=== PATIENT | female | born 1950 | race African-American/Black ===

== ENCOUNTER 2018-04-07 20:13 | Inpatient (IN) | payer OTHER ==
--- NOTE | 2018-04-07 16:15 | R.PREADM ---
SCREENING DATE AND TIME 04/07/2018 13:04 (CDT) ANTICIPATED REHAB ADMISSION DATE 04/09/2018 REFERRING FACILITY [facility] REFERRAL DATE AND TIME 04/07/2018 13:04 (CDT) ACUTE ADMIT DATE 03/30/2018 Previous Rehabilitation(s): No. 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 BRIANNA CASAS REHAB FACILITY [facility] CLINICAL LIAISON Jaron Guy PHYSICIAN REVIEWER Dr. Davie Hernandez M.D. [facility]# [id number] [id number] NAME SHANNAN MCKEE [address] [address] [address] DATE OF 1950 AGE 68 SSN# [id number] GENDER female MARITAL STATUS RACE black ADMIT FROM 02 - [facility] PRE-HOSPITAL LIVING SETTING 01 - Home (private home/apt. board/care, assisted living, half-way, transitional living) HOME TYPE AND DETAILS Type of home: single family house # of levels in the residence: 1 # of steps within the residence: 0 # of steps to enter the residence: 0 PRE-HOSPITAL LIVING WITH Alone FAMILY SUPPORT Yes PHONE PRIMARY FAMILY CONTACT ON ADM.? no IS PRIMARY FAMILY CONTACT AUTH. REP.? no PHONE 1ST CONTACT ON ADM. no IS 1ST CONTACT AUTH. REP.? no PHONE 2ND CONTACT ON ADM.? no PATIENT EMPLOYMENT STATUS Retired (for age) PATIENT EMPLOYER No Employer PAYOR INFORMATION: 1ST PAYOR NAME MEDICARE 1ST PAYOR PHONE [phone] 1ST PAYOR INJURY/ILLNESS DUE TO ACCIDENT? No ANOTHER CONSTITUTION PARTY RESPONSIBLE? No PRIMARY REHAB/ACUTE DIAGNOSIS: ESRD ONSET DATE 03/30/2018 REHAB IMPAIRMENT CATEGORY (PADMA): 20 Miscellaneous (Misc) does NOT meet 60% rule PRIMARY DIAGNOSIS-RELATED SURGERIES: Perm catheter insertion COMORBID REHAB/ACUTE DIAGNOSES: - Tier 1 Dependence on renal dialysis (Z99.2) - Non-Tiered Type 2 diabetes mellitus with diabetic neuropathy, unspecified (E11.40) - N/A HTN ARTHRITIS END STAGE RENAL DISEASE SUMMARY OF ACUTE HOSPITALIZATION: Pt. is a 68 yo Right-handed black female. On 03/30/2018 she was admitted to [facility] with diagnosis ESRD. Her impairment category is Other Disabling Impairments 13 - Other Disabling Impairments (13). Pre-morbidly, Pt. was independent/mod-I in Sphincter Control, Transfers Control, Communication, Socia l Cognition, Self-Care, and Locomotion; and she had good Sphincter Control. Currently, she has deficits of Safety Awareness, Transfers Control, Balance, Self-Care, Locomotion, a nd Endurance. Pt. is now referred to [facility] for acute in-patient rehabilitation in order to maximize patient's functional independence in activities of daily living, strength, ROM, and mobi lity. Patient has realistic goal of being discharged at assistance level 6-Deyanira to reside at Home with Fam joelle/Relatives. PAST MEDICAL HISTORY ARTHRITIS Dependence on renal dialysis (Z99.2) END STAGE RENAL DISEASE HTN Type 2 diabetes mellitus with diabetic neuropathy, unspecified (E11.40) PAST SURGICAL HISTORY: CATARACT APPENDECTOMY CHOLECYSTECTOMY HYSTERECTOMY PHACOEMULSIFICATION OF CATARACT WITH INTRAOCULAR LENS IMPLANT, BILATERAL MEDICATION ALLERGIES: No Known Drug Allergies (NKDA) ENVIRONMENTAL ALLERGIES: None Known - Substance Allergies None Known - Other Allergies None Known CODE STATUS: Full code WEIGHT/HEIGHT/BMI: WEIGHT 235 lbs HEIGHT 5' 0" BMI 45.9 DIET: - Diet Type Regular - Diet - Solid Texture Regular - Diet - Liquid Texture Regular - Tube Feed N/A REVIEW OF SYSTEMS: - Gen Alert and awake Lying in bed No apparent distress Oriented to: person, time, and place - Vital Signs Temperature: 98.9 F SBP/DBP: 153/55 Pulse: 66 Resp: 18 Vital signs stable, afebrile - CVS RRR VITAL SIGNS Temperature: 98.9 F SBP/DBP: 153/55 Pulse: 66 Resp: 18 Vital signs stable, afebrile CURRENT SPHINCTER CONTROL: Pre-hospital bladder status: continent # of bladder accidents in the last 7 days prior to screenin Pre-hospital bowel status: continent # of bowel accidents in the last 7 days prior to screenin Last Bowel Movement Date: DETAILED CURRENT FUNCTIONAL STATUS: - Bladder accident frequency: Ind - No accidents in the past 7 days - Bowel accident frequency: Ind - No accidents in the past 7 days - Walking score based on distance walked: 1(<=50ft) - Wheelchair score based on distance traveled: 0(N/A) FUNCTIONAL STATUS: - Self-Care A. Eating Ind sup B. Grooming Ind sup C. Bathing Ind Ethel D. Dressing - Upper Ind Ethel E. Dressing - Lower Ind Ethel F. Toileting Ind Ethel - Sphincter Control G: Bladder control Ind Ind H: Bowel control Ind Ind - Transfers Control I. Bed/Chair/Wheelchair Ind Ethel J. Toilet Ind Ethel K. Tub/Shower Ind ADNO - Locomotion L. Walk/Wheelchair (C) Ind Ethel L. Walk/Wheelchair (W) Ind Ethel M. Stairs Ind ADNO - Communication N. Comprehension (B) Ind Deyanira O. Expression (B) Ind Deyanira - Social Cognition P. Social Interaction Ind Deyanira Q. Problem Solving Ind Deyanira R. Memory Ind Deyanira - Endurance Fair - Balance Fair - Safety Awareness Fair CURRENT FUNC. DEFICITS: Safety Awareness, Transfers Control, Balance, Self-Care, Locomotion, and Endurance THERAPY NOTES FROM ACUTE CARE: Attached. SPECIAL NEEDS: - Safety Concerns Skin breakdown precautions needed due to skin breakdown risk PRECAUTIONS: - Fall Precaution Bed and chair alarm PATIENT NEEDS ACTIVE AND ONGOING THERAPEUTIC INTERVENTION OF MULTIPLE THERAPY DISCIPLINES, INCLUDING: - Occupational Therapy Evaluate and Treat. - Physical Therapy Evaluate and Treat. PATIENT NEEDS CLOSE MEDICAL SUPERVISION BY A REHABILITATION PHYSICIAN FOR: Bowel and Bladder Management Coordination of Treatment Team Diabetes Management Medical and Co-Morbidity Management DVT Management Pain Management PATIENT REQUIRES 24X7 REHAB NURSING FOR MEDICAL AND FUNCTIONAL MGT. OF THE FOLLOWING DEFICITS: ADL's Ambulation Bowel and Bladder Management Cognition Communication Disease Management Medication Management Patient/Family Education Providing Safe Environment Transfers Pain Management PATIENT REQUIRES INTENSIVE, COORDINATED INTERDISCIPLINARY APPROACH TO REHAB: Arranging Home Equipment/Services Discharge Planning Family Intervention/Training Block Breaker/Case Management PATIENT REHAB POTENTIAL: Expected level of measurable improvement will be of a practical value to patient's functional capacit y or adaptations to impairments Has a viable Discharge Plan Medically appropriate; condition is sufficiently stable to participate in intensive rehab program Patient is able and expected to receive 3 hours of individualized therapy daily on at least 5 of ever y 7 days Patient's prognosis for significant practical improvement within a reasonable period of time appears Good DISCHARGE PLAN: - Estimated Length of Stay (days) 13. - Consensus on plan Discharge plan has been discussed with primary caregiver. Patient/Family is in agreement with the cale n. Primary caregiver is in agreement with the plan. - Patient/Family Goals Return home with assistance. - Planned Living Setting Upon Discharge Home, to live with Family/Relatives. RECOMMENDED CARE LEVEL: IRF RECOMMENDATION DETAILS: Recommended Admission to Comprehensive Rehabilitation Program to Increase Functional [place] SCREENER'S COMPLETENESS CONFIRMATION: - Screening Confirmation The patient data collection on this preadmission screening form is finished PHYSICIANS REVIEW AND ADMISSION DETERMINATION Admit - Based on my review of the Pre-Admission Screening results, in my medical judgment and experie nce, I concur with the findings and recommend admission to [facility], as this patient requires an IRF level of care. SIGNATURE PANEL: Clinical Liaison - [electronically] signed by Jaron Guy on 04/07/2018 at 13:55 (CDT) Physician Reviewer - [electronically] signed by Dr. Davie Hernandez M.D. on 04/07/2018 at 16:14 (CDT )
--- OUTSIDE RECORDS SUMMARY | 2018-04-07 20:15 | XMS REPORT | Clinical Summary ---
:1950 Author Organization [facility] Address [address] [place] [address] Care Team Providers Name Role Phone Walt Logan MD Primary Care Provider Allergies No Known Allergies Current Medications Prescription Sig. Disp. Refills Start Date End Date Status bimatoprost Administer 1 Active (LUMIGAN) 0.01 % drop to both ophthalmic drops eyes nightly. brimonidine-timolol Administer 1 Active (COMBIGAN) 0.2-0.5 % drop to both ophthalmic solution eyes 2 (two) times a day. gabapentin Take 200 mg by Active (NEURONTIN) 100 mg mouth 3 (three) capsule times a day. diphenhydrAMINE Take 25 mg by Active (BENADRYL) 25 mg mouth daily as tablet needed for allergies. hydrOXYzine (ATARAX) Take 25 mg by Active 25 MG tablet mouth every 8 (eight) hours as needed for itching. famotidine (PEPCID) Take 20 mg by Active 20 MG tablet mouth 2 (two) times a day. atorvastatin Take 10 mg by Active (LIPITOR) 10 MG mouth daily. tablet glipiZIDE Take 2.5 mg by Active (GLUCOTROL) 2.5 MG mouth every 24 hr tablet morning. furosemide (LASIX) Take 20 mg by 01/15/20 Discontinued 20 mg tablet mouth daily. 18 Note: Rx label state 1 tab QOD, but pt states MD changed to QD. carvedilol (COREG) Take 12.5 mg by 01/15/20 Discontinued 6.25 MG tablet mouth 2 (two) 18 times a day with meals. Note: Rx label state 1 tab BID, but pt states MD changed to 2 tab BID. enalapril (VASOTEC) Take 20 mg by 01/15/20 Discontinued 20 MG tablet mouth every 18 morning. clonIDINE HCl Take 0.2 mg by 01/15/20 Discontinued (CATAPRES) 0.2 MG mouth 2 (two) 18 tablet times a day. carvedilol (COREG) Take 1 tablet 60 tablet 0 01/14/2018 02/14/20 25 MG tablet (25 mg total) 18 by mouth 2 (two) times a day with meals for 30 days. nystatin Take 5 mL by 60 mL 0 01/14/2018 01/22/20 (MYCOSTATIN) 100,000 mouth 3 (three) 18 unit/mL suspension times a day for 7 days. Swish in mouth clonIDINE HCl Take 1 tablet 90 tablet 0 01/14/2018 02/14/20 (CATAPRES) 0.2 MG (0.2 mg total) 18 tablet by mouth 3 (three) times a day for 30 days. hydrALAZINE Take 1 tablet 90 tablet 0 01/14/2018 02/14/20 (APRESOLINE) 50 MG (50 mg total) 18 tablet by mouth every 8 (eight) hours for 30 days. furosemide (LASIX) Take 2 tablets 60 tablet 0 01/14/2018 02/14/20 20 mg tablet (40 mg total) 18 by mouth daily for 30 days. Note: Rx label state 1 tab QOD, but pt states MD changed to QD. doxycycline Take 1 capsule 10 capsule 0 01/14/2018 01/20/20 (VIBRAMYCIN) 100 MG (100 mg total) 18 capsule by mouth 2 (two) times a day with meals for 5 days. Active Problems Problem Noted Date Cellulitis of right lower extremity 01/07/2018 Encounters Date Type Specialty Care Team Description 01/23/2018 Documentation Nephrology Jeannie Jackson MD 01/07/2018 - Hospital Encounter General Internal Rivenes, Cellulitis of right lower extremity (Primary Dx); 01/14/2018 Medicine Jose Hernández MD Chronic kidney disease, unspecified CKD stage; Winnie, Congestive heart failure, unspecified congestive heart failure chronicity, unspecified congestive heart failure type; MD Sue Anemia, unspecified type; Zuhair Mcfarlane, Osteoarthritis of knee, unspecified laterality, unspecified osteoarthritis type MD after 04/06/2017 Social History Tobacco Use Types Packs/Day Years Used Date Never Smoker Smokeless Tobacco: Never Used Alcohol Use Drinks/Week oz/Week Comments No Sex Assigned at Date Recorded Not on file Last Filed Vital Signs Vital Sign Reading Time Taken Blood Pressure 155/69 01/14/2018 11:12 AM CDT Pulse 68 01/14/2018 1:29 PM CDT Temperature 36.3 C (97.4 F) 01/14/2018 11:12 AM CDT Respiratory Rate 18 01/14/2018 1:29 PM CDT Oxygen Saturation 97% 01/14/2018 11:12 AM CDT Inhaled Oxygen Concentration - - Weight 120 kg (265 lb) 01/14/2018 7:19 AM CDT Height 157.5 cm (5' 2") 01/07/2018 12:29 PM CDT Body Mass Index 48.47 01/14/2018 7:19 AM CDT Plan of Treatment Health Maintenance Due Date Last Done Comments DIABETIC FOOT EXAM 1958 DIABETIC RETINAL EYE EXAM 1958 URINE MICROALBUMIN 1958 BREAST CANCER SCREENING 1998 COLON CANCER SCREENING 1998 SHINGRIX VACCINE (#1) 1998 ZOSTER VACCINE 2008 PNEUMOCOCCAL POLYSACCHARIDE VACCINE AGE 65 AND OVER 2013 PNEUMOCOCCAL-13 2013 INFLUENZA VACCINE 04/13/2018 Procedures Procedure Name Priority Date/Time Associated Comments Diagnosis POC GLUCOSE Routine 01/14/2018 11:14 Results for this AM CDT procedure are in the results section. POC GLUCOSE Routine 01/14/2018 7:49 Results for this AM CDT procedure are in the results section. ESTIMATED GFR Routine 01/14/2018 4:15 Results for this AM CDT procedure are in the results section. BASIC METABOLIC PANEL Routine 01/14/2018 4:15 Results for this AM CDT procedure are in the results section. POC GLUCOSE Routine 01/13/2018 9:24 Results for this PM CDT procedure are in the results section. POC GLUCOSE Routine 01/13/2018 4:46 Results for this PM CDT procedure are in the results section. XR CHEST 1 VW PORTABLE Routine 01/13/2018 12:15 Results for this PM CDT procedure are in the results section. POC GLUCOSE Routine 01/13/2018 11:26 Results for this AM CDT procedure are in the results section. POC GLUCOSE Routine 01/13/2018 8:02 Results for this AM CDT procedure are in the results section. ESTIMATED GFR Routine 01/13/2018 12:45 Results for this AM CDT procedure are in the results section. BASIC METABOLIC PANEL Routine 01/13/2018 12:45 Results for this AM CDT procedure are in the results section. POC GLUCOSE Routine 01/12/2018 9:11 Results for this PM CDT procedure are in the results section. ECG 12-LEAD STAT 01/12/2018 7:45 Results for this PM CDT procedure are in the results section. POC GLUCOSE Routine 01/12/2018 4:41 Results for this PM CDT procedure are in the results section. POC GLUCOSE Routine 01/12/2018 12:31 Results for this PM CDT procedure are in the results section. POC GLUCOSE Routine 01/12/2018 7:50 Results for this AM CDT procedure are in the results section. POC GLUCOSE Routine 01/11/2018 9:24 Results for this PM CDT procedure are in the results section. POC GLUCOSE Routine 01/11/2018 4:29 Results for this PM CDT procedure are in the results section. POC GLUCOSE Routine 01/11/2018 12:12 Results for this PM CDT procedure are in the results section. HC COMPLETE BLD COUNT Routine 01/11/2018 10:05 Results for this W/AUTO DIFF AM CDT procedure are in the results section. ESTIMATED GFR Routine 01/11/2018 10:02 Results for this AM CDT procedure are in the results section. BASIC METABOLIC PANEL Routine 01/11/2018 10:02 Results for this AM CDT procedure are in the results section. POC GLUCOSE Routine 01/11/2018 8:12 Results for this AM CDT procedure are in the results section. ARTERIAL BLOOD GAS Routine 01/11/2018 7:40 Results for this AM CDT procedure are in the results section. POC GLUCOSE Routine 01/10/2018 9:36 Results for this PM CDT procedure are in the results section. XR ABDOMEN 1 VW Routine 01/10/2018 8:44 Results for this PM CDT procedure are in the results section. POC GLUCOSE Routine 01/10/2018 4:16 Results for this PM CDT procedure are in the results section. POC GLUCOSE Routine 01/10/2018 12:51 Results for this PM CDT procedure are in the results section. XR CHEST 1 VW PORTABLE Routine 01/10/2018 9:37 Results for this AM CDT procedure are in the results section. POC GLUCOSE Routine 01/10/2018 7:51 Results for this AM CDT procedure are in the results section. ESTIMATED GFR Routine 01/10/2018 4:15 Results for this AM CDT procedure are in the results section. HC COMPLETE BLD COUNT Routine 01/10/2018 4:15 Results for this W/AUTO DIFF AM CDT procedure are in the results section. COMPREHENSIVE METABOLIC Routine 01/10/2018 4:15 Results for this PANEL AM CDT procedure are in the results section. POC GLUCOSE Routine 01/09/2018 8:40 Results for this PM CDT procedure are in the results section. VANCOMYCIN LEVEL, TROUGH Timed 01/09/2018 5:30 Results for this PM CDT procedure are in the results section. POC GLUCOSE Routine 01/09/2018 4:18 Results for this PM CDT procedure are in the results section. POC GLUCOSE Routine 01/09/2018 11:57 Results for this AM CDT procedure are in the results section. POC GLUCOSE Routine 01/09/2018 7:31 Results for this AM CDT procedure are in the results section. CREATINE KINASE, TOTAL Routine 01/09/2018 2:10 Results for this (CPK) AM CDT procedure are in the results section. ESTIMATED GFR Routine 01/09/2018 2:10 Results for this AM CDT procedure are in the results section. LIPASE LEVEL Routine 01/09/2018 2:10 Results for this AM CDT procedure are in the results section. CBC WITH PLATELET AND Routine 01/09/2018 2:10 Results for this DIFFERENTIAL AM CDT procedure are in the results section. COMPREHENSIVE METABOLIC Routine 01/09/2018 2:10 Results for this PANEL AM CDT procedure are in the results section. SERUM ELECTROPHORESIS Routine 01/09/2018 2:10 Results for this AM CDT procedure are in the results section. HEPATITIS ACUTE PANEL Routine 01/09/2018 2:10 Results for this AM CDT procedure are in the results section. GLOMERULAR BASEMENT Routine 01/09/2018 2:10 Results for this MEMBRANE AB IGG (IFA) AM CDT procedure are in the results section. ANTI-NEUTROPHILIC Routine 01/09/2018 2:10 Results for this CYTOPLASMIC ABS PANEL AM CDT procedure are in the results section. TROPONIN Timed 01/09/2018 2:10 Results for this AM CDT procedure are in the results section. US RENAL Routine 01/09/2018 1:42 Results for this AM CDT procedure are in the results section. URINALYSIS SCREEN AND Routine 01/08/2018 11:30 Results for this MICROSCOPY, WITH REFLEX PM CDT procedure are in TO CULTURE the results section. URINE CULTURE Routine 01/08/2018 11:30 Results for this PM CDT procedure are in the results section. POC GLUCOSE Routine 01/08/2018 8:52 Results for this PM CDT procedure are in the results section. ESTIMATED GFR Routine 01/08/2018 5:30 Results for this PM CDT procedure are in the results section. COMPREHENSIVE METABOLIC Routine 01/08/2018 5:30 Results for this PANEL PM CDT procedure are in the results section. ARTERIAL BLOOD GAS Routine 01/08/2018 5:11 Results for this PM CDT procedure are in the results section. POC GLUCOSE Routine 01/08/2018 4:37 Results for this PM CDT procedure are in the results section. ECHOCARDIOGRAM 2D Routine 01/08/2018 4:25 Results for this COMPLETE W MMODE PM CDT procedure are in SPECTRAL COLOR DOPPLER the results (09660) section. ESTIMATED GFR Routine 01/08/2018 12:30 Results for this PM CDT procedure are in the results section. COMPREHENSIVE METABOLIC Routine 01/08/2018 12:30 Results for this PANEL PM CDT procedure are in the results section. POC GLUCOSE Routine 01/08/2018 12:16 Results for this PM CDT procedure are in the results section. CT CHEST WO CONTRAST Routine 01/08/2018 10:13 Results for this AM CDT procedure are in the results section. POC GLUCOSE Routine 01/08/2018 8:25 Results for this AM CDT procedure are in the results section. LACTIC ACID LEVEL, Timed 01/08/2018 4:10 Results for this SEPSIS - NOW AND REPEAT AM CDT procedure are in 2X EVERY 3 HOURS the results section. POC GLUCOSE Routine 01/07/2018 7:09 Results for this PM CDT procedure are in the results section. LACTIC ACID LEVEL, Timed 01/07/2018 4:30 Results for this SEPSIS - NOW AND REPEAT PM CDT procedure are in 2X EVERY 3 HOURS the results section. US DUPLEX VENOUS LOWER STAT 01/07/2018 3:10 Results for this EXTREMITY RIGHT PM CDT procedure are in the results section. BLOOD CULTURE, AEROBIC & Routine 01/07/2018 2:58 Results for this ANAEROBIC PM CDT procedure are in the results section. BLOOD CULTURE, AEROBIC & Routine 01/07/2018 2:40 Results for this ANAEROBIC PM CDT procedure are in the results section. ECG 12-LEAD STAT 01/07/2018 1:52 Results for this PM CDT procedure are in the results section. ESTIMATED GFR STAT 01/07/2018 1:45 Results for this PM CDT procedure are in the results section. B NATRIURETIC PEPTIDE STAT 01/07/2018 1:45 Results for this PM CDT procedure are in the results section. TROPONIN STAT 01/07/2018 1:45 Results for this PM CDT procedure are in the results section. LACTIC ACID LEVEL, STAT 01/07/2018 1:45 Results for this SEPSIS - NOW AND REPEAT PM CDT procedure are in 2X EVERY 3 HOURS the results section. COMPREHENSIVE METABOLIC STAT 01/07/2018 1:45 Results for this PANEL PM CDT procedure are in the results section. HC COMPLETE BLD COUNT STAT 01/07/2018 1:45 Results for this W/AUTO DIFF PM CDT procedure are in the results section. XR CHEST 1 VW PORTABLE STAT 01/07/2018 1:43 Results for this PM CDT procedure are in the results section. XR KNEE 4+ VW RIGHT STAT 01/07/2018 1:43 Results for this PM CDT procedure are in the results section. ECG ED PRELIMINARY Routine 01/07/2018 1:18 Results for this INTERPRETATION PM CDT procedure are in the results section. URINALYSIS SCREEN AND STAT 01/07/2018 1:18 Results for this MICROSCOPY, WITH REFLEX PM CDT procedure are in TO CULTURE the results section. URINE CULTURE STAT 01/07/2018 1:18 Results for this PM CDT procedure are in the results section. after 04/06/2017 Results POC glucose (01/14/2018 11:14 AM)Only the most recent of27 resultswithin the time period is included. POC glucose 260 (H) 65 - 99 mg/dL [facility] DEPARTMENT OF PATHOLOGY AND Comment: GENOMIC MEDICINE RN Notified Meter ID: [id number] [employer] Sales Representative: Wayne Almaraz Performing Organization Address City/State/Zipcode Phone Number [facility] DEPARTMENT OF PATHOLOGY [address] [facility] [place] [address] AND GENOMIC MEDICINE Estimated GFR (01/14/2018 4:15 AM)Only the most recent of8 resultswithin the time period is included. GFR Non Af Amer 21 (A) mL/min/1.73 m2 [facility] DEPARTMENT OF PATHOLOGY AND GENOMIC MEDICINE GFR Af Amer 25 (A) mL/min/1.73 m2 [facility] DEPARTMENT OF Comment: PATHOLOGY AND GENOMIC Chronic kidney disease: <60 mL/min/1.73m2 MEDICINE Kidney failure: <15 mL/min/1.73m2 The estimated GFR is calculated from the IDMS-traceable Modification of Diet in Renal Disease Equation. The accuracy of the calculation is poor when the creatinine is normal. Calculated values >90 mL/min/1.73m2 are not reported. This equation has not been validated in children (<18 years), women, the elderly (>70 years), or ethnic groups other than Caucasians and Americans. Specimen Plasma specimen Performing Organization Address City/[facility] Cent[facility]ode Phone Number [facility] DEPARTMENT OF PATHOLOGY [address] [place] [address]. [place] [address] AND [employer] Basic metabolic panel (01/14/2018 4:15 AM)Only the most recent of3 resultswithin the time period is included. Sodium 142 135 - 148 mEq/L [facility] DEPARTMENT OF PATHOLOGY AND GENOMIC MEDICINE Potassium 4.1 3.5 - 5.0 mEq/L [facility] DEPARTMENT OF PATHOLOGY AND GENOMIC MEDICINE Chloride 107 98 - 112 mEq/L [facility] DEPARTMENT OF PATHOLOGY AND GENOMIC MEDICINE CO2 23 (L) 24 - 31 mEq/L [facility] DEPARTMENT OF PATHOLOGY AND GENOMIC MEDICINE Anion gap 12 7 - 15 mEq/L [facility] DEPARTMENT OF Comment: PATHOLOGY AND GENOMIC Starting from December , anion gap calculation MEDICINE no longer incorporates potassium. Please note the change. BUN 32 (H) 8 - 23 mg/dL [facility] DEPARTMENT OF PATHOLOGY AND GENOMIC MEDICINE Creatinine 2.3 (H) 0.5 - 0.9 mg/dL [facility] DEPARTMENT OF PATHOLOGY AND GENOMIC MEDICINE Glucose 165 (H) 65 - 99 mg/dL [facility] DEPARTMENT OF PATHOLOGY AND GENOMIC MEDICINE Calcium 8.5 (L) 8.8 - 10.2 mg/dL [facility] DEPARTMENT OF PATHOLOGY AND GENOMIC MEDICINE Specimen Plasma specimen Performing Organization Address City/[facility] Centercode Phone Number [facility] DEPARTMENT OF PATHOLOGY [address] [place] [address]. [place] [address] AND [employer] XR Chest 1 Vw Portable (01/13/2018 12:15 PM)Only the most recent of3 resultswithin the time period is included. Narrative Performed At EXAMINATION:XR CHEST 1 VW PORTABLE [facility] CLINICAL HISTORY:Congestive Heart Failure COMPARISON:01/10/2018 IMPRESSION: No significant change. Moderate cardiomegaly and central pulmonary vascular congestion, accentuated by low lung volumes. No definite infiltrate, consolidation, pleural effusion or pneumothorax. Osseous degenerative changes. [id number] Procedure Note Hm Interface, Radiology Results Incoming - 01/13/2018 12:28 PM CDT EXAMINATION: XR CHEST 1 VW PORTABLE CLINICAL HISTORY: Congestive Heart Failure COMPARISON: 01/10/2018 IMPRESSION: No significant change. Moderate cardiomegaly and central pulmonary vascular congestion, accentuated by low lung volumes. No definite infiltrate, consolidation, pleural effusion or pneumothorax. Osseous degenerative changes. [id number] Performing Organization Address [facility] Phone Number [facility] [address] [place] [address] ECG 12 lead (01/12/2018 7:45 PM)Only the most recent of2 resultswithin the time period is included. Ventricular rate 77 [facility] MUSE Atrial rate 88 [facility] MUSE QRSD interval 78 [facility] QT interval 392 [facility] QTC interval 443 [facility]USE QRS axis 1 26 [facility] T wave axis 56 [facility] EKG impression Atrial fibrillation-Abnormal ECG-In automated [facility] MUSE comparison with ECG of 07-JAN-2018 13:52,-QT has lengthened- Performing Organization Address [facility] Phone Number [employer] [facility] [address] [place] [address] CBC with platelet and differential (01/11/2018 10:05 AM)Only the most recent of4 resultswithin the time period is included. WBC 3.8 (L) 4.5 - 11.0 k/uL [facility] DEPARTMENT OF PATHOLOGY AND GENOMIC MEDICINE RBC 3.13 (L) 4.20 - 5.50 m/uL [facility] DEPARTMENT OF PATHOLOGY AND GENOMIC MEDICINE HGB 9.2 (L) 12.0 - 16.0 g/dL [facility] DEPARTMENT OF PATHOLOGY AND GENOMIC MEDICINE HCT 28.6 (L) 37.0 - 47.0 % [facility] DEPARTMENT OF PATHOLOGY AND GENOMIC MEDICINE MCV 91.4 82.0 - 100.0 fL [facility] DEPARTMENT OF PATHOLOGY AND GENOMIC MEDICINE MCH 29.4 27.0 - 34.0 pg [facility] DEPARTMENT OF PATHOLOGY AND GENOMIC MEDICINE MCHC 32.2 31.0 - 37.0 g/dL [facility] DEPARTMENT OF PATHOLOGY AND GENOMIC MEDICINE RDW - SD 48.6 37.0 - 55.0 fL [facility] DEPARTMENT OF PATHOLOGY AND GENOMIC MEDICINE MPV 9.8 6.9 - 11.0 fL [facility] OF PATHOLOGY AND GENOMIC MEDICINE Platelet count 198 150 - 400 K/uL [facility] DEPARTMENT OF PATHOLOGY AND GENOMIC MEDICINE Nucleated RBC 0.00 /100 WBC [facility] DEPARTMENT OF PATHOLOGY AND GENOMIC MEDICINE Neutrophils 63.8 39.0 - 69.0 % [facility] DEPARTMENT OF PATHOLOGY AND GENOMIC MEDICINE Lymphocytes 18.6 (L) 25.0 - 45.0 % [facility] DEPARTMENT OF PATHOLOGY AND GENOMIC MEDICINE Monocytes 11.5 (H) 0.0 - 10.0 % [facility] DEPARTMENT OF PATHOLOGY AND GENOMIC MEDICINE Eosinophils 5.5 (H) 0.0 - 5.0 % [facility] DEPARTMENT OF PATHOLOGY AND GENOMIC MEDICINE Basophils 0.3 0.0 - 1.0 % [facility] OF PATHOLOGY AND GENOMIC MEDICINE Immature granulocytes 0.3 0.0 - 1.0 % [facility] DEPARTMENT OF PATHOLOGY AND GENOMIC MEDICINE Specimen Blood Performing Organization Address City/[facility] Centercode Phone Number [place] [phone] [place] [address] AND [facility] Arterial blood gas (01/11/2018 7:40 AM)Only the most recent of2 resultswithin the time period is included. pH, arterial 7.32 (L) 7.35 - 7.45 [facility] DEPARTMENT OF PATHOLOGY AND GENOMIC MEDICINE pCO2, arterial 40 35 - 45 mmHg [facility] DEPARTMENT OF PATHOLOGY AND GENOMIC MEDICINE pO2, arterial 125 (H) 80 - 90 mmHg [facility] DEPARTMENT OF PATHOLOGY AND GENOMIC MEDICINE Bicarbonate, arterial 19.7 (L) 21.0 - 28.0 mmol/L [facility] PATHOLOGY AND GENOMIC MEDICINE Base excess, arterial -6 (L) -2 - 2 mEq/L [facility] DEPARTMENT OF PATHOLOGY AND GENOMIC MEDICINE O2 saturation, arterial 99 95 - 100 % [facility] DEPARTMENT OF PATHOLOGY AND [email or web address] MEDICINE Specimen Blood Performing Organization Address City/[facility] Centercode Phone Number [facility] PATHOLOGY [address] [facility] [place] [address] AND GENOMIC MEDICINE XR Abdomen 1 Vw (01/10/2018 8:44 PM) Narrative Performed At EXAMINATION:XR ABDOMEN 1 VW [facility] CLINICAL HISTORY:Vomiting COMPARISON:None. Impression: The bowel gas pattern is nonspecific. No pathologic masses. A small calcific density in the right upper quadrant may represent small gallstones. There are no renal calculi on the recent kidney ultrasound. There are degenerative changes in the lumbar spine.. [id number] Procedure Note Interface, Radiology Results Incoming - 01/10/2018 9:32 PM CDT EXAMINATION: XR ABDOMEN 1 VW CLINICAL HISTORY: Vomiting COMPARISON: None. Impression: The bowel gas pattern is nonspecific. No pathologic masses. A small calcific density in the right upper quadrant may represent small gallstones. There are no renal calculi on the recent kidney ultrasound. There are degenerative changes in the lumbar spine.. [id number] Performing Organization Address City/State/Zipcode Phone Number [facility] [address] [place] [address] Comprehensive metabolic panel (01/10/2018 4:15 AM)Only the most recent of5 resultswithin the time period is included. Sodium 139 135 - 148 mEq/L [facility] DEPARTMENT OF PATHOLOGY AND GENOMIC MEDICINE Potassium 4.9 3.5 - 5.0 mEq/L [facility] DEPARTMENT OF PATHOLOGY AND GENOMIC MEDICINE Chloride 105 98 - 112 mEq/L [facility] DEPARTMENT OF PATHOLOGY AND GENOMIC MEDICINE CO2 20 (L) 24 - 31 mEq/L [facility] DEPARTMENT OF PATHOLOGY AND GENOMIC MEDICINE Anion gap 14 7 - 15 mEq/L [facility] DEPARTMENT OF Comment: PATHOLOGY AND GENOMIC Starting from December , anion gap calculation MEDICINE no longer incorporates potassium. Please note the change. BUN 62 (H) 8 - 23 mg/dL [facility] DEPARTMENT OF PATHOLOGY AND GENOMIC MEDICINE Creatinine 2.9 (H) 0.5 - 0.9 mg/dL [facility] DEPARTMENT OF PATHOLOGY AND GENOMIC MEDICINE Glucose 188 (H) 65 - 99 mg/dL [facility] DEPARTMENT OF PATHOLOGY AND GENOMIC MEDICINE Calcium 7.9 (L) 8.8 - 10.2 mg/dL [facility] DEPARTMENT OF PATHOLOGY AND GENOMIC MEDICINE Protein 6.1 (L) 6.3 - 8.3 g/dL [facility] DEPARTMENT OF PATHOLOGY AND GENOMIC MEDICINE Albumin 3.0 (L) 3.5 - 5.0 g/dL [facility] DEPARTMENT OF PATHOLOGY AND GENOMIC MEDICINE A/G ratio 1.0 0.7 - 3.8 [facility] DEPARTMENT OF PATHOLOGY AND GENOMIC MEDICINE Alkaline phosphatase 86 35 - 104 U/L [facility] DEPARTMENT OF PATHOLOGY AND GENOMIC MEDICINE AST 14 10 - 35 U/L [facility] DEPARTMENT OF PATHOLOGY AND GENOMIC MEDICINE ALT 26 5 - 50 U/L [facility] DEPARTMENT OF PATHOLOGY AND GENOMIC MEDICINE Total bilirubin <0.2 0.2 - 1.2 mg/dL [facility] DEPARTMENT OF PATHOLOGY AND GENOMIC MEDICINE Specimen Plasma specimen Performing Organization Address City/[facility] Centercomn Phone Number [facility] DEPARTMENT OF PATHOLOGY [address] [place] [address] AND [facility] Vancomycin level, trough (01/09/2018 5:30 PM) Vancomycin, trough 6.5 (L) 10.0 - 20.0 ug/mL [facility] DEPARTMENT OF Comment: PATHOLOGY AND GENOMIC Therapeutic Ranges: MEDICINE Peak30.0 - 40.0 ug/mL Rtpbod06.0 - 20.0 ug/mL Specimen Blood Performing Organization Address [facility] Phone Number [facility] DEPARTMENT OF PATHOLOGY [address] [place] [address] AND [facility] Glomerular basement membrane Ab IgG (IFA) (01/09/2018 2:10 AM) Glomerular basement Negative Negative [facility] membrane Ab Comment: INTERPRETIVE INFORMATION:GBM Ab, IgG (IFA) When present, IgG antibody to glomerular basement membrane (GBM) antigen detected by either indirect fluorescent antibody (IFA) or multiplex bead assay helps support a diagnosis of Goodpasture syndrome.However, the combined result of both assays performed during initial evaluation improves the diagnostic sensitivity for disease. A positive result in one or both assays should be confirmed by renal biopsy. Test developed and characteristics determined by [employer]. See Compliance Statement D: [employer]CS Performed by [employer], [address] [place] [address] [email or web address], Brad Menon MD - Lab. Director Specimen Serum Performing Organization Address [facility] Cent[facility] Phone Number [facility] [address] [place] [address] Troponin (01/09/2018 2:10 AM)Only the most recent of2 resultswithin the time period is included. Troponin <0.30 0.00 - 0.30 ng/mL [facility] DEPARTMENT OF PATHOLOGY Comment: AND [facility] MEDICINE 0.11 - 1.49 ng/mlMay indicate increased risk of acute coronary syndrome. >=1.5 ng/mlConsistent with acute myocardial infarction. The diagnostic value of a single normal or non-diagnostic result is questionable.Serial samples at 2-6 hour intervals are required to rule out acute myocardial injury. Specimen Plasma specimen Performing Organization Address City/[facility] Centercode Phone Number [facility] DEPARTMENT OF PATHOLOGY [address] [place] [address] AND [email or web address] [facility] Hepatitis acute panel (01/09/2018 2:10 AM) Hepatitis A IgM Non-reactive Non-reactive [facility] DEPARTMENT OF PATHOLOGY AND GENOMIC MEDICINE Hepatitis B core IgM Non-reactive Non-reactive [facility] DEPARTMENT OF PATHOLOGY AND GENOMIC MEDICINE Hepatitis B surface Ag Non-reactive Non-reactive [facility] DEPARTMENT OF PATHOLOGY AND GENOMIC MEDICINE Hepatitis C Ab Non-reactive Non-reactive [facility] DEPARTMENT OF PATHOLOGY AND [email or web address] MEDICINE Specimen Serum Performing Organization Address [facility] Phone Number [facility] DEPARTMENT OF PATHOLOGY AND [address] [place] [address] [facility] Anti-neutrophilic cytoplasmic Abs panel (01/09/2018 2:10 AM) ANCA screen Positive (A) Negative [facility] DEPARTMENT OF PATHOLOGY AND GENOMIC MEDICINE ANCA pattern Atyp-ANCA (A) Negative [facility] DEPARTMENT OF PATHOLOGY AND GENOMIC MEDICINE ANCA titer See Comment Negative [facility] DEPARTMENT OF Comment: PATHOLOGY AND [facility] Titer of Atypical-ANCAcannot be reliably determined due to interference MEDICINE from VIRGILIO staining on IFA slides. MPO (myeloperoxidase) <20 0 - 20 Units [facility] DEPARTMENT OF Comment: PATHOLOGY AND GENOMIC Negative: 0 - 20 units MEDICINE Weak Positive:21 - 30 units Moderate to Strong: > 30 units MPO (myeloperoxidase) Negative Negative [facility] DEPARTMENT OF [facility] PATHOLOGY AND [facility] MEDICINE MS-3 (protease) <20 0 - 20 Units [facility] DEPARTMENT OF Comment: PATHOLOGY AND GENOMIC Negative:0 - 20 UNITS MEDICINE Weak Positive: 21 - 30 UNITS Moderate to Strong Positive: > 30 UNITS MS-3 (protease) interp Negative Negative [facility] DEPARTMENT OF PATHOLOGY AND GENOMIC MEDICINE Specimen Blood Performing Organization Address City/[facility] Centercode Phone Number [facility] DEPARTMENT OF PATHOLOGY AND [address] [place] [address] GENOMIC MEDICINE Serum electrophoresis (01/09/2018 2:10 AM) Protein 5.5 (L) 6.3 - 8.3 g/dL [facility] DEPARTMENT OF Comment: PATHOLOGY AND [place] 4.6-7.0 g/dL GENOMIC MEDICINE 1 week 4.4-7.6 g/dL 7 months-1year5.1-7.3 g/dL 1-2 years5.6-7.5 g/dL >3 years6.0-8.0 g/dL 18-150 6.3-8.3 g/dL SPE albumin 2.85 (L) 4.00 - 5.30 [facility] DEPARTMENT OF g/dL PATHOLOGY AND GENOMIC MEDICINE SPE alpha 1 0.23 0.10 - 0.25 [facility] DEPARTMENT OF g/dL PATHOLOGY AND GENOMIC MEDICINE SPE alpha 2 1.02 (H) 0.58 - 0.84 [facility] DEPARTMENT OF g/dL PATHOLOGY AND GENOMIC MEDICINE SPE beta 0.85 0.50 - 1.10 [facility] DEPARTMENT OF g/dL PATHOLOGY AND GENOMIC MEDICINE SPE gamma 0.54 (L) 0.60 - 1.30 [facility] DEPARTMENT OF g/dL PATHOLOGY AND GENOMIC MEDICINE SPE extended See Comment [facility] DEPARTMENT OF interpretation Comment: PATHOLOGY AND Total protein and albumin are decreased while the relative concentrations GENOMIC MEDICINE of alpha-1 globulins and alpha-2 globulins are increased indicating an acute phase response to infection, inflammation or tissue injury. Gamma globulins are slightly decreased. SPE interpretation See CommentComment: [facility] DEPARTMENT OF Luis Jiménez PhD; Manjit BROCK AND Deshawn FLORES PhD GENOMIC MEDICINE Specimen Serum Performing Organization Address City/[facility]/Zipcode Phone Number [facility] DEPARTMENT OF PATHOLOGY AND [address] [place] [address] [facility] MEDICINE Lipase level (01/09/2018 2:10 AM) Lipase 15 13 - 60 U/L [facility] DEPARTMENT OF PATHOLOGY AND GENOMIC MEDICINE Specimen Plasma specimen Performing Organization Address City/State/Zipcode Phone Number [facility] DEPARTMENT OF PATHOLOGY [address] [place] [address] AND [facility] MEDICINE Creatine kinase, total (CPK) (01/09/2018 2:10 AM) Creatine kinase 81 26 - 192 U/L [facility] DEPARTMENT OF PATHOLOGY AND GENOMIC MEDICINE Specimen Plasma specimen Performing Organization Address City/State/Zipcode Phone Number [facility] DEPARTMENT OF PATHOLOGY [address] [facility] [place] [address] AND GENOMIC MEDICINE US Renal (01/09/2018 1:42 AM) Narrative Performed At EX[facility] CLINICAL HISTORY:RENAL FAILURECHRONIC COMPARISON:None. FINDINGS: The kidneys demonstrate mild increased cortical echogenicity, nonspecific but suggestive of chronic renal disease. There is no evidence of renal mass, calculi, or hydronephrosis. The right kidney measures 9.5 cm; cortex measures 1.4 cm. The left kidney measures 8.9 cm; cortex measures 1.2 cm. The urinary bladder is unremarkable. Bilateral ureteral jets were not visualized. IMPRESSION: 1.Kidneys demonstrate mild increased cortical echogenicity, nonspecific but suggestive of chronic renal disease Otherwise unremarkable sonographic evaluation of the kidneys. [facility]-[id number] Procedure Note Interface, Radiology Results Incoming - 01/09/2018 1:48 AM CDT EXAM: US RENAL CLINICAL HISTORY: RENAL FAILURE CHRONIC COMPARISON: None. FINDINGS: The kidneys demonstrate mild increased cortical echogenicity, nonspecific but suggestive of chronic renal disease. There is no evidence of renal mass, calculi , or hydronephrosis. The right kidney measures 9.5 cm; cortex measures 1.4 cm. The left kidney measures 8.9 cm; cortex measures 1.2 cm. The urinary bladder is unremarkable. Bilateral ureteral jets were not visualized. IMPRESSION: 1. Kidneys demonstrate mild increased cortical echogenicity, nonspecific but suggestive of chronic renal disease Otherwise unremarkable sonographic evaluation of the kidneys. [facility]-[id number] Performing Organization Address City/State/Zipcode Phone Number [facility] [address] [place] [address] Urinalysis screen and microscopy, with reflex to culture (01/08/2018 11:30 PM) Only the most recent of2 resultswithin the time period is included. Specimen site Clean catch [facility] DEPARTMENT OF PATHOLOGY AND GENOMIC MEDICINE Color, UA Yellow [facility] DEPARTMENT OF PATHOLOGY AND GENOMIC MEDICINE Appearance, UA Sl Cloudy [facility] DEPARTMENT OF PATHOLOGY AND GENOMIC MEDICINE Specific gravity, UA 1.015 1.001 - 1.030 [facility] DEPARTMENT OF PATHOLOGY AND GENOMIC MEDICINE pH, UA 5.0 5.0 - 9.0 [facility] DEPARTMENT OF PATHOLOGY AND GENOMIC MEDICINE Protein, UA 2+ (A) Negative [facility] DEPARTMENT OF PATHOLOGY AND GENOMIC MEDICINE Glucose, UA 1+ (A) Negative [facility] DEPARTMENT OF PATHOLOGY AND GENOMIC MEDICINE Ketones, UA Negative Negative [facility] DEPARTMENT OF PATHOLOGY AND GENOMIC MEDICINE Bilirubin, UA Negative Negative [facility] DEPARTMENT OF PATHOLOGY AND GENOMIC MEDICINE Blood, UA Negative Negative [facility] DEPARTMENT OF PATHOLOGY AND GENOMIC MEDICINE Nitrite, UA Negative Negative [facility] DEPARTMENT OF PATHOLOGY AND GENOMIC MEDICINE Urobilinogen, UA <2.0 <2.0 E.U./dL [facility] DEPARTMENT OF PATHOLOGY AND GENOMIC MEDICINE Leukocyte esterase, UA Negative Negative [facility] DEPARTMENT OF PATHOLOGY AND GENOMIC MEDICINE Epithelial cells, UA 4 /HPF [facility] DEPARTMENT OF PATHOLOGY AND GENOMIC MEDICINE WBC, UA 3 0 - 4 /HPF [facility] DEPARTMENT OF PATHOLOGY AND GENOMIC MEDICINE RBC, UA 1 0 - 5 /HPF [facility] DEPARTMENT OF PATHOLOGY AND GENOMIC MEDICINE Bacteria, UA Few None seen [facility] DEPARTMENT OF PATHOLOGY AND GENOMIC MEDICINE Yeast, UA None seen [facility] DEPARTMENT OF PATHOLOGY AND GENOMIC MEDICINE Yeast with pseudohyphae, UA None seen [facility] DEPARTMENT OF PATHOLOGY AND GENOMIC MEDICINE Amorphous crystals Few [facility] DEPARTMENT OF PATHOLOGY AND GENOMIC MEDICINE Specimen Urine Performing Organization Address City/[facility]ode Phone Number [facility] DEPARTMENT OF PATHOLOGY [address] [place] [address] AND [email or web address] [facility] Urine culture (01/08/2018 11:30 PM)Only the most recent of2 resultswithin the time period is included. Urine culture SEE COMMENTComment: Bacteriuria [facility] DEPARTMENT OF PATHOLOGY screen negative. AND GENOMIC MEDICINE Performing Organization Address [facility] Centercomn Phone Number [facility] DEPARTMENT OF PATHOLOGY [address] [place] [address] AND [facility] MEDICINE Echocardiogram complete w contrast and 3D if needed (01/08/2018 4:25 PM) Ao Root Diameter 2.85 cm [facility] AoV Area, Vmax 1.95 cm2 [facility] AoV Area, VTI 2.18 cm2 [facility] AoV Mean PG 7.45 mmHg [facility] AoV Peak PG 17.03 mmHg [facility] AoV Vmax 2.35 m/s [facility] AoV VTI 0.42 m [facility] IVS,d 1.48 (A) 0.6 - 1.2 cm [facility] IVS/LVPW,2D 1.16 [facility] Left Atrium Dimension Anterior 3.84 cm [facility] LA Area d A4C 18.84 cm2 [facility] LV,d 4.27 cm [facility] LV EF,2D 68.46 % [facility] LV,s 2.91 cm [facility] LVOT area 3.43 cm2 [facility] LVOT Diam,S 2.09 cm [facility] LVOT Vmax 1.18 m/s [facility] LVOT VTI 0.32 m [facility] LVPWD,d 1.30 cm [facility] PV Pk Grad 10.82 mmHg [facility] PV VMAX 1.65 m/s [facility] RVOT Vmax 1.04 m/s [facility] TR Vpeak 3.28 mm/s [facility] MV E A ratio 0.99 mmHg [facility] TR pk grad 42.98 mmHg [facility] E wave decelartion time 198.07 msec [facility] MV Peak A Kareem 0.89 m/s [facility] MV valve area p 1/2 method 3.83 cm2 [facility] MV Peak E Kareem 0.89 m/s [facility] MV stenosis pressure 1/2 time 57.44 ms [facility] AV LVOT peak gradient 5.53 mmHg [facility] Ao Root Diameter 2.85 cm [facility] MV mean gradient 0.99 mmHg [facility] LV SYS VOL 32.41 ml [facility] LV MANUEL VOL 81.74 ml [facility] LV SV Teich 2D 49.33 ml [facility] LV Vol s Teich PSAX 32.41 ml [facility] MR peak grad 4.09 mmHg [facility] MV Vmax 1.01 m [facility] MV VTI Tips 0.45 m [facility] RVOT pk grad 4.30 mmHg [facility] AoV Vmn 1.30 [facility] LV FS Teich 2D 31.93 [facility] MV AE ratio 1.01 [facility] LV FS Cube 2D 31.93 [facility] LVOT Vmn 0.84 [facility] Aov area Vmn 2.03 cm2 [facility] LA Vol d MOD A4C 52.99 ml [facility] LVOT mean grad 3.13 mmHg [facility] MAX Pred HR 150.18 [facility] 85 of MPHR 127.66 [facility] Calc MPHR 150.18 bpm [facility] LV SV Cube 2D 53.33 ml [facility] LV vol d cube 2D 77.90 ml [facility] LV vol s cube 2D 24.57 ml [facility] MV Decel slope 4.48 m/s2 [facility] Pred Exer Dur R1 6.84 [facility] Pred METS R1 5.62 [facility] Velocity Ratio (V1/V2) 0.50 m/s [facility] EF 60.35 % [facility] E/A ratio 1.00 [facility] Narrative Performed At Normal left ventricular wall thickness. The left ventricular chamber [facility] size is normal. Left ventricular systolic function is normal. Left Ventricular ejection fraction is 60 - 65%. There is moderate left ventricular concentric hypertrophy Normal right ventricular size, wall thickness and global function Left Atrium: LA size is normal. Right Atrium: The right atrium is normal Mitral Valve: The mitral valve appears normal. Mild mitral valve regurgitation. Tricuspid Valve: Mild tricuspid valve regurgitation. Aorta: Aortic root is normal. Pericardium: No pericardial effusion seen Performing Organization Address City/State/Zipcode Phone Number [facility] [address] [place] [address] CT Chest Wo Contrast (01/08/2018 10:13 AM) Narrative Performed At EXAMINATION:CT CHEST WO CONTRAST [facility] CLINICAL HISTORY:Shortness of breath TECHNIQUE: Noncontrast images of the chest were obtained. Sagittal and coronal computerized reformatted images were also obtained. CT imaging was performed with iterative reconstruction technique and/or automated exposure control to reduce radiation dose. COMPARISON:01/07/2018 radiograph IMPRESSION: 1.Bilateral perihilar groundglass opacities. Vascular congestion with engorgement of the pulmonary veins. No pleural effusion. 2.Mild cardiomegaly. No pericardial effusion. 3.No pathologically enlarged axillary, mediastinal, or hilar lymph nodes. 4.Cholecystectomy. 5.Small thoracic degenerative osteophytes. SUMMARY: Bilateral perihilar ground glass opacities on background of engorged vasculature, likely edema versus other possible etiologies such as atypical infection or hemorrhage [id number] Procedure Note Interface, Radiology Results Incoming - 01/08/2018 10:50 AM CDT EXAMINATION: CT CHEST WO CONTRAST CLINICAL HISTORY: Shortness of breath TECHNIQUE: Noncontrast images of the chest were obtained. Sagittal and coronal computerized reformatted images were also obtained. CT imaging was performed with iterative reconstruction technique and/or automated exposure control to reduce radiation dose. COMPARISON: 01/07/2018 radiograph IMPRESSION: 1. Bilateral perihilar groundglass opacities. Vascular congestion with engorgement of the pulmonary veins. No pleural effusion. 2. Mild cardiomegaly. No pericardial effusion. 3. No pathologically enlarged axillary, mediastinal, or hilar lymph nodes. 4. Cholecystectomy. 5. Small thoracic degenerative osteophytes. SUMMARY: Bilateral perihilar ground glass opacities on background of engorged vasculature, likely edema versus other possible etiologies such as atypical infection or hemorrhage [id number] Performing Organization Address City/[facility]/Zipcode Phone Number [facility] [address] [place] [address] Lactic acid level, SEPSIS - Now and repeat 2x every 3 hours (01/08/2018 4:10 AM )Only the most recent of3 resultswithin the time period is included. Lactic acid 0.6 0.5 - 2.2 mmol/L [facility] DEPARTMENT OF PATHOLOGY AND GENOMIC MEDICINE Specimen Plasma specimen Performing Organization Address City/[facility]/Zipcode Phone Number [facility] DEPARTMENT OF PATHOLOGY [address] [place] [address] AND GENOMIC MEDICINE PV Duplex Venous Lower Extremity (01/07/2018 3:10 PM) Narrative Performed At EXAMINATION:US DUPLEX VENOUS LOWER EXTREMITY RIGHT [facility] CLINICAL HISTORY:Leg pain swelling COMPARISON:None. TECHNIQUE:Grayscale, color Doppler, and spectral waveform analysis of the right lower extremity deep venous system was performed. The common femoral, superficial femoral, proximal deep femoral, greater saphenous, and popliteal veins were evaluated. The calf veins were also evaluated. Spectral Doppler evaluation of the left common femoral vein was also performed. FINDINGS: The right common femoral, superficial femoral, and popliteal veins are compressible. They demonstrate normal venous waveforms and response to augmentation. There is flow in the visualized calf veins. The left common femoral vein is patent. 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 IMPRESSION: There is no evidence of deep venous thrombosis. [facility]-[id number] Procedure Note Interface, Radiology Results Incoming - 01/07/2018 3:16 PM CDT EXAMINATION: US DUPLEX VENOUS LOWER EXTREMITY RIGHT CLINICAL HISTORY: Leg pain swelling COMPARISON: None. TECHNIQUE: Grayscale, color Doppler, and spectral waveform analysis of the right lower extremity deep venous system was performed. The common femoral, superficial femoral, proximal deep femoral, greater saphenous, and popliteal veins were evaluated. The calf veins were also evaluated. Spectral Doppler evaluation of the left common femoral vein was also performed. FINDINGS: The right common femoral, superficial femoral, and popliteal veins are compressible. They demonstrate normal venous waveforms and response to augmentation. There is flow in the visualized calf veins. The left common femoral vein is patent. 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 IMPRESSION: There is no evidence of deep venous thrombosis. [facility]-[id number] Performing Organization Address City/[facility]/Zipcode Phone Number [facility] [address] [place] [address] Blood culture, aerobic & anaerobic (01/07/2018 2:58 PM)Only the most recent of2 resultswithin the time period is included. Blood culture isolate No growth after 5 days of incubation. [facility] DEPARTMENT OF Comment: PATHOLOGY AND GENOMIC Specimen Information MEDICINE Specimen Source: Blood Specimen Site: Antecubital, right Specimen Blood - Antecubital, right Performing Organization Address City/[facility]/Zipcode Phone Number [facility] DEPARTMENT OF PATHOLOGY AND [address] [place] [address] [facility] B natriuretic peptide (01/07/2018 1:45 PM) BNP 632 (H) 0 - 100 pg/mL [facility] DEPARTMENT OF PATHOLOGY AND GENOMIC MEDICINE Specimen Blood Performing Organization Address City/[facility]/Zipcode Phone Number [facility] DEPARTMENT OF PATHOLOGY [address] [place] [address] AND GENOMIC MEDICINE XR Knee 4+ Vw Right (01/07/2018 1:43 PM) Narrative Performed At EXAMINATION:XR KNEE 4VW RIGHT [facility] CLINICAL HISTORY:JOINT PAINKNEE COMPARISON:None. IMPRESSION: There are advanced degenerative osteoarthritic changes of the knee joint. There is no fracture or dislocation. [facility]-[id number] Procedure Note Interface, Radiology Results Incoming - 01/07/2018 1:50 PM CDT EXAMINATION: XR KNEE 4 VW RIGHT CLINICAL HISTORY: JOINT PAIN KNEE COMPARISON: None. IMPRESSION: There are advanced degenerative osteoarthritic changes of the knee joint. There is no fracture or dislocation. [facility]-[id number] Performing Organization Address City/State/Zipcode Phone Number [facility] [address] [place] [address] ECG ED Preliminary Interpretation - NOT AN ORDER (01/07/2018 1:18 PM) Narrative Performed At Jose Miller MD 01/07/20186:03 PM ECG ED Preliminary Interpretation - Not an Order Performed by: JOSE MILLER Authorized by: JOSE MILLER ECG reviewed by ED Physician in the absence of a local company truck driver: yes Interpretation: Interpretation: abnormal Rate: ECG rate:59 Rhythm: Rhythm: other rhythm Rhythm comment:Irregularly irregular ST segments: ST segments:Non-specific T waves: T waves: flattening after 04/06/2017 Insurance Payer Benefit Plan / Group Subscriber ID Type Phone Address MEDICARE MEDICARE PART A AND B xxxxxxxxxx Medicare [place], [place] Home: [address] [place], [place] [phone] [address]
[2018-04-07] MEDS ORDERED: MAGNESIUM HYDROXIDE 8% 30 ML PO PRN (21:18)
[2018-04-07] MEDS ORDERED: MAGNES/ALUMIN/SIMET 30ML UCUP PO PRN (21:18)
[2018-04-07] MEDS ORDERED: D50W 25 GM/50 ML SYRINGE IV PRN (22:57)
[2018-04-07] MEDS ORDERED: GLUCAGON 1 MG/VIAL IM PRN (22:57)
[2018-04-07] MEDS ORDERED: DIPHENHYDRAMINE 25 MG TAB/CAP PO PRN (22:59)
[2018-04-07] MEDS ORDERED: ALBUTEROL INHALER 60 PUFF/8 GM IH PRN (22:59)
--- NOTE | 2018-04-08 02:26 | FAST ---
SHIFT START DATE/TIME: 04/07/2018 19:00 (CDT) SHIFT END DATE/TIME: 04/08/2018 07:00 (CDT) NAME SHANNAN MCKEE DATE OF : 1950 DATE OF ADMISSION: 04/07/2018 20:20 (CDT) PHONE: AGE: 68 N# [id number] GENDER: Female ENCOUNTER PHYSICIAN: Dr. Davie Hernandez M.D. ADMISSION DIAGNOSIS: - Other Disabling Impairments 13 - Other Disabling Impairments (13) ESRD. EATING: Activity did not occur on this shift EATING - SCORE: 0-UNK GROOMING: Activity did not occur on this shift GROOMING - SCORE: 0-UNK BATHING: Activity did not occur on this shift BATHING - SCORE: 0-UNK DRESSING - UPPER BODY: Patient is not dressing in public clothing ARTICLES SCORE Total number of steps: 0 DRESSING - UPPER BODY - SCORE: 0-UNK DRESSING - LOWER BODY: Patient is not dressing in public clothing ARTICLES SCORE Total number of steps: 0 DRESSING - LOWER BODY - SCORE: 0-UNK TOILETING: TOILETING - STEP 1: Does the patient require assistance with toileting? Yes. TOILETING - STEP 2: Does the patient require the assistance of a helper? Yes. TOILETING - STEP 3: How much assistance does the patient require from the helper? Hands-on assistance from the helper TOILETING - STEP 4: Of the 3 tasks: 1) Adjusting clothing prior to use, 2) Cleansing of perineal area, 3) Adjusting clot latia after use; How many tasks does the patient perform WITHOUT assistance of the helper? No tasks; h elper performs all three tasks TOILETING - SCORE: 1-DEP BLADDER MANAGEMENT: [place] removes incontinent device (Depends, pull ups, etc.); cleans the patient after accident / inco ntinent episode; and, applies new incontinent device. BLADDER MANAGEMENT - SCORE: 1-DEP BOWEL MANAGEMENT: Activity did not occur on this shift BOWEL MANAGEMENT - SCORE: 7-IND TRANSFERS: BED, CHAIR, WHEELCHAIR: Activity did not occur on this shift TRANSFERS: BED, CHAIR, WHEELCHAIR - SCORE: 0-UNK TRANSFERS: TOILET: Activity did not occur on this shift TRANSFERS: TOILET - SCORE: 0-UNK TRANSFERS: SHOWER: Activity did not occur on this shift TRANSFERS: SHOWER - SCORE: 0-UNK TRANSFERS: TUB: Activity did not occur on this shift TRANSFERS: TUB - SCORE: 0-UNK LOCOMOTION: WALK: Activity did not occur on this shift LOCOMOTION: WALK - SCORE: 0-UNK LOCOMOTION: WHEELCHAIR: Activity did not occur on this shift LOCOMOTION: WHEELCHAIR - SCORE: 0-UNK COMPREHENSION: COMPREHENSION - STEP 1: Does the patient require help to understand complex and abstract ideas (such as current events, finan radha, discharge planning, medical issues, relationships, etc)? No. COMPREHENSION - STEP 2: Does the patient need extra time, require an assistive device (such as glasses, hearing aids, or an a ugmentative communication system), OR does s/he have mild difficulty expressing complex and abstract ideas (including mild dysarthria or mild word-finding problems)? Yes. COMPREHENSION - SCORE: 6-SAIRA EXPRESSION EXPRESSION - STEP 1: Does the patient require help expressing complex and abstract ideas (such as current events, finances , discharge planning, medical issues, relationships, etc)? No. EXPRESSION - STEP 2: Does the patient need extra time, require an assistive device (such as augmentive communication syste m or a communication board), OR does s/he have mild difficulty expressing complex and abstract ideas (including mild dysarthria or mild word-find problems)? No. EXPRESSION - SCORE: 7-IND SOCIAL INTERACTION: SOCIAL INTERACTION - STEP 1: Does the patient require a helper to interact with others in social and therapeutic situations? No. SOCIAL INTERACTION - STEP 2: Does the patient need extra time in social situations, OR does s/he interact with staff, other patien ts, and family members ONLY in structured environments, OR does s/he require medication for social in teraction? No. SOCIAL INTERACTION - SCORE: 7-IND PROBLEM SOLVING: PROBLEM SOLVING - STEP 1: Does the patient need help to solve complex problems such as managing a checking account or confronti ng interpersonal problems? Yes. PROBLEM SOLVING - STEP 2: Does the patient solve basic routine problems half or more of the time? Yes. PROBLEM SOLVING - STEP 3: How often does the patient need help to solve basic routine problems? 10%-24% of the time PROBLEM SOLVING - SCORE: 4-MIN MEMORY: MEMORY - STEP 1: Does the patient need help to remember frequently encountered people, daily routines, and executing r equests? No. MEMORY - STEP 2: Does the patient have slight difficulty recognizing frequently encountered people, daily routines, or executing requests without the need for repetition or using self-initiated or environmental cues to remember? Yes. MEMORY - SCORE: 6-SAIRA SIGNATURE PANEL: The following modified sections: Eating - Score, Grooming - Score, Dressing - Upper Body - Score, Robson ssing - Lower Body - Score, Toileting - Score, Bladder Management - Score, Bowel Management - Score, Transfers: Bed, Chair, Wheelchair - Score, Transfers: Toilet - Score, Transfers: Shower - Score, Blackburn sfers: Tub - Score, Locomotion: Walk - Score, Locomotion: Wheelchair - Score, Comprehension - Score, Expression - Score, Social Interaction - Score, Problem Solving - Score, Memory - Score were [electro nically] signed by Elva Crawford CNA on WedApr 08 2018 02:26:25 GMT-0500 (Central Daylight Time)
[2018-04-08] MEDS: INSULIN -REGULAR HUMAN 50 UNIT/0.5 ML ML SQ SCH ×4 (07:30→20:52)
[2018-04-08] MEDS: FAMOTIDINE 20 MG TAB PO SCH ×2 (08:00→20:33)
[2018-04-08] MEDS: GLIPIZIDE S.A. 5 MG TAB PO SCH (08:00)
[2018-04-08] MEDS: HYDRALAZINE HCL 25 MG TABLET PO SCH ×3 (08:42→16:53)
[2018-04-08] MEDS: CARVEDILOL 12.5 MG TAB PO SCH ×2 (08:43→17:00)
[2018-04-08] MEDS: AMLODIPINE 10 MG TAB PO SCH (08:45)
[2018-04-08] MEDS ORDERED: GABAPENTIN 100 MG CAP PO SCH (09:00)
[2018-04-08] MEDS: CLONIDINE HCL 0.3 MG TAB PO SCH ×3 (09:00→20:35)
[2018-04-08 09:20] LABS: Albumin 1.8 g/dL (3.4-5.0); Magnesium 2.3 mg/dL (1.8-2.4); Potassium 3.7 mmol/L (3.5-5.1); Prealbumin 10.8 mg/dL (20-40)
[2018-04-08 09:36] LABS: Absolute Lymphocytes (CBC) 0.7 K/uL (0.7-4.9); Absolute Monocytes 1.1 K/uL (0.1-1.3); Absolute Neutrophil 4.1 K/uL (1.8-8.0); Basophils % 0.6 % (0-1.3); Eosinophils % 3.3 % (0-4.4); Hematocrit 29.9 % (36.0-45.0); Lymphocytes % 10.9 % (15.3-44.8); MCV 88.9 fL (80-100); MPV 8.7 fL (7.6-11.3); Monocytes % 17.9 % (3.3-12.3); RBC Red Blood Cell Count 3.36 M/uL (3.86-4.86)
--- NOTE | 2018-04-08 09:52 | P.RH.PN ---
Estimated Length of Stay: 14 Expected Discharge Date: 04/21/18 Discharge Disposition Plan: Home Family Support: Yes Word Processor Operator Goal: Mobility, Transfers, Self Care Vital Signs: Last Vital Signs Temp 97.9 F 04/08/18 06:59 Pulse 68 04/08/18 06:59 Resp 16 04/08/18 06:59 BP 173/54 H 04/08/18 06:59 Pulse Ox 93 04/08/18 06:59 Laboratory: Laboratory Last Values POC Glucose 95 mg/dl (65-120) 04/08/18 07:19 Weight: 232 lb 4 oz Wound Present: Yes Closed Surgical Incision Present: No Physician Update: She is anxious about her therapy. She lived independently with minimal help using a rollator and mobilized well up to two weeks ago. She has since only ambulated up to 2 feet in the last two weeks. Medical Issues: She has ESRD and is taking hemodialysis. She required hemodialysis three day in a row and has been come debilited. She is at moderate assistance overall. Transfers are at minimum assistance. She is being evaluated by physical therapy but used a rollator at home. 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 Please see the Rehabilitation Signature page for all necessary signatures.
[2018-04-08 10:00] LABS: Anisocytosis 1+; Blood Morphology Comment NOTED (NOT SEEN); Hypochromasia 1+; Macrocytosis 1+; Platelet Estimate ADEQ
[2018-04-08] MEDS ORDERED: ACETAMINOPHEN 325 MG TABLET PO PRN (12:13)
[2018-04-08] MEDS ORDERED: MELATONIN 3 MG TABLET PO PRN (12:15)
[2018-04-08] MEDS ORDERED: ONDANSETRON 4 MG (ODT) TAB PO PRN (12:15)
[2018-04-08] MEDS ORDERED: DIPHENHYDRAMINE 25 MG TAB/CAP PO PRN (12:15)
--- NOTE | 2018-04-08 12:49 | R.HP ---
FACILITY: [facility] ENCOUNTER DATE AND TIME: 04/08/2018 12:34 (CDT) MR#: [id number] NAME SHANNAN MCKEE AD[address]ESS: [address] [facility] CITY: [place] [address] [address] PHONE: DATE OF : 1950 AGE: 68 SSN# [id number] GENDER: Female DEXTERITY Right-handed MARITAL STATUS RACE Black PRE-HOSPITAL LIVING SETTING 01 - Home (private home/apt. board/care, assisted living, [facility], transitional living) PRE-HOSPITAL LIVING WITH Alone ENCOUNTER PHYSICIAN: Dr. Davie Hernandez M.D. REFERRING DOCTOR: Dr. BRIANNA CASAS DATE OF ADMISSION: 04/07/2018 20:20 (CDT) REFERRING FACILITY [facility] HOME TYPE AND DETAILS: Type of home: single family house # of levels in the residence: 1 # of steps within the residence: 0 # of steps to enter the residence: 0 ADMISSION DIAGNOSIS: Critical illness polyneuropathy, Debility, ESRD ONSET DATE: 03/30/2018 PRIMARY DIAGNOSIS-RELATED SURGERIES: Perm catheter insertion SECONDARY/COMORBID DIAGNOSES (TIERED): - Tier 1 Dependence on renal dialysis (Z99.2) - Non-Tiered Type 2 diabetes mellitus with diabetic neuropathy, unspecified (E11.40) - N/A HTN ARTHRITIS END STAGE RENAL DISEASE HISTORY OF PRESENT ILLNESS (HPI): Pt. is a 68 yo Right-handed black female. On 03/30/2018 she was admitted to [facility] with diagnosis Critical illness polyneuropathy, Debility, ESRD . Her impairment category is Other Disabling Impairments 13 - Other Disabling Impairments (13). Pre-morbidly, Pt. was independent/mod-I in Sphincter Control, Transfers Control, Communication, Socia l Cognition, Self-Care, and Locomotion; and she had good Sphincter Control. Currently, she has deficits of Safety Awareness, Transfers Control, Balance, Self-Care, Locomotion, a nd Endurance. Pt. is now referred to [facility] for acute in-patient rehabilitation in order to maximize patient's functional independence in activities of daily living, strength, ROM, and mobi lity. Patient has realistic goal of being discharged at assistance level 6-Deyanira to reside at Home with Fam joelle/Relatives. MEDICATION ALLERGIES: No Known Drug Allergies (NKDA) ENVIRONMENTAL ALLERGIES: None Known - Substance Allergies None Known - Other Allergies None Known PAST MEDICAL HISTORY: ARTHRITIS Dependence on renal dialysis (Z99.2) END STAGE RENAL DISEASE HTN Type 2 diabetes mellitus with diabetic neuropathy, unspecified (E11.40) PAST SURGICAL HISTORY: CATARACT APPENDECTOMY CHOLECYSTECTOMY HYSTERECTOMY PHACOEMULSIFICATION OF CATARACT WITH INTRAOCULAR LENS IMPLANT, BILATERAL FAMILY HISTORY: Family history is not contributory. SOCIAL HISTORY: - Home Living Alone REVIEW OF SYSTEMS: - Gen No Chills No Fatigue No Fever - Eyes No Double Vision No itchiness - ENMT No Difficulty Swallowing - CVS No Chest Discomfort No Chest Pain No Fatigue No Weight Gain - Resp No Cough No Shortness of Breath - GI Continent No Abdominal Pain No Constipation No Diarrhea - Continent No Kidney Pain No Painful Urination No Urinary Urgency - MSK Joint Pain Muscle Cramps Stiffness - Skin Itching Rash No Suspicious Lesions - Neuro Coordination Difficulty Difficulty with Concentration No Memory Loss No Seizures Weakness - Psych Anxiety No Depression No HIV Exposure No Persistent Infections No Seasonal Allergies - Endo No Cold/Heat Intolerance No Excessive Hunger No Excessive Thirst No Excessive Urination PHYSICAL EXAM - Gen Alert and awake Lying in bed No apparent distress Oriented to: person, time, and place - Skin Dark skin discoloration of right more than left leg consistent with stasis dermatitis Normacephalic - Eyes No abnormalities - ENMT No abnormalities - Neck No abnormalities - CVS RRR - Chest Clear - Abd Obese, soft, nontender - GI Non distended Deferred - Little urine production. On hemodialysis three times weekly. - Ext Dark skin discoloration of right more than left leg consistent with stasis dermatitis. Weak dorsalis pedis pulse. - MSK 3-4+/5 weakness in both lower extremities. - Neuro No focal deficits - Psych Mild anxiety. VITAL SIGNS Temperature: 98.9 F SBP/DBP: 153/55 Pulse: 66 Resp: 18 NURSING: - Shower allowing shower - Lab Results blood Sugar Check ACHS PRECAUTIONS: - Fall Precaution Bed and chair alarm ACTIVITIES OOB only with supervision FUNCTIONAL STATUS: - Self-Care A. Eating Ind sup B. Grooming Ind sup C. Bathing Ind Ethel D. Dressing - Upper Ind Ethel E. Dressing - Lower Ind Ethel F. Toileting Ind Ethel - Sphincter Control G: Bladder control Ind Ind H: Bowel control Ind Ind - Transfers Control I. Bed/Chair/Wheelchair Ind Ethel J. Toilet Ind Ethel K. Tub/Shower Ind ADNO - Locomotion L. Walk/Wheelchair (C) Ind Ethel L. Walk/Wheelchair (W) Ind Ethel M. Stairs Ind ADNO - Communication N. Comprehension (B) Ind Deyanira O. Expression (B) Ind Deyanira - Social Cognition P. Social Interaction Ind Deyanira Q. Problem Solving Ind Deyanira R. Memory Ind Deyanira - Endurance Fair - Balance Fair - Safety Awareness Fair CURRENT FUNC. DEFICITS: Safety Awareness, Transfers Control, Balance, Self-Care, Locomotion, and Endurance ASSESSMENT: Pt. is a 68 yo Right-handed black female.On 03/30/2018 she was admitted to [facility] with diagnosis Critic al illness polyneuropathy, Debility, ESRD.Her impairment category is Other Disabling Impairments 13 - Other Disabling Impairments (13).Pre-morbidly, Pt. was independent/mod-I in Sphincter Control, Blackburn sfers Control, Communication, Social Cognition, Self-Care, and Locomotion; and she had good Sphincter Control.Currently, she has deficits of Safety Awareness, Transfers Control, Balance, Self-Care, Franklin motion, and Endurance.Pt. is now referred to [facility] for acute in-patient r ehabilitation in order to maximize patient's functional independence in activities of daily living, s trength, ROM, and mobility.- Rehab Goal Patient has realistic goal of being discharged at assistance level 6-Deyanira to reside at Home with Fam joelle/Relatives. REHAB PLAN: - Physical Therapy Weakness - to improve, our physical therapists will perform initial evaluation of pt's status upon a dmission and devise an individualized program for Aquatic Therapy, Neuromuscular Reeducation, and Str engthening Poor balance - to improve, our physical therapists will perform initial evaluation of pt's status up on admission and devise an individualized program for Balance Training Inability to transfer - to improve, our physical therapists will perform initial evaluation of pt's status upon admission and devise an individualized program for Bed mobility Need in caregiver upon discharge - to improve, our physical therapists will perform initial evaluati on of pt's status upon admission and devise an individualized program for Caregiver Training Poor endurance - to improve, our physical therapists will perform initial evaluation of pt's status upon admission and devise an individualized program for Endurance Training Gait dysfunction - to improve, our physical therapists will perform initial evaluation of pt's statu s upon admission and devise an individualized program for Gait Training, and Wheel Chair mobility Need for home safety evaluation - to improve, our physical therapists will perform initial evaluatio n of pt's status upon admission and devise an individualized program for Home Evaluation New precaution - to improve, our physical therapists will perform initial evaluation of pt's status upon admission and devise an individualized program for Patient precaution education - Occupational Therapy Weakness - to improve, our occupation therapists will perform initial evaluation of pt's status upon admission and devise an individualized program for Aquatic Therapy, Balance, Endurance, UE ROM, and UE strengthening ADL deficits - to improve, our occupation therapists will perform initial evaluation of pt's status upon admission and devise an individualized program for Bathing, Bed mobility, Community Reintegratio n, Cooking, Dressing, Eating, Fine Motor Skills, Grooming, Homemaking, Kitchen Mobility, Laundry, Pat ient Education, Safety Awareness, Splinting - Positioning, Transfers(Toilet, Tub, Shower), and Wheel Chair Management Need for wound care rn - to improve, our occupation therapists will perform initial evaluation of pt's status upon admission and devise an individualized program for Caregiver Training - Balance for Weakness - Bed mobility for ADL deficits MEDICAL PLAN: - Diet Type Start Regular - Diet - Liquid Texture Start Regular - Tube Feed Start N/A - Lab Results blood Sugar Check ACHS - Fall Precaution Bed and chair alarm - Diet - Solid Texture Regular - Shower shower DISCHARGE PLAN: - Estimated Length of Stay (days) 13. - Consensus on plan Discharge plan has been discussed with primary caregiver. Patient/Family is in agreement with the cale n. Primary caregiver is in agreement with the plan. - Patient/Family Goals Return home with assistance. - Planned Living Setting Upon Discharge Home, to live with Family/Relatives. SIGNATURE PANEL: (CDT)
--- NOTE | 2018-04-08 12:51 | PAPE ---
PATIENT: [facility] MR# [id number] REFERRING DOCTOR Dr. BRIANNA CASAS EVALUATION DATE AND TIME 04/08/2018 12:50 (CDT) NAME SHANNAN MCKEE DATE OF 1950 AGE 68 PHONE N# [id number] GENDER female EVALUATING PHYSICIAN Dr. Davie Hernandez M.D. ADMISSION DIAGNOSIS: Critical illness polyneuropathy, Debility, ESRD ONSET DATE 03/30/2018 SECONDARY/COMORBID DIAGNOSES TIERED: - Tier 1 Dependence on renal dialysis (Z99.2) - Non-Tiered Type 2 diabetes mellitus with diabetic neuropathy, unspecified (E11.40) - N/A HTN ARTHRITIS END STAGE RENAL DISEASE POST-ADMISSION FUNCTIONAL/MEDICAL STATUS: - Bladder Same accident frequency: Ind - No accidents in the past 7 days - Bowel Same accident frequency: Ind - No accidents in the past 7 days - Walking Same score based on distance walked: 1(<=50ft) - Wheelchair Same score based on distance traveled: 0(N/A) STATUS CHANGE EVALUATION: No change in Functional or Medical Status is identified compared with Pre-Admission screening. PATIENT NEEDS CLOSE MEDICAL SUPERVISION BY A REHABILITATION PHYSICIAN FOR: Bowel and Bladder Management Coordination of Treatment Team Diabetes Management Medical and Co-Morbidity Management DVT Management Pain Management PATIENT REQUIRES 24X7 REHAB NURSING FOR MEDICAL AND FUNCTIONAL MGT. OF THE FOLLOWING DEFICITS: ADL's Ambulation Bowel and Bladder Management Cognition Communication Disease Management Medication Management Patient/Family Education Providing Safe Environment Transfers Pain Management PATIENT REQUIRES INTENSIVE, COORDINATED INTERDISCIPLINARY APPROACH TO REHAB: Arranging Home Equipment/Services Discharge Planning Family Intervention/Training Cigarette Book Maker/Case Management LIST OF IDENTIFIED AND POTENTIAL PROBLEMS: Alteration in leisure activities Bladder, Incontinence Bowel, Incontinence Diabetes, Hyperglycemia/hypoglycemia Issues Infection, Actual or Potential Mobility Impaired Pain, Alteration in Comfort Self Care Deficit Skin Integrity, Actual or Potential Urinary Tract Infection (UTI), Actual or Potential PATIENT COULD BE AT RISK FOR COMPLICATIONS FROM ADVERSE MEDICAL CONDITIONS DUE TO HIS/HER COMORBIDITI ES AND THE RIGORS OF THE INTENSIVE REHABILLITATION PROGRAM. METHODS OR INTERVENTIONS TO AVOID COMPLIC ATIONS INCLUDE: - Deep Vein Thrombosis (DVT) Prophylaxis therapy for prevention . Sequential Compression Device (SCD). CARLTON Miller. - Infection Clinical staff to assess and manage the signs and symptoms of infection including fever, redness, war mth, etc. - Urinary Tract Infection - Falls Patient will be evaluated for Fall Precautions and will be placed on Fall Precautions as indicated pe r protocol. - Skin Breakdown Nursing will assess skin daily using assessment tool and will place on Skin Breakdown Precautions as indicated per protocol. - Pain Clinical staff may employ non-medication methods such as massage, distraction, decrease stimulus, etc . as needed. Clinical staff will assess patient's pain level every shift per protocol to assess and e nsure pain management effectiveness. Medications will be given and the pain level re-assessed. PRELIMINARY PLAN OF CARE: - Physical Therapy Patient needs Physical Therapy for a daily minimum of 1.5 hours at least 5 out of 7 days, to improve: Mobility, Strengthening, Transfers, Stretching, ROM, Endurance, Ability to manage stairs, Gait, and Balance. - Speech Therapy Patient needs Speech Therapy for a daily minimum of 0.5 hours at least 5 out of 7 days, to improve: S wallowing, Cognition, Language Skills, and Compensatory Strategies. - Rehabilitation Nursing Patient requires 24x7 Rehabilitation Nursing for: Pain Issues, Identifying and preventing risk factor s, Monitoring and reporting current medical conditions, Assisting with ambulation and transfer, Elijah ting with all ADL-s, Teaching patients about disease process and medications, Family teaching, Provid ing safe environment, Bowel and Bladder Issues, Skin Integrity, and Medication Management. Patient needs Cigarette Book Maker and/or Case Management for: Discharge Planning, Arranging Home Equipmen t or Services, and Family Interventions. - Dietary and Nutrition Services Patient needs Dietary and Nutrition Services for: Adequate Nutrition, Nutritional Supplements, and Nu tritional Education. - Occupational Therapy Patient needs Occupational Therapy for a daily minimum of 1.5 hours at least 5 out of 7 days, to impr ove Activities of Daily Living, including: Eating, Grooming, Bathing, Dressing, Toileting, Toilet Tra nsfers, Community Reintegration, Higher functional activities, Adaptive Equipment, Splinting, Househo ld Tasks, and Other activities as determined. POTENTIAL FUNCTIONAL GOALS FOR PATIENT TO ACHIEVE BY DISCHARGE: - Safety Precaution Patient will remain free from falls or injury at time of discharge. - Bed Mobility Patient will perform bed mobility at 4-Ethel level of assistance. - Transfers Patient will complete transfers from bed to chair at 4-Ethel level of assistance. - Mobility Patient will ambulate 150 ft with 4-Ethel level of assistance with RW. PATIENT REHAB POTENTIAL Expected level of measurable improvement will be of a practical value to patient's functional capacit y or adaptations to impairments Has a viable Discharge Plan Medically appropriate; condition is sufficiently stable to participate in intensive rehab program Patient is able and expected to receive 3 hours of individualized therapy daily on at least 5 of ever y 7 days Patient's prognosis for significant practical improvement within a reasonable period of time appears Good DISCHARGE PLAN: - Estimated Length of Stay (days) 13. - Consensus on plan Discharge plan has been discussed with primary caregiver. Patient/Family is in agreement with the cale n. Primary caregiver is in agreement with the plan. - Patient/Family Goals Return home with assistance. - Planned Living Setting Upon Discharge Home, to live with Family/Relatives. CONCLUSION ON REHABILITATION NECESSITY: I have evaluated patient's pre-admission functional status and, comparing it to the patient's post-ad mission functional status now, I conclude that the pre-admission assessment was accurate. Patient's c ondition on admission supports the medical necessity of admission to [facility]. It is safe to proceed with patient's therapy program. SIGNATURE PANEL: (CDT)
--- NOTE | 2018-04-08 15:04 | RAD REPORT ---
EXAM DESCRIPTION: VAS - Extremity Venous Uni Ltd - 04/08/2018 2:42 pm CLINICAL HISTORY: R/O DVT Leg swelling and edema. COMPARISON: No comparisons FINDINGS: Right lower extremity venous system was interrogated with Doppler technique. Normal flow, compressibility and augmentation was noted. There is no DVT present.2.6 x 2.6 cm right popliteal mitali a cyst. IMPRESSION: No evidence of right lower extremity deep venous thrombosis.
--- NOTE | 2018-04-08 15:08 | RAD REPORT ---
EXAM DESCRIPTION: VAS - Lower Extremity Artery Uni Ltd - 04/08/2018 2:42 pm CLINICAL HISTORY: Leg pain Claudication COMPARISON: No comparisons TECHNIQUE: Right lower lower extremity arterial Doppler examination was performed with waveform trac ing. Bilateral ankle brachial pressure measurements were requested. FINDINGS: Symmetric brachial pressure measurements are noted. Right lower extremity arterial system demonstrates triphasic waveforms within the common femoral jeny ry and superficial femoral artery. The popliteal artery demonstrates biphasic waveform. Posterior tib ial and dorsalis pedis artery show largely biphasic waveforms. Right ankle brachial index measures 1.3, normal. Left ankle brachial index measures 0.5, abnormally low. IMPRESSION: No evidence of right lower extremity peripheral vascular disease. The left-sided ANAY is abnormally low measuring 0.5.
--- NOTE | 2018-04-08 15:42 | FAST ---
ENCOUNTER DATE AND TIME: 04/08/2018 08:00 (CDT) NAME SHANNAN MCKEE DATE OF : 1950 DATE OF ADMISSION: 04/07/2018 20:20 (CDT) PHONE: AGE: 68 N# [id number] GENDER: Female ENCOUNTER PHYSICIAN: Dr. Davie Hernandez M.D. ADMISSION DIAGNOSIS: - Other Disabling Impairments 13 - Other Disabling Impairments (13) Critical illness polyneuropathy, Debility, ESRD. EATING: Activity did not occur on this shift EATING - SCORE: 0-UNK GROOMING: Activity did not occur on this shift GROOMING - SCORE: 0-UNK BATHING: Activity did not occur on this shift BATHING - SCORE: 0-UNK DRESSING - UPPER BODY: Activity did not occur on this shift Patient is not dressing in public clothing ARTICLES SCORE Total number of steps: 0 DRESSING - UPPER BODY - SCORE: 0-UNK DRESSING - LOWER BODY: Activity did not occur on this shift Patient is not dressing in public clothing ARTICLES SCORE Total number of steps: 0 DRESSING - LOWER BODY - SCORE: 0-UNK TOILETING: Activity did not occur on this shift TOILETING - SCORE: 0-UNK BLADDER MANAGEMENT: Activity did not occur on this shift BLADDER MANAGEMENT - SCORE: 7-IND BOWEL MANAGEMENT: Activity did not occur on this shift BOWEL MANAGEMENT - SCORE: 7-IND TRANSFERS: BED, CHAIR, WHEELCHAIR: Activity did not occur on this shift TRANSFERS: BED, CHAIR, WHEELCHAIR - SCORE: 0-UNK TRANSFERS: TOILET: Activity did not occur on this shift TRANSFERS: TOILET - SCORE: 0-UNK TRANSFERS: SHOWER: Activity did not occur on this shift TRANSFERS: SHOWER - SCORE: 0-UNK TRANSFERS: TUB: Activity did not occur on this shift TRANSFERS: TUB - SCORE: 0-UNK LOCOMOTION: WALK: Activity did not occur on this shift LOCOMOTION: WALK - SCORE: 0-UNK LOCOMOTION: WHEELCHAIR: Activity did not occur on this shift LOCOMOTION: WHEELCHAIR - SCORE: 0-UNK LOCOMOTION: STAIRS: Activity did not occur on this shift LOCOMOTION: STAIRS - SCORE: 0-UNK COMPREHENSION: COMPREHENSION - STEP 1: Does the patient require help to understand complex and abstract ideas (such as current events, finan radha, discharge planning, medical issues, relationships, etc)? Yes. COMPREHENSION - STEP 2: Does the patient require help to understand questions or statements about basic needs or ideas (such as hunger, thirst, sleep, safety, daily schedule, room location, or discomfort) half or more of the t frances? No. COMPREHENSION - STEP 3: How often does the patient need help to understand directions and conversation about basic needs? 10% - 24% of the time COMPREHENSION - SCORE: 4-MIN EXPRESSION EXPRESSION - STEP 1: Does the patient require help expressing complex and abstract ideas (such as current events, finances , discharge planning, medical issues, relationships, etc)? Yes. EXPRESSION - STEP 2: Does the patient require help to express basic necessities or ideas (such as hunger, thirst, sleep, s afety, daily schedule, room location, or discomfort) half or more of the time? No. EXPRESSION - STEP 3: How often does the patient need help to express directions and conversation about basic needs? Less t beck 10% of the time EXPRESSION - SCORE: 5-SUP SOCIAL INTERACTION: SOCIAL INTERACTION - STEP 1: Does the patient require a helper to interact with others in social and therapeutic situations? Yes. SOCIAL INTERACTION - STEP 2: Does the patient interact appropriately half or more of the time? Yes. SOCIAL INTERACTION - STEP 3: How often does the patient need help to interact appropriately? 10-24% of the time SOCIAL INTERACTION - SCORE: 4-MIN PROBLEM SOLVING: PROBLEM SOLVING - STEP 1: Does the patient need help to solve complex problems such as managing a checking account or confronti ng interpersonal problems? Yes. PROBLEM SOLVING - STEP 2: Does the patient solve basic routine problems half or more of the time? No. PROBLEM SOLVING - STEP 3: Does the patient need help to solve problems all the time or is s/he unable to solve problems? No. Cyril medrano can sometimes solve problems PROBLEM SOLVING - SCORE: 2-MAX MEMORY: MEMORY - STEP 1: Does the patient need help to remember frequently encountered people, daily routines, and executing r equests? Yes. MEMORY - STEP 2: How often does the patient need help to remember frequently encountered people, daily routines, and e xecuting requests? More than 50% of the time MEMORY - STEP 3: Does the patient need help to remember all of the time OR does s/he not effectively recognize and rem ember? No. Patient does not need help all the time MEMORY - SCORE: 2-MAX SIGNATURE PANEL: The following modified sections: Comprehension - Score, Expression - Score, Social Interaction - Scor e, Problem Solving - Score, Memory - Score were [electronically] signed by ST Amina on Wed 15:42:13 GMT-0500 (Central Daylight Time)
[2018-04-08] MEDS: TRIAMCINOLONE ACET 0.1% CREAM 80 GM TOP SCH (20:00)
[2018-04-08] MEDS: HEPARIN 5000 UNIT/ML 1 ML VIAL SQ SCH (20:00)
[2018-04-08] MEDS: GABAPENTIN 300 MG CAP PO SCH (20:33)
[2018-04-08] MEDS: ATORVASTATIN 20 MG TAB PO SCH (20:34)
[2018-04-08] MEDS: BIMATOPROST OPTH SCH (20:34)
[2018-04-08] MEDS: PROMOD 30 ML DOSE PO SCH (20:35)
[2018-04-08] MEDS ORDERED: BIMATOPROST OPHTH DROPS/2.5 ML BTL OPTH SCH (21:00)
--- NOTE | 2018-04-09 03:22 | FAST ---
SHIFT START DATE/TIME: 04/08/2018 19:00 (CDT) SHIFT END DATE/TIME: 04/09/2018 07:00 (CDT) NAME SHANNAN MCKEE DATE OF : 1950 DATE OF ADMISSION: 04/07/2018 20:20 (CDT) PHONE: AGE: 68 N# [id number] GENDER: Female ENCOUNTER PHYSICIAN: Dr. Davie Hernandez M.D. ADMISSION DIAGNOSIS: - Other Disabling Impairments 13 - Other Disabling Impairments (13) Critical illness polyneuropathy, Debility, ESRD. EATING: Activity did not occur on this shift EATING - SCORE: 0-UNK GROOMING: Activity did not occur on this shift GROOMING - SCORE: 0-UNK BATHING: Activity did not occur on this shift BATHING - SCORE: 0-UNK DRESSING - UPPER BODY: Activity did not occur on this shift ARTICLES SCORE Total number of steps: 0 DRESSING - UPPER BODY - SCORE: 0-UNK DRESSING - LOWER BODY: Activity did not occur on this shift ARTICLES SCORE Total number of steps: 0 DRESSING - LOWER BODY - SCORE: 0-UNK TOILETING: Activity did not occur on this shift TOILETING - SCORE: 0-UNK BLADDER MANAGEMENT: Patient is on renal dialysis or peritoneal dialysis and no voiding activity BLADDER MANAGEMENT - SCORE: 7-IND BLADDER MANAGEMENT - FREQUENCY OF ACCIDENTS: BLADDER MANAGEMENT(FA) - STEP 1: How many accidents has the patient had during the current shift? 0 BOWEL MANAGEMENT: BOWEL MANAGEMENT - STEP 1: Does the patient control bowels completely and intentionally without equipment devices or medications AND is always continent? Yes. BOWEL MANAGEMENT - SCORE: 7-IND BOWEL MANAGEMENT - FREQUENCY OF ACCIDENTS: BOWEL MANAGEMENT(FA) - STEP 1: How many accidents has the patient had during the current shift? 0 TRANSFERS: BED, CHAIR, WHEELCHAIR: Activity did not occur on this shift TRANSFERS: BED, CHAIR, WHEELCHAIR - SCORE: 0-UNK TRANSFERS: TOILET: Activity did not occur on this shift TRANSFERS: TOILET - SCORE: 0-UNK TRANSFERS: SHOWER: Activity did not occur on this shift TRANSFERS: SHOWER - SCORE: 0-UNK TRANSFERS: TUB: Activity did not occur on this shift TRANSFERS: TUB - SCORE: 0-UNK LOCOMOTION: WALK: Activity did not occur on this shift LOCOMOTION: WALK - SCORE: 0-UNK LOCOMOTION: WHEELCHAIR: Activity did not occur on this shift LOCOMOTION: WHEELCHAIR - SCORE: 0-UNK COMPREHENSION: COMPREHENSION - STEP 1: Does the patient require help to understand complex and abstract ideas (such as current events, finan radha, discharge planning, medical issues, relationships, etc)? Yes. COMPREHENSION - STEP 2: Does the patient require help to understand questions or statements about basic needs or ideas (such as hunger, thirst, sleep, safety, daily schedule, room location, or discomfort) half or more of the t frances? No. COMPREHENSION - STEP 3: How often does the patient need help to understand directions and conversation about basic needs? Les s than 10% of the time COMPREHENSION - SCORE: 5-SUP EXPRESSION EXPRESSION - STEP 1: Does the patient require help expressing complex and abstract ideas (such as current events, finances , discharge planning, medical issues, relationships, etc)? No. EXPRESSION - STEP 2: Does the patient need extra time, require an assistive device (such as augmentive communication syste m or a communication board), OR does s/he have mild difficulty expressing complex and abstract ideas (including mild dysarthria or mild word-find problems)? Yes. EXPRESSION - SCORE: 6-SAIRA SOCIAL INTERACTION: SOCIAL INTERACTION - STEP 1: Does the patient require a helper to interact with others in social and therapeutic situations? No. SOCIAL INTERACTION - STEP 2: Does the patient need extra time in social situations, OR does s/he interact with staff, other patien ts, and family members ONLY in structured environments, OR does s/he require medication for social in teraction? No. SOCIAL INTERACTION - SCORE: 7-IND PROBLEM SOLVING: PROBLEM SOLVING - SCORE: 0-UNK MEMORY: MEMORY - STEP 1: Does the patient need help to remember frequently encountered people, daily routines, and executing r equests? No. MEMORY - STEP 2: Does the patient have slight difficulty recognizing frequently encountered people, daily routines, or executing requests without the need for repetition or using self-initiated or environmental cues to remember? No. MEMORY - SCORE: 7-IND SIGNATURE PANEL: The following modified sections: Eating - Score, Grooming - Score, Bathing - Score, Dressing - Upper Body - Score, Dressing - Lower Body - Score, Toileting - Score, Bladder Management - Score, Bowel Man agement - Score, Transfers: Bed, Chair, Wheelchair - Score, Transfers: Toilet - Score, Transfers: Katherine wer - Score, Transfers: Tub - Score, Locomotion: Walk - Score, Locomotion: Wheelchair - Score, Compre hension - Score, Expression - Score, Social Interaction - Score, Problem Solving - Score, Memory - Sc ore were [electronically] signed by Margaux Sorto on Sat Apr 09 2018 03:20:58 GMT-0500 (Central Day light Time)
[2018-04-09] MEDS: TRIAMCINOLONE ACET 0.1% CREAM 80 GM TOP SCH ×2 (07:10→20:00)
[2018-04-09] MEDS: FLUOCINONIDE 0.05% CREAM 30GM TOP PRN (07:11)
[2018-04-09] MEDS: INSULIN -REGULAR HUMAN 50 UNIT/0.5 ML ML SQ SCH ×4 (07:30→20:23)
[2018-04-09] MEDS: HEPARIN 5000 UNIT/ML 1 ML VIAL SQ SCH ×2 (07:50→20:23)
[2018-04-09] MEDS: FAMOTIDINE 20 MG TAB PO SCH ×2 (08:36→20:47)
[2018-04-09] MEDS: ACETAMINOPHEN 500 MG TAB PO PRN (08:37)
[2018-04-09] MEDS: CARVEDILOL 12.5 MG TAB PO SCH ×2 (08:37→16:31)
[2018-04-09] MEDS: CALCIUM CARBONATE 500 MG TAB PO SCH (08:37)
[2018-04-09] MEDS: GABAPENTIN 300 MG CAP PO SCH ×2 (08:37→20:47)
[2018-04-09] MEDS: AMLODIPINE 10 MG TAB PO SCH (08:37)
[2018-04-09] MEDS: HYDRALAZINE HCL 25 MG TABLET PO SCH ×4 (08:37→23:35)
[2018-04-09] MEDS: GLIPIZIDE S.A. 5 MG TAB PO SCH (08:38)
[2018-04-09] MEDS: CLONIDINE HCL 0.3 MG TAB PO SCH ×3 (08:38→20:47)
[2018-04-09] MEDS: PROMOD 30 ML DOSE PO SCH ×2 (08:39→20:48)
--- NOTE | 2018-04-09 10:46 | FAST ---
SHIFT START DATE/TIME: 04/09/2018 07:00 (CDT) SHIFT END DATE/TIME: 04/09/2018 19:00 (CDT) NAME SHANNAN MCKEE DATE OF : 1950 DATE OF ADMISSION: 04/07/2018 20:20 (CDT) PHONE: AGE: 68 N# [id number] GENDER: Female ENCOUNTER PHYSICIAN: Dr. Davie Hernandez M.D. ADMISSION DIAGNOSIS: - Other Disabling Impairments 13 - Other Disabling Impairments (13) Critical illness polyneuropathy, Debility, ESRD. EATING: EATING - STEP 1: Does the patient require assistance when eating? Yes. EATING - STEP 2: Does the patient require the assistance of a helper? No, patient only requires an assistive device, O R s/he takes more than reasonable time to eat, OR there is a safety concern, OR s/he requires modifie d food consistency EATING - SCORE: 6-SAIRA GROOMING: Activity did not occur on this shift GROOMING - SCORE: 0-UNK BATHING: Activity did not occur on this shift BATHING - SCORE: 0-UNK DRESSING - UPPER BODY: Patient is not dressing in public clothing ARTICLES SCORE Total number of steps: 0 DRESSING - UPPER BODY - SCORE: 0-UNK DRESSING - LOWER BODY: Patient is not dressing in public clothing ARTICLES SCORE Total number of steps: 0 DRESSING - LOWER BODY - SCORE: 0-UNK TOILETING: TOILETING - STEP 1: Does the patient require assistance with toileting? Yes. TOILETING - STEP 2: Does the patient require the assistance of a helper? Yes. TOILETING - STEP 3: How much assistance does the patient require from the helper? Hands-on assistance from the helper TOILETING - STEP 4: Of the 3 tasks: 1) Adjusting clothing prior to use, 2) Cleansing of perineal area, 3) Adjusting clot latia after use; How many tasks does the patient perform WITHOUT assistance of the helper? Two tasks TOILETING - SCORE: 3-MOD BLADDER MANAGEMENT: Patient is on renal dialysis or peritoneal dialysis and no voiding activity BLADDER MANAGEMENT - SCORE: 7-IND BOWEL MANAGEMENT: Activity did not occur on this shift BOWEL MANAGEMENT - SCORE: 7-IND TRANSFERS: BED, CHAIR, WHEELCHAIR: TRANSFERS: BED, CHAIR, WHEELCHAIR - STEP 1: Does the patient require assistance with bed, chair, or wheelchair transfers? Yes. TRANSFERS: BED, CHAIR, WHEELCHAIR - STEP 2: Does the patient require the assistance of a helper? Yes. TRANSFERS: BED, CHAIR, WHEELCHAIR - STEP 3: How much assistance does the patient require from the helper? Lifting of the patient TRANSFERS: BED, CHAIR, WHEELCHAIR - STEP 4: Does the helper lift the patient ONLY up? ONLY down? Up AND Down? ONLY up. TRANSFERS: BED, CHAIR, WHEELCHAIR - SCORE: 3-MOD TRANSFERS: TOILET: TRANSFERS: TOILET - STEP 1: Does the patient require assistance with toilet transfers? Yes. TRANSFERS: TOILET - STEP 2: Does the patient require the assistance of a helper? Yes. TRANSFERS: TOILET - STEP 3: How much assistance does the patient require from the helper? Patient performs half or more of the tr ansferring tasks TRANSFERS: TOILET - STEP 4: Does the patient need only incidental help such as contact guard or steadying during toilet transfer? No. Patient needs more than incidental help TRANSFERS: TOILET - SCORE: 3-MOD TRANSFERS: SHOWER: Activity did not occur on this shift TRANSFERS: SHOWER - SCORE: 0-UNK TRANSFERS: TUB: Activity did not occur on this shift TRANSFERS: TUB - SCORE: 0-UNK LOCOMOTION: WALK: Activity did not occur on this shift LOCOMOTION: WALK - SCORE: 0-UNK LOCOMOTION: WHEELCHAIR: Activity did not occur on this shift LOCOMOTION: WHEELCHAIR - SCORE: 0-UNK COMPREHENSION: COMPREHENSION - SCORE: 0-UNK EXPRESSION EXPRESSION - SCORE: 0-UNK SOCIAL INTERACTION: SOCIAL INTERACTION - SCORE: 0-UNK PROBLEM SOLVING: PROBLEM SOLVING - SCORE: 0-UNK MEMORY: MEMORY - SCORE: 0-UNK SIGNATURE PANEL: The following modified sections: Eating - Score, Grooming - Score, Bathing - Score, Dressing - Upper Body - Score, Dressing - Lower Body - Score, Toileting - Score, Bladder Management - Score, Bowel Man agement - Score, Transfers: Bed, Chair, Wheelchair - Score, Transfers: Toilet - Score, Transfers: Katherine wer - Score, Transfers: Tub - Score, Locomotion: Walk - Score, Locomotion: Wheelchair - Score, Compre hension - Score, Expression - Score, Social Interaction - Score, Problem Solving - Score, Memory - Sc ore were [electronically] signed by Ortiz Chahal on Sat Apr 09 2018 10:45:33 T-0500 (Central Daylight Time)
[2018-04-09 10:47] LABS: Urine Appearance TURBID; Urine Blood TRACE (NEG); Urine Color RED; Urine Glucose TRACE (NEG); Urine Protein 3+ (NEG); Urine Specific Gravity >=1.030 (1.005-1.030); Urine Urobilinogen 0.2 mg/dL (0.2-1.0)
[2018-04-09 11:38] LABS: Urine Bilirubin NEGATIVE (NEG)
[2018-04-09 11:43] LABS: Urine Amorphous Sediment 2+ /HPF (NONE SEEN); Urine Bacteria <20 /HPF (<20); Urine Culture Reflex Order NOT NEEDED
[2018-04-09 11:44] LABS: Urine Coarse Granular Casts 0-5 /LPF (NONE SEEN)
[2018-04-09 11:47] LABS: Urine Waxy Casts >10 /LPF (NONE SEEN); Urine Yeast FEW (NONE SEEN)
--- NOTE | 2018-04-09 12:48 | FAST ---
ENCOUNTER DATE AND TIME: 04/09/2018 08:00 (CDT) NAME SHANNAN MCKEE DATE OF : 1950 DATE OF ADMISSION: 04/07/2018 20:20 (CDT) PHONE: AGE: 68 N# [id number] GENDER: Female ENCOUNTER PHYSICIAN: Dr. Davie Hernandez M.D. ADMISSION DIAGNOSIS: - Other Disabling Impairments 13 - Other Disabling Impairments (13) Critical illness polyneuropathy, Debility, ESRD. EATING: Activity did not occur on this shift EATING - SCORE: 0-UNK GROOMING: Activity did not occur on this shift GROOMING - SCORE: 0-UNK BATHING: Activity did not occur on this shift BATHING - SCORE: 0-UNK DRESSING - UPPER BODY: Activity did not occur on this shift Patient is not dressing in public clothing ARTICLES SCORE Total number of steps: 0 DRESSING - UPPER BODY - SCORE: 0-UNK DRESSING - LOWER BODY: Activity did not occur on this shift Patient is not dressing in public clothing ARTICLES SCORE Total number of steps: 0 DRESSING - LOWER BODY - SCORE: 0-UNK TOILETING: Activity did not occur on this shift TOILETING - SCORE: 0-UNK BLADDER MANAGEMENT: Activity did not occur on this shift BLADDER MANAGEMENT - SCORE: 7-IND BOWEL MANAGEMENT: Activity did not occur on this shift BOWEL MANAGEMENT - SCORE: 7-IND TRANSFERS: BED, CHAIR, WHEELCHAIR: TRANSFERS: BED, CHAIR, WHEELCHAIR - STEP 1: Does the patient require assistance with bed, chair, or wheelchair transfers? Yes. TRANSFERS: BED, CHAIR, WHEELCHAIR - STEP 2: Does the patient require the assistance of a helper? Yes. TRANSFERS: BED, CHAIR, WHEELCHAIR - STEP 3: How much assistance does the patient require from the helper? Only supervision TRANSFERS: BED, CHAIR, WHEELCHAIR - SCORE: 5-SUP TRANSFERS: TOILET: Activity did not occur on this shift TRANSFERS: TOILET - SCORE: 0-UNK TRANSFERS: SHOWER: Activity did not occur on this shift TRANSFERS: SHOWER - SCORE: 0-UNK TRANSFERS: TUB: Activity did not occur on this shift TRANSFERS: TUB - SCORE: 0-UNK LOCOMOTION: WALK: Patient walks less than 50 feet LOCOMOTION: WALK - SCORE: 1-DEP LOCOMOTION: WHEELCHAIR: LOCOMOTION: WHEELCHAIR - STEP 1: Does the patient need help to go 150 feet in a wheelchair? Yes. LOCOMOTION: WHEELCHAIR - STEP 2: How much assistance does the patient need from the helper? Only supervision, cuing, or coaxing LOCOMOTION: WHEELCHAIR - SCORE: 5-SUP LOCOMOTION: STAIRS: Activity did not occur on this shift LOCOMOTION: STAIRS - SCORE: 0-UNK COMPREHENSION: COMPREHENSION - SCORE: 0-UNK EXPRESSION EXPRESSION - SCORE: 0-UNK SOCIAL INTERACTION: SOCIAL INTERACTION - SCORE: 0-UNK PROBLEM SOLVING: PROBLEM SOLVING - SCORE: 0-UNK MEMORY: MEMORY - SCORE: 0-UNK SIGNATURE PANEL: The following modified sections: Transfers: Bed, Chair, Wheelchair - Score, Transfers: Toilet - Score , Locomotion: Walk - Score, Locomotion: Wheelchair - Score, Locomotion: Stairs - Score were [electron cameron] signed by Haile Abebe PTA on Sat Apr 09 2018 12:46:56 GMT-0500 (Central Daylight Time)
[2018-04-09] MEDS: BIMATOPROST OPTH SCH (20:45)
[2018-04-09] MEDS: ATORVASTATIN 20 MG TAB PO SCH (20:47)
--- NOTE | 2018-04-10 02:10 | CON ---
Date of Consultation: 04/09/2018 Chief Complaint: Expnm-al-lxaseac kidney injury. The patient has history of chronic kidney disease, stage 4. She was recently hospitalized at [facility] for congestive heart failure, severe deconditioning, and she developed severe legs edema and required diuretic therapy for severe fluid overload , anasarca , subsequently hemodialysis was started for severe kidney failure. The patient has history of congestive heart failure with diastolic dysfunction. Review of Systems: Constitutional: Denies fever, chills. Eyes: Denies vision changes. Ears, Nose, Mouth, and Throat: Denies sore throat, earache. Respiratory: Denies PND, orthopnea, dyspnea on exertion. GI: Has some nausea, vomiting. Denies melena, hematemesis. : Denies dysuria, hematuria. Musculoskeletal: Denies muscle aches or joint swelling. Has legs edema. Neurologic: Denies speech problems. All other systems reviewed and all are negative. Past Medical History: Diabetes mellitus with renal manifestation, proteinuria, hypertension, hyperlipidemia, congestive heart failure with diastolic dysfunction, history of acute kidney injury on chronic kidney disease, CKD 4. Social History: Denies tobacco, alcohol, or illicit drugs. Family History: No kidney disease in the family. Physical Examination: General: Not in acute distress. Conversant Eyes: Anicteric sclerae. EOMI. Ears, Nose, Mouth, and Throat: Oral mucosa moist. No pallor. Neck: Supple. No JVD. No bruits. Lungs: Clear to auscultation bilaterally. No wheezing. No rhonchi. Heart: S1, S2. No pericardial friction rub. Abdomen: Obese, soft, nontender. No rebound. No guarding. Extremities: Edema in both ankles. no cellulitis Vital Signs: Blood pressure 125/54, heart rate 73, temperature 97.1. Neurological: Moving extremities. Cranial nerves intact. No tremor. Psychiatric: Alert, oriented x3. Normal affect. Laboratory Data: Hemoglobin 9.8, WBC 6.1, platelet count is 287,000. Sodium 140, potassium 3.7, chloride 103, CO2 26, BUN 26, creatinine 4.1, glucose 131, calcium 7.9, albumin 1.8. Impression And Plan: 1. Pbkcu-jz-xwilwte kidney injury, severe proteinuria. The patient may need a kidney biopsy when she is ruled out for urinary tract infection. 2. Hypoalbuminemia. Increase p.o. protein intake. 3. Congestive heart failure with diastolic dysfunction. Continue low-sodium diet. The patient may be a candidate for diuretic if legs edema does not improve. 4. Hypertension. The patient is on carvedilol. Continue current treatment. 5. Proteinuria. The patient has diabetic kidney disease. Kidney function has declined because of cardiorenal syndrome and worsening of diabetic kidney disease. The patient was treated for severe fluid overload with anasarca, continue hemodialysis Continue low-sodium diet. Reassess renal function. YECENIA/LATOYA Voice ID: [id number] Report ID: [id number] SILVANA
--- NOTE | 2018-04-10 03:03 | FAST ---
SHIFT START DATE/TIME: 04/09/2018 19:00 (CDT) SHIFT END DATE/TIME: 04/10/2018 07:00 (CDT) NAME SHANNAN MCKEE DATE OF : 1950 DATE OF ADMISSION: 04/07/2018 20:20 (CDT) PHONE: AGE: 68 N# [id number] GENDER: Female ENCOUNTER PHYSICIAN: Dr. Davie Hernandez M.D. ADMISSION DIAGNOSIS: - Other Disabling Impairments 13 - Other Disabling Impairments (13) Critical illness polyneuropathy, Debility, ESRD. EATING: Activity did not occur on this shift EATING - SCORE: 0-UNK GROOMING: Activity did not occur on this shift GROOMING - SCORE: 0-UNK BATHING: Activity did not occur on this shift BATHING - SCORE: 0-UNK DRESSING - UPPER BODY: Activity did not occur on this shift ARTICLES SCORE Total number of steps: 0 DRESSING - UPPER BODY - SCORE: 0-UNK DRESSING - LOWER BODY: Activity did not occur on this shift ARTICLES SCORE Total number of steps: 0 DRESSING - LOWER BODY - SCORE: 0-UNK TOILETING: TOILETING - STEP 1: Does the patient require assistance with toileting? Yes. TOILETING - STEP 2: Does the patient require the assistance of a helper? Yes. TOILETING - STEP 3: How much assistance does the patient require from the helper? Only supervision TOILETING - SCORE: 5-SUP BLADDER MANAGEMENT: BLADDER MANAGEMENT - STEP 1: Does the patient control the bladder completely and intentionally without equipment or devices or med ications, and is always continent? Yes. BLADDER MANAGEMENT - SCORE: 7-IND BLADDER MANAGEMENT - FREQUENCY OF ACCIDENTS: BLADDER MANAGEMENT(FA) - STEP 1: How many accidents has the patient had during the current shift? 0 BOWEL MANAGEMENT: BOWEL MANAGEMENT - STEP 1: Does the patient control bowels completely and intentionally without equipment devices or medications AND is always continent? Yes. BOWEL MANAGEMENT - SCORE: 7-IND BOWEL MANAGEMENT - FREQUENCY OF ACCIDENTS: BOWEL MANAGEMENT(FA) - STEP 1: How many accidents has the patient had during the current shift? 0 TRANSFERS: BED, CHAIR, WHEELCHAIR: TRANSFERS: BED, CHAIR, WHEELCHAIR - STEP 1: Does the patient require assistance with bed, chair, or wheelchair transfers? Yes. TRANSFERS: BED, CHAIR, WHEELCHAIR - STEP 2: Does the patient require the assistance of a helper? Yes. TRANSFERS: BED, CHAIR, WHEELCHAIR - STEP 3: How much assistance does the patient require from the helper? Lifting of the legs TRANSFERS: BED, CHAIR, WHEELCHAIR - STEP 4: How many legs does the patient require the helper to lift? both legs TRANSFERS: BED, CHAIR, WHEELCHAIR - SCORE: 3-MOD TRANSFERS: TOILET: TRANSFERS: TOILET - STEP 1: Does the patient require assistance with toilet transfers? Yes. TRANSFERS: TOILET - STEP 2: Does the patient require the assistance of a helper? Yes. TRANSFERS: TOILET - STEP 3: How much assistance does the patient require from the helper? Only supervision, cuing, coaxing, OR he lp to set out transfer equipment or to lock brakes and/or lift foot rests TRANSFERS: TOILET - SCORE: 5-SUP TRANSFERS: SHOWER: Activity did not occur on this shift TRANSFERS: SHOWER - SCORE: 0-UNK TRANSFERS: TUB: Activity did not occur on this shift TRANSFERS: TUB - SCORE: 0-UNK LOCOMOTION: WALK: Activity did not occur on this shift LOCOMOTION: WALK - SCORE: 0-UNK LOCOMOTION: WHEELCHAIR: Activity did not occur on this shift LOCOMOTION: WHEELCHAIR - SCORE: 0-UNK COMPREHENSION: COMPREHENSION: TYPE: Both COMPREHENSION - STEP 1: Does the patient require help to understand complex and abstract ideas (such as current events, finan radha, discharge planning, medical issues, relationships, etc)? No. COMPREHENSION - STEP 2: Does the patient need extra time, require an assistive device (such as glasses, hearing aids, or an a ugmentative communication system), OR does s/he have mild difficulty expressing complex and abstract ideas (including mild dysarthria or mild word-finding problems)? Yes. COMPREHENSION - SCORE: 6-SAIRA EXPRESSION EXPRESSION: TYPE: Both EXPRESSION - STEP 1: Does the patient require help expressing complex and abstract ideas (such as current events, finances , discharge planning, medical issues, relationships, etc)? No. EXPRESSION - STEP 2: Does the patient need extra time, require an assistive device (such as augmentive communication syste m or a communication board), OR does s/he have mild difficulty expressing complex and abstract ideas (including mild dysarthria or mild word-find problems)? No. EXPRESSION - SCORE: 7-IND SOCIAL INTERACTION: SOCIAL INTERACTION - STEP 1: Does the patient require a helper to interact with others in social and therapeutic situations? No. SOCIAL INTERACTION - STEP 2: Does the patient need extra time in social situations, OR does s/he interact with staff, other patien ts, and family members ONLY in structured environments, OR does s/he require medication for social in teraction? No. SOCIAL INTERACTION - SCORE: 7-IND PROBLEM SOLVING: PROBLEM SOLVING - STEP 1: Does the patient need help to solve complex problems such as managing a checking account or confronti ng interpersonal problems? No. PROBLEM SOLVING - STEP 2: Does the patient require extra time to make decisions or solve problems, OR does s/he have slight dif ficulty reading, initiating, or self-correcting in unfamiliar situations? No. PROBLEM SOLVING - SCORE: 7-IND MEMORY: MEMORY - STEP 1: Does the patient need help to remember frequently encountered people, daily routines, and executing r equests? No. MEMORY - STEP 2: Does the patient have slight difficulty recognizing frequently encountered people, daily routines, or executing requests without the need for repetition or using self-initiated or environmental cues to remember? No. MEMORY - SCORE: 7-IND SIGNATURE PANEL: The following modified sections: Eating - Score, Grooming - Score, Bathing - Score, Dressing - Upper Body - Score, Dressing - Lower Body - Score, Toileting - Score, Bladder Management - Score, Bowel Man agement - Score, Transfers: Bed, Chair, Wheelchair - Score, Transfers: Toilet - Score, Transfers: Katherine wer - Score, Transfers: Tub - Score, Locomotion: Walk - Score, Locomotion: Wheelchair - Score, Compre hension - Score, Expression - Score, Social Interaction - Score, Problem Solving - Score, Memory - Sc ore were [electronically] signed by Margaux Sorto on WedApr 10 2018 03:01:59 GMT-0500 (Central Day light Time)
[2018-04-10 06:53] LABS: Potassium 3.9 mmol/L (3.5-5.1)
[2018-04-10] MEDS: INSULIN -REGULAR HUMAN 50 UNIT/0.5 ML ML SQ SCH ×4 (07:09→20:26)
[2018-04-10] MEDS: GLIPIZIDE S.A. 5 MG TAB PO SCH (07:22)
[2018-04-10] MEDS: ACETAMINOPHEN 500 MG TAB PO PRN (07:22)
[2018-04-10] MEDS: GABAPENTIN 300 MG CAP PO SCH ×2 (07:22→20:37)
[2018-04-10] MEDS: FAMOTIDINE 20 MG TAB PO SCH ×2 (07:22→20:36)
[2018-04-10] MEDS: CALCIUM CARBONATE 500 MG TAB PO SCH (07:22)
[2018-04-10] MEDS: CARVEDILOL 12.5 MG TAB PO SCH ×2 (07:23→16:53)
[2018-04-10] MEDS: PROMOD 30 ML DOSE PO SCH ×2 (07:23→20:35)
[2018-04-10] MEDS: HYDRALAZINE HCL 25 MG TABLET PO SCH ×3 (07:23→23:54)
[2018-04-10] MEDS: TRIAMCINOLONE ACET 0.1% CREAM 80 GM TOP SCH ×2 (07:23→20:38)
[2018-04-10] MEDS: AMLODIPINE 10 MG TAB PO SCH (07:24)
[2018-04-10] MEDS: FLUOCINONIDE 0.05% CREAM 30GM TOP PRN (07:24)
[2018-04-10] MEDS: HEPARIN 5000 UNIT/ML 1 ML VIAL SQ SCH ×2 (07:55→20:26)
[2018-04-10] MEDS: CLONIDINE HCL 0.3 MG TAB PO SCH ×3 (09:57→20:35)
--- NOTE | 2018-04-10 10:42 | RAD REPORT ---
EXAM DESCRIPTION: RAD - Chest Single View - 04/10/2018 9:58 am CLINICAL HISTORY: Dyspnea COMPARISON: None. TECHNIQUE: AP portable chest image was obtained 0946 hour . FINDINGS: Lung volumes are very low accentuating heart, vasculature and lung markings. No peripheral mass or consolidation. Significant failure or volume overload are doubtful. Heart and vasculature ar e normal. No measurable pleural effusion and no pneumothorax. No gross bony abnormality seen. No acut e aortic findings suspected. IMPRESSION: Limited shallow inspiration portable exam felt to be without acute cardiopulmonary findi ng.
--- NOTE | 2018-04-10 14:17 | FAST ---
SHIFT START DATE/TIME: 04/10/2018 07:00 (CDT) SHIFT END DATE/TIME: 04/10/2018 19:00 (CDT) NAME SHANNAN MCKEE DATE OF : 1950 DATE OF ADMISSION: 04/07/2018 20:20 (CDT) PHONE: AGE: 68 N# [id number] GENDER: Female ENCOUNTER PHYSICIAN: Dr. Davie Hernandez M.D. ADMISSION DIAGNOSIS: - Other Disabling Impairments 13 - Other Disabling Impairments (13) Critical illness polyneuropathy, Debility, ESRD. EATING: EATING - STEP 1: Does the patient require assistance when eating? Yes. EATING - STEP 2: Does the patient require the assistance of a helper? No, patient only requires an assistive device, O R s/he takes more than reasonable time to eat, OR there is a safety concern, OR s/he requires modifie d food consistency EATING - SCORE: 6-SAIRA GROOMING: Comb/brush hair Oral care Wash, rinse, and dry face Wash, rinse, and dry hands GROOMING - STEP 1: Does the patient require assistance when grooming? Yes. GROOMING - STEP 2: Does the patient require the assistance of a helper? Yes. GROOMING - STEP 3: How much assistance does the patient require from the helper? Only prior equipment preparation/set up from the helper GROOMING - SCORE: 5-SUP BATHING: Activity did not occur on this shift BATHING - SCORE: 0-UNK DRESSING - UPPER BODY: Activity did not occur on this shift ARTICLES SCORE Total number of steps: 0 DRESSING - UPPER BODY - SCORE: 0-UNK DRESSING - LOWER BODY: Activity did not occur on this shift ARTICLES SCORE Total number of steps: 0 DRESSING - LOWER BODY - SCORE: 0-UNK TOILETING: TOILETING - STEP 1: Does the patient require assistance with toileting? Yes. TOILETING - STEP 2: Does the patient require the assistance of a helper? Yes. TOILETING - STEP 3: How much assistance does the patient require from the helper? Hands-on assistance from the helper TOILETING - STEP 4: Of the 3 tasks: 1) Adjusting clothing prior to use, 2) Cleansing of perineal area, 3) Adjusting clot latia after use; How many tasks does the patient perform WITHOUT assistance of the helper? Three tasks with steadying assistance from the helper TOILETING - SCORE: 4-MIN BLADDER MANAGEMENT: BLADDER MANAGEMENT - STEP 1: Does the patient control the bladder completely and intentionally without equipment or devices or med ications, and is always continent? No. BLADDER MANAGEMENT - STEP 2: Does the patient require the assistance of a helper? No, patient requires and independently uses an a ssistive device, such as a urinal, bedpan, bedside commode, catheter, absorbent pad, or collecting de vice BLADDER MANAGEMENT - SCORE: 6-SAIRA BOWEL MANAGEMENT: Activity did not occur on this shift BOWEL MANAGEMENT - SCORE: 7-IND TRANSFERS: BED, CHAIR, WHEELCHAIR: TRANSFERS: BED, CHAIR, WHEELCHAIR - STEP 1: Does the patient require assistance with bed, chair, or wheelchair transfers? Yes. TRANSFERS: BED, CHAIR, WHEELCHAIR - STEP 2: Does the patient require the assistance of a helper? Yes. TRANSFERS: BED, CHAIR, WHEELCHAIR - STEP 3: How much assistance does the patient require from the helper? Steadying/guiding assistance TRANSFERS: BED, CHAIR, WHEELCHAIR - SCORE: 4-MIN TRANSFERS: TOILET: TRANSFERS: TOILET - STEP 1: Does the patient require assistance with toilet transfers? Yes. TRANSFERS: TOILET - STEP 2: Does the patient require the assistance of a helper? Yes. TRANSFERS: TOILET - STEP 3: How much assistance does the patient require from the helper? Patient performs half or more of the tr ansferring tasks TRANSFERS: TOILET - STEP 4: Does the patient need only incidental help such as contact guard or steadying during toilet transfer? Yes. TRANSFERS: TOILET - SCORE: 4-MIN TRANSFERS: SHOWER: Activity did not occur on this shift TRANSFERS: SHOWER - SCORE: 0-UNK TRANSFERS: TUB: Activity did not occur on this shift TRANSFERS: TUB - SCORE: 0-UNK LOCOMOTION: WALK: Activity did not occur on this shift LOCOMOTION: WALK - SCORE: 0-UNK LOCOMOTION: WHEELCHAIR: Activity did not occur on this shift LOCOMOTION: WHEELCHAIR - SCORE: 0-UNK COMPREHENSION: COMPREHENSION - SCORE: 0-UNK EXPRESSION EXPRESSION - SCORE: 0-UNK SOCIAL INTERACTION: SOCIAL INTERACTION - SCORE: 0-UNK PROBLEM SOLVING: PROBLEM SOLVING - SCORE: 0-UNK MEMORY: MEMORY - SCORE: 0-UNK SIGNATURE PANEL: The following modified sections: Eating - Score, Grooming - Score, Bathing - Score, Dressing - Upper Body - Score, Dressing - Lower Body - Score, Toileting - Score, Bladder Management - Score, Bowel Man agement - Score, Transfers: Bed, Chair, Wheelchair - Score, Transfers: Toilet - Score, Transfers: Katherine wer - Score, Transfers: Tub - Score, Locomotion: Walk - Score, Locomotion: Wheelchair - Score, Compre hension - Score, Expression - Score, Social Interaction - Score, Problem Solving - Score, Memory - Sc ore were [electronically] signed by Ortiz Chahal on WedApr 10 2018 14:16:38 GMT-0500 (Central Daylight Time)
--- NOTE | 2018-04-10 14:48 | P.CNS ---
Date of Consult: 04/10/18 Reason for Consult: Medical management Requesting Physician: Jeannie Dumas Primary Care Provider: Package Pick Up-Dr. Hernandez/PCP-Dr. Logan Chief Complaint: Patient currently in rehab post CHF exacerbation History of Present Illness: 68-year-old female currently in a rehab status post CHF exacerbation. I was asked to evaluate patient for possible transfer to the floor. Patient requires dialysis. Patient has end-stage renal disease on dialysis, diabetes, hypertension, congestive heart failure. Patient was recently hospitalized at [facility]. She was transferred to rehab for care. Apparently patient had Doug catheter placed for dialysis. Her last dialysis was on when she was discharged to the rehab facility. Patient currently stable this time. Some swelling to the lower extremities noted. She is without any significant chest pain, shortness of breath, headaches , dizziness. Medications reviewed. Patient currently on Norvasc, Lipitor, clonidine, hydralazine, gabapentin, Pepcid and glipizide. Allergies aspirin Allergy (Verified 04/07/18 21:08) Rash Home medications list reviewed: Yes Home Medications: Acetaminophen [Tylenol*] 650 mg PO Q6H PRN tab 04/10/18 Albuterol Inhaler [Ventolin Inhaler*] 2 puff IH Q6H PRN hfa.aer.ad 04/10/18 Amlodipine [Norvasc*] 10 mg PO DAILY tab 04/10/18 Atorvastatin Calcium [Lipitor*] 20 mg PO BEDTIME tab 04/10/18 Calcium Carbonate [Oscal*] 500 mg PO DAILY tab 04/10/18 Carvedilol [Coreg*] 12.5 mg PO BIDWM tab 04/10/18 Codeine/APAP [Tylenol #3*] 1 tab PO Q6H PRN tab 04/10/18 Diphenhydramine [Benadryl*] 12.5 mg PO BID PRN tab 04/10/18 Famotidine [Pepcid*] 20 mg PO BID tab 04/10/18 Glipizide S.a. [Glucotrol Xl*] 2.5 mg PO DAILY WITH BREAKFAST tab 04/10/18 Heparin [Heparin Sodium*] 5,000 unit SQ Q12HR vial 04/10/18 Hydralazine [Apresoline*] 100 mg PO Q8H tab 04/10/18 Insulin -Regular Human [Novolin -R*] See Protocol SQ ACHS ml 04/10/18 Melatonin [Melatonin*] 3 mg PO BEDTIME PRN PRN tablet 04/10/18 Ondansetron [Zofran (Odt)*] 4 mg PO Q4H PRN tab 04/10/18 cloNIDine HCl [Catapres*] 0.3 mg PO TID tablet 04/10/18 - Past Medical/Surgical History Diabetic: Yes -: DM -: End-stage renal disease on dialysis -: HTN -: Arthritis -: Hyperlipidemia -: CHF -: Obesity -: GERD -: Diabetic neuropathy -: cataract sx w/ lens implants -: appendectomy -: cholecystectomy -: hysterectomy -: arthrocentesis lateral outer right knee 04/06/18 -: perma cath placement 04/06/18 Psychosocial/ Personal History: The patient is a . She has 1 child. She lives by herself. - Family History Mother Medical History: Blood disorders Notes: - Social History Smoking Status: Never smoker Alcohol use: Yes CD- Drugs: No Caffeine use: Yes Place of Residence: Home Review of Systems General: As per HPI Eyes: Unremarkable ENT: Unremarkable Respiratory: Unremarkable Cardiovascular: Edema, As per HPI Gastrointestinal: Unremarkable Genitourinary: Unremarkable Musculoskeletal: Pedal edema, As per HPI Integumentary: Unremarkable Neurological: Unremarkable Lymphatics: Unremarkable Physical Examination Temp Pulse Resp BP Pulse Ox 97.2 F 55 18 100/53 L 97 04/10/18 08:00 04/10/18 13:03 04/10/18 08:00 04/10/18 13:03 04/10/18 08:00 General: Alert, In no apparent distress, Oriented x3, Cooperative HEENT: Atraumatic, Mucous membr. moist/pink Neck: Supple, No Thyromegaly Respiratory: Clear to auscultation bilaterally, Normal air movement Cardiovascular: Normal pulses, Regular rate/rhythm Gastrointestinal: Normal bowel sounds, Soft and benign, Non-distended, No tenderness, No masses, No rebound, No guarding Musculoskeletal: No erythema, No tenderness, No warmth Integumentary: Tenderness/swelling (Edema to the lower extremities bilateral more so on the right than left) Neurological: Normal speech, Normal strength at 5/5 x4 extr, Normal tone, Normal affect Lymphatics: No axilla or inguinal lymphadenopathy Laboratory Data (last 24 hrs) 04/10/18 05:54: Sodium 140, Potassium 3.9, BUN 41 H, Creatinine 5.90 H* D, Glucose 124 H - Problems (1) End stage renal disease Current Visit: Yes Status: Chronic Plan: Patient now has dialysis catheter. Last dialysis on . Patient requires dialysis. Will discuss with nephrology. Will hold discharge to the floor as dialysis can be done in arranged on the 5th floor. Patient was transferred to inpatient rehab after acute on chronic renal injury leading to end-stage renal disease and CHF. (2) CHF (congestive heart failure) Current Visit: Yes Status: Chronic Plan: Patient with chronic diastolic dysfunction. Patient will receive dialysis. Will need to consider adding Lasix. Will discuss with nephrology. Qualifiers: Heart failure type: diastolic (3) Diabetes mellitus Current Visit: Yes Status: Chronic Plan: Continue with medication. Overall stable. Qualifiers: Diabetes mellitus type: type 2 Diabetes mellitus alf insulin use: without alf use Diabetes mellitus complication status: with kidney complications Diabetes mellitus complication detail: with chronic kidney disease Chronic kidney disease stage: on chronic dialysis Qualified Code(s) : E11.22 - Type 2 diabetes mellitus with diabetic chronic kidney disease; N18.6 - End stage renal disease; Z99.2 - Dependence on renal dialysis (4) Hypertension Current Visit: Yes Status: Chronic Plan: Continue with medication Qualifiers: Hypertension type: essential hypertension Qualified Code(s): I10 - Essential (primary) hypertension (5) GERD (gastroesophageal reflux disease) Current Visit: Yes Status: Chronic Plan: Continue with medication Qualifiers: Esophagitis presence: esophagitis presence not specified Qualified Code(s) : K21.9 - Gastro-esophageal reflux disease without esophagitis (6) Diabetic neuropathy Current Visit: Yes Status: Chronic Plan: Continue with her medication. Qualifiers: Diabetes mellitus type: type 2 Diabetes mellitus complication detail: diabetic polyneuropathy Qualified Code(s): E11.42 - Type 2 diabetes mellitus with diabetic polyneuropathy (7) Obesity Current Visit: Yes Status: Chronic Plan: Will address lifestyle modification education Qualifiers: Obesity type: due to excess calories Obesity classification: adult class 3 (BMI >= 40) Serious obesity comorbidity presence: with serious comorbidity Body mass index: BMI 45.0-49.9 Qualified Code(s): E66.01 - Morbid (severe) obesity due to excess calories; Z68.42 - Body mass index (BMI) 45.0-49.9, adult (8) Hyperlipidemia Current Visit: Yes Status: Chronic Plan: Continue with her medication Qualifiers: Hyperlipidemia type: unspecified Qualified Code(s): E78.5 - Hyperlipidemia , unspecified Conclusions/Impression: We will hold discharge to the floor as dialysis can be arranged on the 5th floor. Will discuss with nephrology. Nephrology plans for dialysis tomorrow. Patient may require diuresis. Time Spent Managing Pts care (In Minutes): 55
--- NOTE | 2018-04-10 15:21 | RAD REPORT ---
EXAM DESCRIPTION: US - Renal Ultrasound-Complete - 04/10/2018 1:43 pm CLINICAL HISTORY: Acute kidney injury COMPARISON: None. FINDINGS: The right kidney measures 8.7 x 5.1 x 5.0 cm. The left kidney measures 9.0 x 4.8 x 4.4 cm . Cortical thickness is normal. No hydronephrosis or suspicious renal mass. Increased cortical echoge nicity present from medical renal disease, body habitus artifact or a combination. No bladder wall thickening or mass. No intraluminal stone or mass. IMPRESSION: No hydronephrosis or suspicious renal mass. Medical renal disease is evident. Exam is limited by body habitus.
[2018-04-10] MEDS ORDERED: FUROSEMIDE 20 MG TABLET PO SCH (20:00)
[2018-04-10] MEDS ORDERED: TIMOLOL MALEATE 0.5% OPTH 5 ML BTL OPTH SCH (20:00)
[2018-04-10] MEDS: DOCUSATE NA/SENNA CONC 1 TAB PO SCH (20:36)
[2018-04-10] MEDS: BIMATOPROST OPTH SCH (20:37)
[2018-04-10] MEDS: ATORVASTATIN 20 MG TAB PO SCH (20:37)
[2018-04-11] MEDS: HEPARIN 5000 UNIT/ML 1 ML VIAL SQ SCH ×2 (00:20→08:00)
--- NOTE | 2018-04-11 02:20 | FAST ---
SHIFT START DATE/TIME: 04/10/2018 19:00 (CDT) SHIFT END DATE/TIME: 04/11/2018 07:00 (CDT) NAME SHANNAN MCKEE DATE OF : 1950 DATE OF ADMISSION: 04/07/2018 20:20 (CDT) PHONE: AGE: 68 N# [id number] GENDER: Female ENCOUNTER PHYSICIAN: Dr. Davie Hernandez M.D. ADMISSION DIAGNOSIS: - Other Disabling Impairments 13 - Other Disabling Impairments (13) Critical illness polyneuropathy, Debility, ESRD. EATING: Activity did not occur on this shift EATING - SCORE: 0-UNK GROOMING: Activity did not occur on this shift GROOMING - SCORE: 0-UNK BATHING: Activity did not occur on this shift BATHING - SCORE: 0-UNK DRESSING - UPPER BODY: Activity did not occur on this shift ARTICLES SCORE Total number of steps: 0 DRESSING - UPPER BODY - SCORE: 0-UNK DRESSING - LOWER BODY: Activity did not occur on this shift ARTICLES SCORE Total number of steps: 0 DRESSING - LOWER BODY - SCORE: 0-UNK TOILETING: TOILETING - STEP 1: Does the patient require assistance with toileting? Yes. TOILETING - STEP 2: Does the patient require the assistance of a helper? No. TOILETING - SCORE: 6-SAIRA BLADDER MANAGEMENT: BLADDER MANAGEMENT - STEP 1: Does the patient control the bladder completely and intentionally without equipment or devices or med ications, and is always continent? Yes. BLADDER MANAGEMENT - SCORE: 7-IND BLADDER MANAGEMENT - FREQUENCY OF ACCIDENTS: BLADDER MANAGEMENT(FA) - STEP 1: How many accidents has the patient had during the current shift? 0 BOWEL MANAGEMENT: BOWEL MANAGEMENT - STEP 1: Does the patient control bowels completely and intentionally without equipment devices or medications AND is always continent? Yes. BOWEL MANAGEMENT - SCORE: 7-IND BOWEL MANAGEMENT - FREQUENCY OF ACCIDENTS: BOWEL MANAGEMENT(FA) - STEP 1: How many accidents has the patient had during the current shift? 0 TRANSFERS: BED, CHAIR, WHEELCHAIR: TRANSFERS: BED, CHAIR, WHEELCHAIR - STEP 1: Does the patient require assistance with bed, chair, or wheelchair transfers? Yes. TRANSFERS: BED, CHAIR, WHEELCHAIR - STEP 2: Does the patient require the assistance of a helper? Yes. TRANSFERS: BED, CHAIR, WHEELCHAIR - STEP 3: How much assistance does the patient require from the helper? Lifting of the legs TRANSFERS: BED, CHAIR, WHEELCHAIR - STEP 4: How many legs does the patient require the helper to lift? both legs TRANSFERS: BED, CHAIR, WHEELCHAIR - SCORE: 3-MOD TRANSFERS: TOILET: TRANSFERS: TOILET - STEP 1: Does the patient require assistance with toilet transfers? Yes. TRANSFERS: TOILET - STEP 2: Does the patient require the assistance of a helper? Yes. TRANSFERS: TOILET - STEP 3: How much assistance does the patient require from the helper? Patient performs half or more of the tr ansferring tasks TRANSFERS: TOILET - STEP 4: Does the patient need only incidental help such as contact guard or steadying during toilet transfer? Yes. TRANSFERS: TOILET - SCORE: 4-MIN TRANSFERS: SHOWER: TRANSFERS: SHOWER - STEP 1: Does the patient require assistance with shower transfers? Yes. TRANSFERS: SHOWER - STEP 2: Does the patient require the assistance of a helper? Yes. TRANSFERS: SHOWER - STEP 3: How much assistance does the patient require from the helper? Only supervision, cuing, coaxing, or he lp to set out transfer equipment or to lock brakes and/or lift foot rests TRANSFERS: SHOWER - SCORE: 5-SUP TRANSFERS: TUB: Activity did not occur on this shift TRANSFERS: TUB - SCORE: 0-UNK LOCOMOTION: WALK: Activity did not occur on this shift LOCOMOTION: WALK - SCORE: 0-UNK LOCOMOTION: WHEELCHAIR: Activity did not occur on this shift LOCOMOTION: WHEELCHAIR - SCORE: 0-UNK COMPREHENSION: COMPREHENSION: TYPE: Both COMPREHENSION - STEP 1: Does the patient require help to understand complex and abstract ideas (such as current events, finan radha, discharge planning, medical issues, relationships, etc)? Yes. COMPREHENSION - STEP 2: Does the patient require help to understand questions or statements about basic needs or ideas (such as hunger, thirst, sleep, safety, daily schedule, room location, or discomfort) half or more of the t frances? No. COMPREHENSION - STEP 3: How often does the patient need help to understand directions and conversation about basic needs? Les s than 10% of the time COMPREHENSION - SCORE: 5-SUP EXPRESSION EXPRESSION: TYPE: Both EXPRESSION - STEP 1: Does the patient require help expressing complex and abstract ideas (such as current events, finances , discharge planning, medical issues, relationships, etc)? No. EXPRESSION - STEP 2: Does the patient need extra time, require an assistive device (such as augmentive communication syste m or a communication board), OR does s/he have mild difficulty expressing complex and abstract ideas (including mild dysarthria or mild word-find problems)? No. EXPRESSION - SCORE: 7-IND SOCIAL INTERACTION: SOCIAL INTERACTION - STEP 1: Does the patient require a helper to interact with others in social and therapeutic situations? No. SOCIAL INTERACTION - STEP 2: Does the patient need extra time in social situations, OR does s/he interact with staff, other patien ts, and family members ONLY in structured environments, OR does s/he require medication for social in teraction? No. SOCIAL INTERACTION - SCORE: 7-IND PROBLEM SOLVING: PROBLEM SOLVING - STEP 1: Does the patient need help to solve complex problems such as managing a checking account or confronti ng interpersonal problems? No. PROBLEM SOLVING - STEP 2: Does the patient require extra time to make decisions or solve problems, OR does s/he have slight dif ficulty reading, initiating, or self-correcting in unfamiliar situations? No. PROBLEM SOLVING - SCORE: 7-IND MEMORY: MEMORY - STEP 1: Does the patient need help to remember frequently encountered people, daily routines, and executing r equests? No. MEMORY - STEP 2: Does the patient have slight difficulty recognizing frequently encountered people, daily routines, or executing requests without the need for repetition or using self-initiated or environmental cues to remember? No. MEMORY - SCORE: 7-IND SIGNATURE PANEL: The following modified sections: Eating - Score, Grooming - Score, Bathing - Score, Dressing - Upper Body - Score, Dressing - Lower Body - Score, Toileting - Score, Bladder Management - Score, Bowel Man agement - Score, Transfers: Bed, Chair, Wheelchair - Score, Transfers: Toilet - Score, Transfers: Tub - Score, Locomotion: Walk - Score, Locomotion: Wheelchair - Score, Comprehension - Score, Expression - Score, Social Interaction - Score, Problem Solving - Score, Memory - Score, Transfers: Shower - Sc ore were [electronically] signed by Margaux Sorto on WedApr 11 2018 02:19:56 [id number] (Central Day light Time)
--- NOTE | 2018-04-11 02:35 | PN ---
Date of Progress Note: 04/10/2018 Chief Complaint: Severe acute kidney injury on chronic kidney disease. History Of Present Illness: The patient is admitted to rehab floor. The patient recently was hospitalized at [facility] and received IV diuretics for fluid overload, congestive heart failure, and anasarca. Subsequently due to worsening of kidney function, [id number] kidney injury, the patient was started on dialysis. Last dialysis was done on Wednesday. Renal function has not improved. Urine output is declining. The patient was resumed on diuretics today due to systolic blood pressure below 120. The patient did not receive diuretics. Overall, the patient is hemodynamically stable and blood pressure is fluctuating, systolic blood pressure from 100-115. Currently, diuretic is on hold. Hypertension. Blood pressure is in acceptable control. Amlodipine is reduced to 5 mg from 10 mg to prevent hypertensive episodes. Review of Systems: Constitutional: The patient denies PND, orthopnea. Cardiovascular: Denies chest pain, palpitation. GI: Denies nausea, vomiting. Physical Examination: Lungs: Few crackles at bases. Heart: S1-S2. Abdomen: Soft, benign. Extremities: Edema present in both legs. Laboratory Data: Hemoglobin 9.8, WBC 6.1, platelet count is 287,000. Sodium 140, potassium 3.9, chloride 103, CO2 27, BUN 41, creatinine 5.9, calcium 7.9. Impression And Plan: 1. Diabetic kidney disease with proteinuria. The patient was started on dialysis to control anasarca, congestive heart failure. The patient will have dialysis scheduled for tomorrow. 2. Renal osteodystrophy. Continue renal diet and binders. 3. Diabetes mellitus. Monitor blood glucose. 4. Congestive heart failure. Continue hydralazine for blood pressure control and congestive heart failure management. 5. Proteinuria. The patient cannot tolerate ALONDRA inhibitor at this point. The patient is advancing to end-stage renal disease and the patient will have dialysis 3 times per week. The above plan was discussed with the patient. YECENIA/LATOYA Voice ID: [id number] Report ID: [id number] SILVANA
[2018-04-11 06:30] LABS: Absolute Lymphocytes (CBC) 0.9 K/uL (0.7-4.9); Absolute Monocytes 0.8 K/uL (0.1-1.3); Absolute Neutrophil 1.4 K/uL (1.8-8.0); Basophils % 1.4 % (0-1.3); Eosinophils % 9.8 % (0-4.4); Hematocrit 23.2 % (36.0-45.0); MCH 29.7 pg (27.0-35.0); RBC Red Blood Cell Count 2.61 M/uL (3.86-4.86)
[2018-04-11 07:03] LABS: Magnesium 2.7 mg/dL (1.8-2.4); Potassium 3.8 mmol/L (3.5-5.1)
[2018-04-11 07:25] LABS: Blood Morphology Comment NOT SEEN (NOT SEEN); Platelet Estimate ADEQ
[2018-04-11] MEDS: INSULIN -REGULAR HUMAN 50 UNIT/0.5 ML ML SQ SCH ×4 (07:30→20:28)
[2018-04-11] MEDS: TRIAMCINOLONE ACET 0.1% CREAM 80 GM TOP SCH (08:00)
[2018-04-11] MEDS: CARVEDILOL 12.5 MG TAB PO SCH (08:00)
[2018-04-11] MEDS: FE SULF/FA/VIT B COMP & C TAB PO SCH (08:36)
[2018-04-11] MEDS: AMLODIPINE 5 MG TAB PO SCH (08:36)
[2018-04-11] MEDS: FERROUS SULFATE 325 MG TAB PO SCH (08:36)
[2018-04-11] MEDS: CALCIUM CARBONATE 500 MG TAB PO SCH (08:36)
[2018-04-11] MEDS: GABAPENTIN 300 MG CAP PO SCH ×2 (08:36→20:23)
[2018-04-11] MEDS: FAMOTIDINE 20 MG TAB PO SCH ×2 (08:43→20:23)
[2018-04-11] MEDS: FUROSEMIDE 40 MG TABLET PO SCH ×2 (08:46→16:41)
[2018-04-11] MEDS: GLIPIZIDE S.A. 5 MG TAB PO SCH (08:49)
[2018-04-11] MEDS: CLONIDINE HCL 0.3 MG TAB PO SCH (09:00)
[2018-04-11] MEDS: PROMOD 30 ML DOSE PO SCH ×2 (09:17→20:28)
[2018-04-11] MEDS: CODEINE 30MG/APAP 300MG TAB PO PRN (10:20)
[2018-04-11] MEDS: HYDRALAZINE HCL 25 MG TABLET PO SCH ×2 (10:40→16:00)
--- NOTE | 2018-04-11 11:40 | FAST ---
ENCOUNTER DATE AND TIME: 04/11/2018 08:00 (CDT) NAME SHANNAN MCKEE DATE OF : 1950 DATE OF ADMISSION: 04/07/2018 20:20 (CDT) PHONE: AGE: 68 N# [id number] GENDER: Female ENCOUNTER PHYSICIAN: Dr. Davie Hernandez M.D. ADMISSION DIAGNOSIS: - Other Disabling Impairments 13 - Other Disabling Impairments (13) Critical illness polyneuropathy, Debility, ESRD. EATING: Activity did not occur on this shift EATING - SCORE: 0-UNK GROOMING: Activity did not occur on this shift GROOMING - SCORE: 0-UNK BATHING: Activity did not occur on this shift BATHING - SCORE: 0-UNK DRESSING - UPPER BODY: Activity did not occur on this shift Patient is not dressing in public clothing ARTICLES SCORE Total number of steps: 0 DRESSING - UPPER BODY - SCORE: 0-UNK DRESSING - LOWER BODY: Activity did not occur on this shift Patient is not dressing in public clothing ARTICLES SCORE Total number of steps: 0 DRESSING - LOWER BODY - SCORE: 0-UNK TOILETING: Activity did not occur on this shift TOILETING - SCORE: 0-UNK BLADDER MANAGEMENT: Activity did not occur on this shift BLADDER MANAGEMENT - SCORE: 7-IND BOWEL MANAGEMENT: Activity did not occur on this shift BOWEL MANAGEMENT - SCORE: 7-IND TRANSFERS: BED, CHAIR, WHEELCHAIR: Activity did not occur on this shift TRANSFERS: BED, CHAIR, WHEELCHAIR - SCORE: 0-UNK TRANSFERS: TOILET: Activity did not occur on this shift TRANSFERS: TOILET - SCORE: 0-UNK TRANSFERS: SHOWER: Activity did not occur on this shift TRANSFERS: SHOWER - SCORE: 0-UNK TRANSFERS: TUB: Activity did not occur on this shift TRANSFERS: TUB - SCORE: 0-UNK LOCOMOTION: WALK: Activity did not occur on this shift LOCOMOTION: WALK - SCORE: 0-UNK LOCOMOTION: WHEELCHAIR: Activity did not occur on this shift LOCOMOTION: WHEELCHAIR - SCORE: 0-UNK LOCOMOTION: STAIRS: Activity did not occur on this shift LOCOMOTION: STAIRS - SCORE: 0-UNK COMPREHENSION: COMPREHENSION - STEP 1: Does the patient require help to understand complex and abstract ideas (such as current events, finan radha, discharge planning, medical issues, relationships, etc)? Yes. COMPREHENSION - STEP 2: Does the patient require help to understand questions or statements about basic needs or ideas (such as hunger, thirst, sleep, safety, daily schedule, room location, or discomfort) half or more of the t frances? No. COMPREHENSION - STEP 3: How often does the patient need help to understand directions and conversation about basic needs? Les s than 10% of the time COMPREHENSION - SCORE: 5-SUP EXPRESSION EXPRESSION - STEP 1: Does the patient require help expressing complex and abstract ideas (such as current events, finances , discharge planning, medical issues, relationships, etc)? No. EXPRESSION - STEP 2: Does the patient need extra time, require an assistive device (such as augmentive communication syste m or a communication board), OR does s/he have mild difficulty expressing complex and abstract ideas (including mild dysarthria or mild word-find problems)? Yes. EXPRESSION - SCORE: 6-SAIRA SOCIAL INTERACTION: SOCIAL INTERACTION - STEP 1: Does the patient require a helper to interact with others in social and therapeutic situations? No. SOCIAL INTERACTION - STEP 2: Does the patient need extra time in social situations, OR does s/he interact with staff, other patien ts, and family members ONLY in structured environments, OR does s/he require medication for social in teraction? Yes, patient needs extra time SOCIAL INTERACTION - SCORE: 6-SAIRA PROBLEM SOLVING: PROBLEM SOLVING - STEP 1: Does the patient need help to solve complex problems such as managing a checking account or confronti ng interpersonal problems? Yes. PROBLEM SOLVING - STEP 2: Does the patient solve basic routine problems half or more of the time? Yes. PROBLEM SOLVING - STEP 3: How often does the patient need help to solve basic routine problems? 25%-49% of the time PROBLEM SOLVING - SCORE: 3-MOD MEMORY: MEMORY - STEP 1: Does the patient need help to remember frequently encountered people, daily routines, and executing r equests? Yes. MEMORY - STEP 2: How often does the patient need help to remember frequently encountered people, daily routines, and e xecuting requests? 10% - 24% of the time MEMORY - SCORE: 4-MIN SIGNATURE PANEL: The following modified sections: Comprehension - Score, Expression - Score, Social Interaction - Scor e, Problem Solving - Score, Memory - Score were [electronically] signed by ST Amina wed:39:20 [id number] (Central Daylight Time)
--- NOTE | 2018-04-11 11:54 | P.PN ---
Subjective Date of Service: 04/11/18 Primary Care Provider: Central Office Mechanic-Dr. Hernandez/PCP-Dr. Logan Chief Complaint: Patient currently in rehab post CHF exacerbation Subjective: Doing well Physical Examination - Vital Signs Temperature: 97.9 F Blood Pressure: 141/54 Pulse: 57 Respirations: 20 Pulse Ox (%): 98 - Physical Exam General: Alert, In no apparent distress, Oriented x3, Cooperative HEENT: Atraumatic Neck: Supple Respiratory: Clear to auscultation bilaterally, Normal air movement Cardiovascular: Normal pulses, Regular rate/rhythm Gastrointestinal: Normal bowel sounds, Soft and benign, Non-distended, No masses , No rebound, No guarding Musculoskeletal: No erythema, No tenderness, No warmth Integumentary: No erythema, No warmth, No cyanosis, Tenderness/swelling (Edema to the lower extremities unchanged) Neurological: Normal speech, Normal strength at 5/5 x4 extr, Normal tone, Normal affect - Studies Laboratory Data (last 24 hrs) 04/11/18 06:10: Sodium 139, Potassium 3.8, BUN 45 H, Creatinine 6.60 H*, Glucose 100, Magnesium 2.7 H 04/11/18 06:10: WBC 3.6 L D, Hgb 7.7 L*, Hct 23.2 L D, Plt Count 243 Microbiology Data (last 24 hrs): 04/09/18 09:50 Clean Catch Urine Isaban Count - Final BETWEEN 10,000 & 100,000 CFU/ML 04/09/18 09:50 Clean Catch Urine - Final Medications List Reviewed: Yes Assessment & Plan - Problems (Diagnosis) (1) End stage renal disease Onset Date: 04/11/18 Current Visit: Yes Status: Chronic Plan: Patient now has dialysis catheter. Last dialysis was on . Patient requires dialysis. Will discuss with nephrology. Patient will remain on the 5th floor. Patient will get dialysis today. Will need to discuss with social insurance adviser about the plan of care at discharge as dialysis will need to be arranged. (2) CHF (congestive heart failure) Onset Date: 04/11/18 Current Visit: Yes Status: Chronic Plan: Patient with chronic diastolic dysfunction. Patient will receive dialysis. Will need to consider adding Lasix. Will discuss with nephrology. Qualifiers: Heart failure type: diastolic (3) Diabetes mellitus Onset Date: 04/11/18 Current Visit: Yes Status: Chronic Plan: Continue with medication. Overall stable. Qualifiers: Diabetes mellitus type: type 2 Diabetes mellitus terminal operations manager insulin use: without terminal operations manager use Diabetes mellitus complication status: with kidney complications Diabetes mellitus complication detail: with chronic kidney disease Chronic kidney disease stage: on chronic dialysis Qualified Code(s) : E11.22 - Type 2 diabetes mellitus with diabetic chronic kidney disease; N18.6 - End stage renal disease; Z99.2 - Dependence on renal dialysis (4) Hypertension Onset Date: 04/11/18 Current Visit: Yes Status: Chronic Plan: Continue with medication Qualifiers: Hypertension type: essential hypertension Qualified Code(s): I10 - Essential (primary) hypertension (5) GERD (gastroesophageal reflux disease) Onset Date: 04/11/18 Current Visit: Yes Status: Chronic Plan: Continue with medication Qualifiers: Esophagitis presence: esophagitis presence not specified Qualified Code(s) : K21.9 - Gastro-esophageal reflux disease without esophagitis (6) Diabetic neuropathy Onset Date: 04/11/18 Current Visit: Yes Status: Chronic Plan: Continue with her medication. Qualifiers: Diabetes mellitus type: type 2 Diabetes mellitus complication detail: diabetic polyneuropathy Qualified Code(s): E11.42 - Type 2 diabetes mellitus with diabetic polyneuropathy (7) Obesity Onset Date: 04/11/18 Current Visit: Yes Status: Chronic Plan: Will address lifestyle modification education Qualifiers: Obesity type: due to excess calories Obesity classification: adult class 3 (BMI >= 40) Serious obesity comorbidity presence: with serious comorbidity Body mass index: BMI 45.0-49.9 Qualified Code(s): E66.01 - Morbid (severe) obesity due to excess calories; Z68.42 - Body mass index (BMI) 45.0-49.9, adult (8) Hyperlipidemia Onset Date: 04/11/18 Current Visit: Yes Status: Chronic Plan: Continue with her medication Qualifiers: Hyperlipidemia type: unspecified Qualified Code(s): E78.5 - Hyperlipidemia , unspecified (9) Anemia Current Visit: Yes Status: Chronic Plan: Likely of chronic disease. Will monitor closely. Qualifiers: Anemia type: due to chronic kidney disease Chronic kidney disease stage: on chronic dialysis Qualified Code(s): N18.6 - End stage renal disease; D63.1 - Anemia in chronic kidney disease; Z99.2 - Dependence on renal dialysis Discharge Plan: Home Plan to discharge in: Greater than 2 days Time Spent Managing Pts Care (In Minutes): 55
[2018-04-11] MEDS: TRAMADOL HCL 50 MG TAB PO PRN (13:00)
--- NOTE | 2018-04-11 14:21 | FAST ---
SHIFT START DATE/TIME: 04/11/2018 07:00 (CDT) SHIFT END DATE/TIME: 04/11/2018 19:00 (CDT) NAME SHANNAN MCKEE DATE OF : 1950 DATE OF ADMISSION: 04/07/2018 20:20 (CDT) PHONE: AGE: 68 N# [id number] GENDER: Female ENCOUNTER PHYSICIAN: Dr. Davie Hernandez M.D. ADMISSION DIAGNOSIS: - Other Disabling Impairments 13 - Other Disabling Impairments (13) Critical illness polyneuropathy, Debility, ESRD. EATING: EATING - STEP 1: Does the patient require assistance when eating? Yes. EATING - STEP 2: Does the patient require the assistance of a helper? No, patient only requires an assistive device, O R s/he takes more than reasonable time to eat, OR there is a safety concern, OR s/he requires modifie d food consistency EATING - SCORE: 6-SAIRA GROOMING: Comb/brush hair Oral care Wash, rinse, and dry face Wash, rinse, and dry hands GROOMING - STEP 1: Does the patient require assistance when grooming? Yes. GROOMING - STEP 2: Does the patient require the assistance of a helper? Yes. GROOMING - STEP 3: How much assistance does the patient require from the helper? Only prior equipment preparation/set up from the helper GROOMING - SCORE: 5-SUP BATHING: Activity did not occur on this shift BATHING - SCORE: 0-UNK DRESSING - UPPER BODY: Activity did not occur on this shift ARTICLES SCORE Total number of steps: 0 DRESSING - UPPER BODY - SCORE: 0-UNK DRESSING - LOWER BODY: Activity did not occur on this shift ARTICLES SCORE Total number of steps: 0 DRESSING - LOWER BODY - SCORE: 0-UNK TOILETING: TOILETING - STEP 1: Does the patient require assistance with toileting? Yes. TOILETING - STEP 2: Does the patient require the assistance of a helper? Yes. TOILETING - STEP 3: How much assistance does the patient require from the helper? Only supervision TOILETING - SCORE: 5-SUP BLADDER MANAGEMENT: BLADDER MANAGEMENT - STEP 1: Does the patient control the bladder completely and intentionally without equipment or devices or med ications, and is always continent? No. BLADDER MANAGEMENT - STEP 2: Does the patient require the assistance of a helper? Yes. BLADDER MANAGEMENT - STEP 3: How much assistance does the patient require from the helper? Only supervision, stand-by, cuing, or c oaxing BLADDER MANAGEMENT - SCORE: 5-SUP BLADDER MANAGEMENT - FREQUENCY OF ACCIDENTS: BLADDER MANAGEMENT(FA) - STEP 1: How many accidents has the patient had during the current shift? 0 BOWEL MANAGEMENT: Activity did not occur on this shift BOWEL MANAGEMENT - SCORE: 7-IND BOWEL MANAGEMENT - FREQUENCY OF ACCIDENTS: BOWEL MANAGEMENT(FA) - STEP 1: How many accidents has the patient had during the current shift? 0 TRANSFERS: BED, CHAIR, WHEELCHAIR: TRANSFERS: BED, CHAIR, WHEELCHAIR - STEP 1: Does the patient require assistance with bed, chair, or wheelchair transfers? Yes. TRANSFERS: BED, CHAIR, WHEELCHAIR - STEP 2: Does the patient require the assistance of a helper? Yes. TRANSFERS: BED, CHAIR, WHEELCHAIR - STEP 3: How much assistance does the patient require from the helper? Only supervision TRANSFERS: BED, CHAIR, WHEELCHAIR - SCORE: 5-SUP TRANSFERS: TOILET: TRANSFERS: TOILET - STEP 1: Does the patient require assistance with toilet transfers? Yes. TRANSFERS: TOILET - STEP 2: Does the patient require the assistance of a helper? Yes. TRANSFERS: TOILET - STEP 3: How much assistance does the patient require from the helper? Only supervision, cuing, coaxing, OR he lp to set out transfer equipment or to lock brakes and/or lift foot rests TRANSFERS: TOILET - SCORE: 5-SUP TRANSFERS: SHOWER: Activity did not occur on this shift TRANSFERS: SHOWER - SCORE: 0-UNK TRANSFERS: TUB: Activity did not occur on this shift TRANSFERS: TUB - SCORE: 0-UNK LOCOMOTION: WALK: Activity did not occur on this shift LOCOMOTION: WALK - SCORE: 0-UNK LOCOMOTION: WHEELCHAIR: LOCOMOTION: WHEELCHAIR - STEP 1: Does the patient need help to go 150 feet in a wheelchair? Yes. LOCOMOTION: WHEELCHAIR - STEP 2: How much assistance does the patient need from the helper? Only supervision, cuing, or coaxing LOCOMOTION: WHEELCHAIR - SCORE: 5-SUP COMPREHENSION: COMPREHENSION - STEP 1: Does the patient require help to understand complex and abstract ideas (such as current events, finan radha, discharge planning, medical issues, relationships, etc)? No. COMPREHENSION - STEP 2: Does the patient need extra time, require an assistive device (such as glasses, hearing aids, or an a ugmentative communication system), OR does s/he have mild difficulty expressing complex and abstract ideas (including mild dysarthria or mild word-finding problems)? Yes. COMPREHENSION - SCORE: 6-SAIRA EXPRESSION EXPRESSION: TYPE: Both EXPRESSION - STEP 1: Does the patient require help expressing complex and abstract ideas (such as current events, finances , discharge planning, medical issues, relationships, etc)? No. EXPRESSION - STEP 2: Does the patient need extra time, require an assistive device (such as augmentive communication syste m or a communication board), OR does s/he have mild difficulty expressing complex and abstract ideas (including mild dysarthria or mild word-find problems)? No. EXPRESSION - SCORE: 7-IND SOCIAL INTERACTION: SOCIAL INTERACTION - STEP 1: Does the patient require a helper to interact with others in social and therapeutic situations? No. SOCIAL INTERACTION - STEP 2: Does the patient need extra time in social situations, OR does s/he interact with staff, other patien ts, and family members ONLY in structured environments, OR does s/he require medication for social in teraction? No. SOCIAL INTERACTION - SCORE: 7-IND PROBLEM SOLVING: PROBLEM SOLVING - STEP 1: Does the patient need help to solve complex problems such as managing a checking account or confronti ng interpersonal problems? Yes. PROBLEM SOLVING - STEP 2: Does the patient solve basic routine problems half or more of the time? Yes. PROBLEM SOLVING - STEP 3: How often does the patient need help to solve basic routine problems? 10%-24% of the time PROBLEM SOLVING - SCORE: 4-MIN MEMORY: MEMORY - STEP 1: Does the patient need help to remember frequently encountered people, daily routines, and executing r equests? No. MEMORY - STEP 2: Does the patient have slight difficulty recognizing frequently encountered people, daily routines, or executing requests without the need for repetition or using self-initiated or environmental cues to remember? Yes. MEMORY - SCORE: 6-SAIRA SIGNATURE PANEL: The following modified sections: Eating - Score, Grooming - Score, Bathing - Score, Dressing - Upper Body - Score, Dressing - Lower Body - Score, Toileting - Score, Bladder Management - Score, Bowel Man agement - Score, Transfers: Bed, Chair, Wheelchair - Score, Transfers: Toilet - Score, Transfers: Katherine wer - Score, Transfers: Tub - Score, Locomotion: Walk - Score, Locomotion: Wheelchair - Score, Compre hension - Score, Expression - Score, Social Interaction - Score, Problem Solving - Score, Memory - Sc ore were [electronically] signed by Hoda Munson C.N.A. on WedApr 11 2018 14:20:20 T-0500 (Centra l Daylight Time)
[2018-04-11 14:48] LABS: Ferritin 141.9 ng/mL (8-388)
--- NOTE | 2018-04-11 16:02 | FAST ---
ENCOUNTER DATE AND TIME: 04/11/2018 08:00 (CDT) NAME SHANNAN MCKEE DATE OF : 1950 DATE OF ADMISSION: 04/07/2018 20:20 (CDT) PHONE: AGE: 68 N# [id number] GENDER: Female ENCOUNTER PHYSICIAN: Dr. Davie Hernandez M.D. ADMISSION DIAGNOSIS: - Other Disabling Impairments 13 - Other Disabling Impairments (13) Critical illness polyneuropathy, Debility, ESRD. EATING: Activity did not occur on this shift EATING - SCORE: 0-UNK GROOMING: Activity did not occur on this shift GROOMING - SCORE: 0-UNK BATHING: Activity did not occur on this shift BATHING - SCORE: 0-UNK DRESSING - UPPER BODY: Activity did not occur on this shift Patient is not dressing in public clothing ARTICLES SCORE Total number of steps: 0 DRESSING - UPPER BODY - SCORE: 0-UNK DRESSING - LOWER BODY: Activity did not occur on this shift Patient is not dressing in public clothing ARTICLES SCORE Total number of steps: 0 DRESSING - LOWER BODY - SCORE: 0-UNK TOILETING: Activity did not occur on this shift TOILETING - SCORE: 0-UNK BLADDER MANAGEMENT: Activity did not occur on this shift BLADDER MANAGEMENT - SCORE: 7-IND BOWEL MANAGEMENT: Activity did not occur on this shift BOWEL MANAGEMENT - SCORE: 7-IND TRANSFERS: BED, CHAIR, WHEELCHAIR: TRANSFERS: BED, CHAIR, WHEELCHAIR - STEP 1: Does the patient require assistance with bed, chair, or wheelchair transfers? Yes. TRANSFERS: BED, CHAIR, WHEELCHAIR - STEP 2: Does the patient require the assistance of a helper? Yes. TRANSFERS: BED, CHAIR, WHEELCHAIR - STEP 3: How much assistance does the patient require from the helper? Only supervision TRANSFERS: BED, CHAIR, WHEELCHAIR - SCORE: 5-SUP TRANSFERS: TOILET: Activity did not occur on this shift TRANSFERS: TOILET - SCORE: 0-UNK TRANSFERS: SHOWER: Activity did not occur on this shift TRANSFERS: SHOWER - SCORE: 0-UNK TRANSFERS: TUB: Activity did not occur on this shift TRANSFERS: TUB - SCORE: 0-UNK LOCOMOTION: WALK: LOCOMOTION: WALK - STEP 1: Does the patient need help to walk 150 feet? Yes. LOCOMOTION: WALK - STEP 2: How much assistance does the patient require to walk a minimum of 150 feet? Patient walks less than 1 50 feet - but more than 50 feet - with the assistance of only one helper LOCOMOTION: WALK - SCORE: 2-MAX LOCOMOTION: WHEELCHAIR: LOCOMOTION: WHEELCHAIR - STEP 1: Does the patient need help to go 150 feet in a wheelchair? Yes. LOCOMOTION: WHEELCHAIR - STEP 2: How much assistance does the patient need from the helper? Only supervision, cuing, or coaxing LOCOMOTION: WHEELCHAIR - SCORE: 5-SUP LOCOMOTION: STAIRS: Activity did not occur on this shift LOCOMOTION: STAIRS - SCORE: 0-UNK COMPREHENSION: COMPREHENSION - SCORE: 0-UNK EXPRESSION EXPRESSION - SCORE: 0-UNK SOCIAL INTERACTION: SOCIAL INTERACTION - SCORE: 0-UNK PROBLEM SOLVING: PROBLEM SOLVING - SCORE: 0-UNK MEMORY: MEMORY - SCORE: 0-UNK SIGNATURE PANEL: The following modified sections: Transfers: Bed, Chair, Wheelchair - Score, Transfers: Toilet - Score , Locomotion: Walk - Score, Locomotion: Wheelchair - Score, Locomotion: Stairs - Score were [electron ically] signed by Stewart Tristan PT on WedApr 11 2018 16:01:57 T-0500 (Central Daylight Time)
[2018-04-11] MEDS: LIDOCAINE 5% PATCH TOP SCH (17:32)
--- NOTE | 2018-04-11 17:32 | R.PN ---
ENCOUNTER DATE AND TIME: 04/11/2018 17:23 (CDT) NAME SHANNAN MCKEE DATE OF : 1950 DATE OF ADMISSION: 04/07/2018 20:20 (CDT) Critical illness polyneuropathy, Debility, ESRDCHIEF COMPLAINT: Debility SUBJECTIVE: Pt denied any Shortness of Breath. Pt denied any depression. Ambulated 132' with contact guard assistance using a rolling walker. Self-propelled wheelchair 250' w ith modified independence. VITAL SIGNS Temperature: 98.9 F SBP/DBP: 153/55 Pulse: 66 Resp: 18 MEDICATION ALLERGIES: No Known Drug Allergies (NKDA) ENVIRONMENTAL ALLERGIES: None Known - Substance Allergies None Known - Other Allergies None Known NURSING: - Shower allowing shower - Lab Results blood Sugar Check ACHS PRECAUTIONS: - Fall Precaution Bed and chair alarm ACTIVITIES OOB only with supervision THERAPIES: - Occupational Therapy Evaluate and Treat. - Physical Therapy Evaluate and Treat. PHYSICAL EXAM - Gen Alert and awake Lying in bed No apparent distress Oriented to: person, time, and place - Skin Dark skin discoloration of right more than left leg consistent with stasis dermatitis Normacephalic - Eyes No abnormalities - ENMT No abnormalities - Neck No abnormalities - CVS RRR - Chest Clear - Abd Obese, soft, nontender - GI Non distended Deferred - Little urine production. On hemodialysis three times weekly. - Ext Dark skin discoloration of right more than left leg consistent with stasis dermatitis. Weak dorsalis pedis pulse. - MSK 3-4+/5 weakness in both lower extremities. - Neuro No focal deficits - Psych Mild anxiety. ASSESSMENT: Pt. is a 68 yo Right-handed black female.On 03/30/2018 she was admitted to [facility] with diagnosis Critic al illness polyneuropathy, Debility, ESRD.Her impairment category is Other Disabling Impairments 13 - Other Disabling Impairments (13).Pre-morbidly, Pt. was independent/mod-I in Sphincter Control, Blackburn sfers Control, Communication, Social Cognition, Self-Care, and Locomotion; and she had good Sphincter Control.Currently, she has deficits of Safety Awareness, Transfers Control, Balance, Self-Care, [place] motion, and Endurance.Pt. is now referred to [facility] for acute in-patient r ehabilitation in order to maximize patient's functional independence in activities of daily living, s trength, ROM, and mobility.- Rehab Goal Patient has realistic goal of being discharged at assistance level 6-Deyanira to reside at Home with Fam joelle/Relatives. MDM/PLAN: - Physical Therapy Weakness - to improve, our physical therapists will perform initial evaluation of pt's status upon ad mission and devise an individualized program for Aquatic Therapy, Neuromuscular Reeducation, and Stre ngthening Poor balance - to improve, our physical therapists will perform initial evaluation of pt's status upo n admission and devise an individualized program for Balance Training Inability to transfer - to improve, our physical therapists will perform initial evaluation of pt's s tatus upon admission and devise an individualized program for Bed mobility Need in caregiver upon discharge - to improve, our physical therapists will perform initial evaluatio n of pt's status upon admission and devise an individualized program for Caregiver Training Poor endurance - to improve, our physical therapists will perform initial evaluation of pt's status u [place] admission and devise an individualized program for Endurance Training Gait dysfunction - to improve, our physical therapists will perform initial evaluation of pt's status upon admission and devise an individualized program for Gait Training, and Wheel Chair mobility Need for home safety evaluation - to improve, our physical therapists will perform initial evaluation of pt's status upon admission and devise an individualized program for Home Evaluation New precaution - to improve, our physical therapists will perform initial evaluation of pt's status u ja[place] admission and devise an individualized program for Patient precaution education - Occupational Therapy Weakness - to improve, our occupation therapists will perform initial evaluation of pt's status upon admission and devise an individualized program for Aquatic Therapy, Balance, Endurance, UE ROM, and U E strengthening ADL deficits - to improve, our occupation therapists will perform initial evaluation of pt's status u ja[place] admission and devise an individualized program for Bathing, Bed mobility, Community Reintegration , Cooking, Dressing, Eating, Fine Motor Skills, Grooming, Homemaking, Kitchen Mobility, Laundry, Sylvia ent Education, Safety Awareness, Splinting - Positioning, Transfers(Toilet, Tub, Shower), and Wheel C hair Management Need for critical care nurse - to improve, our occupation therapists will perform initial evaluation of pt's s tatus upon admission and devise an individualized program for Caregiver Training - Diet Type Continue Regular - Diet - Liquid Texture Continue Regular - Tube Feed Continue N/A - Lab Results blood Sugar Check ACHS - Fall Precaution Bed and chair alarm - Diet - Solid Texture Continue Regular - Shower allowing shower - Balance for Weakness - Bed mobility for ADL deficits FUNCTIONAL STATUS: UPDATED AT WEEKLY TEAM CONFERENCE - Bladder Same accident frequency: 7-Ind - No accidents in the past 7 days - Bowel Same accident frequency: 7-Ind - No accidents in the past 7 days - Walking Same score based on distance walked: 1(<=50ft) - Wheelchair Same score based on distance traveled: 0(N/A) FUNCTIONAL STATUS: - Self-Care A. Eating sup B. Grooming sup C. Bathing Ethel D. Dressing - Upper Ethel E. Dressing - Lower Ethel F. Toileting Ethel - Sphincter Control G: Bladder control Ind H: Bowel control Ind - Transfers Control I. Bed/Chair/Wheelchair Ethel J. Toilet Ethel K. Tub/Shower ADNO - Locomotion L. Walk/Wheelchair (C) Ethel L. Walk/Wheelchair (W) Ethel M. Stairs ADNO - Communication N. Comprehension (B) Deyanira O. Expression (B) Deyanira - Social Cognition P. Social Interaction Deyanira Q. Problem Solving Deyanira R. Memory Deyanira - Endurance Fair - Balance Fair - Safety Awareness Fair CURRENT FUNC. DEFICITS: Safety Awareness, Transfers Control, Balance, Self-Care, Locomotion, and Endurance SIGNATURE PANEL: (CDT)
[2018-04-11] MEDS: ATORVASTATIN 20 MG TAB PO SCH (20:23)
[2018-04-11] MEDS: DOCUSATE NA/SENNA CONC 1 TAB PO SCH (20:23)
[2018-04-11] MEDS ORDERED: EPOETIN ALFA 10,000 UNIT/ML VIAL SQ SCH (22:15)
[2018-04-12] MEDS: HYDRALAZINE HCL 25 MG TABLET PO SCH ×3 (00:39→16:24)
[2018-04-12] MEDS: CLONIDINE HCL 0.3 MG TAB PO SCH ×3 (00:42→20:46)
[2018-04-12] MEDS: COMBIGAN OPTHALMIC EACH EYE SCH ×3 (00:43→20:48)
[2018-04-12] MEDS: TRIAMCINOLONE ACET 0.1% CREAM 80 GM TOP SCH ×3 (00:52→20:00)
[2018-04-12] MEDS: BIMATOPROST OPTH SCH ×2 (00:52→20:47)
--- NOTE | 2018-04-12 01:42 | FAST ---
SHIFT START DATE/TIME: 04/11/2018 19:00 (CDT) SHIFT END DATE/TIME: 04/12/2018 07:00 (CDT) NAME SHANNAN MCKEE DATE OF : 1950 DATE OF ADMISSION: 04/07/2018 20:20 (CDT) PHONE: AGE: 68 N# [id number] GENDER: Female ENCOUNTER PHYSICIAN: Dr. Davie Hernandez M.D. ADMISSION DIAGNOSIS: - Other Disabling Impairments 13 - Other Disabling Impairments (13) Critical illness polyneuropathy, Debility, ESRD. EATING: Activity did not occur on this shift EATING - SCORE: 0-UNK GROOMING: Wash, rinse, and dry face Wash, rinse, and dry hands GROOMING - STEP 1: Does the patient require assistance when grooming? Yes. GROOMING - STEP 2: Does the patient require the assistance of a helper? Yes. GROOMING - STEP 3: How much assistance does the patient require from the helper? Only prior equipment preparation/set up from the helper GROOMING - SCORE: 5-SUP BATHING: Activity did not occur on this shift BATHING - SCORE: 0-UNK DRESSING - UPPER BODY: Patient is not dressing in public clothing ARTICLES SCORE Total number of steps: 0 DRESSING - UPPER BODY - SCORE: 0-UNK DRESSING - LOWER BODY: Patient is not dressing in public clothing ARTICLES SCORE Total number of steps: 0 DRESSING - LOWER BODY - SCORE: 0-UNK TOILETING: TOILETING - STEP 1: Does the patient require assistance with toileting? Yes. TOILETING - STEP 2: Does the patient require the assistance of a helper? Yes. TOILETING - STEP 3: How much assistance does the patient require from the helper? Only supervision TOILETING - SCORE: 5-SUP BLADDER MANAGEMENT: BLADDER MANAGEMENT - STEP 1: Does the patient control the bladder completely and intentionally without equipment or devices or med ications, and is always continent? No. BLADDER MANAGEMENT - STEP 2: Does the patient require the assistance of a helper? No, patient requires and independently uses an a ssistive device, such as a urinal, bedpan, bedside commode, catheter, absorbent pad, or collecting de vice BLADDER MANAGEMENT - SCORE: 6-SAIRA BOWEL MANAGEMENT: Activity did not occur on this shift BOWEL MANAGEMENT - SCORE: 7-IND TRANSFERS: BED, CHAIR, WHEELCHAIR: TRANSFERS: BED, CHAIR, WHEELCHAIR - STEP 1: Does the patient require assistance with bed, chair, or wheelchair transfers? Yes. TRANSFERS: BED, CHAIR, WHEELCHAIR - STEP 2: Does the patient require the assistance of a helper? Yes. TRANSFERS: BED, CHAIR, WHEELCHAIR - STEP 3: How much assistance does the patient require from the helper? Lifting of the legs TRANSFERS: BED, CHAIR, WHEELCHAIR - STEP 4: How many legs does the patient require the helper to lift? both legs TRANSFERS: BED, CHAIR, WHEELCHAIR - SCORE: 3-MOD TRANSFERS: TOILET: TRANSFERS: TOILET - STEP 1: Does the patient require assistance with toilet transfers? Yes. TRANSFERS: TOILET - STEP 2: Does the patient require the assistance of a helper? No. Patient only requires an assistive device noyola ch as a grab bar or special seat, OR s/he takes more than reasonable time to perform toilet transfers , OR there is a safety concern when s/he performs toilet transfers. TRANSFERS: TOILET - SCORE: 6-SAIAR TRANSFERS: SHOWER: Activity did not occur on this shift TRANSFERS: SHOWER - SCORE: 0-UNK TRANSFERS: TUB: Activity did not occur on this shift TRANSFERS: TUB - SCORE: 0-UNK LOCOMOTION: WALK: Activity did not occur on this shift LOCOMOTION: WALK - SCORE: 0-UNK LOCOMOTION: WHEELCHAIR: Activity did not occur on this shift LOCOMOTION: WHEELCHAIR - SCORE: 0-UNK COMPREHENSION: COMPREHENSION - STEP 1: Does the patient require help to understand complex and abstract ideas (such as current events, finan radha, discharge planning, medical issues, relationships, etc)? No. COMPREHENSION - STEP 2: Does the patient need extra time, require an assistive device (such as glasses, hearing aids, or an a ugmentative communication system), OR does s/he have mild difficulty expressing complex and abstract ideas (including mild dysarthria or mild word-finding problems)? Yes. COMPREHENSION - SCORE: 6-SAIRA EXPRESSION EXPRESSION - STEP 1: Does the patient require help expressing complex and abstract ideas (such as current events, finances , discharge planning, medical issues, relationships, etc)? No. EXPRESSION - STEP 2: Does the patient need extra time, require an assistive device (such as augmentive communication syste m or a communication board), OR does s/he have mild difficulty expressing complex and abstract ideas (including mild dysarthria or mild word-find problems)? No. EXPRESSION - SCORE: 7-IND SOCIAL INTERACTION: SOCIAL INTERACTION - STEP 1: Does the patient require a helper to interact with others in social and therapeutic situations? No. SOCIAL INTERACTION - STEP 2: Does the patient need extra time in social situations, OR does s/he interact with staff, other patien ts, and family members ONLY in structured environments, OR does s/he require medication for social in teraction? Yes, patient needs extra time SOCIAL INTERACTION - SCORE: 6-SAIRA PROBLEM SOLVING: PROBLEM SOLVING - STEP 1: Does the patient need help to solve complex problems such as managing a checking account or confronti ng interpersonal problems? No. PROBLEM SOLVING - STEP 2: Does the patient require extra time to make decisions or solve problems, OR does s/he have slight dif ficulty reading, initiating, or self-correcting in unfamiliar situations? Yes, patient needs extra ti me. PROBLEM SOLVING - SCORE: 6-SAIRA MEMORY: MEMORY - STEP 1: Does the patient need help to remember frequently encountered people, daily routines, and executing r equests? No. MEMORY - STEP 2: Does the patient have slight difficulty recognizing frequently encountered people, daily routines, or executing requests without the need for repetition or using self-initiated or environmental cues to remember? Yes. MEMORY - SCORE: 6-SAIRA SIGNATURE PANEL: The following modified sections: Eating - Score, Grooming - Score, Dressing - Upper Body - Score, Robson ssing - Lower Body - Score, Toileting - Score, Bladder Management - Score, Bowel Management - Score, Transfers: Bed, Chair, Wheelchair - Score, Transfers: Toilet - Score, Transfers: Shower - Score, [place] sfers: Tub - Score, Locomotion: Walk - Score, Locomotion: Wheelchair - Score, Comprehension - Score, Expression - Score, Social Interaction - Score, Problem Solving - Score, Memory - Score were [electro nically] signed by Elva Crawford CNA on WedApr 12 2018 01:40:59 GMT-0500 (Central Daylight Time)
--- NOTE | 2018-04-12 04:12 | PN ---
Date of Progress Note: 04/11/2018 Chief Complaint: Severe acute kidney injury on chronic kidney disease stage 4 in setting of diabetic kidney disease with severe proteinuria. The patient primarily was treated with IV diuretics for anasarca, and due to worsening of the renal f unction, acute on chronic kidney injury, she was started on dialysis. She has a right IJ tunneled di alysis catheter. Dialysis is scheduled for today. Review of Systems: Denies PND or orthopnea. Leg edema has not improved significantly. Physical Examination: Lungs: Clear to auscultation bilaterally. Heart: S1, S2. Abdomen: Soft, benign, obese. Laboratory Data: Hemoglobin 9.5, WBC 3.6, platelet count is 243,000. Chemistries show sodium 139, potassium 3.8, chloride 104, CO2 29, BUN 45, creatinine 6.6, glucose is 104. Impression And Plan: 1.Advanced chronic kidney disease, acute kidney injury. Continue dialysis 3 times per week. 2.Continue low-sodium diet. 3.Hypertension, congestive heart failure with diastolic dysfunction. Continue p.o. fluid restrictio n, low-sodium diet. Check daily weight and continue dialysis with ultrafiltration to treat hypervole jazmine. 4.Anemia in chronic kidney disease. MITZY was started. Monitor iron level. Adjust replacement as ne eded. 5.Renal osteodystrophy. Continue renal diet. Monitor phosphorus level. EB/MODL Voice ID: [id number] Report ID: [id number]
[2018-04-12] MEDS: FUROSEMIDE 40 MG TABLET PO SCH ×2 (07:25→16:25)
[2018-04-12] MEDS: INSULIN -REGULAR HUMAN 50 UNIT/0.5 ML ML SQ SCH ×4 (07:30→20:50)
[2018-04-12] MEDS: RESTASIS 0.05% EACH EYE SCH ×2 (08:00→20:56)
[2018-04-12] MEDS: FERROUS SULFATE 325 MG TAB PO SCH (08:29)
[2018-04-12] MEDS: GABAPENTIN 300 MG CAP PO SCH ×2 (08:29→20:45)
[2018-04-12] MEDS: FE SULF/FA/VIT B COMP & C TAB PO SCH (08:29)
[2018-04-12] MEDS: AMLODIPINE 5 MG TAB PO SCH (08:29)
[2018-04-12] MEDS: FAMOTIDINE 20 MG TAB PO SCH ×2 (08:29→20:45)
[2018-04-12] MEDS: FOLIC ACID 1 MG TABLET PO SCH (08:29)
[2018-04-12] MEDS: TRAMADOL HCL 50 MG TAB PO PRN (08:29)
[2018-04-12] MEDS: CALCIUM CARBONATE 500 MG TAB PO SCH (08:29)
[2018-04-12] MEDS: GLIPIZIDE S.A. 5 MG TAB PO SCH (08:30)
[2018-04-12] MEDS: PROMOD 30 ML DOSE PO SCH ×2 (08:30→20:48)
[2018-04-12] MEDS: HEPARIN 5000 UNIT/ML 1 ML VIAL SQ SCH ×2 (08:30→18:04)
[2018-04-12] MEDS: LIDOCAINE 5% PATCH TOP SCH (08:30)
--- NOTE | 2018-04-12 11:19 | FAST ---
SHIFT START DATE/TIME: 04/12/2018 07:00 (CDT) SHIFT END DATE/TIME: 04/12/2018 19:00 (CDT) NAME SHANNAN MCKEE DATE OF : 1950 DATE OF ADMISSION: 04/07/2018 20:20 (CDT) PHONE: AGE: 68 N# [id number] GENDER: Female ENCOUNTER PHYSICIAN: Dr. Davie Hernandez M.D. ADMISSION DIAGNOSIS: - Other Disabling Impairments 13 - Other Disabling Impairments (13) Critical illness polyneuropathy, Debility, ESRD. EATING: EATING - STEP 1: Does the patient require assistance when eating? Yes. EATING - STEP 2: Does the patient require the assistance of a helper? No, patient only requires an assistive device, O R s/he takes more than reasonable time to eat, OR there is a safety concern, OR s/he requires modifie d food consistency EATING - SCORE: 6-SAIRA GROOMING: Activity did not occur on this shift GROOMING - SCORE: 0-UNK BATHING: Activity did not occur on this shift BATHING - SCORE: 0-UNK DRESSING - UPPER BODY: ARTICLES SCORE Total number of steps: 0 DRESSING - UPPER BODY - STEP 1: Does the patient require help when dressing above the waist? Yes. DRESSING - UPPER BODY - STEP 2: Does the patient require the assistance of a helper? No. Patient only requires an assistive device, s uch as a button hook, velcro, or inspector returned materials. OR s/he takes more than reasonable time as s/he dresses the upper body. OR there is a concern for safety when s/he dresses the upper body DRESSING - UPPER BODY - SCORE: 6-SAIRA DRESSING - LOWER BODY: Activity did not occur on this shift ARTICLES SCORE Total number of steps: 0 DRESSING - LOWER BODY - SCORE: 0-UNK TOILETING: TOILETING - STEP 1: Does the patient require assistance with toileting? Yes. TOILETING - STEP 2: Does the patient require the assistance of a helper? Yes. TOILETING - STEP 3: How much assistance does the patient require from the helper? Only supervision TOILETING - SCORE: 5-SUP BLADDER MANAGEMENT: Patient is on renal dialysis or peritoneal dialysis and no voiding activity BLADDER MANAGEMENT - SCORE: 7-IND BLADDER MANAGEMENT - FREQUENCY OF ACCIDENTS: BLADDER MANAGEMENT(FA) - STEP 1: How many accidents has the patient had during the current shift? 0 BOWEL MANAGEMENT: Activity did not occur on this shift BOWEL MANAGEMENT - SCORE: 7-IND BOWEL MANAGEMENT - FREQUENCY OF ACCIDENTS: BOWEL MANAGEMENT(FA) - STEP 1: How many accidents has the patient had during the current shift? 0 TRANSFERS: BED, CHAIR, WHEELCHAIR: TRANSFERS: BED, CHAIR, WHEELCHAIR - STEP 1: Does the patient require assistance with bed, chair, or wheelchair transfers? Yes. TRANSFERS: BED, CHAIR, WHEELCHAIR - STEP 2: Does the patient require the assistance of a helper? Yes. TRANSFERS: BED, CHAIR, WHEELCHAIR - STEP 3: How much assistance does the patient require from the helper? Only supervision TRANSFERS: BED, CHAIR, WHEELCHAIR - SCORE: 5-SUP TRANSFERS: TOILET: TRANSFERS: TOILET - STEP 1: Does the patient require assistance with toilet transfers? Yes. TRANSFERS: TOILET - STEP 2: Does the patient require the assistance of a helper? Yes. TRANSFERS: TOILET - STEP 3: How much assistance does the patient require from the helper? Only supervision, cuing, coaxing, OR he lp to set out transfer equipment or to lock brakes and/or lift foot rests TRANSFERS: TOILET - SCORE: 5-SUP TRANSFERS: SHOWER: Activity did not occur on this shift TRANSFERS: SHOWER - SCORE: 0-UNK TRANSFERS: TUB: Activity did not occur on this shift TRANSFERS: TUB - SCORE: 0-UNK LOCOMOTION: WALK: Activity did not occur on this shift LOCOMOTION: WALK - SCORE: 0-UNK LOCOMOTION: WHEELCHAIR: LOCOMOTION: WHEELCHAIR - STEP 1: Does the patient need help to go 150 feet in a wheelchair? Yes. LOCOMOTION: WHEELCHAIR - STEP 2: How much assistance does the patient need from the helper? Only supervision, cuing, or coaxing LOCOMOTION: WHEELCHAIR - SCORE: 5-SUP COMPREHENSION: COMPREHENSION: TYPE: Both COMPREHENSION - STEP 1: Does the patient require help to understand complex and abstract ideas (such as current events, finan radha, discharge planning, medical issues, relationships, etc)? No. COMPREHENSION - STEP 2: Does the patient need extra time, require an assistive device (such as glasses, hearing aids, or an a ugmentative communication system), OR does s/he have mild difficulty expressing complex and abstract ideas (including mild dysarthria or mild word-finding problems)? Yes. COMPREHENSION - SCORE: 6-SAIRA EXPRESSION EXPRESSION: TYPE: Both EXPRESSION - STEP 1: Does the patient require help expressing complex and abstract ideas (such as current events, finances , discharge planning, medical issues, relationships, etc)? No. EXPRESSION - STEP 2: Does the patient need extra time, require an assistive device (such as augmentive communication syste m or a communication board), OR does s/he have mild difficulty expressing complex and abstract ideas (including mild dysarthria or mild word-find problems)? No. EXPRESSION - SCORE: 7-IND SOCIAL INTERACTION: SOCIAL INTERACTION - STEP 1: Does the patient require a helper to interact with others in social and therapeutic situations? No. SOCIAL INTERACTION - STEP 2: Does the patient need extra time in social situations, OR does s/he interact with staff, other patien ts, and family members ONLY in structured environments, OR does s/he require medication for social in teraction? No. SOCIAL INTERACTION - SCORE: 7-IND PROBLEM SOLVING: PROBLEM SOLVING - STEP 1: Does the patient need help to solve complex problems such as managing a checking account or confronti ng interpersonal problems? Yes. PROBLEM SOLVING - STEP 2: Does the patient solve basic routine problems half or more of the time? Yes. PROBLEM SOLVING - STEP 3: How often does the patient need help to solve basic routine problems? 10%-24% of the time PROBLEM SOLVING - SCORE: 4-MIN MEMORY: MEMORY - STEP 1: Does the patient need help to remember frequently encountered people, daily routines, and executing r equests? No. MEMORY - STEP 2: Does the patient have slight difficulty recognizing frequently encountered people, daily routines, or executing requests without the need for repetition or using self-initiated or environmental cues to remember? Yes. MEMORY - SCORE: 6-SAIRA SIGNATURE PANEL: The following modified sections: Eating - Score, Grooming - Score, Bathing - Score, Dressing - Upper Body - Score, Dressing - Lower Body - Score, Toileting - Score, Bladder Management - Score, Bowel Man agement - Score, Transfers: Bed, Chair, Wheelchair - Score, Transfers: Toilet - Score, Transfers: Katherine wer - Score, Transfers: Tub - Score, Locomotion: Walk - Score, Locomotion: Wheelchair - Score, Compre hension - Score, Expression - Score, Social Interaction - Score, Problem Solving - Score, Memory - Sc ore were [electronically] signed by Hoda Munson C.N.A. on WedApr 12 2018 11:19:21 T-0500 (Centra l Daylight Time)
--- NOTE | 2018-04-12 14:14 | FAST ---
ENCOUNTER DATE AND TIME: 04/12/2018 08:00 (CDT) NAME SHANNAN MCKEE DATE OF : 1950 DATE OF ADMISSION: 04/07/2018 20:20 (CDT) PHONE: AGE: 68 N# [id number] GENDER: Female ENCOUNTER PHYSICIAN: Dr. Davie Hernandez M.D. ADMISSION DIAGNOSIS: - Other Disabling Impairments 13 - Other Disabling Impairments (13) Critical illness polyneuropathy, Debility, ESRD. EATING: Activity did not occur on this shift EATING - SCORE: 0-UNK GROOMING: Activity did not occur on this shift GROOMING - SCORE: 0-UNK BATHING: Activity did not occur on this shift BATHING - SCORE: 0-UNK DRESSING - UPPER BODY: Activity did not occur on this shift Patient is not dressing in public clothing ARTICLES SCORE Total number of steps: 0 DRESSING - UPPER BODY - SCORE: 0-UNK DRESSING - LOWER BODY: Activity did not occur on this shift Patient is not dressing in public clothing ARTICLES SCORE Total number of steps: 0 DRESSING - LOWER BODY - SCORE: 0-UNK TOILETING: Activity did not occur on this shift TOILETING - SCORE: 0-UNK BLADDER MANAGEMENT: Activity did not occur on this shift BLADDER MANAGEMENT - SCORE: 7-IND BOWEL MANAGEMENT: Activity did not occur on this shift BOWEL MANAGEMENT - SCORE: 7-IND TRANSFERS: BED, CHAIR, WHEELCHAIR: TRANSFERS: BED, CHAIR, WHEELCHAIR - STEP 1: Does the patient require assistance with bed, chair, or wheelchair transfers? Yes. TRANSFERS: BED, CHAIR, WHEELCHAIR - STEP 2: Does the patient require the assistance of a helper? Yes. TRANSFERS: BED, CHAIR, WHEELCHAIR - STEP 3: How much assistance does the patient require from the helper? Only supervision TRANSFERS: BED, CHAIR, WHEELCHAIR - SCORE: 5-SUP TRANSFERS: TOILET: Activity did not occur on this shift TRANSFERS: TOILET - SCORE: 0-UNK TRANSFERS: SHOWER: Activity did not occur on this shift TRANSFERS: SHOWER - SCORE: 0-UNK TRANSFERS: TUB: Activity did not occur on this shift TRANSFERS: TUB - SCORE: 0-UNK LOCOMOTION: WALK: Patient walks less than 50 feet LOCOMOTION: WALK - SCORE: 1-DEP LOCOMOTION: WHEELCHAIR: LOCOMOTION: WHEELCHAIR - STEP 1: Does the patient need help to go 150 feet in a wheelchair? No. LOCOMOTION: WHEELCHAIR - SCORE: 6-SAIRA LOCOMOTION: STAIRS: Activity did not occur on this shift LOCOMOTION: STAIRS - SCORE: 0-UNK COMPREHENSION: COMPREHENSION - SCORE: 0-UNK EXPRESSION EXPRESSION - SCORE: 0-UNK SOCIAL INTERACTION: SOCIAL INTERACTION - SCORE: 0-UNK PROBLEM SOLVING: PROBLEM SOLVING - SCORE: 0-UNK MEMORY: MEMORY - SCORE: 0-UNK SIGNATURE PANEL: The following modified sections: Transfers: Bed, Chair, Wheelchair - Score, Transfers: Toilet - Score , Locomotion: Walk - Score, Locomotion: Wheelchair - Score, Locomotion: Stairs - Score were [electron ically] signed by Stewart Tristan PT on WedApr 12 2018 14:13:14 T-0500 (Central Daylight Time)
--- NOTE | 2018-04-12 17:44 | FAST ---
ENCOUNTER DATE AND TIME: 04/12/2018 08:00 (CDT) NAME SHANNAN MCEKE DATE OF : 1950 DATE OF ADMISSION: 04/07/2018 20:20 (CDT) PHONE: AGE: 68 N# [id number] GENDER: Female ENCOUNTER PHYSICIAN: Dr. Davie Hernandez M.D. ADMISSION DIAGNOSIS: - Other Disabling Impairments 13 - Other Disabling Impairments (13) Critical illness polyneuropathy, Debility, ESRD. EATING: Activity did not occur on this shift EATING - SCORE: 0-UNK GROOMING: Activity did not occur on this shift GROOMING - SCORE: 0-UNK BATHING: Activity did not occur on this shift BATHING - SCORE: 0-UNK DRESSING - UPPER BODY: Activity did not occur on this shift Patient is not dressing in public clothing ARTICLES SCORE Total number of steps: 0 DRESSING - UPPER BODY - SCORE: 0-UNK DRESSING - LOWER BODY: Activity did not occur on this shift Patient is not dressing in public clothing ARTICLES SCORE Total number of steps: 0 DRESSING - LOWER BODY - SCORE: 0-UNK TOILETING: Activity did not occur on this shift TOILETING - SCORE: 0-UNK BLADDER MANAGEMENT: Activity did not occur on this shift BLADDER MANAGEMENT - SCORE: 7-IND BOWEL MANAGEMENT: Activity did not occur on this shift BOWEL MANAGEMENT - SCORE: 7-IND TRANSFERS: BED, CHAIR, WHEELCHAIR: Activity did not occur on this shift TRANSFERS: BED, CHAIR, WHEELCHAIR - SCORE: 0-UNK TRANSFERS: TOILET: Activity did not occur on this shift TRANSFERS: TOILET - SCORE: 0-UNK TRANSFERS: SHOWER: Activity did not occur on this shift TRANSFERS: SHOWER - SCORE: 0-UNK TRANSFERS: TUB: Activity did not occur on this shift TRANSFERS: TUB - SCORE: 0-UNK LOCOMOTION: WALK: Activity did not occur on this shift LOCOMOTION: WALK - SCORE: 0-UNK LOCOMOTION: WHEELCHAIR: Activity did not occur on this shift LOCOMOTION: WHEELCHAIR - SCORE: 0-UNK LOCOMOTION: STAIRS: Activity did not occur on this shift LOCOMOTION: STAIRS - SCORE: 0-UNK COMPREHENSION: COMPREHENSION - STEP 1: Does the patient require help to understand complex and abstract ideas (such as current events, finan radha, discharge planning, medical issues, relationships, etc)? Yes. COMPREHENSION - STEP 2: Does the patient require help to understand questions or statements about basic needs or ideas (such as hunger, thirst, sleep, safety, daily schedule, room location, or discomfort) half or more of the t frances? No. COMPREHENSION - STEP 3: How often does the patient need help to understand directions and conversation about basic needs? Les s than 10% of the time COMPREHENSION - SCORE: 5-SUP EXPRESSION EXPRESSION - STEP 1: Does the patient require help expressing complex and abstract ideas (such as current events, finances , discharge planning, medical issues, relationships, etc)? No. EXPRESSION - STEP 2: Does the patient need extra time, require an assistive device (such as augmentive communication syste m or a communication board), OR does s/he have mild difficulty expressing complex and abstract ideas (including mild dysarthria or mild word-find problems)? Yes. EXPRESSION - SCORE: 6-SAIRA SOCIAL INTERACTION: SOCIAL INTERACTION - STEP 1: Does the patient require a helper to interact with others in social and therapeutic situations? No. SOCIAL INTERACTION - STEP 2: Does the patient need extra time in social situations, OR does s/he interact with staff, other patien ts, and family members ONLY in structured environments, OR does s/he require medication for social in teraction? Yes, patient needs extra time SOCIAL INTERACTION - SCORE: 6-SAIRA PROBLEM SOLVING: PROBLEM SOLVING - STEP 1: Does the patient need help to solve complex problems such as managing a checking account or confronti ng interpersonal problems? Yes. PROBLEM SOLVING - STEP 2: Does the patient solve basic routine problems half or more of the time? Yes. PROBLEM SOLVING - STEP 3: How often does the patient need help to solve basic routine problems? 10%-24% of the time PROBLEM SOLVING - SCORE: 4-MIN MEMORY: MEMORY - STEP 1: Does the patient need help to remember frequently encountered people, daily routines, and executing r equests? Yes. MEMORY - STEP 2: How often does the patient need help to remember frequently encountered people, daily routines, and e xecuting requests? 10% - 24% of the time MEMORY - SCORE: 4-MIN SIGNATURE PANEL: The following modified sections: Comprehension - Score, Expression - Score, Social Interaction - Scor e, Problem Solving - Score, Memory - Score were [electronically] signed by ST remi Huynh 2017 17:43:39 [facility]-0500 (Central Daylight Time)
--- NOTE | 2018-04-12 18:20 | R.PN ---
ENCOUNTER DATE AND TIME: 04/12/2018 18:17 (CDT) NAME SHANNAN MCKEE DATE OF : 1950 DATE OF ADMISSION: 04/07/2018 20:20 (CDT) Critical illness polyneuropathy, Debility, ESRDCHIEF COMPLAINT: Debility SUBJECTIVE: Pt denied any Shortness of Breath. Pt denied any depression. Ambulated 80' with contact guard assistance using a rolling walker. Self-propelled wheelchair 250' wi th modified independence. VITAL SIGNS Temperature: 98.3 F SBP/DBP: 142/65 Pulse: 70 Resp: 16 MEDICATION ALLERGIES: No Known Drug Allergies (NKDA) ENVIRONMENTAL ALLERGIES: None Known - Substance Allergies None Known - Other Allergies None Known NURSING: - Shower allowing shower - Lab Results blood Sugar Check ACHS PRECAUTIONS: - Fall Precaution Bed and chair alarm ACTIVITIES OOB only with supervision THERAPIES: - Occupational Therapy Evaluate and Treat. - Physical Therapy Evaluate and Treat. PHYSICAL EXAM - Gen Alert and awake Lying in bed No apparent distress Oriented to: person, time, and place - Skin Dark skin discoloration of right more than left leg consistent with stasis dermatitis Normacephalic - Eyes No abnormalities - ENMT No abnormalities - Neck No abnormalities - CVS RRR - Chest Clear - Abd Obese, soft, nontender - GI Non distended Deferred - Little urine production. On hemodialysis three times weekly. - Ext Dark skin discoloration of right more than left leg consistent with stasis dermatitis. Weak dorsalis pedis pulse. - MSK 3-4+/5 weakness in both lower extremities. - Neuro No focal deficits - Psych Mild anxiety. ASSESSMENT: Pt. is a 68 yo Right-handed black female.On 03/30/2018 she was admitted to [facility] with diagnosis Critic al illness polyneuropathy, Debility, ESRD.Her impairment category is Other Disabling Impairments 13 - Other Disabling Impairments (13).Pre-morbidly, Pt. was independent/mod-I in Sphincter Control, [place] sfers Control, Communication, Social Cognition, Self-Care, and Locomotion; and she had good Sphincter Control.Currently, she has deficits of Safety Awareness, Transfers Control, Balance, Self-Care, [place] motion, and Endurance.Pt. is now referred to [facility] for acute in-patient r ehabilitation in order to maximize patient's functional independence in activities of daily living, s trength, ROM, and mobility.- Rehab Goal Patient has realistic goal of being discharged at assistance level 6-Deyanira to reside at Home with Fam joelle/Relatives. MDM/PLAN: - Physical Therapy Weakness - to improve, our physical therapists will perform initial evaluation of pt's status upon a dmission and devise an individualized program for Aquatic Therapy, Neuromuscular Reeducation, and Str engthening Poor balance - to improve, our physical therapists will perform initial evaluation of pt's status up on admission and devise an individualized program for Balance Training Inability to transfer - to improve, our physical therapists will perform initial evaluation of pt's status upon admission and devise an individualized program for Bed mobility Need in caregiver upon discharge - to improve, our physical therapists will perform initial evaluati on of pt's status upon admission and devise an individualized program for Caregiver Training Poor endurance - to improve, our physical therapists will perform initial evaluation of pt's status upon admission and devise an individualized program for Endurance Training Gait dysfunction - to improve, our physical therapists will perform initial evaluation of pt's statu s upon admission and devise an individualized program for Gait Training, and Wheel Chair mobility Need for home safety evaluation - to improve, our physical therapists will perform initial evaluatio n of pt's status upon admission and devise an individualized program for Home Evaluation New precaution - to improve, our physical therapists will perform initial evaluation of pt's status upon admission and devise an individualized program for Patient precaution education - Occupational Therapy Weakness - to improve, our occupation therapists will perform initial evaluation of pt's status upon admission and devise an individualized program for Aquatic Therapy, Balance, Endurance, UE ROM, and UE strengthening ADL deficits - to improve, our occupation therapists will perform initial evaluation of pt's status upon admission and devise an individualized program for Bathing, Bed mobility, Community Reintegratio n, Cooking, Dressing, Eating, Fine Motor Skills, Grooming, Homemaking, Kitchen Mobility, Laundry, Pat ient Education, Safety Awareness, Splinting - Positioning, Transfers(Toilet, Tub, Shower), and Wheel Chair Management Need for healthcare network pricing consultant - to improve, our occupation therapists will perform initial evaluation of pt's status upon admission and devise an individualized program for Caregiver Training - Diet Type Continue Regular - Diet - Liquid Texture Continue Regular - Tube Feed Continue N/A - Lab Results blood Sugar Check ACHS - Fall Precaution Bed and chair alarm - Diet - Solid Texture Continue Regular - Shower allowing shower - Balance for Weakness - Bed mobility for ADL deficits FUNCTIONAL STATUS: UPDATED AT WEEKLY TEAM CONFERENCE - Bladder Same accident frequency: 7-Ind - No accidents in the past 7 days - Bowel Same accident frequency: 7-Ind - No accidents in the past 7 days - Walking Same score based on distance walked: 1(<=50ft) - Wheelchair Same score based on distance traveled: 0(N/A) FUNCTIONAL STATUS: - Self-Care A. Eating sup B. Grooming sup C. Bathing Ethel D. Dressing - Upper Ethel E. Dressing - Lower Ethel F. Toileting Ethel - Sphincter Control G: Bladder control Ind H: Bowel control Ind - Transfers Control I. Bed/Chair/Wheelchair Ethel J. Toilet Ethel K. Tub/Shower ADNO - Locomotion L. Walk/Wheelchair (C) Ethel L. Walk/Wheelchair (W) Ethel M. Stairs ADNO - Communication N. Comprehension (B) Deyanira O. Expression (B) Deyanira - Social Cognition P. Social Interaction Deyanira Q. Problem Solving Deyanira R. Memory Deyanira - Endurance Fair - Balance Fair - Safety Awareness Fair CURRENT FUNC. DEFICITS: Safety Awareness, Transfers Control, Balance, Self-Care, Locomotion, and Endurance SIGNATURE PANEL: (CDT)
--- NOTE | 2018-04-12 18:34 | P.PN ---
Subjective Date of Service: 04/12/18 Primary Care Provider: Metal Finish Inspector-Dr. Hernandez/PCP-Dr. Logan Chief Complaint: Patient currently in rehab post CHF exacerbation Subjective: No new changes, Tolerating diet, Ambulating, Working w/ PT, Doing well Review of Systems General: As per HPI Physical Examination - Vital Signs Temperature: 98.3 F Blood Pressure: 142/65 Pulse: 70 Respirations: 16 Pulse Ox (%): 94 - Physical Exam General: Alert, In no apparent distress HEENT: Atraumatic, PERRLA, EOMI Neck: Supple, JVD not distended Respiratory: Clear to auscultation bilaterally, Normal air movement Cardiovascular: Regular rate/rhythm, Normal S1 S2 Gastrointestinal: Normal bowel sounds, No tenderness Musculoskeletal: No tenderness Integumentary: No rashes Neurological: Normal speech, Normal tone, Normal affect Lymphatics: No axilla or inguinal lymphadenopathy - Studies Medications List Reviewed: Yes Assessment & Plan - Problems (Diagnosis) (1) Encounter for rehabilitation Onset Date: 04/08/18 Current Visit: Yes Status: Acute Plan: Patient currently in inpatient rehab working with physical therapy occupational therapy and speech therapy. Doing well overall. Has been getting stronger daily. Medicine has been consulted on the case due to chronic conditions of the patient. No complication noted at this time. Patient continues on all the medication while here in the inpatient rehab. Patient will need to be set up with dialysis once ready to be discharged home. No further workup needed at this time patient stable and participating in therapy daily. (2) End stage renal disease Onset Date: 04/11/18 Current Visit: Yes Status: Chronic (3) CHF (congestive heart failure) Onset Date: 04/11/18 Current Visit: Yes Status: Chronic Qualifiers: Heart failure type: diastolic Heart failure chronicity: chronic Qualified Code(s): I50.32 - Chronic diastolic (congestive) heart failure (4) Diabetes mellitus Onset Date: 04/11/18 Current Visit: Yes Status: Chronic Qualifiers: Diabetes mellitus type: type 2 Diabetes mellitus custodial insulin use: without custodial use Diabetes mellitus complication status: with kidney complications Diabetes mellitus complication detail: with chronic kidney disease Chronic kidney disease stage: on chronic dialysis Qualified Code(s) : E11.22 - Type 2 diabetes mellitus with diabetic chronic kidney disease; N18.6 - End stage renal disease; Z99.2 - Dependence on renal dialysis (5) GERD (gastroesophageal reflux disease) Onset Date: 04/11/18 Current Visit: Yes Status: Chronic Qualifiers: Esophagitis presence: esophagitis presence not specified Qualified Code(s) : K21.9 - Gastro-esophageal reflux disease without esophagitis (6) Hyperlipidemia Onset Date: 04/11/18 Current Visit: Yes Status: Chronic Qualifiers: Hyperlipidemia type: unspecified Qualified Code(s): E78.5 - Hyperlipidemia , unspecified (7) Hypertension Onset Date: 04/11/18 Current Visit: Yes Status: Chronic Qualifiers: Hypertension type: essential hypertension Qualified Code(s): I10 - Essential (primary) hypertension (8) Obesity Onset Date: 04/11/18 Current Visit: Yes Status: Chronic Qualifiers: Obesity type: due to excess calories Obesity classification: adult class 3 (BMI >= 40) Serious obesity comorbidity presence: with serious comorbidity Body mass index: BMI 45.0-49.9 Qualified Code(s): E66.01 - Morbid (severe) obesity due to excess calories; Z68.42 - Body mass index (BMI) 45.0-49.9, adult Discharge Plan: Home Plan to discharge in: 24 Hours - Code Status/Comfort Care Code Status Assessed: Yes Critical Care: No
[2018-04-12] MEDS: DOCUSATE NA/SENNA CONC 1 TAB PO SCH (20:45)
[2018-04-12] MEDS: ATORVASTATIN 20 MG TAB PO SCH (20:49)
--- NOTE | 2018-04-13 01:51 | FAST ---
SHIFT START DATE/TIME: 04/12/2018 19:00 (CDT) SHIFT END DATE/TIME: 04/13/2018 07:00 (CDT) NAME SHANNAN MCKEE DATE OF : 1950 DATE OF ADMISSION: 04/07/2018 20:20 (CDT) PHONE: AGE: 68 N# [id number] GENDER: Female ENCOUNTER PHYSICIAN: Dr. Davie Hernandez M.D. ADMISSION DIAGNOSIS: - Other Disabling Impairments 13 - Other Disabling Impairments (13) Critical illness polyneuropathy, Debility, ESRD. EATING: Activity did not occur on this shift EATING - SCORE: 0-UNK GROOMING: Oral care Wash, rinse, and dry face Wash, rinse, and dry hands GROOMING - STEP 1: Does the patient require assistance when grooming? Yes. GROOMING - STEP 2: Does the patient require the assistance of a helper? No. The patient only requires an assistive devic e, OR takes more than reasonable time to groom, OR there is a concern for safety as the patient groom s GROOMING - SCORE: 6-SAIRA BATHING: Activity did not occur on this shift BATHING - SCORE: 0-UNK DRESSING - UPPER BODY: Patient is not dressing in public clothing ARTICLES SCORE Total number of steps: 0 DRESSING - UPPER BODY - SCORE: 0-UNK DRESSING - LOWER BODY: Patient is not dressing in public clothing ARTICLES SCORE Total number of steps: 0 DRESSING - LOWER BODY - SCORE: 0-UNK TOILETING: TOILETING - STEP 1: Does the patient require assistance with toileting? Yes. TOILETING - STEP 2: Does the patient require the assistance of a helper? Yes. TOILETING - STEP 3: How much assistance does the patient require from the helper? Only supervision TOILETING - SCORE: 5-SUP BLADDER MANAGEMENT: BLADDER MANAGEMENT - STEP 1: Does the patient control the bladder completely and intentionally without equipment or devices or med ications, and is always continent? Yes. BLADDER MANAGEMENT - SCORE: 7-IND BOWEL MANAGEMENT: Activity did not occur on this shift BOWEL MANAGEMENT - SCORE: 7-IND TRANSFERS: BED, CHAIR, WHEELCHAIR: TRANSFERS: BED, CHAIR, WHEELCHAIR - STEP 1: Does the patient require assistance with bed, chair, or wheelchair transfers? Yes. TRANSFERS: BED, CHAIR, WHEELCHAIR - STEP 2: Does the patient require the assistance of a helper? Yes. TRANSFERS: BED, CHAIR, WHEELCHAIR - STEP 3: How much assistance does the patient require from the helper? Lifting of the legs TRANSFERS: BED, CHAIR, WHEELCHAIR - STEP 4: How many legs does the patient require the helper to lift? both legs TRANSFERS: BED, CHAIR, WHEELCHAIR - SCORE: 3-MOD TRANSFERS: TOILET: TRANSFERS: TOILET - STEP 1: Does the patient require assistance with toilet transfers? Yes. TRANSFERS: TOILET - STEP 2: Does the patient require the assistance of a helper? Yes. TRANSFERS: TOILET - STEP 3: How much assistance does the patient require from the helper? Only supervision, cuing, coaxing, OR he lp to set out transfer equipment or to lock brakes and/or lift foot rests TRANSFERS: TOILET - SCORE: 5-SUP TRANSFERS: SHOWER: Activity did not occur on this shift TRANSFERS: SHOWER - SCORE: 0-UNK TRANSFERS: TUB: Activity did not occur on this shift TRANSFERS: TUB - SCORE: 0-UNK LOCOMOTION: WALK: Activity did not occur on this shift LOCOMOTION: WALK - SCORE: 0-UNK LOCOMOTION: WHEELCHAIR: Activity did not occur on this shift LOCOMOTION: WHEELCHAIR - SCORE: 0-UNK COMPREHENSION: COMPREHENSION - STEP 1: Does the patient require help to understand complex and abstract ideas (such as current events, finan radha, discharge planning, medical issues, relationships, etc)? No. COMPREHENSION - STEP 2: Does the patient need extra time, require an assistive device (such as glasses, hearing aids, or an a ugmentative communication system), OR does s/he have mild difficulty expressing complex and abstract ideas (including mild dysarthria or mild word-finding problems)? Yes. COMPREHENSION - SCORE: 6-SAIRA EXPRESSION EXPRESSION - STEP 1: Does the patient require help expressing complex and abstract ideas (such as current events, finances , discharge planning, medical issues, relationships, etc)? No. EXPRESSION - STEP 2: Does the patient need extra time, require an assistive device (such as augmentive communication syste m or a communication board), OR does s/he have mild difficulty expressing complex and abstract ideas (including mild dysarthria or mild word-find problems)? No. EXPRESSION - SCORE: 7-IND SOCIAL INTERACTION: SOCIAL INTERACTION - STEP 1: Does the patient require a helper to interact with others in social and therapeutic situations? No. SOCIAL INTERACTION - STEP 2: Does the patient need extra time in social situations, OR does s/he interact with staff, other patien ts, and family members ONLY in structured environments, OR does s/he require medication for social in teraction? Yes, patient needs extra time SOCIAL INTERACTION - SCORE: 6-SAIRA PROBLEM SOLVING: PROBLEM SOLVING - STEP 1: Does the patient need help to solve complex problems such as managing a checking account or confronti ng interpersonal problems? No. PROBLEM SOLVING - STEP 2: Does the patient require extra time to make decisions or solve problems, OR does s/he have slight dif ficulty reading, initiating, or self-correcting in unfamiliar situations? Yes, patient needs extra ti me. PROBLEM SOLVING - SCORE: 6-SAIRA MEMORY: MEMORY - STEP 1: Does the patient need help to remember frequently encountered people, daily routines, and executing r equests? No. MEMORY - STEP 2: Does the patient have slight difficulty recognizing frequently encountered people, daily routines, or executing requests without the need for repetition or using self-initiated or environmental cues to remember? Yes. MEMORY - SCORE: 6-SAIRA SIGNATURE PANEL: The following modified sections: Eating - Score, Grooming - Score, Dressing - Upper Body - Score, Robson ssing - Lower Body - Score, Toileting - Score, Bladder Management - Score, Bowel Management - Score, Transfers: Bed, Chair, Wheelchair - Score, Transfers: Toilet - Score, Transfers: Shower - Score, [place] sfers: Tub - Score, Locomotion: Walk - Score, Locomotion: Wheelchair - Score, Comprehension - Score, Expression - Score, Social Interaction - Score, Problem Solving - Score, Memory - Score were [electro nically] signed by Elva Crawford CNA on WedApr 13 2018 01:50:47 GMT-0500 (Central Daylight Time)
--- NOTE | 2018-04-13 03:03 | PN ---
Date of Progress Note: 04/12/2018 Subjective: The patient was started on dialysis. The patient still has hypertension. Physical Examination: Vital Signs: Blood pressure 142/70, pulse of 98. Chest: Clear to auscultation. Heart: S1, S2. Regular. Abdomen: Soft, nontender. Extremities: +2 edema. Laboratory Data: H and H 9.5. T-sat of 42. Sodium 139, potassium of 3.8, bicarb 29, BUN 45, cre atinine 6.6, calcium 7.3. Medications: Current medications the patient is on include, 1.Phenergan. 2.Epogen. 3.Ferrous sulfate. 4.Norvasc 5 mg daily. 5.Clonidine 0.3 b.i.d. 6.Hydralazine 100 t.i.d. 7.Gabapentin 600 b.i.d. 8.Lasix 60 b.i.d. Assessment And Plan: 1.Chronic kidney disease, progressed to end stage. We will continue dialysis. 2.Secondary hyperparathyroidism, stable. 3.Hypertension, uncontrolled. We will increase her Norvasc to 10 mg. 4.Anemia of chronic kidney disease. Continue Epogen. 5.Nephrotic-range proteinuria with worsening kidney function. We will send for serology. The patie nt may need kidney biopsy. We will follow up. 6.Deconditioning. Continue PT, OT. TANI/LATOYA Voice ID: [id number] Report ID: [id number]
[2018-04-13 06:34] LABS: Folic Acid, (Folate) 10.1 ng/mL (3.1-17.5)
[2018-04-13] MEDS: INSULIN -REGULAR HUMAN 50 UNIT/0.5 ML ML SQ SCH ×4 (07:13→21:00)
[2018-04-13] MEDS: HEPARIN 5000 UNIT/ML 1 ML VIAL SQ SCH ×2 (07:50→22:35)
[2018-04-13] MEDS: LIDOCAINE 5% PATCH TOP SCH (08:08)
[2018-04-13] MEDS: FE SULF/FA/VIT B COMP & C TAB PO SCH (08:09)
[2018-04-13] MEDS: CALCIUM CARBONATE 500 MG TAB PO SCH (08:09)
[2018-04-13] MEDS: FAMOTIDINE 20 MG TAB PO SCH ×2 (08:09→22:17)
[2018-04-13] MEDS: FERROUS SULFATE 325 MG TAB PO SCH (08:10)
[2018-04-13] MEDS: GABAPENTIN 300 MG CAP PO SCH ×2 (08:10→22:20)
[2018-04-13] MEDS: FUROSEMIDE 40 MG TABLET PO SCH ×2 (08:10→16:38)
[2018-04-13] MEDS: PROMOD 30 ML DOSE PO SCH ×2 (08:10→20:00)
[2018-04-13] MEDS: GLIPIZIDE S.A. 5 MG TAB PO SCH (08:11)
[2018-04-13] MEDS: AMLODIPINE 5 MG TAB PO SCH (08:11)
[2018-04-13] MEDS: FOLIC ACID 1 MG TABLET PO SCH (08:11)
[2018-04-13] MEDS: CLONIDINE HCL 0.3 MG TAB PO SCH ×2 (08:12→22:29)
[2018-04-13] MEDS: HYDRALAZINE HCL 25 MG TABLET PO SCH ×3 (08:12→16:00)
[2018-04-13] MEDS: COMBIGAN OPTHALMIC EACH EYE SCH ×2 (08:14→22:15)
[2018-04-13] MEDS: RESTASIS 0.05% EACH EYE SCH ×2 (08:14→22:19)
[2018-04-13] MEDS: TRIAMCINOLONE ACET 0.1% CREAM 80 GM TOP SCH ×2 (08:15→22:13)
[2018-04-13] MEDS: ACETAMINOPHEN 500 MG TAB PO PRN (09:11)
[2018-04-13] MEDS: CALCITROL 0.25 MCG CAP PO SCH (11:10)
[2018-04-13] MEDS: TRAMADOL HCL 50 MG TAB PO PRN (11:32)
--- NOTE | 2018-04-13 14:10 | FAST ---
SHIFT START DATE/TIME: 04/13/2018 07:00 (CDT) SHIFT END DATE/TIME: 04/13/2018 19:00 (CDT) NAME SHANNAN MCKEE DATE OF : 1950 DATE OF ADMISSION: 04/07/2018 20:20 (CDT) PHONE: AGE: 68 N# [id number] GENDER: Female ENCOUNTER PHYSICIAN: Dr. Davie Hernandez M.D. ADMISSION DIAGNOSIS: - Other Disabling Impairments 13 - Other Disabling Impairments (13) Critical illness polyneuropathy, Debility, ESRD. EATING: EATING - STEP 1: Does the patient require assistance when eating? Yes. EATING - STEP 2: Does the patient require the assistance of a helper? No, patient only requires an assistive device, O R s/he takes more than reasonable time to eat, OR there is a safety concern, OR s/he requires modifie d food consistency EATING - SCORE: 6-SAIRA GROOMING: Comb/brush hair Oral care Wash, rinse, and dry face Wash, rinse, and dry hands GROOMING - STEP 1: Does the patient require assistance when grooming? Yes. GROOMING - STEP 2: Does the patient require the assistance of a helper? Yes. GROOMING - STEP 3: How much assistance does the patient require from the helper? Only prior equipment preparation/set up from the helper GROOMING - SCORE: 5-SUP BATHING: Activity did not occur on this shift BATHING - SCORE: 0-UNK DRESSING - UPPER BODY: Activity did not occur on this shift ARTICLES SCORE Total number of steps: 0 DRESSING - UPPER BODY - SCORE: 0-UNK DRESSING - LOWER BODY: Activity did not occur on this shift ARTICLES SCORE Total number of steps: 0 DRESSING - LOWER BODY - SCORE: 0-UNK TOILETING: TOILETING - STEP 1: Does the patient require assistance with toileting? Yes. TOILETING - STEP 2: Does the patient require the assistance of a helper? Yes. TOILETING - STEP 3: How much assistance does the patient require from the helper? Hands-on assistance from the helper TOILETING - STEP 4: Of the 3 tasks: 1) Adjusting clothing prior to use, 2) Cleansing of perineal area, 3) Adjusting clot latia after use; How many tasks does the patient perform WITHOUT assistance of the helper? Three tasks with steadying assistance from the helper TOILETING - SCORE: 4-MIN BLADDER MANAGEMENT: Patient is on renal dialysis or peritoneal dialysis and no voiding activity BLADDER MANAGEMENT - SCORE: 7-IND BOWEL MANAGEMENT: Activity did not occur on this shift BOWEL MANAGEMENT - SCORE: 7-IND TRANSFERS: BED, CHAIR, WHEELCHAIR: TRANSFERS: BED, CHAIR, WHEELCHAIR - STEP 1: Does the patient require assistance with bed, chair, or wheelchair transfers? Yes. TRANSFERS: BED, CHAIR, WHEELCHAIR - STEP 2: Does the patient require the assistance of a helper? Yes. TRANSFERS: BED, CHAIR, WHEELCHAIR - STEP 3: How much assistance does the patient require from the helper? Steadying/guiding assistance TRANSFERS: BED, CHAIR, WHEELCHAIR - SCORE: 4-MIN TRANSFERS: TOILET: TRANSFERS: TOILET - STEP 1: Does the patient require assistance with toilet transfers? Yes. TRANSFERS: TOILET - STEP 2: Does the patient require the assistance of a helper? Yes. TRANSFERS: TOILET - STEP 3: How much assistance does the patient require from the helper? Patient performs half or more of the tr ansferring tasks TRANSFERS: TOILET - STEP 4: Does the patient need only incidental help such as contact guard or steadying during toilet transfer? Yes. TRANSFERS: TOILET - SCORE: 4-MIN TRANSFERS: SHOWER: Activity did not occur on this shift TRANSFERS: SHOWER - SCORE: 0-UNK TRANSFERS: TUB: Activity did not occur on this shift TRANSFERS: TUB - SCORE: 0-UNK LOCOMOTION: WALK: Activity did not occur on this shift LOCOMOTION: WALK - SCORE: 0-UNK LOCOMOTION: WHEELCHAIR: Activity did not occur on this shift LOCOMOTION: WHEELCHAIR - SCORE: 0-UNK COMPREHENSION: COMPREHENSION - STEP 1: Does the patient require help to understand complex and abstract ideas (such as current events, finan radha, discharge planning, medical issues, relationships, etc)? No. COMPREHENSION - STEP 2: Does the patient need extra time, require an assistive device (such as glasses, hearing aids, or an a ugmentative communication system), OR does s/he have mild difficulty expressing complex and abstract ideas (including mild dysarthria or mild word-finding problems)? Yes. COMPREHENSION - SCORE: 6-SAIRA EXPRESSION EXPRESSION - STEP 1: Does the patient require help expressing complex and abstract ideas (such as current events, finances , discharge planning, medical issues, relationships, etc)? No. EXPRESSION - STEP 2: Does the patient need extra time, require an assistive device (such as augmentive communication syste m or a communication board), OR does s/he have mild difficulty expressing complex and abstract ideas (including mild dysarthria or mild word-find problems)? Yes. EXPRESSION - SCORE: 6-SAIRA SOCIAL INTERACTION: SOCIAL INTERACTION - STEP 1: Does the patient require a helper to interact with others in social and therapeutic situations? No. SOCIAL INTERACTION - STEP 2: Does the patient need extra time in social situations, OR does s/he interact with staff, other patien ts, and family members ONLY in structured environments, OR does s/he require medication for social in teraction? Yes, patient needs extra time SOCIAL INTERACTION - SCORE: 6-SAIRA PROBLEM SOLVING: PROBLEM SOLVING - STEP 1: Does the patient need help to solve complex problems such as managing a checking account or confronti ng interpersonal problems? No. PROBLEM SOLVING - STEP 2: Does the patient require extra time to make decisions or solve problems, OR does s/he have slight dif ficulty reading, initiating, or self-correcting in unfamiliar situations? Yes, patient needs extra ti me. PROBLEM SOLVING - SCORE: 6-SAIRA MEMORY: MEMORY - STEP 1: Does the patient need help to remember frequently encountered people, daily routines, and executing r equests? No. MEMORY - STEP 2: Does the patient have slight difficulty recognizing frequently encountered people, daily routines, or executing requests without the need for repetition or using self-initiated or environmental cues to remember? No. MEMORY - SCORE: 7-IND SIGNATURE PANEL: The following modified sections: Eating - Score, Grooming - Score, Bathing - Score, Dressing - Upper Body - Score, Dressing - Lower Body - Score, Toileting - Score, Bladder Management - Score, Bowel Man agement - Score, Transfers: Bed, Chair, Wheelchair - Score, Transfers: Toilet - Score, Transfers: Katherine wer - Score, Transfers: Tub - Score, Locomotion: Walk - Score, Locomotion: Wheelchair - Score, Compre hension - Score, Social Interaction - Score, Expression - Score, Problem Solving - Score, Memory - Sc ore were [electronically] signed by Ortiz Chahal on WedApr 13 2018 14:09:29 GMT-0500 (Central Daylight Time)
--- NOTE | 2018-04-13 14:20 | FAST ---
ENCOUNTER DATE AND TIME: 04/13/2018 08:00 (CDT) NAME SHANNAN MCKEE DATE OF : 1950 DATE OF ADMISSION: 04/07/2018 20:20 (CDT) PHONE: AGE: 68 N# [id number] GENDER: Female ENCOUNTER PHYSICIAN: Dr. Davie Hernandez M.D. ADMISSION DIAGNOSIS: - Other Disabling Impairments 13 - Other Disabling Impairments (13) Critical illness polyneuropathy, Debility, ESRD. EATING: Activity did not occur on this shift EATING - SCORE: 0-UNK GROOMING: Wash, rinse, and dry face Wash, rinse, and dry hands GROOMING - STEP 1: Does the patient require assistance when grooming? No. GROOMING - SCORE: 7-IND BATHING: Abdomen Buttocks Chest Left arm Left lower leg and foot Left upper leg Perineal area Right arm Right lower leg and foot Right upper leg BATHING - STEP 1: Does the patient require assistance when bathing? Yes. BATHING - STEP 2: Does the patient require the assistance of a helper? Yes. BATHING - STEP 3: How much assistance does the patient require from the helper? Only supervision, cuing, coaxing, instr uctions, encouragement BATHING - SCORE: 5-SUP DRESSING - UPPER BODY: T-shirt/pullover shirt (four steps) ARTICLES SCORE Total number of steps: 4 DRESSING - UPPER BODY - STEP 1: Does the patient require help when dressing above the waist? No. DRESSING - UPPER BODY - SCORE: 7-IND DRESSING - LOWER BODY: Sock - Left foot (one step) Sock - Right foot (one step) Underwear (three steps) ARTICLES SCORE Total number of steps: 5 DRESSING - LOWER BODY - STEP 1: Does the patient require help when dressing below the waist? Yes. DRESSING - LOWER BODY - STEP 2: Does the patient require the assistance of a helper? Yes. DRESSING - LOWER BODY - STEP 3: Does the helper touch the patient while dressing? No. DRESSING - LOWER BODY - SCORE: 5-SUP TOILETING: Activity did not occur on this shift TOILETING - SCORE: 0-UNK BLADDER MANAGEMENT: Activity did not occur on this shift BLADDER MANAGEMENT - SCORE: 7-IND BOWEL MANAGEMENT: Activity did not occur on this shift BOWEL MANAGEMENT - SCORE: 7-IND TRANSFERS: BED, CHAIR, WHEELCHAIR: Activity did not occur on this shift TRANSFERS: BED, CHAIR, WHEELCHAIR - SCORE: 0-UNK TRANSFERS: TOILET: Activity did not occur on this shift TRANSFERS: TOILET - SCORE: 0-UNK TRANSFERS: SHOWER: Activity did not occur on this shift TRANSFERS: SHOWER - SCORE: 0-UNK TRANSFERS: TUB: TRANSFERS: TUB - STEP 1: Does the patient require assistance with tub transfers? Yes. TRANSFERS: TUB - STEP 2: Does the patient require the assistance of a helper? Yes. TRANSFERS: TUB - STEP 3: How much assistance does the patient require from the helper? Only supervision, cuing, coaxing, or he lp to set out transfer equipment or to lock brakes and/or lift foot rests TRANSFERS: TUB - SCORE: 5-SUP LOCOMOTION: WALK: Activity did not occur on this shift LOCOMOTION: WALK - SCORE: 0-UNK LOCOMOTION: WHEELCHAIR: Activity did not occur on this shift LOCOMOTION: WHEELCHAIR - SCORE: 0-UNK LOCOMOTION: STAIRS: Activity did not occur on this shift LOCOMOTION: STAIRS - SCORE: 0-UNK COMPREHENSION: COMPREHENSION - SCORE: 0-UNK EXPRESSION EXPRESSION - SCORE: 0-UNK SOCIAL INTERACTION: SOCIAL INTERACTION - SCORE: 0-UNK PROBLEM SOLVING: PROBLEM SOLVING - SCORE: 0-UNK MEMORY: MEMORY - SCORE: 0-UNK SIGNATURE PANEL: The following modified sections: Eating - Score, Grooming - Score, Bathing - Score, Dressing - Upper Body - Score, Dressing - Lower Body - Score, Toileting - Score, Transfers: Bed, Chair, Wheelchair - S core, Transfers: Toilet - Score, Transfers: Shower - Score, Transfers: Tub - Score, Comprehension - S core, Expression - Score, Social Interaction - Score, Problem Solving - Score, Memory - Score were [e lectronically] signed by ELSI Ceballos on WedApr 13 2018 14:19:51 T-0500 ([facility] Time)
--- NOTE | 2018-04-13 14:31 | P.PN ---
Subjective Date of Service: 04/13/18 Primary Care Provider: Power Distributor-Dr. Hernandez/PCP-Dr. Logan Chief Complaint: Patient currently in rehab post CHF exacerbation Subjective: No new changes, Tolerating diet, Ambulating, Improving, Working w/ PT Review of Systems General: As per HPI Physical Examination - Vital Signs Temperature: 97.9 F Blood Pressure: 149/78 Pulse: 56 Respirations: 18 Pulse Ox (%): 97 - Physical Exam General: Alert, In no apparent distress HEENT: Atraumatic, PERRLA, EOMI Neck: Supple, JVD not distended Respiratory: Clear to auscultation bilaterally, Normal air movement Cardiovascular: Regular rate/rhythm, Normal S1 S2 Gastrointestinal: Normal bowel sounds, No tenderness Musculoskeletal: No tenderness Integumentary: No rashes Neurological: Normal speech, Normal tone, Normal affect Lymphatics: No axilla or inguinal lymphadenopathy - Studies Medications List Reviewed: Yes Assessment & Plan - Problems (Diagnosis) (1) Encounter for rehabilitation Onset Date: 04/08/18 Current Visit: Yes Status: Acute Plan: Patient currently in inpatient rehab working with physical therapy occupational therapy and speech therapy. Doing well overall. Has been getting stronger daily. Medicine has been consulted on the case due to chronic conditions of the patient. No complication noted at this time. Patient continues on all the medication while here in the inpatient rehab. Patient will need to be set up with dialysis once ready to be discharged home. No further workup needed at this time patient stable and participating in therapy daily. (2) End stage renal disease Onset Date: 04/11/18 Current Visit: Yes Status: Chronic (3) CHF (congestive heart failure) Onset Date: 04/11/18 Current Visit: Yes Status: Chronic Qualifiers: Heart failure type: diastolic Heart failure chronicity: chronic Qualified Code(s): I50.32 - Chronic diastolic (congestive) heart failure (4) Diabetes mellitus Onset Date: 04/11/18 Current Visit: Yes Status: Chronic Qualifiers: Diabetes mellitus type: type 2 Diabetes mellitus usp insulin use: without intermodal dispatcher use Diabetes mellitus complication status: with kidney complications Diabetes mellitus complication detail: with chronic kidney disease Chronic kidney disease stage: on chronic dialysis Qualified Code(s) : E11.22 - Type 2 diabetes mellitus with diabetic chronic kidney disease; N18.6 - End stage renal disease; Z99.2 - Dependence on renal dialysis (5) GERD (gastroesophageal reflux disease) Onset Date: 04/11/18 Current Visit: Yes Status: Chronic Qualifiers: Esophagitis presence: esophagitis presence not specified Qualified Code(s) : K21.9 - Gastro-esophageal reflux disease without esophagitis (6) Hyperlipidemia Onset Date: 04/11/18 Current Visit: Yes Status: Chronic Qualifiers: Hyperlipidemia type: unspecified Qualified Code(s): E78.5 - Hyperlipidemia , unspecified (7) Hypertension Onset Date: 04/11/18 Current Visit: Yes Status: Chronic Qualifiers: Hypertension type: essential hypertension Qualified Code(s): I10 - Essential (primary) hypertension (8) Obesity Onset Date: 04/11/18 Current Visit: Yes Status: Chronic Qualifiers: Obesity type: due to excess calories Obesity classification: adult class 3 (BMI >= 40) Serious obesity comorbidity presence: with serious comorbidity Body mass index: BMI 45.0-49.9 Qualified Code(s): E66.01 - Morbid (severe) obesity due to excess calories; Z68.42 - Body mass index (BMI) 45.0-49.9, adult
[2018-04-13 15:18] LABS: Rheumatoid Factor NEG (NEG)
--- NOTE | 2018-04-13 16:35 | FAST ---
ENCOUNTER DATE AND TIME: 04/13/2018 08:00 (CDT) NAME SHANNAN MCKEE DATE OF : 1950 DATE OF ADMISSION: 04/07/2018 20:20 (CDT) PHONE: AGE: 68 N# [id number] GENDER: Female ENCOUNTER PHYSICIAN: Dr. Davie Hernandez M.D. ADMISSION DIAGNOSIS: - Other Disabling Impairments 13 - Other Disabling Impairments (13) Critical illness polyneuropathy, Debility, ESRD. EATING: Activity did not occur on this shift EATING - SCORE: 0-UNK GROOMING: Activity did not occur on this shift GROOMING - SCORE: 0-UNK BATHING: Activity did not occur on this shift BATHING - SCORE: 0-UNK DRESSING - UPPER BODY: Activity did not occur on this shift Patient is not dressing in public clothing ARTICLES SCORE Total number of steps: 0 DRESSING - UPPER BODY - SCORE: 0-UNK DRESSING - LOWER BODY: Activity did not occur on this shift Patient is not dressing in public clothing ARTICLES SCORE Total number of steps: 0 DRESSING - LOWER BODY - SCORE: 0-UNK TOILETING: Activity did not occur on this shift TOILETING - SCORE: 0-UNK BLADDER MANAGEMENT: Activity did not occur on this shift BLADDER MANAGEMENT - SCORE: 7-IND BOWEL MANAGEMENT: Activity did not occur on this shift BOWEL MANAGEMENT - SCORE: 7-IND TRANSFERS: BED, CHAIR, WHEELCHAIR: TRANSFERS: BED, CHAIR, WHEELCHAIR - STEP 1: Does the patient require assistance with bed, chair, or wheelchair transfers? Yes. TRANSFERS: BED, CHAIR, WHEELCHAIR - STEP 2: Does the patient require the assistance of a helper? Yes. TRANSFERS: BED, CHAIR, WHEELCHAIR - STEP 3: How much assistance does the patient require from the helper? Only supervision TRANSFERS: BED, CHAIR, WHEELCHAIR - SCORE: 5-SUP TRANSFERS: TOILET: Activity did not occur on this shift TRANSFERS: TOILET - SCORE: 0-UNK TRANSFERS: SHOWER: Activity did not occur on this shift TRANSFERS: SHOWER - SCORE: 0-UNK TRANSFERS: TUB: Activity did not occur on this shift TRANSFERS: TUB - SCORE: 0-UNK LOCOMOTION: WALK: LOCOMOTION: WALK - STEP 1: Does the patient need help to walk 150 feet? Yes. LOCOMOTION: WALK - STEP 2: How much assistance does the patient require to walk a minimum of 150 feet? Only incidental help such as contact guarding or steadying LOCOMOTION: WALK - SCORE: 4-MIN LOCOMOTION: WHEELCHAIR: LOCOMOTION: WHEELCHAIR - STEP 1: Does the patient need help to go 150 feet in a wheelchair? No. LOCOMOTION: WHEELCHAIR - SCORE: 6-SAIRA LOCOMOTION: STAIRS: Activity did not occur on this shift LOCOMOTION: STAIRS - SCORE: 0-UNK COMPREHENSION: COMPREHENSION - SCORE: 0-UNK EXPRESSION EXPRESSION - SCORE: 0-UNK SOCIAL INTERACTION: SOCIAL INTERACTION - SCORE: 0-UNK PROBLEM SOLVING: PROBLEM SOLVING - SCORE: 0-UNK MEMORY: MEMORY - SCORE: 0-UNK SIGNATURE PANEL: The following modified sections: Transfers: Bed, Chair, Wheelchair - Score, Transfers: Toilet - Score , Locomotion: Walk - Score, Locomotion: Wheelchair - Score, Locomotion: Stairs - Score were [electron ically] signed by Stewart Tristan PT on WedApr 13 2018 16:34:09 T-0500 (Central Daylight Time)
--- NOTE | 2018-04-13 16:35 | FAST ---
ENCOUNTER DATE AND TIME: 04/13/2018 08:00 (CDT) NAME SHANNAN MCKEE DATE OF : 1950 DATE OF ADMISSION: 04/07/2018 20:20 (CDT) PHONE: AGE: 68 N# [id number] GENDER: Female ENCOUNTER PHYSICIAN: Dr. Davie Hernandez M.D. ADMISSION DIAGNOSIS: - Other Disabling Impairments 13 - Other Disabling Impairments (13) Critical illness polyneuropathy, Debility, ESRD. EATING: Activity did not occur on this shift EATING - SCORE: 0-UNK GROOMING: Activity did not occur on this shift GROOMING - SCORE: 0-UNK BATHING: Activity did not occur on this shift BATHING - SCORE: 0-UNK DRESSING - UPPER BODY: Activity did not occur on this shift Patient is not dressing in public clothing ARTICLES SCORE Total number of steps: 0 DRESSING - UPPER BODY - SCORE: 0-UNK DRESSING - LOWER BODY: Activity did not occur on this shift Patient is not dressing in public clothing ARTICLES SCORE Total number of steps: 0 DRESSING - LOWER BODY - SCORE: 0-UNK TOILETING: Activity did not occur on this shift TOILETING - SCORE: 0-UNK BLADDER MANAGEMENT: Activity did not occur on this shift BLADDER MANAGEMENT - SCORE: 7-IND BOWEL MANAGEMENT: Activity did not occur on this shift BOWEL MANAGEMENT - SCORE: 7-IND TRANSFERS: BED, CHAIR, WHEELCHAIR: Activity did not occur on this shift TRANSFERS: BED, CHAIR, WHEELCHAIR - SCORE: 0-UNK TRANSFERS: TOILET: Activity did not occur on this shift TRANSFERS: TOILET - SCORE: 0-UNK TRANSFERS: SHOWER: Activity did not occur on this shift TRANSFERS: SHOWER - SCORE: 0-UNK TRANSFERS: TUB: Activity did not occur on this shift TRANSFERS: TUB - SCORE: 0-UNK LOCOMOTION: WALK: Activity did not occur on this shift LOCOMOTION: WALK - SCORE: 0-UNK LOCOMOTION: WHEELCHAIR: Activity did not occur on this shift LOCOMOTION: WHEELCHAIR - SCORE: 0-UNK LOCOMOTION: STAIRS: Activity did not occur on this shift LOCOMOTION: STAIRS - SCORE: 0-UNK COMPREHENSION: COMPREHENSION - STEP 1: Does the patient require help to understand complex and abstract ideas (such as current events, finan radha, discharge planning, medical issues, relationships, etc)? Yes. COMPREHENSION - STEP 2: Does the patient require help to understand questions or statements about basic needs or ideas (such as hunger, thirst, sleep, safety, daily schedule, room location, or discomfort) half or more of the t frances? No. COMPREHENSION - STEP 3: How often does the patient need help to understand directions and conversation about basic needs? Les s than 10% of the time COMPREHENSION - SCORE: 5-SUP EXPRESSION EXPRESSION - STEP 1: Does the patient require help expressing complex and abstract ideas (such as current events, finances , discharge planning, medical issues, relationships, etc)? No. EXPRESSION - STEP 2: Does the patient need extra time, require an assistive device (such as augmentive communication syste m or a communication board), OR does s/he have mild difficulty expressing complex and abstract ideas (including mild dysarthria or mild word-find problems)? Yes. EXPRESSION - SCORE: 6-SAIRA SOCIAL INTERACTION: SOCIAL INTERACTION - STEP 1: Does the patient require a helper to interact with others in social and therapeutic situations? No. SOCIAL INTERACTION - STEP 2: Does the patient need extra time in social situations, OR does s/he interact with staff, other patien ts, and family members ONLY in structured environments, OR does s/he require medication for social in teraction? Yes, patient needs extra time SOCIAL INTERACTION - SCORE: 6-SAIRA PROBLEM SOLVING: PROBLEM SOLVING - STEP 1: Does the patient need help to solve complex problems such as managing a checking account or confronti ng interpersonal problems? Yes. PROBLEM SOLVING - STEP 2: Does the patient solve basic routine problems half or more of the time? Yes. PROBLEM SOLVING - STEP 3: How often does the patient need help to solve basic routine problems? 10%-24% of the time PROBLEM SOLVING - SCORE: 4-MIN MEMORY: MEMORY - STEP 1: Does the patient need help to remember frequently encountered people, daily routines, and executing r equests? Yes. MEMORY - STEP 2: How often does the patient need help to remember frequently encountered people, daily routines, and e xecuting requests? Less than 10% of the time MEMORY - SCORE: 5-SUP SIGNATURE PANEL: The following modified sections: Comprehension - Score, Expression - Score, Social Interaction - Scor e, Problem Solving - Score, Memory - Score were [electronically] signed by ST Amina wed 16:34:20 [facility]-0500 (Central Daylight Time)
--- NOTE | 2018-04-13 18:05 | R.PN ---
ENCOUNTER DATE AND TIME: 04/13/2018 18:02 (CDT) NAME SHANNAN MCKEE DATE OF : 1950 DATE OF ADMISSION: 04/07/2018 20:20 (CDT) Critical illness polyneuropathy, Debility, ESRDCHIEF COMPLAINT: Debility SUBJECTIVE: Pt denied any Shortness of Breath. Pt denied any depression. Ambulated 380' with contact guard assistance using a rolling walker. Self-propelled wheelchair 250' w ith modified independence. VITAL SIGNS Temperature: 98.3 F SBP/DBP: 143/62 Pulse: 61 Resp: 16 MEDICATION ALLERGIES: No Known Drug Allergies (NKDA) ENVIRONMENTAL ALLERGIES: None Known - Substance Allergies None Known - Other Allergies None Known NURSING: - Shower allowing shower - Lab Results blood Sugar Check ACHS PRECAUTIONS: - Fall Precaution Bed and chair alarm ACTIVITIES OOB only with supervision THERAPIES: - Occupational Therapy Evaluate and Treat. - Physical Therapy Evaluate and Treat. PHYSICAL EXAM - Gen Alert and awake Lying in bed No apparent distress Oriented to: person, time, and place - Skin Dark skin discoloration of right more than left leg consistent with stasis dermatitis Normacephalic - Eyes No abnormalities - ENMT No abnormalities - Neck No abnormalities - CVS RRR - Chest Clear - Abd Obese, soft, nontender - GI Non distended Deferred - Little urine production. On hemodialysis three times weekly. - Ext Dark skin discoloration of right more than left leg consistent with stasis dermatitis. Weak dorsalis pedis pulse. - MSK 3-4+/5 weakness in both lower extremities. - Neuro No focal deficits - Psych Mild anxiety. ASSESSMENT: Pt. is a 68 yo Right-handed black female.On 03/30/2018 she was admitted to [facility] with diagnosis Critic al illness polyneuropathy, Debility, ESRD.Her impairment category is Other Disabling Impairments 13 - Other Disabling Impairments (13).Pre-morbidly, Pt. was independent/mod-I in Sphincter Control, [place] sfers Control, Communication, Social Cognition, Self-Care, and Locomotion; and she had good Sphincter Control.Currently, she has deficits of Safety Awareness, Transfers Control, Balance, Self-Care, Nelson motion, and Endurance.Pt. is now [facility] to [facility] for acute in-patient r ehabilitation in order to maximize patient's functional independence in activities of daily living, s trength, ROM, and mobility.- Rehab Goal Patient has realistic goal of being discharged at assistance level 6-Deyanira to reside at Home with Fam joelle/Relatives. MDM/PLAN: - Physical Therapy Weakness - to improve, our physical therapists will perform initial evaluation of pt's status upon a dmission and devise an individualized program for Aquatic Therapy, Neuromuscular Reeducation, and Str engthening Poor balance - to improve, our physical therapists will perform initial evaluation of pt's status up on admission and devise an individualized program for Balance Training Inability to transfer - to improve, our physical therapists will perform initial evaluation of pt's status upon admission and devise an individualized program for Bed mobility Need in caregiver upon discharge - to improve, our physical therapists will perform initial evaluati on of pt's status upon admission and devise an individualized program for Caregiver Training Poor endurance - to improve, our physical therapists will perform initial evaluation of pt's status upon admission and devise an individualized program for Endurance Training Gait dysfunction - to improve, our physical therapists will perform initial evaluation of pt's statu s upon admission and devise an individualized program for Gait Training, and Wheel Chair mobility Need for home safety evaluation - to improve, our physical therapists will perform initial evaluatio n of pt's status upon admission and devise an individualized program for Home Evaluation New precaution - to improve, our physical therapists will perform initial evaluation of pt's status upon admission and devise an individualized program for Patient precaution education - Occupational Therapy Weakness - to improve, our occupation therapists will perform initial evaluation of pt's status upon admission and devise an individualized program for Aquatic Therapy, Balance, Endurance, UE ROM, and UE strengthening ADL deficits - to improve, our occupation therapists will perform initial evaluation of pt's status upon admission and devise an individualized program for Bathing, Bed mobility, Community Reintegratio n, Cooking, Dressing, Eating, Fine Motor Skills, Grooming, Homemaking, Kitchen Mobility, Laundry, Pat ient Education, Safety Awareness, Splinting - Positioning, Transfers(Toilet, Tub, Shower), and Wheel Chair Management Need for long term care administrator - to improve, our occupation therapists will perform initial evaluation of pt's status upon admission and devise an individualized program for Caregiver Training - Diet Type Continue Regular - Diet - Liquid Texture Continue Regular - Tube Feed Continue N/A - Lab Results blood Sugar Check ACHS - Fall Precaution Bed and chair alarm - Diet - Solid Texture Continue Regular - Shower allowing shower - Balance for Weakness - Bed mobility for ADL deficits FUNCTIONAL STATUS: UPDATED AT WEEKLY TEAM CONFERENCE - Bladder Same accident frequency: 7-Ind - No accidents in the past 7 days - Bowel Same accident frequency: 7-Ind - No accidents in the past 7 days - Walking Same score based on distance walked: 1(<=50ft) - Wheelchair Same score based on distance traveled: 0(N/A) FUNCTIONAL STATUS: - Self-Care A. Eating sup B. Grooming sup C. Bathing Ethel D. Dressing - Upper Ethel E. Dressing - Lower Ethel F. Toileting Ethel - Sphincter Control G: Bladder control Ind H: Bowel control Ind - Transfers Control I. Bed/Chair/Wheelchair Ethel J. Toilet Ethel K. Tub/Shower ADNO - Locomotion L. Walk/Wheelchair (C) Ethel L. Walk/Wheelchair (W) Ethel M. Stairs ADNO - Communication N. Comprehension (B) Deyanira O. Expression (B) Deyainra - Social Cognition P. Social Interaction Deyanira Q. Problem Solving Deyanira R. Memory Deyanira - Endurance Fair - Balance Fair - Safety Awareness Fair CURRENT FUNC. DEFICITS: Safety Awareness, Transfers Control, Balance, Self-Care, Locomotion, and Endurance SIGNATURE PANEL: (CDT)
[2018-04-13 19:13] LABS: HBsAG Nonreactive (Nonreactive)
[2018-04-13] MEDS: BIMATOPROST OPTH SCH (22:15)
[2018-04-13] MEDS: DOCUSATE NA/SENNA CONC 1 TAB PO SCH (22:16)
[2018-04-13] MEDS: ATORVASTATIN 20 MG TAB PO SCH (22:17)
[2018-04-13] MEDS: EPOETIN ALFA 10,000 UNIT/ML VIAL SQ SCH (22:30)
[2018-04-14] MEDS: HYDRALAZINE HCL 25 MG TABLET PO SCH ×4 (00:08→23:40)
--- NOTE | 2018-04-14 02:43 | FAST ---
SHIFT START DATE/TIME: 04/13/2018 19:00 (CDT) SHIFT END DATE/TIME: 04/14/2018 07:00 (CDT) NAME SHANNAN MCKEE DATE OF : 1950 DATE OF ADMISSION: 04/07/2018 20:20 (CDT) PHONE: AGE: 68 N# [id number] GENDER: Female ENCOUNTER PHYSICIAN: Dr. Davie Hernandez M.D. ADMISSION DIAGNOSIS: - Other Disabling Impairments 13 - Other Disabling Impairments (13) Critical illness polyneuropathy, Debility, ESRD. EATING: EATING - STEP 1: Does the patient require assistance when eating? Yes. EATING - STEP 2: Does the patient require the assistance of a helper? No, patient only requires an assistive device, O R s/he takes more than reasonable time to eat, OR there is a safety concern, OR s/he requires modifie d food consistency EATING - SCORE: 6-SAIRA GROOMING: Comb/brush hair Oral care Wash, rinse, and dry face Wash, rinse, and dry hands GROOMING - STEP 1: Does the patient require assistance when grooming? Yes. GROOMING - STEP 2: Does the patient require the assistance of a helper? No. The patient only requires an assistive devic e, OR takes more than reasonable time to groom, OR there is a concern for safety as the patient groom s GROOMING - SCORE: 6-SAIRA BATHING: Activity did not occur on this shift BATHING - SCORE: 0-UNK DRESSING - UPPER BODY: Patient is not dressing in public clothing ARTICLES SCORE Total number of steps: 0 DRESSING - UPPER BODY - SCORE: 0-UNK DRESSING - LOWER BODY: Patient is not dressing in public clothing ARTICLES SCORE Total number of steps: 0 DRESSING - LOWER BODY - SCORE: 0-UNK TOILETING: TOILETING - STEP 1: Does the patient require assistance with toileting? Yes. TOILETING - STEP 2: Does the patient require the assistance of a helper? Yes. TOILETING - STEP 3: How much assistance does the patient require from the helper? Only supervision TOILETING - SCORE: 5-SUP BLADDER MANAGEMENT: BLADDER MANAGEMENT - STEP 1: Does the patient control the bladder completely and intentionally without equipment or devices or med ications, and is always continent? No. BLADDER MANAGEMENT - STEP 2: Does the patient require the assistance of a helper? Yes. BLADDER MANAGEMENT - STEP 3: How much assistance does the patient require from the helper? Only supervision, stand-by, cuing, or c oaxing BLADDER MANAGEMENT - SCORE: 5-SUP BLADDER MANAGEMENT - FREQUENCY OF ACCIDENTS: BLADDER MANAGEMENT(FA) - STEP 1: How many accidents has the patient had during the current shift? 0 BOWEL MANAGEMENT: Activity did not occur on this shift BOWEL MANAGEMENT - SCORE: 7-IND TRANSFERS: BED, CHAIR, WHEELCHAIR: TRANSFERS: BED, CHAIR, WHEELCHAIR - STEP 1: Does the patient require assistance with bed, chair, or wheelchair transfers? Yes. TRANSFERS: BED, CHAIR, WHEELCHAIR - STEP 2: Does the patient require the assistance of a helper? Yes. TRANSFERS: BED, CHAIR, WHEELCHAIR - STEP 3: How much assistance does the patient require from the helper? Lifting of the legs TRANSFERS: BED, CHAIR, WHEELCHAIR - STEP 4: How many legs does the patient require the helper to lift? both legs TRANSFERS: BED, CHAIR, WHEELCHAIR - SCORE: 3-MOD TRANSFERS: TOILET: TRANSFERS: TOILET - STEP 1: Does the patient require assistance with toilet transfers? Yes. TRANSFERS: TOILET - STEP 2: Does the patient require the assistance of a helper? Yes. TRANSFERS: TOILET - STEP 3: How much assistance does the patient require from the helper? Only supervision, cuing, coaxing, OR he lp to set out transfer equipment or to lock brakes and/or lift foot rests TRANSFERS: TOILET - SCORE: 5-SUP TRANSFERS: SHOWER: Activity did not occur on this shift TRANSFERS: SHOWER - SCORE: 0-UNK TRANSFERS: TUB: Activity did not occur on this shift TRANSFERS: TUB - SCORE: 0-UNK LOCOMOTION: WALK: Activity did not occur on this shift LOCOMOTION: WALK - SCORE: 0-UNK LOCOMOTION: WHEELCHAIR: Activity did not occur on this shift LOCOMOTION: WHEELCHAIR - SCORE: 0-UNK COMPREHENSION: COMPREHENSION: TYPE: Both COMPREHENSION - STEP 1: Does the patient require help to understand complex and abstract ideas (such as current events, finan radha, discharge planning, medical issues, relationships, etc)? No. COMPREHENSION - STEP 2: Does the patient need extra time, require an assistive device (such as glasses, hearing aids, or an a ugmentative communication system), OR does s/he have mild difficulty expressing complex and abstract ideas (including mild dysarthria or mild word-finding problems)? Yes. COMPREHENSION - SCORE: 6-SAIRA EXPRESSION EXPRESSION: TYPE: Both EXPRESSION - STEP 1: Does the patient require help expressing complex and abstract ideas (such as current events, finances , discharge planning, medical issues, relationships, etc)? No. EXPRESSION - STEP 2: Does the patient need extra time, require an assistive device (such as augmentive communication syste m or a communication board), OR does s/he have mild difficulty expressing complex and abstract ideas (including mild dysarthria or mild word-find problems)? Yes. EXPRESSION - SCORE: 6-SAIRA SOCIAL INTERACTION: SOCIAL INTERACTION - STEP 1: Does the patient require a helper to interact with others in social and therapeutic situations? No. SOCIAL INTERACTION - STEP 2: Does the patient need extra time in social situations, OR does s/he interact with staff, other patien ts, and family members ONLY in structured environments, OR does s/he require medication for social in teraction? Yes, patient needs extra time SOCIAL INTERACTION - SCORE: 6-SAIRA PROBLEM SOLVING: PROBLEM SOLVING - STEP 1: Does the patient need help to solve complex problems such as managing a checking account or confronti ng interpersonal problems? No. PROBLEM SOLVING - STEP 2: Does the patient require extra time to make decisions or solve problems, OR does s/he have slight dif ficulty reading, initiating, or self-correcting in unfamiliar situations? Yes, patient needs extra ti me. PROBLEM SOLVING - SCORE: 6-SAIRA MEMORY: MEMORY - STEP 1: Does the patient need help to remember frequently encountered people, daily routines, and executing r equests? No. MEMORY - STEP 2: Does the patient have slight difficulty recognizing frequently encountered people, daily routines, or executing requests without the need for repetition or using self-initiated or environmental cues to remember? Yes. MEMORY - SCORE: 6-SAIRA SIGNATURE PANEL: The following modified sections: Eating - Score, Grooming - Score, Bathing - Score, Dressing - Upper Body - Score, Dressing - Lower Body - Score, Toileting - Score, Bladder Management - Score, Bowel Man agement - Score, Transfers: Bed, Chair, Wheelchair - Score, Transfers: Toilet - Score, Transfers: Katherine wer - Score, Transfers: Tub - Score, Locomotion: Walk - Score, Locomotion: Wheelchair - Score, Compre hension - Score, Expression - Score, Social Interaction - Score, Problem Solving - Score, Memory - Sc ore were [electronically] signed by Theresa MeloNRenetta on WedApr 14 2018 02:43:15 GMT-0500 ( Central Daylight Time)
[2018-04-14 06:41] LABS: Absolute Monocytes 1.1 K/uL (0.1-1.3); Basophils % 1.3 % (0-1.3); Hematocrit 24.9 % (36.0-45.0); Lymphocytes % 18.8 % (15.3-44.8); MCH 29.6 pg (27.0-35.0); MCV 90.6 fL (80-100); MPV 7.9 fL (7.6-11.3); Monocytes % 19.6 % (3.3-12.3); RBC Red Blood Cell Count 2.75 M/uL (3.86-4.86)
[2018-04-14 06:45] LABS: Potassium 4.3 mmol/L (3.5-5.1); Prealbumin 14.6 mg/dL (20-40)
[2018-04-14] MEDS: INSULIN -REGULAR HUMAN 50 UNIT/0.5 ML ML SQ SCH ×4 (07:07→20:35)
[2018-04-14] MEDS: HEPARIN 5000 UNIT/ML 1 ML VIAL SQ SCH ×2 (07:50→19:00)
[2018-04-14] MEDS: RESTASIS 0.05% EACH EYE SCH ×2 (07:53→19:53)
[2018-04-14] MEDS: COMBIGAN OPTHALMIC EACH EYE SCH ×2 (07:54→19:52)
[2018-04-14] MEDS: LIDOCAINE 5% PATCH TOP SCH (07:54)
[2018-04-14] MEDS: TRIAMCINOLONE ACET 0.1% CREAM 80 GM TOP SCH ×2 (07:54→19:52)
[2018-04-14] MEDS: AMLODIPINE 5 MG TAB PO SCH (08:00)
[2018-04-14] MEDS: CLONIDINE HCL 0.3 MG TAB PO SCH ×2 (08:00→19:52)
[2018-04-14 08:20] LABS: Platelet Estimate ADEQ
[2018-04-14 08:21] LABS: Blood Morphology Comment NOT SEEN (NOT SEEN)
[2018-04-14] MEDS: CALCIUM CARBONATE 500 MG TAB PO SCH (08:28)
[2018-04-14] MEDS: FOLIC ACID 1 MG TABLET PO SCH (08:28)
[2018-04-14] MEDS: FUROSEMIDE 40 MG TABLET PO SCH ×2 (08:29→16:03)
[2018-04-14] MEDS: GLIPIZIDE S.A. 5 MG TAB PO SCH (08:29)
[2018-04-14] MEDS: GABAPENTIN 300 MG CAP PO SCH ×2 (08:29→19:51)
[2018-04-14] MEDS: FE SULF/FA/VIT B COMP & C TAB PO SCH (08:29)
[2018-04-14] MEDS: FERROUS SULFATE 325 MG TAB PO SCH (08:29)
[2018-04-14] MEDS: FAMOTIDINE 20 MG TAB PO SCH ×2 (08:29→19:52)
[2018-04-14] MEDS: PROMOD 30 ML DOSE PO SCH ×2 (08:31→19:51)
[2018-04-14] MEDS: TRAMADOL HCL 50 MG TAB PO PRN (09:01)
--- NOTE | 2018-04-14 14:48 | FAST ---
SHIFT START DATE/TIME: 04/14/2018 07:00 (CDT) SHIFT END DATE/TIME: 04/14/2018 19:00 (CDT) NAME SHANNAN MCKEE DATE OF : 1950 DATE OF ADMISSION: 04/07/2018 20:20 (CDT) PHONE: AGE: 68 N# [id number] GENDER: Female ENCOUNTER PHYSICIAN: Dr. Davie Hernandez M.D. ADMISSION DIAGNOSIS: - Other Disabling Impairments 13 - Other Disabling Impairments (13) Critical illness polyneuropathy, Debility, ESRD. EATING: EATING - STEP 1: Does the patient require assistance when eating? Yes. EATING - STEP 2: Does the patient require the assistance of a helper? No, patient only requires an assistive device, O R s/he takes more than reasonable time to eat, OR there is a safety concern, OR s/he requires modifie d food consistency EATING - SCORE: 6-SAIRA GROOMING: Comb/brush hair Oral care Wash, rinse, and dry face Wash, rinse, and dry hands GROOMING - STEP 1: Does the patient require assistance when grooming? Yes. GROOMING - STEP 2: Does the patient require the assistance of a helper? No. The patient only requires an assistive devic e, OR takes more than reasonable time to groom, OR there is a concern for safety as the patient groom s GROOMING - SCORE: 6-SAIRA BATHING: Activity did not occur on this shift BATHING - SCORE: 0-UNK DRESSING - UPPER BODY: Patient is not dressing in public clothing ARTICLES SCORE Total number of steps: 0 DRESSING - UPPER BODY - SCORE: 0-UNK DRESSING - LOWER BODY: Patient is not dressing in public clothing ARTICLES SCORE Total number of steps: 0 DRESSING - LOWER BODY - SCORE: 0-UNK TOILETING: TOILETING - STEP 1: Does the patient require assistance with toileting? Yes. TOILETING - STEP 2: Does the patient require the assistance of a helper? Yes. TOILETING - STEP 3: How much assistance does the patient require from the helper? Hands-on assistance from the helper TOILETING - STEP 4: Of the 3 tasks: 1) Adjusting clothing prior to use, 2) Cleansing of perineal area, 3) Adjusting clot latia after use; How many tasks does the patient perform WITHOUT assistance of the helper? Three tasks with steadying assistance from the helper TOILETING - SCORE: 4-MIN BLADDER MANAGEMENT: Patient is on renal dialysis or peritoneal dialysis and no voiding activity BLADDER MANAGEMENT - SCORE: 7-IND BOWEL MANAGEMENT: BOWEL MANAGEMENT - STEP 1: Does the patient control bowels completely and intentionally without equipment devices or medications AND is always continent? No. BOWEL MANAGEMENT - STEP 2: Does the patient require the assistance of a helper? No, patient requires and manages independently a n assistive device such as a bedpan, bedside commode, absorbent pad, incontinent device, or collectin g device BOWEL MANAGEMENT - SCORE: 6-SAIRA TRANSFERS: BED, CHAIR, WHEELCHAIR: TRANSFERS: BED, CHAIR, WHEELCHAIR - STEP 1: Does the patient require assistance with bed, chair, or wheelchair transfers? Yes. TRANSFERS: BED, CHAIR, WHEELCHAIR - STEP 2: Does the patient require the assistance of a helper? Yes. TRANSFERS: BED, CHAIR, WHEELCHAIR - STEP 3: How much assistance does the patient require from the helper? Steadying/guiding assistance TRANSFERS: BED, CHAIR, WHEELCHAIR - SCORE: 4-MIN TRANSFERS: TOILET: TRANSFERS: TOILET - STEP 1: Does the patient require assistance with toilet transfers? Yes. TRANSFERS: TOILET - STEP 2: Does the patient require the assistance of a helper? Yes. TRANSFERS: TOILET - STEP 3: How much assistance does the patient require from the helper? Patient performs half or more of the tr ansferring tasks TRANSFERS: TOILET - STEP 4: Does the patient need only incidental help such as contact guard or steadying during toilet transfer? Yes. TRANSFERS: TOILET - SCORE: 4-MIN TRANSFERS: SHOWER: Activity did not occur on this shift TRANSFERS: SHOWER - SCORE: 0-UNK TRANSFERS: TUB: Activity did not occur on this shift TRANSFERS: TUB - SCORE: 0-UNK LOCOMOTION: WALK: Activity did not occur on this shift LOCOMOTION: WALK - SCORE: 0-UNK LOCOMOTION: WHEELCHAIR: Activity did not occur on this shift LOCOMOTION: WHEELCHAIR - SCORE: 0-UNK COMPREHENSION: COMPREHENSION - SCORE: 0-UNK EXPRESSION EXPRESSION - SCORE: 0-UNK SOCIAL INTERACTION: SOCIAL INTERACTION - SCORE: 0-UNK PROBLEM SOLVING: PROBLEM SOLVING - SCORE: 0-UNK MEMORY: MEMORY - SCORE: 0-UNK SIGNATURE PANEL: The following modified sections: Eating - Score, Grooming - Score, Bathing - Score, Dressing - Upper Body - Score, Dressing - Lower Body - Score, Toileting - Score, Bladder Management - Score, Bowel Man agement - Score, Transfers: Bed, Chair, Wheelchair - Score, Transfers: Toilet - Score, Transfers: Katherine wer - Score, Transfers: Tub - Score, Locomotion: Walk - Score, Locomotion: Wheelchair - Score, Compre hension - Score, Expression - Score, Social Interaction - Score, Problem Solving - Score, Memory - Sc ore were [electronically] signed by Ortiz Chahal on WedApr 14 2018 14:46:35 GMT-0500 (Central Daylight Time)
--- NOTE | 2018-04-14 15:02 | P.PN ---
Subjective Date of Service: 04/14/18 Primary Care Provider: Clerk Of Works-Dr. Hernandez/PCP-Dr. Logan Chief Complaint: Patient currently in rehab post CHF exacerbation Subjective: No new changes, Tolerating diet, Ambulating, Working w/ PT, Doing well Review of Systems General: As per HPI Physical Examination - Vital Signs Temperature: 98.4 F Blood Pressure: 124/60 Pulse: 54 Respirations: 14 Pulse Ox (%): 94 - Physical Exam General: Alert, In no apparent distress HEENT: Atraumatic, PERRLA, EOMI Neck: Supple, JVD not distended Respiratory: Clear to auscultation bilaterally, Normal air movement Cardiovascular: Regular rate/rhythm, Normal S1 S2 Gastrointestinal: Normal bowel sounds, No tenderness Musculoskeletal: No tenderness Integumentary: No rashes Neurological: Normal speech, Normal tone, Normal affect Lymphatics: No axilla or inguinal lymphadenopathy - Studies Laboratory Data (last 24 hrs) 04/14/18 06:02: Sodium 144, Potassium 4.3, BUN 18 D, Creatinine 3.30 H D, Glucose 122 H 04/14/18 06:02: WBC 5.5 D, Hgb 8.1 L, Hct 24.9 L, Plt Count 305 D Medications List Reviewed: Yes Assessment & Plan - Problems (Diagnosis) (1) Encounter for rehabilitation Onset Date: 04/08/18 Current Visit: Yes Status: Acute Plan: Patient currently in inpatient rehab working with physical therapy occupational therapy and speech therapy. Doing well overall. Has been getting stronger daily. Medicine has been consulted on the case due to chronic conditions of the patient. No complication noted at this time. Patient continues on all the medication while here in the inpatient rehab. Patient will need to be set up with dialysis once ready to be discharged home. No further workup needed at this time patient stable and participating in therapy daily. (2) End stage renal disease Onset Date: 04/11/18 Current Visit: Yes Status: Chronic (3) CHF (congestive heart failure) Onset Date: 04/11/18 Current Visit: Yes Status: Chronic Qualifiers: Heart failure type: diastolic Heart failure chronicity: chronic Qualified Code(s): I50.32 - Chronic diastolic (congestive) heart failure (4) Diabetes mellitus Onset Date: 04/11/18 Current Visit: Yes Status: Chronic Qualifiers: Diabetes mellitus type: type 2 Diabetes mellitus technician terminal and repeater insulin use: without penitentiary use Diabetes mellitus complication status: with kidney complications Diabetes mellitus complication detail: with chronic kidney disease Chronic kidney disease stage: on chronic dialysis Qualified Code(s) : E11.22 - Type 2 diabetes mellitus with diabetic chronic kidney disease; N18.6 - End stage renal disease; Z99.2 - Dependence on renal dialysis (5) GERD (gastroesophageal reflux disease) Onset Date: 04/11/18 Current Visit: Yes Status: Chronic Qualifiers: Esophagitis presence: esophagitis presence not specified Qualified Code(s) : K21.9 - Gastro-esophageal reflux disease without esophagitis (6) Hyperlipidemia Onset Date: 04/11/18 Current Visit: Yes Status: Chronic Qualifiers: Hyperlipidemia type: unspecified Qualified Code(s): E78.5 - Hyperlipidemia , unspecified (7) Hypertension Onset Date: 04/11/18 Current Visit: Yes Status: Chronic Qualifiers: Hypertension type: essential hypertension Qualified Code(s): I10 - Essential (primary) hypertension (8) Obesity Onset Date: 04/11/18 Current Visit: Yes Status: Chronic Qualifiers: Obesity type: due to excess calories Obesity classification: adult class 3 (BMI >= 40) Serious obesity comorbidity presence: with serious comorbidity Body mass index: BMI 45.0-49.9 Qualified Code(s): E66.01 - Morbid (severe) obesity due to excess calories; Z68.42 - Body mass index (BMI) 45.0-49.9, adult
--- NOTE | 2018-04-14 15:05 | FAST ---
ENCOUNTER DATE AND TIME: 04/14/2018 08:00 (CDT) NAME SHANNAN MCKEE DATE OF : 1950 DATE OF ADMISSION: 04/07/2018 20:20 (CDT) PHONE: AGE: 68 N# [id number] GENDER: Female ENCOUNTER PHYSICIAN: Dr. Davie Hernandez M.D. ADMISSION DIAGNOSIS: - Other Disabling Impairments 13 - Other Disabling Impairments (13) Critical illness polyneuropathy, Debility, ESRD. EATING: Activity did not occur on this shift EATING - SCORE: 0-UNK GROOMING: Activity did not occur on this shift GROOMING - SCORE: 0-UNK BATHING: Activity did not occur on this shift BATHING - SCORE: 0-UNK DRESSING - UPPER BODY: Activity did not occur on this shift Patient is not dressing in public clothing ARTICLES SCORE Total number of steps: 0 DRESSING - UPPER BODY - SCORE: 0-UNK DRESSING - LOWER BODY: Activity did not occur on this shift Patient is not dressing in public clothing ARTICLES SCORE Total number of steps: 0 DRESSING - LOWER BODY - SCORE: 0-UNK TOILETING: Activity did not occur on this shift TOILETING - SCORE: 0-UNK BLADDER MANAGEMENT: Activity did not occur on this shift BLADDER MANAGEMENT - SCORE: 7-IND BOWEL MANAGEMENT: Activity did not occur on this shift BOWEL MANAGEMENT - SCORE: 7-IND TRANSFERS: BED, CHAIR, WHEELCHAIR: TRANSFERS: BED, CHAIR, WHEELCHAIR - STEP 1: Does the patient require assistance with bed, chair, or wheelchair transfers? Yes. TRANSFERS: BED, CHAIR, WHEELCHAIR - STEP 2: Does the patient require the assistance of a helper? Yes. TRANSFERS: BED, CHAIR, WHEELCHAIR - STEP 3: How much assistance does the patient require from the helper? Only supervision TRANSFERS: BED, CHAIR, WHEELCHAIR - SCORE: 5-SUP TRANSFERS: TOILET: Activity did not occur on this shift TRANSFERS: TOILET - SCORE: 0-UNK TRANSFERS: SHOWER: Activity did not occur on this shift TRANSFERS: SHOWER - SCORE: 0-UNK TRANSFERS: TUB: Activity did not occur on this shift TRANSFERS: TUB - SCORE: 0-UNK LOCOMOTION: WALK: Patient walks less than 50 feet LOCOMOTION: WALK - SCORE: 1-DEP LOCOMOTION: WHEELCHAIR: LOCOMOTION: WHEELCHAIR - STEP 1: Does the patient need help to go 150 feet in a wheelchair? Yes. LOCOMOTION: WHEELCHAIR - STEP 2: How much assistance does the patient need from the helper? Only supervision, cuing, or coaxing LOCOMOTION: WHEELCHAIR - SCORE: 5-SUP LOCOMOTION: STAIRS: Activity did not occur on this shift LOCOMOTION: STAIRS - SCORE: 0-UNK COMPREHENSION: COMPREHENSION - SCORE: 0-UNK EXPRESSION EXPRESSION - SCORE: 0-UNK SOCIAL INTERACTION: SOCIAL INTERACTION - SCORE: 0-UNK PROBLEM SOLVING: PROBLEM SOLVING - SCORE: 0-UNK MEMORY: MEMORY - SCORE: 0-UNK SIGNATURE PANEL: The following modified sections: Transfers: Bed, Chair, Wheelchair - Score, Transfers: Toilet - Score , Locomotion: Walk - Score, Locomotion: Wheelchair - Score, Locomotion: Stairs - Score were [electron cameron] signed by Haile Abebe PTA on WedApr 14 2018 15:04:43 GMT-0500 (Central Daylight Time)
--- NOTE | 2018-04-14 15:39 | RAD REPORT ---
EXAM DESCRIPTION: RAD - Shoulder Right 2 View - 04/14/2018 3:33 pm CLINICAL HISTORY: pain COMPARISON: No comparisons FINDINGS: [id number] AC joint and glenohumeral joint arthritic changes are present. No fractur e or dislocation seen. Right-sided venous catheter is in place. IMPRESSION: Moderate degenerative changes right shoulder.
--- NOTE | 2018-04-14 15:39 | RAD REPORT ---
EXAM DESCRIPTION: RAD - C Spine Ap/Lat - 04/14/2018 3:33 pm CLINICAL HISTORY: pain Radiculopathy COMPARISON: No comparisons FINDINGS: Prominent upper cervical degenerative changes noted with disc thinning and posterior osteo phyte formation. 2 mm retrolisthesis of C3 on 4 noted. 3 mm retrolisthesis of C4 on 5 is seen. The lo wer cervical levels are largely obscured by the patient's shoulders. The odontoid is normal and the l ateral masses are symmetric. Prevertebral soft tissues are not pathologically thickened. IMPRESSION: Moderate upper cervical spondylosis noted.
--- NOTE | 2018-04-14 15:40 | RAD REPORT ---
EXAM DESCRIPTION: RAD - Thoracic Spine Ap/Lat - 04/14/2018 3:33 pm CLINICAL HISTORY: pain Radiculopathy COMPARISON: No comparisons FINDINGS: Anterior osteophytosis is present in the upper thoracic levels. Thoracic disc spaces are m ildly narrowed in the upper thoracic spine. No acute compression fracture. No significant malalignmen t. Cholecystectomy clips seen. IMPRESSION: [id number] upper thoracic spondylosis.
--- NOTE | 2018-04-14 18:54 | PN ---
Date of Progress Note: 04/14/2018 Chief Complaint: Acute kidney injury, severe. History Of Present Illness: The patient remains dialysis dependent. 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 Serology tests were obtained to rule o ut an evidence of secondary glomerulonephritis. The patient may need kidney biopsy to rule out rapid ly progressive glomerulonephritis. Review of Systems: The patient denies fever, chills. Physical Examination: Lungs: Clear to auscultation bilaterally. Heart: S1, S2. Abdomen: Soft, benign. Extremities: Edema present in both legs. Laboratory Data: Sodium 144, potassium 4.3, chloride 106, CO2 35, BUN 18, creatinine 3.30, albumin 2 .0. Urinalysis showed rbc and wbc 10-20, blood trace, yeast present, total protein 3+. Impression And Plan: 1.Acute kidney injury, severe. The patient is oliguric. The patient remains dialysis dependent. S he has multiple comorbidities including congestive heart failure with diastolic dysfunction, morbid o besity, diabetes mellitus, hypertension, hyperlipidemia, peripheral vascular disease. The patient wa s found to have progressively worse renal function in setting of congestive heart failure with anasar ca. She was initiated on dialysis at [facility]. She is on rehab. She will continue dialysis. This may actually be end-stage renal disease for this particular patient. Workup is pending to rule out any evidence of nephritis. 2.Hypertension. Continue blood pressure medication. 3.Anemia. Hemoglobin stabilized. Continue to re-evaluate. Continue MITZY. 4.The patient has peripheral neuropathy. She is complaining of numbness and tingling. The patient will have x-ray of the cervical and thoracic spine to rule out osteoarthritis and degenerative disk disease. EB/MODL Voice ID: [id number] Report ID: [id number]
--- NOTE | 2018-04-14 19:11 | R.PN ---
ENCOUNTER DATE AND TIME: 04/14/2018 19:07 (CDT) NAME SHANNAN MCKEE DATE OF : 1950 DATE OF ADMISSION: 04/07/2018 20:20 (CDT) Critical illness polyneuropathy, Debility, ESRDCHIEF COMPLAINT: Debility SUBJECTIVE: Pt denied any Shortness of Breath. Pt denied any depression. Ambulated 75' with contact guard assistance using a rolling walker, limited by right lower extremity pain. Self-propelled wheelchair 150' with standby assistance. VITAL SIGNS Temperature: 97.8 F SBP/DBP: 124/60 Pulse: 84 Resp: 16 MEDICATION ALLERGIES: No Known Drug Allergies (NKDA) ENVIRONMENTAL ALLERGIES: None Known - Substance Allergies None Known - Other Allergies None Known NURSING: - Shower allowing shower - Lab Results blood Sugar Check ACHS PRECAUTIONS: - Fall Precaution Bed and chair alarm ACTIVITIES OOB only with supervision THERAPIES: - Occupational Therapy Evaluate and Treat. - Physical Therapy Evaluate and Treat. PHYSICAL EXAM - Gen Alert and awake Lying in bed No apparent distress Oriented to: person, time, and place - Skin Dark skin discoloration of right more than left leg consistent with stasis dermatitis Normacephalic - Eyes No abnormalities - ENMT No abnormalities - Neck No abnormalities - CVS RRR - Chest Clear - Abd Obese, soft, nontender - GI Non distended Deferred - Little urine production. On hemodialysis three times weekly. - Ext Dark skin discoloration of right more than left leg consistent with stasis dermatitis. Weak dorsalis pedis pulse. - MSK 3-4+/5 weakness in both lower extremities. - Neuro No focal deficits - Psych Mild anxiety. ASSESSMENT: Pt. is a 68 yo Right-handed black female.On 03/30/2018 she was admitted to [facility] with diagnosis Critic al illness polyneuropathy, Debility, ESRD.Her impairment category is Other Disabling Impairments 13 - Other Disabling Impairments (13).Pre-morbidly, Pt. was independent/mod-I in Sphincter Control, [place] sfers Control, Communication, Social Cognition, Self-Care, and Locomotion; and she had good Sphincter Control.Currently, she has deficits of Safety Awareness, Transfers Control, Balance, Self-Care, [place] motion, and Endurance.Pt. is now referred to [facility] for acute in-patient r ehabilitation in order to maximize patient's functional independence in activities of daily living, s trength, ROM, and mobility.- Rehab Goal Patient has realistic goal of being discharged at assistance level 6-Deyanira to reside at Home with Fam joelle/Relatives. MDM/PLAN: - Physical Therapy Weakness - to improve, our physical therapists will perform initial evaluation of pt's status upon a dmission and devise an individualized program for Aquatic Therapy, Neuromuscular Reeducation, and Str engthening Poor balance - to improve, our physical therapists will perform initial evaluation of pt's status up on admission and devise an individualized program for Balance Training Inability to transfer - to improve, our physical therapists will perform initial evaluation of pt's status upon admission and devise an individualized program for Bed mobility Need in caregiver upon discharge - to improve, our physical therapists will perform initial evaluati on of pt's status upon admission and devise an individualized program for Caregiver Training Poor endurance - to improve, our physical therapists will perform initial evaluation of pt's status upon admission and devise an individualized program for Endurance Training Gait dysfunction - to improve, our physical therapists will perform initial evaluation of pt's statu s upon admission and devise an individualized program for Gait Training, and Wheel Chair mobility Need for home safety evaluation - to improve, our physical therapists will perform initial evaluatio n of pt's status upon admission and devise an individualized program for Home Evaluation New precaution - to improve, our physical therapists will perform initial evaluation of pt's status upon admission and devise an individualized program for Patient precaution education - Occupational Therapy Weakness - to improve, our occupation therapists will perform initial evaluation of pt's status upon admission and devise an individualized program for Aquatic Therapy, Balance, Endurance, UE ROM, and UE strengthening ADL deficits - to improve, our occupation therapists will perform initial evaluation of pt's status upon admission and devise an individualized program for Bathing, Bed mobility, Community Reintegratio n, Cooking, Dressing, Eating, Fine Motor Skills, Grooming, Homemaking, Kitchen Mobility, Laundry, Pat ient Education, Safety Awareness, Splinting - Positioning, Transfers(Toilet, Tub, Shower), and Wheel Chair Management Need for critical care technician - to improve, our occupation therapists will perform initial evaluation of pt's status upon admission and devise an individualized program for Caregiver Training - Diet Type Continue Regular - Diet - Liquid Texture Continue Regular - Tube Feed Continue N/A - Lab Results blood Sugar Check ACHS - Fall Precaution Bed and chair alarm - Diet - Solid Texture Continue Regular - Shower allowing shower - Balance for Weakness - Bed mobility for ADL deficits FUNCTIONAL STATUS: UPDATED AT WEEKLY TEAM CONFERENCE - Bladder Same accident frequency: 7-Ind - No accidents in the past 7 days - Bowel Same accident frequency: 7-Ind - No accidents in the past 7 days - Walking Same score based on distance walked: 1(<=50ft) - Wheelchair Same score based on distance traveled: 0(N/A) FUNCTIONAL STATUS: - Self-Care A. Eating sup B. Grooming sup C. Bathing Ethel D. Dressing - Upper Ethel E. Dressing - Lower Ethel F. Toileting Ethel - Sphincter Control G: Bladder control Ind H: Bowel control Ind - Transfers Control I. Bed/Chair/Wheelchair Ethel J. Toilet Ethel K. Tub/Shower ADNO - Locomotion L. Walk/Wheelchair (C) Ethel L. Walk/Wheelchair (W) Ethel M. Stairs ADNO - Communication N. Comprehension (B) Deyanira O. Expression (B) Deyanira - Social Cognition P. Social Interaction Deyanira Q. Problem Solving Deyanira R. Memory Deyanira - Endurance Fair - Balance Fair - Safety Awareness Fair CURRENT FUNC. DEFICITS: Safety Awareness, Transfers Control, Balance, Self-Care, Locomotion, and Endurance SIGNATURE PANEL: (CDT)
[2018-04-14] MEDS: BIMATOPROST OPTH SCH (20:00)
[2018-04-14] MEDS: ATORVASTATIN 20 MG TAB PO SCH (20:01)
[2018-04-14] MEDS: DOCUSATE NA/SENNA CONC 1 TAB PO SCH (20:01)
--- NOTE | 2018-04-15 02:45 | FAST ---
SHIFT START DATE/TIME: 04/14/2018 19:00 (CDT) SHIFT END DATE/TIME: 04/15/2018 07:00 (CDT) NAME SHANNAN MCKEE DATE OF : 1950 DATE OF ADMISSION: 04/07/2018 20:20 (CDT) PHONE: AGE: 68 N# [id number] GENDER: Female ENCOUNTER PHYSICIAN: Dr. Davie Hernandez M.D. ADMISSION DIAGNOSIS: - Other Disabling Impairments 13 - Other Disabling Impairments (13) Critical illness polyneuropathy, Debility, ESRD. EATING: EATING - STEP 1: Does the patient require assistance when eating? Yes. EATING - STEP 2: Does the patient require the assistance of a helper? Yes. EATING - STEP 3: Does the patient perform half or more of the eating tasks? Yes. EATING - STEP 4: Does the patient need only supervision, cuing, coaxing OR help to apply an orthosis OR help to cut fo od, open containers, pour liquids, or butter bread? Yes. EATING - SCORE: 5-SUP GROOMING: Oral care Wash, rinse, and dry face Wash, rinse, and dry hands GROOMING - STEP 1: Does the patient require assistance when grooming? Yes. GROOMING - STEP 2: Does the patient require the assistance of a helper? Yes. GROOMING - STEP 3: How much assistance does the patient require from the helper? Only prior equipment preparation/set up from the helper GROOMING - SCORE: 5-SUP BATHING: Activity did not occur on this shift BATHING - SCORE: 0-UNK DRESSING - UPPER BODY: Patient is not dressing in public clothing ARTICLES SCORE Total number of steps: 0 DRESSING - UPPER BODY - SCORE: 0-UNK DRESSING - LOWER BODY: Patient is not dressing in public clothing ARTICLES SCORE Total number of steps: 0 DRESSING - LOWER BODY - SCORE: 0-UNK TOILETING: TOILETING - STEP 1: Does the patient require assistance with toileting? Yes. TOILETING - STEP 2: Does the patient require the assistance of a helper? Yes. TOILETING - STEP 3: How much assistance does the patient require from the helper? Only supervision TOILETING - SCORE: 5-SUP BLADDER MANAGEMENT: BLADDER MANAGEMENT - STEP 1: Does the patient control the bladder completely and intentionally without equipment or devices or med ications, and is always continent? No. BLADDER MANAGEMENT - STEP 2: Does the patient require the assistance of a helper? Yes. BLADDER MANAGEMENT - STEP 3: How much assistance does the patient require from the helper? Only supervision, stand-by, cuing, or c oaxing BLADDER MANAGEMENT - SCORE: 5-SUP BLADDER MANAGEMENT - FREQUENCY OF ACCIDENTS: BLADDER MANAGEMENT(FA) - STEP 1: How many accidents has the patient had during the current shift? 0 BOWEL MANAGEMENT: BOWEL MANAGEMENT - STEP 1: Does the patient control bowels completely and intentionally without equipment devices or medications AND is always continent? No. BOWEL MANAGEMENT - STEP 2: Does the patient require the assistance of a helper? Yes. BOWEL MANAGEMENT - STEP 3: How much assistance does the patient require from the helper? Patient requires supervision, stand by, cueing, coaxing, or setup of equipment - placing within reach of patient and emptying device / bedpa nd or BSC bucket - to maintain either satisfactory bowel pattern or managing an external device such as an absorbent pad, colostomy bag / ileostomy bag BOWEL MANAGEMENT - SCORE: 5-SUP BOWEL MANAGEMENT - FREQUENCY OF ACCIDENTS: BOWEL MANAGEMENT(FA) - STEP 1: How many accidents has the patient had during the current shift? 0 TRANSFERS: BED, CHAIR, WHEELCHAIR: TRANSFERS: BED, CHAIR, WHEELCHAIR - STEP 1: Does the patient require assistance with bed, chair, or wheelchair transfers? Yes. TRANSFERS: BED, CHAIR, WHEELCHAIR - STEP 2: Does the patient require the assistance of a helper? Yes. TRANSFERS: BED, CHAIR, WHEELCHAIR - STEP 3: How much assistance does the patient require from the helper? Lifting of the legs TRANSFERS: BED, CHAIR, WHEELCHAIR - STEP 4: How many legs does the patient require the helper to lift? both legs TRANSFERS: BED, CHAIR, WHEELCHAIR - SCORE: 3-MOD TRANSFERS: TOILET: TRANSFERS: TOILET - STEP 1: Does the patient require assistance with toilet transfers? Yes. TRANSFERS: TOILET - STEP 2: Does the patient require the assistance of a helper? Yes. TRANSFERS: TOILET - STEP 3: How much assistance does the patient require from the helper? Patient performs half or more of the tr ansferring tasks TRANSFERS: TOILET - STEP 4: Does the patient need only incidental help such as contact guard or steadying during toilet transfer? Yes. TRANSFERS: TOILET - SCORE: 4-MIN TRANSFERS: SHOWER: Activity did not occur on this shift TRANSFERS: SHOWER - SCORE: 0-UNK TRANSFERS: TUB: Activity did not occur on this shift TRANSFERS: TUB - SCORE: 0-UNK LOCOMOTION: WALK: Activity did not occur on this shift LOCOMOTION: WALK - SCORE: 0-UNK LOCOMOTION: WHEELCHAIR: Activity did not occur on this shift LOCOMOTION: WHEELCHAIR - SCORE: 0-UNK COMPREHENSION: COMPREHENSION: TYPE: Both COMPREHENSION - STEP 1: Does the patient require help to understand complex and abstract ideas (such as current events, finan radha, discharge planning, medical issues, relationships, etc)? No. COMPREHENSION - STEP 2: Does the patient need extra time, require an assistive device (such as glasses, hearing aids, or an a ugmentative communication system), OR does s/he have mild difficulty expressing complex and abstract ideas (including mild dysarthria or mild word-finding problems)? Yes. COMPREHENSION - SCORE: 6-SAIRA EXPRESSION EXPRESSION: TYPE: Both EXPRESSION - STEP 1: Does the patient require help expressing complex and abstract ideas (such as current events, finances , discharge planning, medical issues, relationships, etc)? No. EXPRESSION - STEP 2: Does the patient need extra time, require an assistive device (such as augmentive communication syste m or a communication board), OR does s/he have mild difficulty expressing complex and abstract ideas (including mild dysarthria or mild word-find problems)? Yes. EXPRESSION - SCORE: 6-SAIRA SOCIAL INTERACTION: SOCIAL INTERACTION - STEP 1: Does the patient require a helper to interact with others in social and therapeutic situations? No. SOCIAL INTERACTION - STEP 2: Does the patient need extra time in social situations, OR does s/he interact with staff, other patien ts, and family members ONLY in structured environments, OR does s/he require medication for social in teraction? Yes, patient needs extra time SOCIAL INTERACTION - SCORE: 6-SAIRA PROBLEM SOLVING: PROBLEM SOLVING - STEP 1: Does the patient need help to solve complex problems such as managing a checking account or confronti ng interpersonal problems? No. PROBLEM SOLVING - STEP 2: Does the patient require extra time to make decisions or solve problems, OR does s/he have slight dif ficulty reading, initiating, or self-correcting in unfamiliar situations? Yes, patient needs extra ti me. PROBLEM SOLVING - SCORE: 6-SAIRA MEMORY: MEMORY - STEP 1: Does the patient need help to remember frequently encountered people, daily routines, and executing r equests? No. MEMORY - STEP 2: Does the patient have slight difficulty recognizing frequently encountered people, daily routines, or executing requests without the need for repetition or using self-initiated or environmental cues to remember? Yes. MEMORY - SCORE: 6-SAIRA SIGNATURE PANEL: The following modified sections: Eating - Score, Grooming - Score, Bathing - Score, Dressing - Upper Body - Score, Dressing - Lower Body - Score, Toileting - Score, Bladder Management - Score, Bowel Man agement - Score, Transfers: Bed, Chair, Wheelchair - Score, Transfers: Toilet - Score, Transfers: Katherine wer - Score, Transfers: Tub - Score, Locomotion: Walk - Score, Locomotion: Wheelchair - Score, Compre hension - Score, Expression - Score, Social Interaction - Score, Problem Solving - Score, Memory - Sc ore were [electronically] signed by Nicole Maldonado C.N.AMychal on WedApr 15 2018 02:44:37 T-0500 ( Central Daylight Time)
[2018-04-15] MEDS: FUROSEMIDE 40 MG TABLET PO SCH ×2 (06:59→16:05)
[2018-04-15] MEDS: AMLODIPINE 5 MG TAB PO SCH (06:59)
[2018-04-15] MEDS: HEPARIN 5000 UNIT/ML 1 ML VIAL SQ SCH ×2 (07:30→20:40)
[2018-04-15] MEDS: INSULIN -REGULAR HUMAN 50 UNIT/0.5 ML ML SQ SCH ×4 (07:30→20:36)
[2018-04-15] MEDS: CLONIDINE HCL 0.3 MG TAB PO SCH ×2 (08:00→20:35)
[2018-04-15] MEDS: RESTASIS 0.05% EACH EYE SCH ×2 (08:00→20:36)
[2018-04-15] MEDS: TRIAMCINOLONE ACET 0.1% CREAM 80 GM TOP SCH ×3 (08:00→20:35)
[2018-04-15] MEDS: PROMOD 30 ML DOSE PO SCH ×2 (08:00→20:36)
[2018-04-15] MEDS: FOLIC ACID 1 MG TABLET PO SCH (08:18)
[2018-04-15] MEDS: FERROUS SULFATE 325 MG TAB PO SCH (08:18)
[2018-04-15] MEDS: CALCIUM CARBONATE 500 MG TAB PO SCH (08:18)
[2018-04-15] MEDS: FE SULF/FA/VIT B COMP & C TAB PO SCH (08:18)
[2018-04-15] MEDS: HYDRALAZINE HCL 25 MG TABLET PO SCH ×3 (08:18→23:47)
[2018-04-15] MEDS: FAMOTIDINE 20 MG TAB PO SCH ×2 (08:18→20:34)
[2018-04-15] MEDS: GABAPENTIN 300 MG CAP PO SCH ×2 (08:18→20:34)
[2018-04-15] MEDS: TRAMADOL HCL 50 MG TAB PO PRN (08:19)
[2018-04-15] MEDS: LIDOCAINE 5% PATCH TOP SCH (08:19)
[2018-04-15] MEDS: COMBIGAN OPTHALMIC EACH EYE SCH ×2 (08:20→20:38)
[2018-04-15] MEDS: GLIPIZIDE S.A. 5 MG TAB PO SCH (08:20)
--- NOTE | 2018-04-15 09:58 | P.RH.PN ---
Estimated Length of Stay: 12 Expected Discharge Date: 04/19/18 Discharge Disposition Plan: Home Family Support: Yes Halfway Goal: Mobility, Transfers, Self Care Vital Signs: Last Vital Signs Temp 98.0 F 04/15/18 06:20 Pulse 60 04/15/18 06:59 Resp 18 04/15/18 06:20 BP 157/69 H 04/15/18 06:59 Pulse Ox 95 04/15/18 06:20 Laboratory: Laboratory Last Values WBC 5.5 K/uL (4.3-10.9) D 04/14/18 06:02 RBC 2.75 M/uL (3.86-4.86) L 04/14/18 06:02 Hgb 8.1 g/dL (12.0-15.0) L 04/14/18 06:02 Hct 24.9 % (36.0-45.0) L 04/14/18 06:02 MCV 90.6 fL (80-100) 04/14/18 06:02 MCH 29.6 pg (27.0-35.0) 04/14/18 06:02 MCHC 32.7 g/dL (32.0-36.0) 04/14/18 06:02 RDW 15.6 % (12.1-15.2) H 04/14/18 06:02 Plt Count 305 K/uL (152-406) D 04/14/18 06:02 MPV 7.9 fL (7.6-11.3) 04/14/18 06:02 Neutrophils % 54.3 % (41.7-73.7) 04/14/18 06:02 Lymphocytes % 18.8 % (15.3-44.8) 04/14/18 06:02 Monocytes % 19.6 % (3.3-12.3) H 04/14/18 06:02 Eosinophils % 6.0 % (0-4.4) H 04/14/18 06:02 Basophils % 1.3 % (0-1.3) 04/14/18 06:02 Absolute Neutrophils 3.0 K/uL (1.8-8.0) 04/14/18 06:02 Segmented Neutrophils 53 % (40-80) 04/14/18 06:02 Absolute Lymphocytes 1.0 K/uL (0.7-4.9) 04/14/18 06:02 Lymphocytes 25 % (15-42) 04/14/18 06:02 Monocytes 18 % (0-10) H 04/14/18 06:02 Absolute Monocytes 1.1 K/uL (0.1-1.3) 04/14/18 06:02 Eosinophils 4 % (0-3) H 04/14/18 06:02 Absolute Eosinophils 0.3 K/uL (0-0.5) 04/14/18 06:02 Absolute Basophils 0.1 K/uL (0-0.5) 04/14/18 06:02 Nucleated RBCs 5 /100WBC 04/14/18 06:02 Hypochromasia 1+ 04/08/18 06:14 Anisocytosis 1+ 04/08/18 06:14 Microcytosis 1+ 04/08/18 06:14 Macrocytosis 1+ 04/08/18 06:14 Morphology Comment Not seen (NOT SEEN) 04/14/18 06:02 Sodium 144 mmol/L (136-145) 04/14/18 06:02 Potassium 4.3 mmol/L (3.5-5.1) 04/14/18 06:02 Chloride 106 mmol/L (98-107) 04/14/18 06:02 Carbon Dioxide 35 mmol/L (21-32) H 04/14/18 06:02 BUN 18 mg/dL (7-18) D 04/14/18 06:02 Creatinine 3.30 mg/dL (0.55-1.3) H D 04/14/18 06:02 Estimated GFR 17 mL/min (=/>90) L 04/14/18 06:02 Glucose 122 mg/dL (74-106) H 04/14/18 06:02 POC Glucose 109 mg/dl (65-120) 04/15/18 06:56 Calcium 7.8 mg/dL (8.5-10.1) L 04/14/18 06:02 Phosphorus 4.9 mg/dL (2.5-4.9) 04/11/18 14:17 Magnesium 2.7 mg/dL (1.8-2.4) H 04/11/18 06:10 Iron 31.0 ug/dL (50-170) L 04/13/18 05:36 TIBC 202 ug/dL (250-460) L 04/13/18 05:36 Transferrin 144 mg/dL (200-360) L 04/13/18 05:36 Transferrin % Sat 15.3 % (20.0-50.0) L 04/13/18 05:36 Ferritin 141.9 ng/mL (8-388) 04/11/18 14:17 Albumin 2.0 g/dL (3.4-5.0) L 04/14/18 06:02 Prealbumin 14.6 mg/dL (20-40) L 04/14/18 06:02 Vitamin B12 517 pg/mL (193-986) 04/13/18 05:36 Serum Folate 10.1 ng/mL (3.1-17.5) 04/13/18 05:36 PTH Intact 564 pg/mL (12-88) H 04/13/18 05:36 Urine Color Red 04/09/18 09:50 Urine Appearance Turbid 04/09/18 09:50 Urine pH 5.0 (5.0-7.0) 04/09/18 09:50 Ur Specific [place] >=1.030 (1.005-1.030) 04/09/18 09:50 Urine Ketones Trace (NEG) 04/09/18 09:50 Urine Blood Trace (NEG) H 04/09/18 09:50 Urine Nitrite Negative (NEG) 04/09/18 09:50 Urine Bilirubin Negative (NEG) 04/09/18 09:50 Urine Urobilinogen 0.2 mg/dL (0.2-1.0) 04/09/18 09:50 Ur Leukocyte Esterase 1+ (NEG) H 04/09/18 09:50 Urine RBC 10-20 /HPF (NONE SEEN) H 04/09/18 09:50 Urine WBC 10-20 /HPF (<5) H 04/09/18 09:50 Ur Squamous Epith Cells 10-20 /HPF (NONE SEEN) H 04/09/18 09:50 Amorphous Sediment 2+ /HPF (NONE SEEN) H 04/09/18 09:50 Urine Bacteria <20 /HPF (<20) 04/09/18 09:50 Hyaline Casts >20 /LPF (NONE SEEN) 04/09/18 09:50 Fine Granular Casts >10 /LPF (NONE SEEN) 04/09/18 09:50 Coarse Granular Casts 0-5 /LPF (NONE SEEN) 04/09/18 09:50 Waxy Casts >10 /LPF (NONE SEEN) H 04/09/18 09:50 Urine Yeast Few (NONE SEEN) 04/09/18 09:50 Urine Yeast (Budding) Present (NONE SEEN) H 04/09/18 09:50 Urine Culture Reflexed Not needed 04/09/18 09:50 Urine Glucose Trace (NEG) 04/09/18 09:50 Urine Total Protein 3+ (NEG) H 04/09/18 09:50 Rheumatoid Factor Neg (NEG) 04/13/18 05:36 VIRGILIO Screen Negative (Negative) 04/12/18 14:55 VIRGILIO Pattern 2 Not indicated 04/12/18 14:55 Hep Bs Antigen Nonreactive (Nonreactive) 04/10/18 23:01 Hep Bs Ag Confirmation Report 04/10/18 23:01 Hep Bs Antibody Nonreactive (Nonreactive) 04/10/18 23:01 Hep B Core Total Ab Nonreactive (Nonreactive) 04/10/18 23:01 Hep B Core IgM Ab Not indicated 04/10/18 23:01 Hepatitis C Antibody Nonreactive (Nonreactive) 04/10/18 23:01 Hep C Ab Signal/Cutoff 0.01 ratio (<1.00) 04/10/18 23:01 HIV 1&2 Antibody Rapid Cancelled 04/13/18 05:36 Weight: 240 lb 3.2 oz Wound Present: Yes Closed Surgical Incision Present: No Negative Pressure Wound Therapy Present: No Physician Update: Her Hgb is better at 8.1 from 7.7. She is followed by renal service on dialysis. Her PO intake is better. She is minimum assistance form memory. She is at supervision. Medical Issues: Back pain- for cervical, lumbar & right shoulder xray Pain Issues: Tylenol 500mg Q4H. Tylenol #3 Q6H PRN. Tramadol 50mg Q4H PRN Functional Improvement: Patient has met all short-term goals at this time and is progressing toward long-term goals. Patient shows good overall safety awareness. Functional Improvement Occupational Therapy: pt can benifit with further therapy to address pt's UB strength and ROM for adl tasks cont to educate pt on using energy conservation techniques for adl tasks and for fuctional tasks. cont to increase pt's static standing balance for adl tasks. Speech Therapy Update: Patient with significant improvement from initial assessment. She is able to recall of infomration with Matt Livingston to Supervision. She has completed problem solving with ANA LAURA; needs assistance in generating multiple solutions to problems. Patient exhibits self-limiting behavior. Summary: Patient's care plan and [facility] goals have been reviewed and revised as necessary. Please see the Rehabilitation Signature page for all necessary signatures.
[2018-04-15] MEDS: CALCITROL 0.25 MCG CAP PO SCH (12:26)
--- NOTE | 2018-04-15 13:17 | P.PN ---
Subjective Date of Service: 04/15/18 Primary Care Provider: Chief Chemist-Dr. Hernandez/PCP-Dr. Logan Chief Complaint: Patient currently in rehab post CHF exacerbation Subjective: Tolerating diet, Ambulating, Improving, Working w/ PT, Doing well Review of Systems General: As per HPI Physical Examination - Vital Signs Temperature: 98.0 F Blood Pressure: 157/69 Pulse: 60 Respirations: 18 Pulse Ox (%): 95 - Physical Exam General: Alert, In no apparent distress HEENT: Atraumatic, PERRLA, EOMI Neck: Supple, JVD not distended Respiratory: Clear to auscultation bilaterally, Normal air movement Cardiovascular: Regular rate/rhythm, Normal S1 S2 Gastrointestinal: Normal bowel sounds, No tenderness Musculoskeletal: No tenderness Integumentary: No rashes Neurological: Normal speech, Normal tone, Normal affect Lymphatics: No axilla or inguinal lymphadenopathy - Studies Medications List Reviewed: Yes Assessment & Plan - Problems (Diagnosis) (1) Encounter for rehabilitation Onset Date: 04/08/18 Current Visit: Yes Status: Acute Plan: Patient currently in inpatient rehab working with physical therapy occupational therapy and speech therapy. Doing well overall. Has been getting stronger daily. Medicine has been consulted on the case due to chronic conditions of the patient. No complication noted at this time. Patient continues on all the medication while here in the inpatient rehab. Patient will need to be set up with dialysis once ready to be discharged home. No further workup needed at this time patient stable and participating in therapy daily. (2) End stage renal disease Onset Date: 04/11/18 Current Visit: Yes Status: Chronic (3) CHF (congestive heart failure) Onset Date: 04/11/18 Current Visit: Yes Status: Chronic Qualifiers: Heart failure type: diastolic Heart failure chronicity: chronic Qualified Code(s): I50.32 - Chronic diastolic (congestive) heart failure (4) Diabetes mellitus Onset Date: 04/11/18 Current Visit: Yes Status: Chronic Qualifiers: Diabetes mellitus type: type 2 Diabetes mellitus detention insulin use: without detention use Diabetes mellitus complication status: with kidney complications Diabetes mellitus complication detail: with chronic kidney disease Chronic kidney disease stage: on chronic dialysis Qualified Code(s) : E11.22 - Type 2 diabetes mellitus with diabetic chronic kidney disease; N18.6 - End stage renal disease; Z99.2 - Dependence on renal dialysis (5) GERD (gastroesophageal reflux disease) Onset Date: 04/11/18 Current Visit: Yes Status: Chronic Qualifiers: Esophagitis presence: esophagitis presence not specified Qualified Code(s) : K21.9 - Gastro-esophageal reflux disease without esophagitis (6) Hyperlipidemia Onset Date: 04/11/18 Current Visit: Yes Status: Chronic Qualifiers: Hyperlipidemia type: unspecified Qualified Code(s): E78.5 - Hyperlipidemia , unspecified (7) Hypertension Onset Date: 04/11/18 Current Visit: Yes Status: Chronic Qualifiers: Hypertension type: essential hypertension Qualified Code(s): I10 - Essential (primary) hypertension (8) Obesity Onset Date: 04/11/18 Current Visit: Yes Status: Chronic Qualifiers: Obesity type: due to excess calories Obesity classification: adult class 3 (BMI >= 40) Serious obesity comorbidity presence: with serious comorbidity Body mass index: BMI 45.0-49.9 Qualified Code(s): E66.01 - Morbid (severe) obesity due to excess calories; Z68.42 - Body mass index (BMI) 45.0-49.9, adult
--- NOTE | 2018-04-15 14:26 | FAST ---
ENCOUNTER DATE AND TIME: 04/15/2018 08:00 (CDT) NAME SHANNAN MCKEE DATE OF : 1950 DATE OF ADMISSION: 04/07/2018 20:20 (CDT) PHONE: AGE: 68 N# [id number] GENDER: Female ENCOUNTER PHYSICIAN: Dr. Davie Hernandez M.D. ADMISSION DIAGNOSIS: - Other Disabling Impairments 13 - Other Disabling Impairments (13) Critical illness polyneuropathy, Debility, ESRD. EATING: Activity did not occur on this shift EATING - SCORE: 0-UNK GROOMING: Wash, rinse, and dry face Wash, rinse, and dry hands GROOMING - STEP 1: Does the patient require assistance when grooming? No. GROOMING - SCORE: 7-IND BATHING: Abdomen Buttocks Chest Left arm Left lower leg and foot Left upper leg Perineal area Right arm Right lower leg and foot Right upper leg BATHING - STEP 1: Does the patient require assistance when bathing? Yes. BATHING - STEP 2: Does the patient require the assistance of a helper? No. The patient only requires an assistive devic e such as a bath pradeep, OR the patient takes more than reasonable time to bathe, OR there is a concern for safety such as regulating water temperature as the patient bathes. BATHING - SCORE: 6-SAIRA DRESSING - UPPER BODY: T-shirt/pullover shirt (four steps) ARTICLES SCORE Total number of steps: 4 DRESSING - UPPER BODY - STEP 1: Does the patient require help when dressing above the waist? No. DRESSING - UPPER BODY - SCORE: 7-IND DRESSING - LOWER BODY: Sock - Left foot (one step) Sock - Right foot (one step) Underwear (three steps) ARTICLES SCORE Total number of steps: 5 DRESSING - LOWER BODY - STEP 1: Does the patient require help when dressing below the waist? Yes. DRESSING - LOWER BODY - STEP 2: Does the patient require the assistance of a helper? No. Patient requires an assistive device such as a tow operator. OR s/he takes more than reasonable time as s/he dresses the lower body, OR there is a con cern for safety when s/he dresses the lower body DRESSING - LOWER BODY - SCORE: 6-SAIRA TOILETING: Activity did not occur on this shift TOILETING - SCORE: 0-UNK BLADDER MANAGEMENT: Activity did not occur on this shift BLADDER MANAGEMENT - SCORE: 7-IND BOWEL MANAGEMENT: Activity did not occur on this shift BOWEL MANAGEMENT - SCORE: 7-IND TRANSFERS: BED, CHAIR, WHEELCHAIR: Activity did not occur on this shift TRANSFERS: BED, CHAIR, WHEELCHAIR - SCORE: 0-UNK TRANSFERS: TOILET: Activity did not occur on this shift TRANSFERS: TOILET - SCORE: 0-UNK TRANSFERS: SHOWER: Activity did not occur on this shift TRANSFERS: SHOWER - SCORE: 0-UNK TRANSFERS: TUB: TRANSFERS: TUB - STEP 1: Does the patient require assistance with tub transfers? Yes. TRANSFERS: TUB - STEP 2: Does the patient require the assistance of a helper? Yes. TRANSFERS: TUB - STEP 3: How much assistance does the patient require from the helper? Only supervision, cuing, coaxing, or he lp to set out transfer equipment or to lock brakes and/or lift foot rests TRANSFERS: TUB - SCORE: 5-SUP LOCOMOTION: WALK: Activity did not occur on this shift LOCOMOTION: WALK - SCORE: 0-UNK LOCOMOTION: WHEELCHAIR: Activity did not occur on this shift LOCOMOTION: WHEELCHAIR - SCORE: 0-UNK LOCOMOTION: STAIRS: Activity did not occur on this shift LOCOMOTION: STAIRS - SCORE: 0-UNK COMPREHENSION: COMPREHENSION - SCORE: 0-UNK EXPRESSION EXPRESSION - SCORE: 0-UNK SOCIAL INTERACTION: SOCIAL INTERACTION - SCORE: 0-UNK PROBLEM SOLVING: PROBLEM SOLVING - SCORE: 0-UNK MEMORY: MEMORY - SCORE: 0-UNK SIGNATURE PANEL: The following modified sections: Eating - Score, Grooming - Score, Bathing - Score, Dressing - Upper Body - Score, Dressing - Lower Body - Score, Toileting - Score, Transfers: Bed, Chair, Wheelchair - S core, Transfers: Toilet - Score, Transfers: Shower - Score, Transfers: Tub - Score, Comprehension - S core, Expression - Score, Social Interaction - Score, Problem Solving - Score, Memory - Score were [e lectronically] signed by ELSI Ceballos on WedApr 15 2018 14:24:53 GMT-0500 ([facility] ht Time)
[2018-04-15] MEDS: EPOETIN ALFA 10,000 UNIT/ML VIAL SQ SCH (15:01)
[2018-04-15] MEDS: SOD FERRIC GLUC COMPLX/SUCROSE 125 MG in NA CHLORIDE 0.9% 100 ML IV SCH (15:01)
[2018-04-15 15:17] LABS: HIV 1/2 Antibody Diff Not indicated.; HIV AG/AB 4TH GEN Non-reactive (Non-reactive)
--- NOTE | 2018-04-15 16:46 | FAST ---
SHIFT START DATE/TIME: 04/15/2018 07:00 (CDT) SHIFT END DATE/TIME: 04/15/2018 19:00 (CDT) NAME SHANNAN MCKEE DATE OF : 1950 DATE OF ADMISSION: 04/07/2018 20:20 (CDT) PHONE: AGE: 68 N# [id number] GENDER: Female ENCOUNTER PHYSICIAN: Dr. Davie Hernandez M.D. ADMISSION DIAGNOSIS: - Other Disabling Impairments 13 - Other Disabling Impairments (13) Critical illness polyneuropathy, Debility, ESRD. EATING: EATING - STEP 1: Does the patient require assistance when eating? No. EATING - SCORE: 7-IND GROOMING: Wash, rinse, and dry face Wash, rinse, and dry hands GROOMING - STEP 1: Does the patient require assistance when grooming? Yes. GROOMING - STEP 2: Does the patient require the assistance of a helper? No. The patient only requires an assistive devic e, OR takes more than reasonable time to groom, OR there is a concern for safety as the patient groom s GROOMING - SCORE: 6-SAIRA BATHING: Activity did not occur on this shift BATHING - SCORE: 0-UNK DRESSING - UPPER BODY: Activity did not occur on this shift ARTICLES SCORE Total number of steps: 0 DRESSING - UPPER BODY - SCORE: 0-UNK DRESSING - LOWER BODY: Activity did not occur on this shift ARTICLES SCORE Total number of steps: 0 DRESSING - LOWER BODY - SCORE: 0-UNK TOILETING: Activity did not occur on this shift TOILETING - SCORE: 0-UNK BLADDER MANAGEMENT: BLADDER MANAGEMENT - STEP 1: Does the patient control the bladder completely and intentionally without equipment or devices or med ications, and is always continent? Yes. BLADDER MANAGEMENT - SCORE: 7-IND BLADDER MANAGEMENT - FREQUENCY OF ACCIDENTS: BLADDER MANAGEMENT(FA) - STEP 1: How many accidents has the patient had during the current shift? 0 BOWEL MANAGEMENT: BOWEL MANAGEMENT - STEP 1: Does the patient control bowels completely and intentionally without equipment devices or medications AND is always continent? Yes. BOWEL MANAGEMENT - SCORE: 7-IND BOWEL MANAGEMENT - FREQUENCY OF ACCIDENTS: BOWEL MANAGEMENT(FA) - STEP 1: How many accidents has the patient had during the current shift? 0 TRANSFERS: BED, CHAIR, WHEELCHAIR: TRANSFERS: BED, CHAIR, WHEELCHAIR - STEP 1: Does the patient require assistance with bed, chair, or wheelchair transfers? Yes. TRANSFERS: BED, CHAIR, WHEELCHAIR - STEP 2: Does the patient require the assistance of a helper? No. Patient only requires an assistive device fo r bed, chair, wheelchair transfers such as a sliding board, grab bar, or brace, OR s/he takes more th an reasonable time, OR there is a safety concern when s/he performs the transfers TRANSFERS: BED, CHAIR, WHEELCHAIR - SCORE: 6-SAIRA TRANSFERS: TOILET: Activity did not occur on this shift TRANSFERS: TOILET - SCORE: 0-UNK TRANSFERS: SHOWER: Activity did not occur on this shift TRANSFERS: SHOWER - SCORE: 0-UNK TRANSFERS: TUB: Activity did not occur on this shift TRANSFERS: TUB - SCORE: 0-UNK LOCOMOTION: WALK: Activity did not occur on this shift LOCOMOTION: WALK - SCORE: 0-UNK LOCOMOTION: WHEELCHAIR: Activity did not occur on this shift LOCOMOTION: WHEELCHAIR - SCORE: 0-UNK COMPREHENSION: COMPREHENSION - SCORE: 0-UNK EXPRESSION EXPRESSION - SCORE: 0-UNK SOCIAL INTERACTION: SOCIAL INTERACTION - SCORE: 0-UNK PROBLEM SOLVING: PROBLEM SOLVING - SCORE: 0-UNK MEMORY: MEMORY - SCORE: 0-UNK SIGNATURE PANEL: The following modified sections: Eating - Score, Grooming - Score, Bathing - Score, Dressing - Upper Body - Score, Dressing - Lower Body - Score, Toileting - Score, Bladder Management - Score, Bowel Man agement - Score, Transfers: Bed, Chair, Wheelchair - Score, Transfers: Toilet - Score, Transfers: Katherine wer - Score, Transfers: Tub - Score, Locomotion: Walk - Score, Locomotion: Wheelchair - Score, Compre hension - Score, Expression - Score, Social Interaction - Score, Problem Solving - Score, Memory - Sc ore were [electronically] signed by Chata Childs CNA on WedApr 15 2018 16:45:35 GMT-0500 ([facility] Day[facility])
[2018-04-15] MEDS: ATORVASTATIN 20 MG TAB PO SCH (20:34)
[2018-04-15] MEDS: BIMATOPROST OPTH SCH (20:35)
[2018-04-15] MEDS: DOCUSATE NA/SENNA CONC 1 TAB PO SCH (20:37)
--- NOTE | 2018-04-15 23:42 | PN ---
Date of Progress Note: 04/15/2018 Subjective: The patient had acute kidney injury secondary to cardiorenal proteinuric nephrotic. The patient oliguric, started on dialysis. Physical Examination: Vital Signs: Blood pressure 157/69, pulse of 60, afebrile. Chest: Crackles on the base. Heart: S1, S2 regular. Abdomen: Soft, nontender. Extremities: +2 edema, venous stasis bilateral. Medications: The current medication the patient is on include: 1. Tylenol. 2. Amlodipine. 3. Lasix. 4. Calcitriol. 5. Clonidine. 6. Epogen. Laboratory Data: WBC 5.5, H and H 8.1/24.9. Sodium 144, potassium 4.3, bicarb 35, BUN 18, creatinine 3.3, calcium 7.8. Serology still pending. TSAT of 50. Ferritin of 141. Assessment And Plan: 1. Acute kidney injury secondary to cardiorenal oliguric. I am going to go ahead and continue the patient on dialysis. The patient is going to be doing Wednesday, Wednesday, Wednesday from now on. 2. Hypertension. We will utilize the blood pressure for more diuresis. 3. Secondary hyperparathyroidism, stable. 4. Iron deficiency anemia. We will start the patient on IV iron. 5. Nephrotic range of proteinuria with possible acute kidney injury secondary to cardiorenal. We will follow up with serology. 6. Deconditioning. Continue PT, OT. TANI/LATOYA Voice ID: [id number] Report ID: [id number] MTDD
--- NOTE | 2018-04-16 01:46 | FAST ---
SHIFT START DATE/TIME: 04/15/2018 19:00 (CDT) SHIFT END DATE/TIME: 04/16/2018 07:00 (CDT) NAME SHANNAN MCKEE DATE OF : 1950 DATE OF ADMISSION: 04/07/2018 20:20 (CDT) PHONE: AGE: 68 N# [id number] GENDER: Female ENCOUNTER PHYSICIAN: Dr. Davie Hernandez M.D. ADMISSION DIAGNOSIS: - Other Disabling Impairments 13 - Other Disabling Impairments (13) Critical illness polyneuropathy, Debility, ESRD. EATING: Activity did not occur on this shift EATING - SCORE: 0-UNK GROOMING: Wash, rinse, and dry hands GROOMING - STEP 1: Does the patient require assistance when grooming? Yes. GROOMING - STEP 2: Does the patient require the assistance of a helper? Yes. GROOMING - STEP 3: How much assistance does the patient require from the helper? Only prior equipment preparation/set up from the helper GROOMING - SCORE: 5-SUP BATHING: Activity did not occur on this shift BATHING - SCORE: 0-UNK DRESSING - UPPER BODY: Patient is not dressing in public clothing ARTICLES SCORE Total number of steps: 0 DRESSING - UPPER BODY - SCORE: 0-UNK DRESSING - LOWER BODY: Patient is not dressing in public clothing ARTICLES SCORE Total number of steps: 0 DRESSING - LOWER BODY - SCORE: 0-UNK TOILETING: TOILETING - STEP 1: Does the patient require assistance with toileting? Yes. TOILETING - STEP 2: Does the patient require the assistance of a helper? Yes. TOILETING - STEP 3: How much assistance does the patient require from the helper? Only supervision TOILETING - SCORE: 5-SUP BLADDER MANAGEMENT: BLADDER MANAGEMENT - STEP 1: Does the patient control the bladder completely and intentionally without equipment or devices or med ications, and is always continent? No. BLADDER MANAGEMENT - STEP 2: Does the patient require the assistance of a helper? No, patient only requires extra time BLADDER MANAGEMENT - SCORE: 6-SAIRA BOWEL MANAGEMENT: Activity did not occur on this shift BOWEL MANAGEMENT - SCORE: 7-IND TRANSFERS: BED, CHAIR, WHEELCHAIR: TRANSFERS: BED, CHAIR, WHEELCHAIR - STEP 1: Does the patient require assistance with bed, chair, or wheelchair transfers? Yes. TRANSFERS: BED, CHAIR, WHEELCHAIR - STEP 2: Does the patient require the assistance of a helper? Yes. TRANSFERS: BED, CHAIR, WHEELCHAIR - STEP 3: How much assistance does the patient require from the helper? Lifting of the legs TRANSFERS: BED, CHAIR, WHEELCHAIR - STEP 4: How many legs does the patient require the helper to lift? both legs TRANSFERS: BED, CHAIR, WHEELCHAIR - SCORE: 3-MOD TRANSFERS: TOILET: TRANSFERS: TOILET - STEP 1: Does the patient require assistance with toilet transfers? Yes. TRANSFERS: TOILET - STEP 2: Does the patient require the assistance of a helper? Yes. TRANSFERS: TOILET - STEP 3: How much assistance does the patient require from the helper? Only supervision, cuing, coaxing, OR he lp to set out transfer equipment or to lock brakes and/or lift foot rests TRANSFERS: TOILET - SCORE: 5-SUP TRANSFERS: SHOWER: Activity did not occur on this shift TRANSFERS: SHOWER - SCORE: 0-UNK TRANSFERS: TUB: Activity did not occur on this shift TRANSFERS: TUB - SCORE: 0-UNK LOCOMOTION: WALK: Activity did not occur on this shift LOCOMOTION: WALK - SCORE: 0-UNK LOCOMOTION: WHEELCHAIR: Activity did not occur on this shift LOCOMOTION: WHEELCHAIR - SCORE: 0-UNK COMPREHENSION: COMPREHENSION - STEP 1: Does the patient require help to understand complex and abstract ideas (such as current events, finan radha, discharge planning, medical issues, relationships, etc)? No. COMPREHENSION - STEP 2: Does the patient need extra time, require an assistive device (such as glasses, hearing aids, or an a ugmentative communication system), OR does s/he have mild difficulty expressing complex and abstract ideas (including mild dysarthria or mild word-finding problems)? Yes. COMPREHENSION - SCORE: 6-SAIRA EXPRESSION EXPRESSION - STEP 1: Does the patient require help expressing complex and abstract ideas (such as current events, finances , discharge planning, medical issues, relationships, etc)? No. EXPRESSION - STEP 2: Does the patient need extra time, require an assistive device (such as augmentive communication syste m or a communication board), OR does s/he have mild difficulty expressing complex and abstract ideas (including mild dysarthria or mild word-find problems)? No. EXPRESSION - SCORE: 7-IND SOCIAL INTERACTION: SOCIAL INTERACTION - STEP 1: Does the patient require a helper to interact with others in social and therapeutic situations? No. SOCIAL INTERACTION - STEP 2: Does the patient need extra time in social situations, OR does s/he interact with staff, other patien ts, and family members ONLY in structured environments, OR does s/he require medication for social in teraction? Yes, patient needs extra time SOCIAL INTERACTION - SCORE: 6-SAIRA PROBLEM SOLVING: PROBLEM SOLVING - STEP 1: Does the patient need help to solve complex problems such as managing a checking account or confronti ng interpersonal problems? No. PROBLEM SOLVING - STEP 2: Does the patient require extra time to make decisions or solve problems, OR does s/he have slight dif ficulty reading, initiating, or self-correcting in unfamiliar situations? Yes, patient needs extra ti me. PROBLEM SOLVING - SCORE: 6-SAIRA MEMORY: MEMORY - STEP 1: Does the patient need help to remember frequently encountered people, daily routines, and executing r equests? No. MEMORY - STEP 2: Does the patient have slight difficulty recognizing frequently encountered people, daily routines, or executing requests without the need for repetition or using self-initiated or environmental cues to remember? Yes. MEMORY - SCORE: 6-SAIRA SIGNATURE PANEL: The following modified sections: Eating - Score, Grooming - Score, Dressing - Upper Body - Score, Robson ssing - Lower Body - Score, Toileting - Score, Bladder Management - Score, Bowel Management - Score, Transfers: Bed, Chair, Wheelchair - Score, Transfers: Toilet - Score, Transfers: Shower - Score, [place] sfers: Tub - Score, Locomotion: Walk - Score, Locomotion: Wheelchair - Score, Comprehension - Score, Expression - Score, Social Interaction - Score, Problem Solving - Score, Memory - Score were [electro nically] signed by Elva Crawford CNA on Sat Apr 16 2018 01:45:41 GMT-0500 (Central Daylight Time)
[2018-04-16] MEDS: TRAMADOL HCL 50 MG TAB PO PRN ×2 (03:45→12:50)
[2018-04-16] MEDS: HYDRALAZINE HCL 25 MG TABLET PO SCH ×3 (07:27→23:40)
[2018-04-16] MEDS: AMLODIPINE 5 MG TAB PO SCH (07:27)
[2018-04-16] MEDS: INSULIN -REGULAR HUMAN 50 UNIT/0.5 ML ML SQ SCH ×4 (07:30→21:21)
[2018-04-16] MEDS: TRIAMCINOLONE ACET 0.1% CREAM 80 GM TOP SCH ×2 (08:00→20:00)
[2018-04-16] MEDS: HEPARIN 5000 UNIT/ML 1 ML VIAL SQ SCH ×2 (08:00→18:02)
[2018-04-16] MEDS: LIDOCAINE 5% PATCH TOP SCH (09:04)
[2018-04-16] MEDS: CALCIUM CARBONATE 500 MG TAB PO SCH (09:04)
[2018-04-16] MEDS: FE SULF/FA/VIT B COMP & C TAB PO SCH (09:04)
[2018-04-16] MEDS: FAMOTIDINE 20 MG TAB PO SCH ×2 (09:05→20:22)
[2018-04-16] MEDS: GABAPENTIN 300 MG CAP PO SCH ×2 (09:05→20:22)
[2018-04-16] MEDS: FUROSEMIDE 40 MG TABLET PO SCH ×2 (09:05→16:25)
[2018-04-16] MEDS: FERROUS SULFATE 325 MG TAB PO SCH (09:07)
[2018-04-16] MEDS: GLIPIZIDE S.A. 5 MG TAB PO SCH (09:07)
[2018-04-16] MEDS: FOLIC ACID 1 MG TABLET PO SCH (09:07)
[2018-04-16] MEDS: CLONIDINE HCL 0.3 MG TAB PO SCH ×2 (09:11→20:22)
[2018-04-16] MEDS: COMBIGAN OPTHALMIC EACH EYE SCH ×2 (09:12→20:23)
[2018-04-16] MEDS: DOCUSATE NA/SENNA CONC 1 TAB PO SCH (09:13)
[2018-04-16] MEDS: RESTASIS 0.05% EACH EYE SCH ×2 (09:14→20:28)
[2018-04-16] MEDS: PROMOD 30 ML DOSE PO SCH ×2 (09:15→20:24)
--- NOTE | 2018-04-16 11:19 | P.PN ---
Subjective Date of Service: 04/16/18 Primary Care Provider: Medical Lab Scientist-Dr. Hernandez/PCP-Dr. Logan Chief Complaint: Patient currently in rehab post CHF exacerbation Subjective: Tolerating diet, Ambulating, Improving, Working w/ PT, Doing well Review of Systems General: As per HPI Physical Examination - Vital Signs Temperature: 98.3 F Blood Pressure: 138/74 Pulse: 70 Respirations: 18 Pulse Ox (%): 97 - Physical Exam General: Alert, In no apparent distress HEENT: Atraumatic, PERRLA, EOMI Neck: Supple, JVD not distended Respiratory: Clear to auscultation bilaterally, Normal air movement Cardiovascular: Regular rate/rhythm, Normal S1 S2 Gastrointestinal: Normal bowel sounds, No tenderness Musculoskeletal: No tenderness Integumentary: No rashes Neurological: Normal speech, Normal tone, Normal affect Lymphatics: No axilla or inguinal lymphadenopathy - Studies Medications List Reviewed: Yes Assessment & Plan - Problems (Diagnosis) (1) Encounter for rehabilitation Onset Date: 04/08/18 Current Visit: Yes Status: Acute Plan: Patient currently in inpatient rehab working with physical therapy occupational therapy and speech therapy. Doing well overall. Has been getting stronger daily. Medicine has been consulted on the case due to chronic conditions of the patient. No complication noted at this time. Patient continues on all the medication while here in the inpatient rehab. Patient will need to be set up with dialysis once ready to be discharged home. No further workup needed at this time patient stable and participating in therapy daily. (2) End stage renal disease Onset Date: 04/11/18 Current Visit: Yes Status: Chronic (3) CHF (congestive heart failure) Onset Date: 04/11/18 Current Visit: Yes Status: Chronic Qualifiers: Heart failure type: diastolic Heart failure chronicity: chronic Qualified Code(s): I50.32 - Chronic diastolic (congestive) heart failure (4) Diabetes mellitus Onset Date: 04/11/18 Current Visit: Yes Status: Chronic Qualifiers: Diabetes mellitus type: type 2 Diabetes mellitus usp insulin use: without usp use Diabetes mellitus complication status: with kidney complications Diabetes mellitus complication detail: with chronic kidney disease Chronic kidney disease stage: on chronic dialysis Qualified Code(s) : E11.22 - Type 2 diabetes mellitus with diabetic chronic kidney disease; N18.6 - End stage renal disease; Z99.2 - Dependence on renal dialysis (5) GERD (gastroesophageal reflux disease) Onset Date: 04/11/18 Current Visit: Yes Status: Chronic Qualifiers: Esophagitis presence: esophagitis presence not specified Qualified Code(s) : K21.9 - Gastro-esophageal reflux disease without esophagitis (6) Hyperlipidemia Onset Date: 04/11/18 Current Visit: Yes Status: Chronic Qualifiers: Hyperlipidemia type: unspecified Qualified Code(s): E78.5 - Hyperlipidemia , unspecified (7) Hypertension Onset Date: 04/11/18 Current Visit: Yes Status: Chronic Qualifiers: Hypertension type: essential hypertension Qualified Code(s): I10 - Essential (primary) hypertension (8) Obesity Onset Date: 04/11/18 Current Visit: Yes Status: Chronic Qualifiers: Obesity type: due to excess calories Obesity classification: adult class 3 (BMI >= 40) Serious obesity comorbidity presence: with serious comorbidity Body mass index: BMI 45.0-49.9 Qualified Code(s): E66.01 - Morbid (severe) obesity due to excess calories; Z68.42 - Body mass index (BMI) 45.0-49.9, adult
--- NOTE | 2018-04-16 11:37 | FAST ---
ENCOUNTER DATE AND TIME: 04/16/2018 08:00 (CDT) NAME SHANNAN MCKEE DATE OF : 1950 DATE OF ADMISSION: 04/07/2018 20:20 (CDT) PHONE: AGE: 68 N# [id number] GENDER: Female ENCOUNTER PHYSICIAN: Dr. Davie Hernandez M.D. ADMISSION DIAGNOSIS: - Other Disabling Impairments 13 - Other Disabling Impairments (13) Critical illness polyneuropathy, Debility, ESRD. EATING: Activity did not occur on this shift EATING - SCORE: 0-UNK GROOMING: Activity did not occur on this shift GROOMING - SCORE: 0-UNK BATHING: Activity did not occur on this shift BATHING - SCORE: 0-UNK DRESSING - UPPER BODY: Activity did not occur on this shift Patient is not dressing in public clothing ARTICLES SCORE Total number of steps: 0 DRESSING - UPPER BODY - SCORE: 0-UNK DRESSING - LOWER BODY: Activity did not occur on this shift Patient is not dressing in public clothing ARTICLES SCORE Total number of steps: 0 DRESSING - LOWER BODY - SCORE: 0-UNK TOILETING: Activity did not occur on this shift TOILETING - SCORE: 0-UNK BLADDER MANAGEMENT: Activity did not occur on this shift BLADDER MANAGEMENT - SCORE: 7-IND BOWEL MANAGEMENT: Activity did not occur on this shift BOWEL MANAGEMENT - SCORE: 7-IND TRANSFERS: BED, CHAIR, WHEELCHAIR: TRANSFERS: BED, CHAIR, WHEELCHAIR - STEP 1: Does the patient require assistance with bed, chair, or wheelchair transfers? Yes. TRANSFERS: BED, CHAIR, WHEELCHAIR - STEP 2: Does the patient require the assistance of a helper? Yes. TRANSFERS: BED, CHAIR, WHEELCHAIR - STEP 3: How much assistance does the patient require from the helper? Only supervision TRANSFERS: BED, CHAIR, WHEELCHAIR - SCORE: 5-SUP TRANSFERS: TOILET: Activity did not occur on this shift TRANSFERS: TOILET - SCORE: 0-UNK TRANSFERS: SHOWER: Activity did not occur on this shift TRANSFERS: SHOWER - SCORE: 0-UNK TRANSFERS: TUB: Activity did not occur on this shift TRANSFERS: TUB - SCORE: 0-UNK LOCOMOTION: WALK: LOCOMOTION: WALK - STEP 1: Does the patient need help to walk 150 feet? Yes. LOCOMOTION: WALK - STEP 2: How much assistance does the patient require to walk a minimum of 150 feet? Only incidental help such as contact guarding or steadying LOCOMOTION: WALK - SCORE: 4-MIN LOCOMOTION: WHEELCHAIR: LOCOMOTION: WHEELCHAIR - STEP 1: Does the patient need help to go 150 feet in a wheelchair? Yes. LOCOMOTION: WHEELCHAIR - STEP 2: How much assistance does the patient need from the helper? Only supervision, cuing, or coaxing LOCOMOTION: WHEELCHAIR - SCORE: 5-SUP LOCOMOTION: STAIRS: Activity did not occur on this shift LOCOMOTION: STAIRS - SCORE: 0-UNK COMPREHENSION: COMPREHENSION - SCORE: 0-UNK EXPRESSION EXPRESSION - SCORE: 0-UNK SOCIAL INTERACTION: SOCIAL INTERACTION - SCORE: 0-UNK PROBLEM SOLVING: PROBLEM SOLVING - SCORE: 0-UNK MEMORY: MEMORY - SCORE: 0-UNK SIGNATURE PANEL: The following modified sections: Transfers: Bed, Chair, Wheelchair - Score, Transfers: Toilet - Score , Locomotion: Walk - Score, Locomotion: Wheelchair - Score, Locomotion: Stairs - Score were [ho barnes] signed by Gale Abebe PTA on Sat Apr 16 2018 11:36:07 GMT-0500 (Central Daylight Time)
--- NOTE | 2018-04-16 14:36 | FAST ---
SHIFT START DATE/TIME: 04/16/2018 07:00 (CDT) SHIFT END DATE/TIME: 04/16/2018 19:00 (CDT) NAME SHANNAN MCKEE DATE OF : 1950 DATE OF ADMISSION: 04/07/2018 20:20 (CDT) PHONE: AGE: 68 N# [id number] GENDER: Female ENCOUNTER PHYSICIAN: Dr. Davie Hernandez M.D. ADMISSION DIAGNOSIS: - Other Disabling Impairments 13 - Other Disabling Impairments (13) Critical illness polyneuropathy, Debility, ESRD. EATING: EATING - STEP 1: Does the patient require assistance when eating? Yes. EATING - STEP 2: Does the patient require the assistance of a helper? Yes. EATING - STEP 3: Does the patient perform half or more of the eating tasks? Yes. EATING - STEP 4: Does the patient need only supervision, cuing, coaxing OR help to apply an orthosis OR help to cut fo od, open containers, pour liquids, or butter bread? Yes. EATING - SCORE: 5-SUP GROOMING: Wash, rinse, and dry face Wash, rinse, and dry hands GROOMING - STEP 1: Does the patient require assistance when grooming? Yes. GROOMING - STEP 2: Does the patient require the assistance of a helper? No. The patient only requires an assistive devic e, OR takes more than reasonable time to groom, OR there is a concern for safety as the patient groom s GROOMING - SCORE: 6-SAIRA BATHING: Activity did not occur on this shift BATHING - SCORE: 0-UNK DRESSING - UPPER BODY: T-shirt/pullover shirt (four steps) ARTICLES SCORE Total number of steps: 4 DRESSING - UPPER BODY - STEP 1: Does the patient require help when dressing above the waist? Yes. DRESSING - UPPER BODY - STEP 2: Does the patient require the assistance of a helper? No. Patient only requires an assistive device, s uch as a button hook, velcro, or framing inspector. OR s/he takes more than reasonable time as s/he dresses the upper body. OR there is a concern for safety when s/he dresses the upper body DRESSING - UPPER BODY - SCORE: 6-SAIRA DRESSING - LOWER BODY: Activity did not occur on this shift ARTICLES SCORE Total number of steps: 0 DRESSING - LOWER BODY - SCORE: 0-UNK TOILETING: Activity did not occur on this shift TOILETING - SCORE: 0-UNK TOILETING - COMMENTS: Renal - dialysis BLADDER MANAGEMENT: Activity did not occur on this shift BLADDER MANAGEMENT - SCORE: 7-IND BLADDER MANAGEMENT - FREQUENCY OF ACCIDENTS: BLADDER MANAGEMENT(FA) - STEP 1: How many accidents has the patient had during the current shift? 0 BOWEL MANAGEMENT: Activity did not occur on this shift BOWEL MANAGEMENT - SCORE: 7-IND BOWEL MANAGEMENT - FREQUENCY OF ACCIDENTS: BOWEL MANAGEMENT(FA) - STEP 1: How many accidents has the patient had during the current shift? 0 TRANSFERS: BED, CHAIR, WHEELCHAIR: TRANSFERS: BED, CHAIR, WHEELCHAIR - STEP 1: Does the patient require assistance with bed, chair, or wheelchair transfers? Yes. TRANSFERS: BED, CHAIR, WHEELCHAIR - STEP 2: Does the patient require the assistance of a helper? Yes. TRANSFERS: BED, CHAIR, WHEELCHAIR - STEP 3: How much assistance does the patient require from the helper? Steadying/guiding assistance TRANSFERS: BED, CHAIR, WHEELCHAIR - SCORE: 4-MIN TRANSFERS: TOILET: Activity did not occur on this shift TRANSFERS: TOILET - SCORE: 0-UNK TRANSFERS: SHOWER: Activity did not occur on this shift TRANSFERS: SHOWER - SCORE: 0-UNK TRANSFERS: TUB: Activity did not occur on this shift TRANSFERS: TUB - SCORE: 0-UNK LOCOMOTION: WALK: Activity did not occur on this shift LOCOMOTION: WALK - SCORE: 0-UNK LOCOMOTION: WHEELCHAIR: LOCOMOTION: WHEELCHAIR - STEP 1: Does the patient need help to go 150 feet in a wheelchair? Yes. LOCOMOTION: WHEELCHAIR - STEP 2: How much assistance does the patient need from the helper? Only supervision, cuing, or coaxing LOCOMOTION: WHEELCHAIR - SCORE: 5-SUP COMPREHENSION: COMPREHENSION - STEP 1: Does the patient require help to understand complex and abstract ideas (such as current events, finan radha, discharge planning, medical issues, relationships, etc)? No. COMPREHENSION - STEP 2: Does the patient need extra time, require an assistive device (such as glasses, hearing aids, or an a ugmentative communication system), OR does s/he have mild difficulty expressing complex and abstract ideas (including mild dysarthria or mild word-finding problems)? Yes. COMPREHENSION - SCORE: 6-SAIRA EXPRESSION EXPRESSION: TYPE: Both EXPRESSION - STEP 1: Does the patient require help expressing complex and abstract ideas (such as current events, finances , discharge planning, medical issues, relationships, etc)? No. EXPRESSION - STEP 2: Does the patient need extra time, require an assistive device (such as augmentive communication syste m or a communication board), OR does s/he have mild difficulty expressing complex and abstract ideas (including mild dysarthria or mild word-find problems)? Yes. EXPRESSION - SCORE: 6-SAIRA SOCIAL INTERACTION: SOCIAL INTERACTION - STEP 1: Does the patient require a helper to interact with others in social and therapeutic situations? No. SOCIAL INTERACTION - STEP 2: Does the patient need extra time in social situations, OR does s/he interact with staff, other patien ts, and family members ONLY in structured environments, OR does s/he require medication for social in teraction? Yes, patient needs extra time SOCIAL INTERACTION - SCORE: 6-SAIRA PROBLEM SOLVING: PROBLEM SOLVING - STEP 1: Does the patient need help to solve complex problems such as managing a checking account or confronti ng interpersonal problems? Yes. PROBLEM SOLVING - STEP 2: Does the patient solve basic routine problems half or more of the time? Yes. PROBLEM SOLVING - STEP 3: How often does the patient need help to solve basic routine problems? Less than 10% of the time PROBLEM SOLVING - SCORE: 5-SUP MEMORY: MEMORY - STEP 1: Does the patient need help to remember frequently encountered people, daily routines, and executing r equests? No. MEMORY - STEP 2: Does the patient have slight difficulty recognizing frequently encountered people, daily routines, or executing requests without the need for repetition or using self-initiated or environmental cues to remember? Yes. MEMORY - SCORE: 6-SAIRA SIGNATURE PANEL: The following modified sections: Eating - Score, Grooming - Score, Bathing - Score, Dressing - Upper Body - Score, Dressing - Lower Body - Score, Toileting - Score, Toileting - Comments:, Bladder Manage ment - Score, Bowel Management - Score, Transfers: Bed, Chair, Wheelchair - Score, Transfers: Toilet - Score, Transfers: Shower - Score, Transfers: Tub - Score, Locomotion: Walk - Score, Locomotion: Whe elchair - Score, Comprehension - Score, Expression - Score, Social Interaction - Score, Problem Solvi ng - Score, Memory - Score were [electronically] signed by Hoda Munson C.N.A. on WedApr 16 2018 14 :34:53 T-0500 (Central Daylight Time)
[2018-04-16] MEDS: ATORVASTATIN 20 MG TAB PO SCH (20:23)
[2018-04-16] MEDS: BIMATOPROST OPTH SCH (20:25)
[2018-04-16] MEDS ORDERED: INSULIN -REGULAR HUMAN 50 UNIT/0.5 ML ML ONE (21:22)
[2018-04-16 22:03] LABS: Albumin, (SPE) 2.2 g/dL (3.8-4.8); Alpha-1-Globulins 0.4 g/dL (0.2-0.3); Alpha-2-Globulins 0.9 g/dL (0.5-0.9); Gamma Globulins 1.4 g/dL (0.8-1.7); INTERPRETATION REPORT
--- NOTE | 2018-04-17 01:30 | FAST ---
SHIFT START DATE/TIME: 04/16/2018 19:00 (CDT) SHIFT END DATE/TIME: 04/17/2018 07:00 (CDT) NAME SHANNAN MCKEE DATE OF : 1950 DATE OF ADMISSION: 04/07/2018 20:20 (CDT) PHONE: AGE: 68 N# [id number] GENDER: Female ENCOUNTER PHYSICIAN: Dr. Davie Hernandez M.D. ADMISSION DIAGNOSIS: - Other Disabling Impairments 13 - Other Disabling Impairments (13) Critical illness polyneuropathy, Debility, ESRD. EATING: Activity did not occur on this shift EATING - SCORE: 0-UNK GROOMING: Oral care Wash, rinse, and dry face Wash, rinse, and dry hands GROOMING - STEP 1: Does the patient require assistance when grooming? Yes. GROOMING - STEP 2: Does the patient require the assistance of a helper? Yes. GROOMING - STEP 3: How much assistance does the patient require from the helper? Only prior equipment preparation/set up from the helper GROOMING - SCORE: 5-SUP BATHING: Activity did not occur on this shift BATHING - SCORE: 0-UNK DRESSING - UPPER BODY: Patient is not dressing in public clothing ARTICLES SCORE Total number of steps: 0 DRESSING - UPPER BODY - SCORE: 0-UNK DRESSING - LOWER BODY: Patient is not dressing in public clothing ARTICLES SCORE Total number of steps: 0 DRESSING - LOWER BODY - SCORE: 0-UNK TOILETING: TOILETING - STEP 1: Does the patient require assistance with toileting? Yes. TOILETING - STEP 2: Does the patient require the assistance of a helper? Yes. TOILETING - STEP 3: How much assistance does the patient require from the helper? Only supervision TOILETING - SCORE: 5-SUP BLADDER MANAGEMENT: BLADDER MANAGEMENT - STEP 1: Does the patient control the bladder completely and intentionally without equipment or devices or med ications, and is always continent? Yes. BLADDER MANAGEMENT - SCORE: 7-IND BOWEL MANAGEMENT: Activity did not occur on this shift BOWEL MANAGEMENT - SCORE: 7-IND TRANSFERS: BED, CHAIR, WHEELCHAIR: TRANSFERS: BED, CHAIR, WHEELCHAIR - STEP 1: Does the patient require assistance with bed, chair, or wheelchair transfers? Yes. TRANSFERS: BED, CHAIR, WHEELCHAIR - STEP 2: Does the patient require the assistance of a helper? Yes. TRANSFERS: BED, CHAIR, WHEELCHAIR - STEP 3: How much assistance does the patient require from the helper? Lifting of the legs TRANSFERS: BED, CHAIR, WHEELCHAIR - STEP 4: How many legs does the patient require the helper to lift? both legs TRANSFERS: BED, CHAIR, WHEELCHAIR - SCORE: 3-MOD TRANSFERS: TOILET: TRANSFERS: TOILET - STEP 1: Does the patient require assistance with toilet transfers? Yes. TRANSFERS: TOILET - STEP 2: Does the patient require the assistance of a helper? Yes. TRANSFERS: TOILET - STEP 3: How much assistance does the patient require from the helper? Only supervision, cuing, coaxing, OR he lp to set out transfer equipment or to lock brakes and/or lift foot rests TRANSFERS: TOILET - SCORE: 5-SUP TRANSFERS: SHOWER: Activity did not occur on this shift TRANSFERS: SHOWER - SCORE: 0-UNK TRANSFERS: TUB: Activity did not occur on this shift TRANSFERS: TUB - SCORE: 0-UNK LOCOMOTION: WALK: Activity did not occur on this shift LOCOMOTION: WALK - SCORE: 0-UNK LOCOMOTION: WHEELCHAIR: Activity did not occur on this shift LOCOMOTION: WHEELCHAIR - SCORE: 0-UNK COMPREHENSION: COMPREHENSION - STEP 1: Does the patient require help to understand complex and abstract ideas (such as current events, finan radha, discharge planning, medical issues, relationships, etc)? No. COMPREHENSION - STEP 2: Does the patient need extra time, require an assistive device (such as glasses, hearing aids, or an a ugmentative communication system), OR does s/he have mild difficulty expressing complex and abstract ideas (including mild dysarthria or mild word-finding problems)? Yes. COMPREHENSION - SCORE: 6-SAIRA EXPRESSION EXPRESSION - STEP 1: Does the patient require help expressing complex and abstract ideas (such as current events, finances , discharge planning, medical issues, relationships, etc)? No. EXPRESSION - STEP 2: Does the patient need extra time, require an assistive device (such as augmentive communication syste m or a communication board), OR does s/he have mild difficulty expressing complex and abstract ideas (including mild dysarthria or mild word-find problems)? No. EXPRESSION - SCORE: 7-IND SOCIAL INTERACTION: SOCIAL INTERACTION - STEP 1: Does the patient require a helper to interact with others in social and therapeutic situations? No. SOCIAL INTERACTION - STEP 2: Does the patient need extra time in social situations, OR does s/he interact with staff, other patien ts, and family members ONLY in structured environments, OR does s/he require medication for social in teraction? No. SOCIAL INTERACTION - SCORE: 7-IND PROBLEM SOLVING: PROBLEM SOLVING - STEP 1: Does the patient need help to solve complex problems such as managing a checking account or confronti ng interpersonal problems? No. PROBLEM SOLVING - STEP 2: Does the patient require extra time to make decisions or solve problems, OR does s/he have slight dif ficulty reading, initiating, or self-correcting in unfamiliar situations? Yes, patient needs extra ti me. PROBLEM SOLVING - SCORE: 6-SAIRA MEMORY: MEMORY - STEP 1: Does the patient need help to remember frequently encountered people, daily routines, and executing r equests? No. MEMORY - STEP 2: Does the patient have slight difficulty recognizing frequently encountered people, daily routines, or executing requests without the need for repetition or using self-initiated or environmental cues to remember? Yes. MEMORY - SCORE: 6-SAIRA SIGNATURE PANEL: The following modified sections: Eating - Score, Grooming - Score, Dressing - Upper Body - Score, Robson ssing - Lower Body - Score, Toileting - Score, Bladder Management - Score, Bowel Management - Score, Transfers: Bed, Chair, Wheelchair - Score, Transfers: Toilet - Score, Transfers: Shower - Score, [place] sfers: Tub - Score, Locomotion: Walk - Score, Locomotion: Wheelchair - Score, Comprehension - Score, Expression - Score, Social Interaction - Score, Problem Solving - Score, Memory - Score were [electro nically] signed by Elva Crawford CNA on WedApr 17 2018 01:29:48 GMT-0500 (Central Daylight Time)
[2018-04-17] MEDS: INSULIN -REGULAR HUMAN 50 UNIT/0.5 ML ML SQ SCH ×4 (07:30→20:32)
[2018-04-17] MEDS: HEPARIN 5000 UNIT/ML 1 ML VIAL SQ SCH ×2 (08:00→18:08)
[2018-04-17] MEDS: TRIAMCINOLONE ACET 0.1% CREAM 80 GM TOP SCH ×2 (08:00→20:27)
[2018-04-17] MEDS: COMBIGAN OPTHALMIC EACH EYE SCH ×2 (08:04→20:27)
[2018-04-17] MEDS: RESTASIS 0.05% EACH EYE SCH ×2 (08:04→20:29)
[2018-04-17] MEDS: LIDOCAINE 5% PATCH TOP SCH (08:04)
[2018-04-17] MEDS: HYDRALAZINE HCL 25 MG TABLET PO SCH ×3 (08:05→23:35)
[2018-04-17] MEDS: FE SULF/FA/VIT B COMP & C TAB PO SCH (08:05)
[2018-04-17] MEDS: FOLIC ACID 1 MG TABLET PO SCH (08:05)
[2018-04-17] MEDS: FERROUS SULFATE 325 MG TAB PO SCH (08:05)
[2018-04-17] MEDS: FAMOTIDINE 20 MG TAB PO SCH ×2 (08:05→20:25)
[2018-04-17] MEDS: GABAPENTIN 300 MG CAP PO SCH ×2 (08:05→20:25)
[2018-04-17] MEDS: CALCIUM CARBONATE 500 MG TAB PO SCH (08:06)
[2018-04-17] MEDS: TRAMADOL HCL 50 MG TAB PO PRN (08:07)
[2018-04-17] MEDS: AMLODIPINE 5 MG TAB PO SCH (08:07)
[2018-04-17] MEDS: PROMOD 30 ML DOSE PO SCH ×2 (08:13→20:28)
[2018-04-17] MEDS: GLIPIZIDE S.A. 5 MG TAB PO SCH (08:13)
[2018-04-17] MEDS: CLONIDINE HCL 0.3 MG TAB PO SCH ×2 (10:05→20:26)
[2018-04-17] MEDS: FUROSEMIDE 40 MG TABLET PO SCH ×2 (10:07→16:10)
--- NOTE | 2018-04-17 10:56 | FAST ---
SHIFT START DATE/TIME: 04/17/2018 07:00 (CDT) SHIFT END DATE/TIME: 04/17/2018 19:00 (CDT) NAME SHANNAN MCKEE DATE OF : 1950 DATE OF ADMISSION: 04/07/2018 20:20 (CDT) PHONE: AGE: 68 N# [id number] GENDER: Female ENCOUNTER PHYSICIAN: Dr. Davie Hernandez M.D. ADMISSION DIAGNOSIS: - Other Disabling Impairments 13 - Other Disabling Impairments (13) Critical illness polyneuropathy, Debility, ESRD. EATING: EATING - STEP 1: Does the patient require assistance when eating? Yes. EATING - STEP 2: Does the patient require the assistance of a helper? No, patient only requires an assistive device, O R s/he takes more than reasonable time to eat, OR there is a safety concern, OR s/he requires modifie d food consistency EATING - SCORE: 6-SAIRA GROOMING: Comb/brush hair Wash, rinse, and dry face Wash, rinse, and dry hands GROOMING - STEP 1: Does the patient require assistance when grooming? Yes. GROOMING - STEP 2: Does the patient require the assistance of a helper? No. The patient only requires an assistive devic e, OR takes more than reasonable time to groom, OR there is a concern for safety as the patient groom s GROOMING - SCORE: 6-SAIRA BATHING: Activity did not occur on this shift BATHING - SCORE: 0-UNK DRESSING - UPPER BODY: T-shirt/pullover shirt (four steps) ARTICLES SCORE Total number of steps: 4 DRESSING - UPPER BODY - STEP 1: Does the patient require help when dressing above the waist? Yes. DRESSING - UPPER BODY - STEP 2: Does the patient require the assistance of a helper? No. Patient only requires an assistive device, s uch as a button hook, velcro, or timing adjuster. OR s/he takes more than reasonable time as s/he dresses the upper body. OR there is a concern for safety when s/he dresses the upper body DRESSING - UPPER BODY - SCORE: 6-SAIRA DRESSING - LOWER BODY: Elastic waist pants (three steps) ARTICLES SCORE Total number of steps: 3 DRESSING - LOWER BODY - STEP 1: Does the patient require help when dressing below the waist? Yes. DRESSING - LOWER BODY - STEP 2: Does the patient require the assistance of a helper? No. Patient requires an assistive device such as a timing adjuster. OR s/he takes more than reasonable time as s/he dresses the lower body, OR there is a con cern for safety when s/he dresses the lower body DRESSING - LOWER BODY - SCORE: 6-SAIRA TOILETING: TOILETING - STEP 1: Does the patient require assistance with toileting? Yes. TOILETING - STEP 2: Does the patient require the assistance of a helper? Yes. TOILETING - STEP 3: How much assistance does the patient require from the helper? Only supervision TOILETING - SCORE: 5-SUP BLADDER MANAGEMENT: BLADDER MANAGEMENT - STEP 1: Does the patient control the bladder completely and intentionally without equipment or devices or med ications, and is always continent? Yes. BLADDER MANAGEMENT - SCORE: 7-IND BLADDER MANAGEMENT - FREQUENCY OF ACCIDENTS: BLADDER MANAGEMENT(FA) - STEP 1: How many accidents has the patient had during the current shift? 0 BOWEL MANAGEMENT: BOWEL MANAGEMENT - STEP 1: Does the patient control bowels completely and intentionally without equipment devices or medications AND is always continent? No. BOWEL MANAGEMENT - STEP 2: Does the patient require the assistance of a helper? No, patient requires medication for control such as stool softeners, suppositories, laxatives, enemas, or OTC medications BOWEL MANAGEMENT - SCORE: 6-SAIRA BOWEL MANAGEMENT - FREQUENCY OF ACCIDENTS: BOWEL MANAGEMENT(FA) - STEP 1: How many accidents has the patient had during the current shift? 0 TRANSFERS: BED, CHAIR, WHEELCHAIR: TRANSFERS: BED, CHAIR, WHEELCHAIR - STEP 1: Does the patient require assistance with bed, chair, or wheelchair transfers? Yes. TRANSFERS: BED, CHAIR, WHEELCHAIR - STEP 2: Does the patient require the assistance of a helper? Yes. TRANSFERS: BED, CHAIR, WHEELCHAIR - STEP 3: How much assistance does the patient require from the helper? Only supervision TRANSFERS: BED, CHAIR, WHEELCHAIR - SCORE: 5-SUP TRANSFERS: TOILET: TRANSFERS: TOILET - STEP 1: Does the patient require assistance with toilet transfers? Yes. TRANSFERS: TOILET - STEP 2: Does the patient require the assistance of a helper? Yes. TRANSFERS: TOILET - STEP 3: How much assistance does the patient require from the helper? Only supervision, cuing, coaxing, OR he lp to set out transfer equipment or to lock brakes and/or lift foot rests TRANSFERS: TOILET - SCORE: 5-SUP TRANSFERS: SHOWER: Activity did not occur on this shift TRANSFERS: SHOWER - SCORE: 0-UNK TRANSFERS: TUB: Activity did not occur on this shift TRANSFERS: TUB - SCORE: 0-UNK LOCOMOTION: WALK: Activity did not occur on this shift LOCOMOTION: WALK - SCORE: 0-UNK LOCOMOTION: WHEELCHAIR: LOCOMOTION: WHEELCHAIR - STEP 1: Does the patient need help to go 150 feet in a wheelchair? Yes. LOCOMOTION: WHEELCHAIR - STEP 2: How much assistance does the patient need from the helper? Only supervision, cuing, or coaxing LOCOMOTION: WHEELCHAIR - SCORE: 5-SUP COMPREHENSION: COMPREHENSION: TYPE: Both COMPREHENSION - STEP 1: Does the patient require help to understand complex and abstract ideas (such as current events, finan radha, discharge planning, medical issues, relationships, etc)? No. COMPREHENSION - STEP 2: Does the patient need extra time, require an assistive device (such as glasses, hearing aids, or an a ugmentative communication system), OR does s/he have mild difficulty expressing complex and abstract ideas (including mild dysarthria or mild word-finding problems)? Yes. COMPREHENSION - SCORE: 6-SAIRA EXPRESSION EXPRESSION: TYPE: Both EXPRESSION - STEP 1: Does the patient require help expressing complex and abstract ideas (such as current events, finances , discharge planning, medical issues, relationships, etc)? No. EXPRESSION - STEP 2: Does the patient need extra time, require an assistive device (such as augmentive communication syste m or a communication board), OR does s/he have mild difficulty expressing complex and abstract ideas (including mild dysarthria or mild word-find problems)? Yes. EXPRESSION - SCORE: 6-SAIRA SOCIAL INTERACTION: SOCIAL INTERACTION - STEP 1: Does the patient require a helper to interact with others in social and therapeutic situations? No. SOCIAL INTERACTION - STEP 2: Does the patient need extra time in social situations, OR does s/he interact with staff, other patien ts, and family members ONLY in structured environments, OR does s/he require medication for social in teraction? Yes, patient needs extra time SOCIAL INTERACTION - SCORE: 6-SAIRA PROBLEM SOLVING: PROBLEM SOLVING - STEP 1: Does the patient need help to solve complex problems such as managing a checking account or confronti ng interpersonal problems? Yes. PROBLEM SOLVING - STEP 2: Does the patient solve basic routine problems half or more of the time? Yes. PROBLEM SOLVING - STEP 3: How often does the patient need help to solve basic routine problems? Less than 10% of the time PROBLEM SOLVING - SCORE: 5-SUP MEMORY: MEMORY - STEP 1: Does the patient need help to remember frequently encountered people, daily routines, and executing r equests? No. MEMORY - STEP 2: Does the patient have slight difficulty recognizing frequently encountered people, daily routines, or executing requests without the need for repetition or using self-initiated or environmental cues to remember? Yes. MEMORY - SCORE: 6-SAIRA SIGNATURE PANEL: The following modified sections: Eating - Score, Grooming - Score, Bathing - Score, Dressing - Upper Body - Score, Dressing - Lower Body - Score, Toileting - Score, Bladder Management - Score, Bowel Man agement - Score, Transfers: Bed, Chair, Wheelchair - Score, Transfers: Toilet - Score, Transfers: Katherine wer - Score, Transfers: Tub - Score, Locomotion: Walk - Score, Locomotion: Wheelchair - Score, Compre hension - Score, Expression - Score, Social Interaction - Score, Problem Solving - Score, Memory - Sc ore were [electronically] signed by Hoda Munson C.N.A. on WedApr 17 2018 10:55:05 T-0500 (Centra l Daylight Time)
--- NOTE | 2018-04-17 12:17 | P.PN ---
Subjective Date of Service: 04/17/18 Primary Care Provider: Management Manager-Dr. Hernandez/PCP-Dr. Logan Chief Complaint: Patient currently in rehab post CHF exacerbation Subjective: No C/O voiced, Tolerating diet, Improving, Working w/ PT, Doing well Review of Systems General: As per HPI Physical Examination - Vital Signs Temperature: 97.8 F Blood Pressure: 154/64 Pulse: 70 Respirations: 16 Pulse Ox (%): 97 - Physical Exam General: Alert, In no apparent distress HEENT: Atraumatic, PERRLA, EOMI Neck: Supple, JVD not distended Respiratory: Clear to auscultation bilaterally, Normal air movement Cardiovascular: Regular rate/rhythm, Normal S1 S2 Gastrointestinal: Normal bowel sounds, No tenderness Musculoskeletal: No tenderness Integumentary: No rashes Neurological: Normal speech, Normal tone, Normal affect Lymphatics: No axilla or inguinal lymphadenopathy - Studies Medications List Reviewed: Yes Assessment & Plan - Problems (Diagnosis) (1) Encounter for rehabilitation Onset Date: 04/08/18 Current Visit: Yes Status: Acute Plan: Patient currently in inpatient rehab working with physical therapy occupational therapy and speech therapy. Doing well overall. Has been getting stronger daily. Medicine has been consulted on the case due to chronic conditions of the patient. No complication noted at this time. Patient continues on all the medication while here in the inpatient rehab. Patient will need to be set up with dialysis once ready to be discharged home. No further workup needed at this time patient stable and participating in therapy daily. (2) End stage renal disease Onset Date: 04/11/18 Current Visit: Yes Status: Chronic (3) CHF (congestive heart failure) Onset Date: 04/11/18 Current Visit: Yes Status: Chronic Qualifiers: Heart failure type: diastolic Heart failure chronicity: chronic Qualified Code(s): I50.32 - Chronic diastolic (congestive) heart failure (4) Diabetes mellitus Onset Date: 04/11/18 Current Visit: Yes Status: Chronic Qualifiers: Diabetes mellitus type: type 2 Diabetes mellitus fci insulin use: without fci use Diabetes mellitus complication status: with kidney complications Diabetes mellitus complication detail: with chronic kidney disease Chronic kidney disease stage: on chronic dialysis Qualified Code(s) : E11.22 - Type 2 diabetes mellitus with diabetic chronic kidney disease; N18.6 - End stage renal disease; Z99.2 - Dependence on renal dialysis (5) GERD (gastroesophageal reflux disease) Onset Date: 04/11/18 Current Visit: Yes Status: Chronic Qualifiers: Esophagitis presence: esophagitis presence not specified Qualified Code(s) : K21.9 - Gastro-esophageal reflux disease without esophagitis (6) Hyperlipidemia Onset Date: 04/11/18 Current Visit: Yes Status: Chronic Qualifiers: Hyperlipidemia type: unspecified Qualified Code(s): E78.5 - Hyperlipidemia , unspecified (7) Hypertension Onset Date: 04/11/18 Current Visit: Yes Status: Chronic Qualifiers: Hypertension type: essential hypertension Qualified Code(s): I10 - Essential (primary) hypertension (8) Obesity Onset Date: 04/11/18 Current Visit: Yes Status: Chronic Qualifiers: Obesity type: due to excess calories Obesity classification: adult class 3 (BMI >= 40) Serious obesity comorbidity presence: with serious comorbidity Body mass index: BMI 45.0-49.9 Qualified Code(s): E66.01 - Morbid (severe) obesity due to excess calories; Z68.42 - Body mass index (BMI) 45.0-49.9, adult
[2018-04-17] MEDS: CALCITROL 0.25 MCG CAP PO SCH (12:22)
[2018-04-17 16:05] LABS: P-ANCA Anti-Myeloperoxidase Ab <1.0 AI (<1.0)
[2018-04-17] MEDS: ATORVASTATIN 20 MG TAB PO SCH (20:25)
[2018-04-17] MEDS: DOCUSATE NA/SENNA CONC 1 TAB PO SCH (20:26)
[2018-04-17] MEDS: BIMATOPROST OPTH SCH (20:28)
--- NOTE | 2018-04-18 01:55 | FAST ---
SHIFT START DATE/TIME: 04/17/2018 19:00 (CDT) SHIFT END DATE/TIME: 04/18/2018 07:00 (CDT) NAME SHANNAN MCKEE DATE OF : 1950 DATE OF ADMISSION: 04/07/2018 20:20 (CDT) PHONE: AGE: 68 N# [id number] GENDER: Female ENCOUNTER PHYSICIAN: Dr. Davie Hernandez M.D. ADMISSION DIAGNOSIS: - Other Disabling Impairments 13 - Other Disabling Impairments (13) Critical illness polyneuropathy, Debility, ESRD. EATING: Activity did not occur on this shift EATING - SCORE: 0-UNK GROOMING: Oral care Wash, rinse, and dry face Wash, rinse, and dry hands GROOMING - STEP 1: Does the patient require assistance when grooming? Yes. GROOMING - STEP 2: Does the patient require the assistance of a helper? No. The patient only requires an assistive devic e, OR takes more than reasonable time to groom, OR there is a concern for safety as the patient groom s GROOMING - SCORE: 6-SAIRA BATHING: Activity did not occur on this shift BATHING - SCORE: 0-UNK DRESSING - UPPER BODY: Patient is not dressing in public clothing ARTICLES SCORE Total number of steps: 0 DRESSING - UPPER BODY - SCORE: 0-UNK DRESSING - LOWER BODY: Patient is not dressing in public clothing ARTICLES SCORE Total number of steps: 0 DRESSING - LOWER BODY - SCORE: 0-UNK TOILETING: TOILETING - STEP 1: Does the patient require assistance with toileting? Yes. TOILETING - STEP 2: Does the patient require the assistance of a helper? Yes. TOILETING - STEP 3: How much assistance does the patient require from the helper? Only supervision TOILETING - SCORE: 5-SUP BLADDER MANAGEMENT: BLADDER MANAGEMENT - STEP 1: Does the patient control the bladder completely and intentionally without equipment or devices or med ications, and is always continent? Yes. BLADDER MANAGEMENT - SCORE: 7-IND BOWEL MANAGEMENT: BOWEL MANAGEMENT - STEP 1: Does the patient control bowels completely and intentionally without equipment devices or medications AND is always continent? No. BOWEL MANAGEMENT - STEP 2: Does the patient require the assistance of a helper? No, patient requires medication for control such as stool softeners, suppositories, laxatives, enemas, or OTC medications BOWEL MANAGEMENT - SCORE: 6-SAIRA TRANSFERS: BED, CHAIR, WHEELCHAIR: TRANSFERS: BED, CHAIR, WHEELCHAIR - STEP 1: Does the patient require assistance with bed, chair, or wheelchair transfers? Yes. TRANSFERS: BED, CHAIR, WHEELCHAIR - STEP 2: Does the patient require the assistance of a helper? Yes. TRANSFERS: BED, CHAIR, WHEELCHAIR - STEP 3: How much assistance does the patient require from the helper? Only supervision TRANSFERS: BED, CHAIR, WHEELCHAIR - SCORE: 5-SUP TRANSFERS: TOILET: TRANSFERS: TOILET - STEP 1: Does the patient require assistance with toilet transfers? Yes. TRANSFERS: TOILET - STEP 2: Does the patient require the assistance of a helper? Yes. TRANSFERS: TOILET - STEP 3: How much assistance does the patient require from the helper? Only supervision, cuing, coaxing, OR he lp to set out transfer equipment or to lock brakes and/or lift foot rests TRANSFERS: TOILET - SCORE: 5-SUP TRANSFERS: SHOWER: Activity did not occur on this shift TRANSFERS: SHOWER - SCORE: 0-UNK TRANSFERS: TUB: Activity did not occur on this shift TRANSFERS: TUB - SCORE: 0-UNK LOCOMOTION: WALK: Activity did not occur on this shift LOCOMOTION: WALK - SCORE: 0-UNK LOCOMOTION: WHEELCHAIR: Activity did not occur on this shift LOCOMOTION: WHEELCHAIR - SCORE: 0-UNK COMPREHENSION: COMPREHENSION - STEP 1: Does the patient require help to understand complex and abstract ideas (such as current events, finan radha, discharge planning, medical issues, relationships, etc)? No. COMPREHENSION - STEP 2: Does the patient need extra time, require an assistive device (such as glasses, hearing aids, or an a ugmentative communication system), OR does s/he have mild difficulty expressing complex and abstract ideas (including mild dysarthria or mild word-finding problems)? Yes. COMPREHENSION - SCORE: 6-SAIRA EXPRESSION EXPRESSION - STEP 1: Does the patient require help expressing complex and abstract ideas (such as current events, finances , discharge planning, medical issues, relationships, etc)? No. EXPRESSION - STEP 2: Does the patient need extra time, require an assistive device (such as augmentive communication syste m or a communication board), OR does s/he have mild difficulty expressing complex and abstract ideas (including mild dysarthria or mild word-find problems)? No. EXPRESSION - SCORE: 7-IND SOCIAL INTERACTION: SOCIAL INTERACTION - STEP 1: Does the patient require a helper to interact with others in social and therapeutic situations? No. SOCIAL INTERACTION - STEP 2: Does the patient need extra time in social situations, OR does s/he interact with staff, other patien ts, and family members ONLY in structured environments, OR does s/he require medication for social in teraction? No. SOCIAL INTERACTION - SCORE: 7-IND PROBLEM SOLVING: PROBLEM SOLVING - STEP 1: Does the patient need help to solve complex problems such as managing a checking account or confronti ng interpersonal problems? No. PROBLEM SOLVING - STEP 2: Does the patient require extra time to make decisions or solve problems, OR does s/he have slight dif ficulty reading, initiating, or self-correcting in unfamiliar situations? Yes, patient needs extra ti me. PROBLEM SOLVING - SCORE: 6-SAIRA MEMORY: MEMORY - STEP 1: Does the patient need help to remember frequently encountered people, daily routines, and executing r equests? No. MEMORY - STEP 2: Does the patient have slight difficulty recognizing frequently encountered people, daily routines, or executing requests without the need for repetition or using self-initiated or environmental cues to remember? Yes. MEMORY - SCORE: 6-SAIRA SIGNATURE PANEL: The following modified sections: Eating - Score, Grooming - Score, Dressing - Upper Body - Score, Robson ssing - Lower Body - Score, Toileting - Score, Bladder Management - Score, Bowel Management - Score, Transfers: Bed, Chair, Wheelchair - Score, Transfers: Toilet - Score, Transfers: Shower - Score, [place] sfers: Tub - Score, Locomotion: Walk - Score, Locomotion: Wheelchair - Score, Comprehension - Score, Expression - Score, Social Interaction - Score, Problem Solving - Score, Memory - Score were [electro nically] signed by Elva Crawford CNA on WedApr 18 2018 01:53:53 GMT-0500 (Central Daylight Time)
[2018-04-18 06:15] LABS: Absolute Lymphocytes (CBC) 1.3 K/uL (0.7-4.9); Absolute Monocytes 1.1 K/uL (0.1-1.3); Absolute Neutrophil 3.4 K/uL (1.8-8.0); Eosinophils % 4.8 % (0-4.4); Hematocrit 25.8 % (36.0-45.0); Lymphocytes % 20.4 % (15.3-44.8); MCH 29.7 pg (27.0-35.0); MCV 90.5 fL (80-100); MPV 7.9 fL (7.6-11.3); Monocytes % 18.2 % (3.3-12.3); RBC Red Blood Cell Count 2.85 M/uL (3.86-4.86)
[2018-04-18 06:25] LABS: Bilirubin Total 0.2 mg/dL (0.2-1.0); Potassium 4.7 mmol/L (3.5-5.1); Protein, Total 6.3 g/dL (6.4-8.2)
[2018-04-18] MEDS: INSULIN -REGULAR HUMAN 50 UNIT/0.5 ML ML SQ SCH ×4 (07:30→21:00)
[2018-04-18] MEDS: PROMOD 30 ML DOSE PO SCH ×2 (08:00→21:55)
[2018-04-18] MEDS: HEPARIN 5000 UNIT/ML 1 ML VIAL SQ SCH ×2 (08:00→21:45)
[2018-04-18] MEDS: FUROSEMIDE 40 MG TABLET PO SCH ×2 (08:30→17:00)
[2018-04-18] MEDS: FAMOTIDINE 20 MG TAB PO SCH ×2 (08:30→21:54)
[2018-04-18] MEDS: GABAPENTIN 300 MG CAP PO SCH ×2 (08:32→21:54)
[2018-04-18] MEDS: AMLODIPINE 5 MG TAB PO SCH (08:32)
[2018-04-18] MEDS: FERROUS SULFATE 325 MG TAB PO SCH (08:32)
[2018-04-18] MEDS: FE SULF/FA/VIT B COMP & C TAB PO SCH (08:32)
[2018-04-18] MEDS: GLIPIZIDE S.A. 5 MG TAB PO SCH (08:33)
[2018-04-18] MEDS: TRAMADOL HCL 50 MG TAB PO PRN ×2 (08:33→22:02)
[2018-04-18] MEDS: CLONIDINE HCL 0.3 MG TAB PO SCH ×2 (08:33→21:54)
[2018-04-18] MEDS: CALCIUM CARBONATE 500 MG TAB PO SCH (08:33)
[2018-04-18] MEDS: FOLIC ACID 1 MG TABLET PO SCH (08:33)
[2018-04-18] MEDS: LIDOCAINE 5% PATCH TOP SCH (08:34)
[2018-04-18] MEDS: TRIAMCINOLONE ACET 0.1% CREAM 80 GM TOP SCH ×2 (08:34→21:55)
[2018-04-18] MEDS: HYDRALAZINE HCL 25 MG TABLET PO SCH ×2 (08:34→16:00)
[2018-04-18] MEDS: COMBIGAN OPTHALMIC EACH EYE SCH ×2 (08:35→21:55)
[2018-04-18] MEDS: RESTASIS 0.05% EACH EYE SCH ×2 (08:42→21:53)
--- NOTE | 2018-04-18 09:56 | FAST ---
ENCOUNTER DATE AND TIME: 04/08/2018 08:00 (CDT) NAME SHANNAN MCKEE DATE OF : 1950 DATE OF ADMISSION: 04/07/2018 20:20 (CDT) PHONE: AGE: 68 N# [id number] GENDER: Female ENCOUNTER PHYSICIAN: Dr. Davie Hernandez M.D. ADMISSION DIAGNOSIS: - Other Disabling Impairments 13 - Other Disabling Impairments (13) Critical illness polyneuropathy, Debility, ESRD. EATING: EATING - STEP 1: Does the patient require assistance when eating? No. EATING - SCORE: 7-IND GROOMING: Comb/brush hair Oral care Wash, rinse, and dry face Wash, rinse, and dry hands GROOMING - STEP 1: Does the patient require assistance when grooming? No. GROOMING - SCORE: 7-IND BATHING: Abdomen Buttocks Chest Left arm Left lower leg and foot Left upper leg Perineal area Right arm Right lower leg and foot Right upper leg BATHING - STEP 1: Does the patient require assistance when bathing? Yes. BATHING - STEP 2: Does the patient require the assistance of a helper? Yes. BATHING - STEP 3: How much assistance does the patient require from the helper? Only incidental help such as placement of a wash cloth in his/her hand a few times as s/he bathes OR help to bathe just one or two areas of the body BATHING - SCORE: 4-MIN DRESSING - UPPER BODY: Patient is not dressing in public clothing ARTICLES SCORE Total number of steps: 0 DRESSING - UPPER BODY - SCORE: 0-UNK DRESSING - LOWER BODY: Sock - Left foot (one step) Sock - Right foot (one step) Underwear (three steps) ARTICLES SCORE Total number of steps: 5 DRESSING - LOWER BODY - STEP 1: Does the patient require help when dressing below the waist? Yes. DRESSING - LOWER BODY - STEP 2: Does the patient require the assistance of a helper? Yes. DRESSING - LOWER BODY - STEP 3: Does the helper touch the patient while dressing? Yes. DRESSING - LOWER BODY - STEP 4: How many of the total steps does the patient complete on his/her own? 0 DRESSING - LOWER BODY - STEP 5: Does patient require total assistance for dressing below the waist such as the helper holding clothin g and performing basically all the activities? Yes. DRESSING - LOWER BODY - SCORE: 1-DEP TOILETING: Activity did not occur on this shift TOILETING - SCORE: 0-UNK BLADDER MANAGEMENT: Activity did not occur on this shift BLADDER MANAGEMENT - SCORE: 7-IND BOWEL MANAGEMENT: Activity did not occur on this shift BOWEL MANAGEMENT - SCORE: 7-IND TRANSFERS: BED, CHAIR, WHEELCHAIR: Activity did not occur on this shift TRANSFERS: BED, CHAIR, WHEELCHAIR - SCORE: 0-UNK TRANSFERS: TOILET: Activity did not occur on this shift TRANSFERS: TOILET - SCORE: 0-UNK TRANSFERS: SHOWER: Activity did not occur on this shift TRANSFERS: SHOWER - SCORE: 0-UNK TRANSFERS: TUB: TRANSFERS: TUB - STEP 1: Does the patient require assistance with tub transfers? Yes. TRANSFERS: TUB - STEP 2: Does the patient require the assistance of a helper? Yes. TRANSFERS: TUB - STEP 3: How much assistance does the patient require from the helper? More than incidental help TRANSFERS: TUB - STEP 4: How much more help does the patient require from the helper? [place] lifts patient up out of the wheel chair AND down onto the tub bench TRANSFERS: TUB - SCORE: 2-MAX LOCOMOTION: WALK: Activity did not occur on this shift LOCOMOTION: WALK - SCORE: 0-UNK LOCOMOTION: WHEELCHAIR: Activity did not occur on this shift LOCOMOTION: WHEELCHAIR - SCORE: 0-UNK LOCOMOTION: STAIRS: Activity did not occur on this shift LOCOMOTION: STAIRS - SCORE: 0-UNK COMPREHENSION: COMPREHENSION: TYPE: Both COMPREHENSION - STEP 1: Does the patient require help to understand complex and abstract ideas (such as current events, finan radha, discharge planning, medical issues, relationships, etc)? No. COMPREHENSION - STEP 2: Does the patient need extra time, require an assistive device (such as glasses, hearing aids, or an a ugmentative communication system), OR does s/he have mild difficulty expressing complex and abstract ideas (including mild dysarthria or mild word-finding problems)? Yes. COMPREHENSION - SCORE: 6-SAIRA EXPRESSION EXPRESSION: TYPE: Both EXPRESSION - STEP 1: Does the patient require help expressing complex and abstract ideas (such as current events, finances , discharge planning, medical issues, relationships, etc)? No. EXPRESSION - STEP 2: Does the patient need extra time, require an assistive device (such as augmentive communication syste m or a communication board), OR does s/he have mild difficulty expressing complex and abstract ideas (including mild dysarthria or mild word-find problems)? Yes. EXPRESSION - SCORE: 6-SAIRA SOCIAL INTERACTION: SOCIAL INTERACTION - STEP 1: Does the patient require a helper to interact with others in social and therapeutic situations? No. SOCIAL INTERACTION - STEP 2: Does the patient need extra time in social situations, OR does s/he interact with staff, other patien ts, and family members ONLY in structured environments, OR does s/he require medication for social in teraction? Yes, patient needs extra time SOCIAL INTERACTION - SCORE: 6-SAIRA PROBLEM SOLVING: PROBLEM SOLVING - STEP 1: Does the patient need help to solve complex problems such as managing a checking account or confronti ng interpersonal problems? No. PROBLEM SOLVING - STEP 2: Does the patient require extra time to make decisions or solve problems, OR does s/he have slight dif ficulty reading, initiating, or self-correcting in unfamiliar situations? Yes, patient needs extra ti me. PROBLEM SOLVING - SCORE: 6-SAIRA MEMORY: MEMORY - STEP 1: Does the patient need help to remember frequently encountered people, daily routines, and executing r equests? No. MEMORY - STEP 2: Does the patient have slight difficulty recognizing frequently encountered people, daily routines, or executing requests without the need for repetition or using self-initiated or environmental cues to remember? Yes. MEMORY - SCORE: 6-SAIRA SIGNATURE PANEL: The following modified sections: Eating - Score, Grooming - Score, Bathing - Score, Dressing - Upper Body - Score, Dressing - Lower Body - Score, Toileting - Score, Transfers: Bed, Chair, Wheelchair - S core, Transfers: Toilet - Score, Transfers: Shower - Score, Transfers: Tub - Score, Comprehension - S core, Expression - Score, Social Interaction - Score, Problem Solving - Score, Memory - Score were [e lectronically] signed by Beverley Mcgrath OT on WedApr 18 2018 09:55:30 GMT-0500 (Central Daylight T frances)
--- NOTE | 2018-04-18 10:33 | P.PN ---
Subjective Date of Service: 04/18/18 Primary Care Provider: Fruit Worker-Dr. Hernandez/PCP-Dr. Logan Chief Complaint: Patient currently in rehab post CHF exacerbation Subjective: No C/O voiced, Tolerating diet, Ambulating, Working w/ PT, Doing well Review of Systems General: As per HPI Physical Examination - Vital Signs Temperature: 97.8 F Blood Pressure: 155/65 Pulse: 70 Respirations: 16 Pulse Ox (%): 96 - Physical Exam General: Alert, In no apparent distress HEENT: Atraumatic, PERRLA, EOMI Neck: Supple, JVD not distended Respiratory: Clear to auscultation bilaterally, Normal air movement Cardiovascular: Regular rate/rhythm, Normal S1 S2 Gastrointestinal: Normal bowel sounds, No tenderness Musculoskeletal: No tenderness Integumentary: No rashes Neurological: Normal speech, Normal tone, Normal affect Lymphatics: No axilla or inguinal lymphadenopathy - Studies Laboratory Data (last 24 hrs) 04/18/18 05:52: Sodium 141, Potassium 4.7, BUN 31 H, Creatinine 4.10 H, Glucose 143 H, Total Bilirubin 0.2, AST 12 L, ALT 11 L, Alkaline Phosphatase 73 04/18/18 05:49: WBC 6.1, Hgb 8.5 L, Hct 25.8 L, Plt Count 324 Medications List Reviewed: Yes Assessment & Plan - Problems (Diagnosis) (1) Encounter for rehabilitation Onset Date: 04/08/18 Current Visit: Yes Status: Acute Plan: Patient currently in inpatient rehab working with physical therapy occupational therapy and speech therapy. Doing well overall. Has been getting stronger daily. Medicine has been consulted on the case due to chronic conditions of the patient. No complication noted at this time. Patient continues on all the medication while here in the inpatient rehab. Patient will need to be set up with dialysis once ready to be discharged home. CM working on dialysis chair time for her. No further workup needed at this time patient stable and participating in therapy daily. (2) End stage renal disease Onset Date: 04/11/18 Current Visit: Yes Status: Chronic (3) CHF (congestive heart failure) Onset Date: 04/11/18 Current Visit: Yes Status: Chronic Qualifiers: Heart failure type: diastolic Heart failure chronicity: chronic Qualified Code(s): I50.32 - Chronic diastolic (congestive) heart failure (4) Diabetes mellitus Onset Date: 04/11/18 Current Visit: Yes Status: Chronic Qualifiers: Diabetes mellitus type: type 2 Diabetes mellitus senior care insulin use: without senior care use Diabetes mellitus complication status: with kidney complications Diabetes mellitus complication detail: with chronic kidney disease Chronic kidney disease stage: on chronic dialysis Qualified Code(s) : E11.22 - Type 2 diabetes mellitus with diabetic chronic kidney disease; N18.6 - End stage renal disease; Z99.2 - Dependence on renal dialysis (5) GERD (gastroesophageal reflux disease) Onset Date: 04/11/18 Current Visit: Yes Status: Chronic Qualifiers: Esophagitis presence: esophagitis presence not specified Qualified Code(s) : K21.9 - Gastro-esophageal reflux disease without esophagitis (6) Hyperlipidemia Onset Date: 04/11/18 Current Visit: Yes Status: Chronic Qualifiers: Hyperlipidemia type: unspecified Qualified Code(s): E78.5 - Hyperlipidemia , unspecified (7) Hypertension Onset Date: 04/11/18 Current Visit: Yes Status: Chronic Qualifiers: Hypertension type: essential hypertension Qualified Code(s): I10 - Essential (primary) hypertension (8) Obesity Onset Date: 04/11/18 Current Visit: Yes Status: Chronic Qualifiers: Obesity type: due to excess calories Obesity classification: adult class 3 (BMI >= 40) Serious obesity comorbidity presence: with serious comorbidity Body mass index: BMI 45.0-49.9 Qualified Code(s): E66.01 - Morbid (severe) obesity due to excess calories; Z68.42 - Body mass index (BMI) 45.0-49.9, adult
--- NOTE | 2018-04-18 13:55 | FAST ---
SHIFT START DATE/TIME: 04/18/2018 07:00 (CDT) SHIFT END DATE/TIME: 04/18/2018 19:00 (CDT) NAME SHANNAN MCKEE DATE OF : 1950 DATE OF ADMISSION: 04/07/2018 20:20 (CDT) PHONE: AGE: 68 N# [id number] GENDER: Female ENCOUNTER PHYSICIAN: Dr. Davie Hernandez M.D. ADMISSION DIAGNOSIS: - Other Disabling Impairments 13 - Other Disabling Impairments (13) Critical illness polyneuropathy, Debility, ESRD. EATING: EATING - STEP 1: Does the patient require assistance when eating? Yes. EATING - STEP 2: Does the patient require the assistance of a helper? No, patient only requires an assistive device, O R s/he takes more than reasonable time to eat, OR there is a safety concern, OR s/he requires modifie d food consistency EATING - SCORE: 6-SAIRA GROOMING: Comb/brush hair Wash, rinse, and dry face Wash, rinse, and dry hands GROOMING - STEP 1: Does the patient require assistance when grooming? Yes. GROOMING - STEP 2: Does the patient require the assistance of a helper? No. The patient only requires an assistive devic e, OR takes more than reasonable time to groom, OR there is a concern for safety as the patient groom s GROOMING - SCORE: 6-SAIRA BATHING: Activity did not occur on this shift BATHING - SCORE: 0-UNK DRESSING - UPPER BODY: Activity did not occur on this shift ARTICLES SCORE Total number of steps: 0 DRESSING - UPPER BODY - SCORE: 0-UNK DRESSING - LOWER BODY: Activity did not occur on this shift ARTICLES SCORE Total number of steps: 0 DRESSING - LOWER BODY - SCORE: 0-UNK TOILETING: TOILETING - STEP 1: Does the patient require assistance with toileting? Yes. TOILETING - STEP 2: Does the patient require the assistance of a helper? Yes. TOILETING - STEP 3: How much assistance does the patient require from the helper? Only supervision TOILETING - SCORE: 5-SUP BLADDER MANAGEMENT: BLADDER MANAGEMENT - STEP 1: Does the patient control the bladder completely and intentionally without equipment or devices or med ications, and is always continent? No. BLADDER MANAGEMENT - STEP 2: Does the patient require the assistance of a helper? No, patient requires and independently uses an a ssistive device, such as a urinal, bedpan, bedside commode, catheter, absorbent pad, or collecting de vice BLADDER MANAGEMENT - SCORE: 6-SAIRA BOWEL MANAGEMENT: BOWEL MANAGEMENT - STEP 1: Does the patient control bowels completely and intentionally without equipment devices or medications AND is always continent? No. BOWEL MANAGEMENT - STEP 2: Does the patient require the assistance of a helper? No, patient requires and manages independently a n assistive device such as a bedpan, bedside commode, absorbent pad, incontinent device, or collectin g device BOWEL MANAGEMENT - SCORE: 6-SAIRA TRANSFERS: BED, CHAIR, WHEELCHAIR: TRANSFERS: BED, CHAIR, WHEELCHAIR - STEP 1: Does the patient require assistance with bed, chair, or wheelchair transfers? Yes. TRANSFERS: BED, CHAIR, WHEELCHAIR - STEP 2: Does the patient require the assistance of a helper? Yes. TRANSFERS: BED, CHAIR, WHEELCHAIR - STEP 3: How much assistance does the patient require from the helper? Steadying/guiding assistance TRANSFERS: BED, CHAIR, WHEELCHAIR - SCORE: 4-MIN TRANSFERS: TOILET: TRANSFERS: TOILET - STEP 1: Does the patient require assistance with toilet transfers? Yes. TRANSFERS: TOILET - STEP 2: Does the patient require the assistance of a helper? Yes. TRANSFERS: TOILET - STEP 3: How much assistance does the patient require from the helper? Patient performs half or more of the tr ansferring tasks TRANSFERS: TOILET - STEP 4: Does the patient need only incidental help such as contact guard or steadying during toilet transfer? Yes. TRANSFERS: TOILET - SCORE: 4-MIN TRANSFERS: SHOWER: Activity did not occur on this shift TRANSFERS: SHOWER - SCORE: 0-UNK TRANSFERS: TUB: Activity did not occur on this shift TRANSFERS: TUB - SCORE: 0-UNK LOCOMOTION: WALK: Activity did not occur on this shift LOCOMOTION: WALK - SCORE: 0-UNK LOCOMOTION: WHEELCHAIR: Activity did not occur on this shift LOCOMOTION: WHEELCHAIR - SCORE: 0-UNK COMPREHENSION: COMPREHENSION - SCORE: 0-UNK EXPRESSION EXPRESSION - SCORE: 0-UNK SOCIAL INTERACTION: SOCIAL INTERACTION - SCORE: 0-UNK PROBLEM SOLVING: PROBLEM SOLVING - SCORE: 0-UNK MEMORY: MEMORY - SCORE: 0-UNK SIGNATURE PANEL: The following modified sections: Eating - Score, Grooming - Score, Bathing - Score, Dressing - Upper Body - Score, Dressing - Lower Body - Score, Toileting - Score, Bladder Management - Score, Bowel Man agement - Score, Transfers: Bed, Chair, Wheelchair - Score, Transfers: Toilet - Score, Transfers: Katherine wer - Score, Transfers: Tub - Score, Locomotion: Walk - Score, Locomotion: Wheelchair - Score, Compre hension - Score, Expression - Score, Social Interaction - Score, Problem Solving - Score, Memory - Sc ore were [electronically] signed by Ortiz Chahal on WedApr 18 2018 13:54:10 GMT-0500 (Central Daylight Time)
--- NOTE | 2018-04-18 14:45 | FAST ---
ENCOUNTER DATE AND TIME: 04/18/2018 08:00 (CDT) NAME SHANNAN MCKEE DATE OF : 1950 DATE OF ADMISSION: 04/07/2018 20:20 (CDT) PHONE: AGE: 68 N# [id number] GENDER: Female ENCOUNTER PHYSICIAN: Dr. Davie Hernandez M.D. ADMISSION DIAGNOSIS: - Other Disabling Impairments 13 - Other Disabling Impairments (13) Critical illness polyneuropathy, Debility, ESRD. EATING: Activity did not occur on this shift EATING - SCORE: 0-UNK GROOMING: Wash, rinse, and dry face Wash, rinse, and dry hands GROOMING - STEP 1: Does the patient require assistance when grooming? No. GROOMING - SCORE: 7-IND BATHING: Abdomen Buttocks Chest Left arm Left lower leg and foot Left upper leg Perineal area Right arm Right lower leg and foot Right upper leg BATHING - STEP 1: Does the patient require assistance when bathing? Yes. BATHING - STEP 2: Does the patient require the assistance of a helper? No. The patient only requires an assistive devic e such as a bath pradeep, OR the patient takes more than reasonable time to bathe, OR there is a concern for safety such as regulating water temperature as the patient bathes. BATHING - SCORE: 6-SAIRA DRESSING - UPPER BODY: T-shirt/pullover shirt (four steps) ARTICLES SCORE Total number of steps: 4 DRESSING - UPPER BODY - STEP 1: Does the patient require help when dressing above the waist? No. DRESSING - UPPER BODY - SCORE: 7-IND DRESSING - LOWER BODY: Elastic waist pants (three steps) Sock - Left foot (one step) Sock - Right foot (one step) Underwear (three steps) ARTICLES SCORE Total number of steps: 8 DRESSING - LOWER BODY - STEP 1: Does the patient require help when dressing below the waist? Yes. DRESSING - LOWER BODY - STEP 2: Does the patient require the assistance of a helper? No. Patient requires an assistive device such as a log roper. OR s/he takes more than reasonable time as s/he dresses the lower body, OR there is a con cern for safety when s/he dresses the lower body DRESSING - LOWER BODY - SCORE: 6-SAIRA TOILETING: Activity did not occur on this shift TOILETING - SCORE: 0-UNK BLADDER MANAGEMENT: Activity did not occur on this shift BLADDER MANAGEMENT - SCORE: 7-IND BOWEL MANAGEMENT: Activity did not occur on this shift BOWEL MANAGEMENT - SCORE: 7-IND TRANSFERS: BED, CHAIR, WHEELCHAIR: Activity did not occur on this shift TRANSFERS: BED, CHAIR, WHEELCHAIR - SCORE: 0-UNK TRANSFERS: TOILET: Activity did not occur on this shift TRANSFERS: TOILET - SCORE: 0-UNK TRANSFERS: SHOWER: Activity did not occur on this shift TRANSFERS: SHOWER - SCORE: 0-UNK TRANSFERS: TUB: TRANSFERS: TUB - STEP 1: Does the patient require assistance with tub transfers? Yes. TRANSFERS: TUB - STEP 2: Does the patient require the assistance of a helper? Yes. TRANSFERS: TUB - STEP 3: How much assistance does the patient require from the helper? Only supervision, cuing, coaxing, or he lp to set out transfer equipment or to lock brakes and/or lift foot rests TRANSFERS: TUB - SCORE: 5-SUP LOCOMOTION: WALK: Activity did not occur on this shift LOCOMOTION: WALK - SCORE: 0-UNK LOCOMOTION: WHEELCHAIR: Activity did not occur on this shift LOCOMOTION: WHEELCHAIR - SCORE: 0-UNK LOCOMOTION: STAIRS: Activity did not occur on this shift LOCOMOTION: STAIRS - SCORE: 0-UNK COMPREHENSION: COMPREHENSION - SCORE: 0-UNK EXPRESSION EXPRESSION - SCORE: 0-UNK SOCIAL INTERACTION: SOCIAL INTERACTION - SCORE: 0-UNK PROBLEM SOLVING: PROBLEM SOLVING - SCORE: 0-UNK MEMORY: MEMORY - SCORE: 0-UNK SIGNATURE PANEL: The following modified sections: Eating - Score, Grooming - Score, Bathing - Score, Dressing - Upper Body - Score, Dressing - Lower Body - Score, Toileting - Score, Transfers: Bed, Chair, Wheelchair - S core, Transfers: Toilet - Score, Transfers: Shower - Score, Transfers: Tub - Score, Comprehension - S core, Expression - Score, Social Interaction - Score, Problem Solving - Score, Memory - Score were [e lectronically] signed by ELSI Ceballos on WedApr 18 2018 14:44:38 T-0500 ([facility] Time)
--- NOTE | 2018-04-18 15:26 | FAST ---
ENCOUNTER DATE AND TIME: 04/18/2018 08:00 (CDT) NAME SHANNAN MCKEE DATE OF : 1950 DATE OF ADMISSION: 04/07/2018 20:20 (CDT) PHONE: AGE: 68 N# [id number] GENDER: Female ENCOUNTER PHYSICIAN: Dr. Davie Hernandez M.D. ADMISSION DIAGNOSIS: - Other Disabling Impairments 13 - Other Disabling Impairments (13) Critical illness polyneuropathy, Debility, ESRD. EATING: Activity did not occur on this shift EATING - SCORE: 0-UNK GROOMING: Activity did not occur on this shift GROOMING - SCORE: 0-UNK BATHING: Activity did not occur on this shift BATHING - SCORE: 0-UNK DRESSING - UPPER BODY: Activity did not occur on this shift Patient is not dressing in public clothing ARTICLES SCORE Total number of steps: 0 DRESSING - UPPER BODY - SCORE: 0-UNK DRESSING - LOWER BODY: Activity did not occur on this shift Patient is not dressing in public clothing ARTICLES SCORE Total number of steps: 0 DRESSING - LOWER BODY - SCORE: 0-UNK TOILETING: Activity did not occur on this shift TOILETING - SCORE: 0-UNK BLADDER MANAGEMENT: Activity did not occur on this shift BLADDER MANAGEMENT - SCORE: 7-IND BOWEL MANAGEMENT: Activity did not occur on this shift BOWEL MANAGEMENT - SCORE: 7-IND TRANSFERS: BED, CHAIR, WHEELCHAIR: Activity did not occur on this shift TRANSFERS: BED, CHAIR, WHEELCHAIR - SCORE: 0-UNK TRANSFERS: TOILET: Activity did not occur on this shift TRANSFERS: TOILET - SCORE: 0-UNK TRANSFERS: SHOWER: Activity did not occur on this shift TRANSFERS: SHOWER - SCORE: 0-UNK TRANSFERS: TUB: Activity did not occur on this shift TRANSFERS: TUB - SCORE: 0-UNK LOCOMOTION: WALK: Activity did not occur on this shift LOCOMOTION: WALK - SCORE: 0-UNK LOCOMOTION: WHEELCHAIR: Activity did not occur on this shift LOCOMOTION: WHEELCHAIR - SCORE: 0-UNK LOCOMOTION: STAIRS: Activity did not occur on this shift LOCOMOTION: STAIRS - SCORE: 0-UNK COMPREHENSION: COMPREHENSION - STEP 1: Does the patient require help to understand complex and abstract ideas (such as current events, finan radha, discharge planning, medical issues, relationships, etc)? No. COMPREHENSION - STEP 2: Does the patient need extra time, require an assistive device (such as glasses, hearing aids, or an a ugmentative communication system), OR does s/he have mild difficulty expressing complex and abstract ideas (including mild dysarthria or mild word-finding problems)? Yes. COMPREHENSION - SCORE: 6-SAIRA EXPRESSION EXPRESSION - STEP 1: Does the patient require help expressing complex and abstract ideas (such as current events, finances , discharge planning, medical issues, relationships, etc)? No. EXPRESSION - STEP 2: Does the patient need extra time, require an assistive device (such as augmentive communication syste m or a communication board), OR does s/he have mild difficulty expressing complex and abstract ideas (including mild dysarthria or mild word-find problems)? Yes. EXPRESSION - SCORE: 6-SAIRA SOCIAL INTERACTION: SOCIAL INTERACTION - STEP 1: Does the patient require a helper to interact with others in social and therapeutic situations? No. SOCIAL INTERACTION - STEP 2: Does the patient need extra time in social situations, OR does s/he interact with staff, other patien ts, and family members ONLY in structured environments, OR does s/he require medication for social in teraction? No. SOCIAL INTERACTION - SCORE: 7-IND PROBLEM SOLVING: PROBLEM SOLVING - STEP 1: Does the patient need help to solve complex problems such as managing a checking account or confronti ng interpersonal problems? Yes. PROBLEM SOLVING - STEP 2: Does the patient solve basic routine problems half or more of the time? Yes. PROBLEM SOLVING - STEP 3: How often does the patient need help to solve basic routine problems? Less than 10% of the time PROBLEM SOLVING - SCORE: 5-SUP MEMORY: MEMORY - STEP 1: Does the patient need help to remember frequently encountered people, daily routines, and executing r equests? No. MEMORY - STEP 2: Does the patient have slight difficulty recognizing frequently encountered people, daily routines, or executing requests without the need for repetition or using self-initiated or environmental cues to remember? Yes. MEMORY - SCORE: 6-SAIRA SIGNATURE PANEL: The following modified sections: Comprehension - Score, Expression - Score, Social Interaction - Scor e, Problem Solving - Score, Memory - Score were [electronically] signed by ST Amina on Wed 15:25:19 GMT-0500 (Central Daylight Time)
[2018-04-18] MEDS: EPOETIN ALFA 10,000 UNIT/ML VIAL SQ SCH (19:41)
[2018-04-18] MEDS: ATORVASTATIN 20 MG TAB PO SCH (21:53)
[2018-04-18] MEDS: DOCUSATE NA/SENNA CONC 1 TAB PO SCH (21:53)
[2018-04-18] MEDS: BIMATOPROST OPTH SCH (21:54)
[2018-04-19] MEDS: HYDRALAZINE HCL 25 MG TABLET PO SCH ×4 (00:10→23:48)
--- NOTE | 2018-04-19 00:50 | PN ---
Date of Progress Note: 04/18/2018 Chief Complaint: End-stage renal disease, new onset. Subjective: The patient developed progressively worse kidney failure. The patient has underlying chronic kidney stage 4, acute kidney injury with fluid overload, congestive heart failure with diastolic dysfunction. The patient was initiated on dialysis . She is to have dialysis today. Review of Systems: Constitutional: Denies fever or chills. Eyes: Denies vision changes. Ears, Nose, Mouth, and Throat: Denies sore throat or earache. Physical Examination: Lungs: Few crackles at bases. Heart: S1, S2. Abdomen: Soft, benign. Extremities: Edema present in both legs. Impression And Plan: 1. End-stage renal disease, fluid overload. Dialysis with ultrafiltration will be done to control volemia and provide metabolic clearance. The patient is dialysis dependent. 2. Anemia in chronic kidney disease. Hemoglobin 8.1. Continue MITZY. 3. Secondary hyperparathyroidism of renal origin. Calcium level is in acceptable control. 4. Hypoalbuminemia, secondary to nephrotic range proteinuria associated with diabetic kidney disease. The patient has cardiorenal syndrome. Serology was ordered to rule out any evidence of secondary glomerulonephritis. 5. Hypertension. Monitor blood pressure closely and advance ultrafiltration with dialysis to control fluid overload. 6. Hypocalcemia. Continue calcitriol. Monitor calcium and phosphorus level. EB/MODL Voice ID: [id number] Report ID: [id number] SILVANA
--- NOTE | 2018-04-19 03:47 | FAST ---
SHIFT START DATE/TIME: 04/18/2018 19:00 (CDT) SHIFT END DATE/TIME: 04/19/2018 07:00 (CDT) NAME SHANNAN MCKEE DATE OF : 1950 DATE OF ADMISSION: 04/07/2018 20:20 (CDT) PHONE: AGE: 68 N# [id number] GENDER: Female ENCOUNTER PHYSICIAN: Dr. Davie Hernandez M.D. ADMISSION DIAGNOSIS: - Other Disabling Impairments 13 - Other Disabling Impairments (13) Critical illness polyneuropathy, Debility, ESRD. EATING: EATING - STEP 1: Does the patient require assistance when eating? Yes. EATING - STEP 2: Does the patient require the assistance of a helper? Yes. EATING - STEP 3: Does the patient perform half or more of the eating tasks? Yes. EATING - STEP 4: Does the patient need only supervision, cuing, coaxing OR help to apply an orthosis OR help to cut fo od, open containers, pour liquids, or butter bread? Yes. EATING - SCORE: 5-SUP GROOMING: Oral care Wash, rinse, and dry face Wash, rinse, and dry hands GROOMING - STEP 1: Does the patient require assistance when grooming? Yes. GROOMING - STEP 2: Does the patient require the assistance of a helper? Yes. GROOMING - STEP 3: How much assistance does the patient require from the helper? Only prior equipment preparation/set up from the helper GROOMING - SCORE: 5-SUP BATHING: Activity did not occur on this shift BATHING - SCORE: 0-UNK DRESSING - UPPER BODY: Patient is not dressing in public clothing ARTICLES SCORE Total number of steps: 0 DRESSING - UPPER BODY - SCORE: 0-UNK DRESSING - LOWER BODY: Patient is not dressing in public clothing ARTICLES SCORE Total number of steps: 0 DRESSING - LOWER BODY - SCORE: 0-UNK TOILETING: TOILETING - STEP 1: Does the patient require assistance with toileting? Yes. TOILETING - STEP 2: Does the patient require the assistance of a helper? Yes. TOILETING - STEP 3: How much assistance does the patient require from the helper? Only supervision TOILETING - SCORE: 5-SUP BLADDER MANAGEMENT: BLADDER MANAGEMENT - STEP 1: Does the patient control the bladder completely and intentionally without equipment or devices or med ications, and is always continent? No. BLADDER MANAGEMENT - STEP 2: Does the patient require the assistance of a helper? Yes. BLADDER MANAGEMENT - STEP 3: How much assistance does the patient require from the helper? Only supervision, stand-by, cuing, or c oaxing BLADDER MANAGEMENT - SCORE: 5-SUP BLADDER MANAGEMENT - FREQUENCY OF ACCIDENTS: BLADDER MANAGEMENT(FA) - STEP 1: How many accidents has the patient had during the current shift? 0 BOWEL MANAGEMENT: Activity did not occur on this shift BOWEL MANAGEMENT - SCORE: 7-IND TRANSFERS: BED, CHAIR, WHEELCHAIR: TRANSFERS: BED, CHAIR, WHEELCHAIR - STEP 1: Does the patient require assistance with bed, chair, or wheelchair transfers? Yes. TRANSFERS: BED, CHAIR, WHEELCHAIR - STEP 2: Does the patient require the assistance of a helper? Yes. TRANSFERS: BED, CHAIR, WHEELCHAIR - STEP 3: How much assistance does the patient require from the helper? Steadying/guiding assistance TRANSFERS: BED, CHAIR, WHEELCHAIR - SCORE: 4-MIN TRANSFERS: TOILET: TRANSFERS: TOILET - STEP 1: Does the patient require assistance with toilet transfers? Yes. TRANSFERS: TOILET - STEP 2: Does the patient require the assistance of a helper? Yes. TRANSFERS: TOILET - STEP 3: How much assistance does the patient require from the helper? Patient performs half or more of the tr ansferring tasks TRANSFERS: TOILET - STEP 4: Does the patient need only incidental help such as contact guard or steadying during toilet transfer? Yes. TRANSFERS: TOILET - SCORE: 4-MIN TRANSFERS: SHOWER: Activity did not occur on this shift TRANSFERS: SHOWER - SCORE: 0-UNK TRANSFERS: TUB: Activity did not occur on this shift TRANSFERS: TUB - SCORE: 0-UNK LOCOMOTION: WALK: Activity did not occur on this shift LOCOMOTION: WALK - SCORE: 0-UNK LOCOMOTION: WHEELCHAIR: Activity did not occur on this shift LOCOMOTION: WHEELCHAIR - SCORE: 0-UNK COMPREHENSION: COMPREHENSION: TYPE: Both COMPREHENSION - STEP 1: Does the patient require help to understand complex and abstract ideas (such as current events, finan radha, discharge planning, medical issues, relationships, etc)? No. COMPREHENSION - STEP 2: Does the patient need extra time, require an assistive device (such as glasses, hearing aids, or an a ugmentative communication system), OR does s/he have mild difficulty expressing complex and abstract ideas (including mild dysarthria or mild word-finding problems)? Yes. COMPREHENSION - SCORE: 6-SAIRA EXPRESSION EXPRESSION: TYPE: Both EXPRESSION - STEP 1: Does the patient require help expressing complex and abstract ideas (such as current events, finances , discharge planning, medical issues, relationships, etc)? No. EXPRESSION - STEP 2: Does the patient need extra time, require an assistive device (such as augmentive communication syste m or a communication board), OR does s/he have mild difficulty expressing complex and abstract ideas (including mild dysarthria or mild word-find problems)? No. EXPRESSION - SCORE: 7-IND SOCIAL INTERACTION: SOCIAL INTERACTION - STEP 1: Does the patient require a helper to interact with others in social and therapeutic situations? No. SOCIAL INTERACTION - STEP 2: Does the patient need extra time in social situations, OR does s/he interact with staff, other patien ts, and family members ONLY in structured environments, OR does s/he require medication for social in teraction? No. SOCIAL INTERACTION - SCORE: 7-IND PROBLEM SOLVING: PROBLEM SOLVING - STEP 1: Does the patient need help to solve complex problems such as managing a checking account or confronti ng interpersonal problems? No. PROBLEM SOLVING - STEP 2: Does the patient require extra time to make decisions or solve problems, OR does s/he have slight dif ficulty reading, initiating, or self-correcting in unfamiliar situations? Yes, patient needs extra ti me. PROBLEM SOLVING - SCORE: 6-SAIRA MEMORY: MEMORY - STEP 1: Does the patient need help to remember frequently encountered people, daily routines, and executing r equests? No. MEMORY - STEP 2: Does the patient have slight difficulty recognizing frequently encountered people, daily routines, or executing requests without the need for repetition or using self-initiated or environmental cues to remember? Yes. MEMORY - SCORE: 6-SAIRA SIGNATURE PANEL: The following modified sections: Eating - Score, Grooming - Score, Bathing - Score, Dressing - Upper Body - Score, Dressing - Lower Body - Score, Toileting - Score, Bladder Management - Score, Bowel Man agement - Score, Transfers: Bed, Chair, Wheelchair - Score, Transfers: Toilet - Score, Transfers: Katherine wer - Score, Transfers: Tub - Score, Locomotion: Walk - Score, Locomotion: Wheelchair - Score, Compre hension - Score, Expression - Score, Social Interaction - Score, Problem Solving - Score, Memory - Sc ore were [electronically] signed by Theresa MeloNRenetta on WedApr 19 2018 03:46:50 GMT-0500 ( Central Daylight Time)
[2018-04-19] MEDS: TRAMADOL HCL 50 MG TAB PO PRN ×2 (04:42→20:45)
[2018-04-19 05:44] VITALS: BMI 48.1
[2018-04-19 05:59] LABS: Absolute Neutrophil 3.3 K/uL (1.8-8.0); Basophils % 0.9 % (0-1.3); Eosinophils % 3.8 % (0-4.4); Hematocrit 25.9 % (36.0-45.0); Lymphocytes % 18.7 % (15.3-44.8); MCH 29.6 pg (27.0-35.0); MCV 90.4 fL (80-100); MPV 7.8 fL (7.6-11.3); Monocytes % 18.4 % (3.3-12.3); RBC Red Blood Cell Count 2.87 M/uL (3.86-4.86)
[2018-04-19 06:07] LABS: Albumin 1.9 g/dL (3.4-5.0); Bilirubin Total 0.2 mg/dL (0.2-1.0); Potassium 4.4 mmol/L (3.5-5.1); Protein, Total 6.3 g/dL (6.4-8.2)
[2018-04-19] MEDS: INSULIN -REGULAR HUMAN 50 UNIT/0.5 ML ML SQ SCH ×4 (07:30→21:50)
[2018-04-19] MEDS: PROMOD 30 ML DOSE PO SCH ×2 (08:00→19:43)
[2018-04-19] MEDS: RESTASIS 0.05% EACH EYE SCH ×2 (08:00→19:42)
[2018-04-19] MEDS: FE SULF/FA/VIT B COMP & C TAB PO SCH (08:02)
[2018-04-19] MEDS: CALCIUM CARBONATE 500 MG TAB PO SCH (08:02)
[2018-04-19] MEDS: GABAPENTIN 300 MG CAP PO SCH ×2 (08:03→19:41)
[2018-04-19] MEDS: CODEINE 30MG/APAP 300MG TAB PO PRN (08:03)
[2018-04-19] MEDS: FERROUS SULFATE 325 MG TAB PO SCH (08:03)
[2018-04-19] MEDS: FOLIC ACID 1 MG TABLET PO SCH (08:04)
[2018-04-19] MEDS: AMLODIPINE 5 MG TAB PO SCH (08:04)
[2018-04-19] MEDS: CLONIDINE HCL 0.3 MG TAB PO SCH ×2 (08:05→19:41)
[2018-04-19] MEDS: LIDOCAINE 5% PATCH TOP SCH (08:05)
[2018-04-19] MEDS: FAMOTIDINE 20 MG TAB PO SCH ×2 (08:05→19:41)
[2018-04-19] MEDS: FUROSEMIDE 40 MG TABLET PO SCH ×2 (08:06→17:00)
[2018-04-19] MEDS: COMBIGAN OPTHALMIC EACH EYE SCH ×2 (08:06→19:42)
[2018-04-19] MEDS: GLIPIZIDE S.A. 5 MG TAB PO SCH (08:07)
[2018-04-19] MEDS: TRIAMCINOLONE ACET 0.1% CREAM 80 GM TOP SCH ×2 (08:07→19:44)
[2018-04-19] MEDS: HEPARIN 5000 UNIT/ML 1 ML VIAL SQ SCH ×2 (08:07→20:02)
--- NOTE | 2018-04-19 10:24 | P.PN ---
Subjective Date of Service: 04/19/18 Primary Care Provider: Sound Engineer-Dr. Hernandez/PCP-Dr. Logan Chief Complaint: Patient currently in rehab post CHF exacerbation Subjective: Doing well Physical Examination - Vital Signs Temperature: 98.6 F Blood Pressure: 197/77 Pulse: 79 Respirations: 18 Pulse Ox (%): 94 - Physical Exam General: Alert, In no apparent distress, Oriented x3, Cooperative HEENT: Atraumatic Neck: Supple Respiratory: Clear to auscultation bilaterally, Normal air movement Cardiovascular: Normal pulses, Regular rate/rhythm Gastrointestinal: Normal bowel sounds, Soft and benign, Non-distended Musculoskeletal: No erythema, No tenderness, No warmth Integumentary: No erythema, No warmth, No cyanosis Neurological: Normal speech, Normal strength at 5/5 x4 extr, Normal tone, Normal affect - Studies Laboratory Data (last 24 hrs) 04/19/18 05:35: Sodium 140, Potassium 4.4, BUN 26 H, Creatinine 3.40 H, Glucose 157 H, Total Bilirubin 0.2, AST 12 L, ALT 11 L, Alkaline Phosphatase 72 04/19/18 05:35: WBC 5.6, Hgb 8.5 L, Hct 25.9 L, Plt Count 306 Medications List Reviewed: Yes Assessment & Plan - Problems (Diagnosis) (1) End stage renal disease Onset Date: 04/11/18 Current Visit: Yes Status: Chronic Plan: Outpatient dialysis is currently being arranged. Patient desires to have dialysis in [facility]. Will discuss with nephrology and social media project manager. Plan for discharge maybe as early as today if arrangements for outpatient dialysis can be done. (2) CHF (congestive heart failure) Onset Date: 04/11/18 Current Visit: Yes Status: Chronic Plan: Patient with chronic diastolic dysfunction. This remained stable. Qualifiers: Heart failure type: diastolic Heart failure chronicity: chronic Qualified Code(s): I50.32 - Chronic diastolic (congestive) heart failure (3) Diabetes mellitus Onset Date: 04/11/18 Current Visit: Yes Status: Chronic Plan: Continue with medication. Overall stable. Qualifiers: Diabetes mellitus type: type 2 Diabetes mellitus precast worker insulin use: without fci use Diabetes mellitus complication status: with kidney complications Diabetes mellitus complication detail: with chronic kidney disease Chronic kidney disease stage: on chronic dialysis Qualified Code(s) : E11.22 - Type 2 diabetes mellitus with diabetic chronic kidney disease; N18.6 - End stage renal disease; Z99.2 - Dependence on renal dialysis (4) Hypertension Onset Date: 04/11/18 Current Visit: Yes Status: Chronic Plan: Continue with medication Qualifiers: Hypertension type: essential hypertension Qualified Code(s): I10 - Essential (primary) hypertension (5) GERD (gastroesophageal reflux disease) Onset Date: 04/11/18 Current Visit: Yes Status: Chronic Plan: Continue with medication Qualifiers: Esophagitis presence: esophagitis presence not specified Qualified Code(s) : K21.9 - Gastro-esophageal reflux disease without esophagitis (6) Diabetic neuropathy Onset Date: 04/11/18 Current Visit: Yes Status: Chronic Plan: Continue with her medication. Qualifiers: Diabetes mellitus type: type 2 Diabetes mellitus complication detail: diabetic polyneuropathy Qualified Code(s): E11.42 - Type 2 diabetes mellitus with diabetic polyneuropathy (7) Obesity Onset Date: 04/11/18 Current Visit: Yes Status: Chronic Plan: Will address lifestyle modification education Qualifiers: Obesity type: due to excess calories Obesity classification: adult class 3 (BMI >= 40) Serious obesity comorbidity presence: with serious comorbidity Body mass index: BMI 45.0-49.9 Qualified Code(s): E66.01 - Morbid (severe) obesity due to excess calories; Z68.42 - Body mass index (BMI) 45.0-49.9, adult (8) Hyperlipidemia Onset Date: 04/11/18 Current Visit: Yes Status: Chronic Plan: Continue with her medication Qualifiers: Hyperlipidemia type: unspecified Qualified Code(s): E78.5 - Hyperlipidemia , unspecified (9) Anemia Current Visit: Yes Status: Chronic Plan: Likely of chronic disease. Will monitor closely. Qualifiers: Anemia type: due to chronic kidney disease Chronic kidney disease stage: on chronic dialysis Qualified Code(s): N18.6 - End stage renal disease; D63.1 - Anemia in chronic kidney disease; Z99.2 - Dependence on renal dialysis Discharge Plan: Home Plan to discharge in: 24 Hours Time Spent Managing Pts Care (In Minutes): 55
[2018-04-19] MEDS: CALCITROL 0.25 MCG CAP PO SCH (11:00)
--- NOTE | 2018-04-19 14:58 | FAST ---
SHIFT START DATE/TIME: 04/19/2018 07:00 (CDT) SHIFT END DATE/TIME: 04/19/2018 19:00 (CDT) NAME SHANNAN MCKEE DATE OF : 1950 DATE OF ADMISSION: 04/07/2018 20:20 (CDT) PHONE: AGE: 68 N# [id number] GENDER: Female ENCOUNTER PHYSICIAN: Dr. Davie Hernandez M.D. ADMISSION DIAGNOSIS: - Other Disabling Impairments 13 - Other Disabling Impairments (13) Critical illness polyneuropathy, Debility, ESRD. EATING: EATING - STEP 1: Does the patient require assistance when eating? Yes. EATING - STEP 2: Does the patient require the assistance of a helper? No, patient only requires an assistive device, O R s/he takes more than reasonable time to eat, OR there is a safety concern, OR s/he requires modifie d food consistency EATING - SCORE: 6-SAIRA GROOMING: Activity did not occur on this shift GROOMING - SCORE: 0-UNK BATHING: Activity did not occur on this shift BATHING - SCORE: 0-UNK DRESSING - UPPER BODY: Activity did not occur on this shift ARTICLES SCORE Total number of steps: 0 DRESSING - UPPER BODY - SCORE: 0-UNK DRESSING - LOWER BODY: Activity did not occur on this shift ARTICLES SCORE Total number of steps: 0 DRESSING - LOWER BODY - SCORE: 0-UNK TOILETING: TOILETING - STEP 1: Does the patient require assistance with toileting? Yes. TOILETING - STEP 2: Does the patient require the assistance of a helper? Yes. TOILETING - STEP 3: How much assistance does the patient require from the helper? Hands-on assistance from the helper TOILETING - STEP 4: Of the 3 tasks: 1) Adjusting clothing prior to use, 2) Cleansing of perineal area, 3) Adjusting clot latia after use; How many tasks does the patient perform WITHOUT assistance of the helper? Three tasks with steadying assistance from the helper TOILETING - SCORE: 4-MIN BLADDER MANAGEMENT: BLADDER MANAGEMENT - STEP 1: Does the patient control the bladder completely and intentionally without equipment or devices or med ications, and is always continent? No. BLADDER MANAGEMENT - STEP 2: Does the patient require the assistance of a helper? No, patient requires and independently uses an a ssistive device, such as a urinal, bedpan, bedside commode, catheter, absorbent pad, or collecting de vice BLADDER MANAGEMENT - SCORE: 6-SAIRA BOWEL MANAGEMENT: Activity did not occur on this shift BOWEL MANAGEMENT - SCORE: 7-IND TRANSFERS: BED, CHAIR, WHEELCHAIR: TRANSFERS: BED, CHAIR, WHEELCHAIR - STEP 1: Does the patient require assistance with bed, chair, or wheelchair transfers? Yes. TRANSFERS: BED, CHAIR, WHEELCHAIR - STEP 2: Does the patient require the assistance of a helper? Yes. TRANSFERS: BED, CHAIR, WHEELCHAIR - STEP 3: How much assistance does the patient require from the helper? Steadying/guiding assistance TRANSFERS: BED, CHAIR, WHEELCHAIR - SCORE: 4-MIN TRANSFERS: TOILET: TRANSFERS: TOILET - STEP 1: Does the patient require assistance with toilet transfers? Yes. TRANSFERS: TOILET - STEP 2: Does the patient require the assistance of a helper? Yes. TRANSFERS: TOILET - STEP 3: How much assistance does the patient require from the helper? Patient performs half or more of the tr ansferring tasks TRANSFERS: TOILET - STEP 4: Does the patient need only incidental help such as contact guard or steadying during toilet transfer? Yes. TRANSFERS: TOILET - SCORE: 4-MIN TRANSFERS: SHOWER: Activity did not occur on this shift TRANSFERS: SHOWER - SCORE: 0-UNK TRANSFERS: TUB: Activity did not occur on this shift TRANSFERS: TUB - SCORE: 0-UNK LOCOMOTION: WALK: Activity did not occur on this shift LOCOMOTION: WALK - SCORE: 0-UNK LOCOMOTION: WHEELCHAIR: Activity did not occur on this shift LOCOMOTION: WHEELCHAIR - SCORE: 0-UNK COMPREHENSION: COMPREHENSION - SCORE: 0-UNK EXPRESSION EXPRESSION - SCORE: 0-UNK SOCIAL INTERACTION: SOCIAL INTERACTION - SCORE: 0-UNK PROBLEM SOLVING: PROBLEM SOLVING - SCORE: 0-UNK MEMORY: MEMORY - SCORE: 0-UNK SIGNATURE PANEL: The following modified sections: Eating - Score, Grooming - Score, Bathing - Score, Dressing - Upper Body - Score, Dressing - Lower Body - Score, Toileting - Score, Bladder Management - Score, Bowel Man agement - Score, Transfers: Bed, Chair, Wheelchair - Score, Transfers: Toilet - Score, Transfers: Katherine wer - Score, Transfers: Tub - Score, Locomotion: Walk - Score, Locomotion: Wheelchair - Score, Compre hension - Score, Expression - Score, Social Interaction - Score, Problem Solving - Score, Memory - Sc ore were [electronically] signed by Ortiz Chahal on WedApr 19 2018 14:57:43 GMT-0500 (Central Daylight Time)
--- NOTE | 2018-04-19 16:49 | FAST ---
ENCOUNTER DATE AND TIME: 04/19/2018 08:00 (CDT) NAME SHANNAN MCKEE DATE OF : 1950 DATE OF ADMISSION: 04/07/2018 20:20 (CDT) PHONE: AGE: 68 N# [id number] GENDER: Female ENCOUNTER PHYSICIAN: Dr. Davie Hernandez M.D. ADMISSION DIAGNOSIS: - Other Disabling Impairments 13 - Other Disabling Impairments (13) Critical illness polyneuropathy, Debility, ESRD. EATING: Activity did not occur on this shift EATING - SCORE: 0-UNK GROOMING: Activity did not occur on this shift GROOMING - SCORE: 0-UNK BATHING: Activity did not occur on this shift BATHING - SCORE: 0-UNK DRESSING - UPPER BODY: Activity did not occur on this shift Patient is not dressing in public clothing ARTICLES SCORE Total number of steps: 0 DRESSING - UPPER BODY - SCORE: 0-UNK DRESSING - LOWER BODY: Activity did not occur on this shift Patient is not dressing in public clothing ARTICLES SCORE Total number of steps: 0 DRESSING - LOWER BODY - SCORE: 0-UNK TOILETING: Activity did not occur on this shift TOILETING - SCORE: 0-UNK BLADDER MANAGEMENT: Activity did not occur on this shift BLADDER MANAGEMENT - SCORE: 7-IND BOWEL MANAGEMENT: Activity did not occur on this shift BOWEL MANAGEMENT - SCORE: 7-IND TRANSFERS: BED, CHAIR, WHEELCHAIR: Activity did not occur on this shift TRANSFERS: BED, CHAIR, WHEELCHAIR - SCORE: 0-UNK TRANSFERS: TOILET: Activity did not occur on this shift TRANSFERS: TOILET - SCORE: 0-UNK TRANSFERS: SHOWER: Activity did not occur on this shift TRANSFERS: SHOWER - SCORE: 0-UNK TRANSFERS: TUB: Activity did not occur on this shift TRANSFERS: TUB - SCORE: 0-UNK LOCOMOTION: WALK: Activity did not occur on this shift LOCOMOTION: WALK - SCORE: 0-UNK LOCOMOTION: WHEELCHAIR: Activity did not occur on this shift LOCOMOTION: WHEELCHAIR - SCORE: 0-UNK LOCOMOTION: STAIRS: Activity did not occur on this shift LOCOMOTION: STAIRS - SCORE: 0-UNK COMPREHENSION: COMPREHENSION - STEP 1: Does the patient require help to understand complex and abstract ideas (such as current events, finan radha, discharge planning, medical issues, relationships, etc)? No. COMPREHENSION - STEP 2: Does the patient need extra time, require an assistive device (such as glasses, hearing aids, or an a ugmentative communication system), OR does s/he have mild difficulty expressing complex and abstract ideas (including mild dysarthria or mild word-finding problems)? Yes. COMPREHENSION - SCORE: 6-SAIRA EXPRESSION EXPRESSION - STEP 1: Does the patient require help expressing complex and abstract ideas (such as current events, finances , discharge planning, medical issues, relationships, etc)? No. EXPRESSION - STEP 2: Does the patient need extra time, require an assistive device (such as augmentive communication syste m or a communication board), OR does s/he have mild difficulty expressing complex and abstract ideas (including mild dysarthria or mild word-find problems)? Yes. EXPRESSION - SCORE: 6-SAIRA SOCIAL INTERACTION: SOCIAL INTERACTION - STEP 1: Does the patient require a helper to interact with others in social and therapeutic situations? No. SOCIAL INTERACTION - STEP 2: Does the patient need extra time in social situations, OR does s/he interact with staff, other patien ts, and family members ONLY in structured environments, OR does s/he require medication for social in teraction? No. SOCIAL INTERACTION - SCORE: 7-IND PROBLEM SOLVING: PROBLEM SOLVING - STEP 1: Does the patient need help to solve complex problems such as managing a checking account or confronti ng interpersonal problems? No. PROBLEM SOLVING - STEP 2: Does the patient require extra time to make decisions or solve problems, OR does s/he have slight dif ficulty reading, initiating, or self-correcting in unfamiliar situations? Yes, patient needs extra ti me. PROBLEM SOLVING - SCORE: 6-SAIRA MEMORY: MEMORY - STEP 1: Does the patient need help to remember frequently encountered people, daily routines, and executing r equests? No. MEMORY - STEP 2: Does the patient have slight difficulty recognizing frequently encountered people, daily routines, or executing requests without the need for repetition or using self-initiated or environmental cues to remember? Yes. MEMORY - SCORE: 6-SAIRA SIGNATURE PANEL: The following modified sections: Comprehension - Score, Expression - Score, Social Interaction - Scor e, Problem Solving - Score, Memory - Score were [electronically] signed by ST remi Huynh salomon Godwin 2017 16:47:56 GMT-0500 (Central Daylight Time)
[2018-04-19] MEDS ORDERED: ALTEPLASE 2 MG/VIAL IV ONE (18:00)
[2018-04-19] MEDS: ATORVASTATIN 20 MG TAB PO SCH (20:44)
[2018-04-19] MEDS: DOCUSATE NA/SENNA CONC 1 TAB PO SCH (20:44)
[2018-04-19] MEDS: LABETALOL HCL 100 MG TAB PO SCH (20:45)
[2018-04-19] MEDS: BIMATOPROST OPTH SCH (20:45)
--- NOTE | 2018-04-19 20:57 | PN ---
Date of Progress Note: 04/19/2018 Subjective: The patient doing better, participating in physical therapy. Awaiting for chair time. The patient apparently wishes to be dialyzed locally. Physical Examination: Vital Signs: Blood pressure 197/77, pulse of 79. Chest: Clear to auscultation. Heart: S1, S2. Regular. Abdomen: Soft, nontender. Extremities: Plus edema. Laboratory Data: WBC 5.6, H and H 8.5/25.9, platelets of 306. Sodium 140, potassium 4.4, bicarb 33, BUN 26, creatinine 3.4, calcium 7.8 phosphor 4.9. Medications: Current medications the patient on include: 1.Phenergan. 2.Epogen. 3.IV iron. 4.Atorvastatin. 5.Gabapentin 900 b.i.d. 6.Pepcid. 7.Melatonin. Assessment And Plan: 1.End-stage renal disease secondary to cardiorenal. We will continue dialysis. We will schedule th e patient for dialysis tomorrow. 2.Hypertension, controlled, optimal. Continue current medication. We will utilize the blood pressu re for more ultrafiltration. 3.Anemia of chronic kidney disease. Continue Epogen. 4.Nephrotic range of proteinuria workup secondary to diabetes, has marginal decrease in the compleme nt. We will follow up with the primary catalyst operator chief. Case discussed with Dr. Clement, primary. Discussed with the patient, verbaliz ed understanding. KRISTY Voice ID: [id number] Report ID: [id number]
--- NOTE | 2018-04-20 03:38 | FAST ---
SHIFT START DATE/TIME: 04/19/2018 19:00 (CDT) SHIFT END DATE/TIME: 04/20/2018 07:00 (CDT) NAME SHANNAN MCKEE DATE OF : 1950 DATE OF ADMISSION: 04/07/2018 20:20 (CDT) PHONE: AGE: 68 N# [id number] GENDER: Female ENCOUNTER PHYSICIAN: Dr. Davie Hernandez M.D. ADMISSION DIAGNOSIS: - Other Disabling Impairments 13 - Other Disabling Impairments (13) Critical illness polyneuropathy, Debility, ESRD. EATING: EATING - STEP 1: Does the patient require assistance when eating? Yes. EATING - STEP 2: Does the patient require the assistance of a helper? Yes. EATING - STEP 3: Does the patient perform half or more of the eating tasks? Yes. EATING - STEP 4: Does the patient need only supervision, cuing, coaxing OR help to apply an orthosis OR help to cut fo od, open containers, pour liquids, or butter bread? Yes. EATING - SCORE: 5-SUP GROOMING: Comb/brush hair Oral care Wash, rinse, and dry face Wash, rinse, and dry hands GROOMING - STEP 1: Does the patient require assistance when grooming? Yes. GROOMING - STEP 2: Does the patient require the assistance of a helper? Yes. GROOMING - STEP 3: How much assistance does the patient require from the helper? Only prior equipment preparation/set up from the helper GROOMING - SCORE: 5-SUP BATHING: Activity did not occur on this shift BATHING - SCORE: 0-UNK DRESSING - UPPER BODY: Patient is not dressing in public clothing ARTICLES SCORE Total number of steps: 0 DRESSING - UPPER BODY - SCORE: 0-UNK DRESSING - LOWER BODY: Patient is not dressing in public clothing ARTICLES SCORE Total number of steps: 0 DRESSING - LOWER BODY - SCORE: 0-UNK TOILETING: TOILETING - STEP 1: Does the patient require assistance with toileting? Yes. TOILETING - STEP 2: Does the patient require the assistance of a helper? Yes. TOILETING - STEP 3: How much assistance does the patient require from the helper? Hands-on assistance from the helper TOILETING - STEP 4: Of the 3 tasks: 1) Adjusting clothing prior to use, 2) Cleansing of perineal area, 3) Adjusting clot latia after use; How many tasks does the patient perform WITHOUT assistance of the helper? No tasks; h elper performs all three tasks TOILETING - SCORE: 1-DEP BLADDER MANAGEMENT: Patient requires assistance from two helpers when using bedpan. BLADDER MANAGEMENT - SCORE: 1-DEP BLADDER MANAGEMENT - FREQUENCY OF ACCIDENTS: BLADDER MANAGEMENT(FA) - STEP 1: How many accidents has the patient had during the current shift? 0 BOWEL MANAGEMENT: Activity did not occur on this shift BOWEL MANAGEMENT - SCORE: 7-IND TRANSFERS: BED, CHAIR, WHEELCHAIR: Patient requires more than one helper and/or the use of a mechanical lift is utilized TRANSFERS: BED, CHAIR, WHEELCHAIR - SCORE: 1-DEP TRANSFERS: TOILET: Patient requires more than one helper and/or the use of a mechanical lift is utilized TRANSFERS: TOILET - SCORE: 1-DEP TRANSFERS: SHOWER: Activity did not occur on this shift TRANSFERS: SHOWER - SCORE: 0-UNK TRANSFERS: TUB: Activity did not occur on this shift TRANSFERS: TUB - SCORE: 0-UNK LOCOMOTION: WALK: Activity did not occur on this shift LOCOMOTION: WALK - SCORE: 0-UNK LOCOMOTION: WHEELCHAIR: Activity did not occur on this shift LOCOMOTION: WHEELCHAIR - SCORE: 0-UNK COMPREHENSION: COMPREHENSION: TYPE: Both COMPREHENSION - STEP 1: Does the patient require help to understand complex and abstract ideas (such as current events, finan radha, discharge planning, medical issues, relationships, etc)? No. COMPREHENSION - STEP 2: Does the patient need extra time, require an assistive device (such as glasses, hearing aids, or an a ugmentative communication system), OR does s/he have mild difficulty expressing complex and abstract ideas (including mild dysarthria or mild word-finding problems)? Yes. COMPREHENSION - SCORE: 6-SAIRA EXPRESSION EXPRESSION: TYPE: Both EXPRESSION - STEP 1: Does the patient require help expressing complex and abstract ideas (such as current events, finances , discharge planning, medical issues, relationships, etc)? No. EXPRESSION - STEP 2: Does the patient need extra time, require an assistive device (such as augmentive communication syste m or a communication board), OR does s/he have mild difficulty expressing complex and abstract ideas (including mild dysarthria or mild word-find problems)? Yes. EXPRESSION - SCORE: 6-SAIRA SOCIAL INTERACTION: SOCIAL INTERACTION - STEP 1: Does the patient require a helper to interact with others in social and therapeutic situations? Yes. SOCIAL INTERACTION - STEP 2: Does the patient interact appropriately half or more of the time? Yes. SOCIAL INTERACTION - STEP 3: How often does the patient need help to interact appropriately? 10-24% of the time SOCIAL INTERACTION - SCORE: 4-MIN PROBLEM SOLVING: PROBLEM SOLVING - STEP 1: Does the patient need help to solve complex problems such as managing a checking account or confronti ng interpersonal problems? Yes. PROBLEM SOLVING - STEP 2: Does the patient solve basic routine problems half or more of the time? Yes. PROBLEM SOLVING - STEP 3: How often does the patient need help to solve basic routine problems? 25%-49% of the time PROBLEM SOLVING - SCORE: 3-MOD MEMORY: MEMORY - STEP 1: Does the patient need help to remember frequently encountered people, daily routines, and executing r equests? Yes. MEMORY - STEP 2: How often does the patient need help to remember frequently encountered people, daily routines, and e xecuting requests? 25% - 49% of the time MEMORY - SCORE: 3-MOD SIGNATURE PANEL: The following modified sections: Eating - Score, Grooming - Score, Bathing - Score, Dressing - Upper Body - Score, Dressing - Lower Body - Score, Toileting - Score, Bladder Management - Score, Bowel Man agement - Score, Transfers: Bed, Chair, Wheelchair - Score, Transfers: Toilet - Score, Transfers: Katherine wer - Score, Transfers: Tub - Score, Locomotion: Walk - Score, Locomotion: Wheelchair - Score, Compre hension - Score, Expression - Score, Social Interaction - Score, Problem Solving - Score, Memory - Sc ore were [electronically] signed by Nicole Maldonado C.N.Radha on WedApr 20 2018 03:37:07 GMT-0500 ( Central Daylight Time)
[2018-04-20 06:13] LABS: Absolute Lymphocytes (CBC) 1.2 K/uL (0.7-4.9); Absolute Monocytes 0.9 K/uL (0.1-1.3); Absolute Neutrophil 4.2 K/uL (1.8-8.0); Eosinophils % 2.2 % (0-4.4); Hematocrit 27.9 % (36.0-45.0); Lymphocytes % 18.2 % (15.3-44.8); MCH 29.7 pg (27.0-35.0); MCV 90.8 fL (80-100); MPV 7.7 fL (7.6-11.3); RBC Red Blood Cell Count 3.08 M/uL (3.86-4.86)
[2018-04-20 06:36] LABS: Albumin 2.1 g/dL (3.4-5.0); Bilirubin Total 0.2 mg/dL (0.2-1.0); Potassium 4.8 mmol/L (3.5-5.1); Protein, Total 6.9 g/dL (6.4-8.2)
[2018-04-20 06:47] VITALS: TEMP 98.2
[2018-04-20] MEDS: AMLODIPINE 5 MG TAB PO SCH ×2 (07:07→15:08)
[2018-04-20] MEDS: LABETALOL HCL 100 MG TAB PO SCH (07:08)
[2018-04-20] MEDS: FUROSEMIDE 40 MG TABLET PO SCH ×2 (07:08→15:11)
[2018-04-20] MEDS: INSULIN -REGULAR HUMAN 50 UNIT/0.5 ML ML SQ SCH ×2 (07:21→11:30)
[2018-04-20] MEDS: TRIAMCINOLONE ACET 0.1% CREAM 80 GM TOP SCH (08:00)
[2018-04-20] MEDS: CLONIDINE HCL 0.3 MG TAB PO SCH (08:00)
[2018-04-20] MEDS: HEPARIN 5000 UNIT/ML 1 ML VIAL SQ SCH (08:00)
[2018-04-20] MEDS: HYDRALAZINE HCL 25 MG TABLET PO SCH (08:00)
[2018-04-20] MEDS: GABAPENTIN 300 MG CAP PO SCH (08:42)
[2018-04-20] MEDS: FOLIC ACID 1 MG TABLET PO SCH (08:42)
[2018-04-20] MEDS: CALCIUM CARBONATE 500 MG TAB PO SCH (08:42)
[2018-04-20] MEDS: FE SULF/FA/VIT B COMP & C TAB PO SCH (08:42)
[2018-04-20] MEDS: FAMOTIDINE 20 MG TAB PO SCH (08:43)
[2018-04-20] MEDS: GLIPIZIDE S.A. 5 MG TAB PO SCH (08:43)
[2018-04-20] MEDS: TRAMADOL HCL 50 MG TAB PO PRN (08:43)
[2018-04-20] MEDS: RESTASIS 0.05% EACH EYE SCH (08:43)
[2018-04-20] MEDS: LIDOCAINE 5% PATCH TOP SCH (08:44)
[2018-04-20] MEDS: COMBIGAN OPTHALMIC EACH EYE SCH (08:44)
[2018-04-20] MEDS: PROMOD 30 ML DOSE PO SCH (08:44)
[2018-04-20] MEDS: SOD FERRIC GLUC COMPLX/SUCROSE 125 MG in NA CHLORIDE 0.9% 100 ML IV SCH (10:56)
[2018-04-20] MEDS: EPOETIN ALFA 10,000 UNIT/ML VIAL SQ SCH (10:57)
--- NOTE | 2018-04-20 14:15 | FAST ---
ENCOUNTER DATE AND TIME: 04/20/2018 08:00 (CDT) NAME SHANNAN MCKEE DATE OF : 1950 DATE OF ADMISSION: 04/07/2018 20:20 (CDT) PHONE: AGE: 68 N# [id number] GENDER: Female ENCOUNTER PHYSICIAN: Dr. Davie Hernandez M.D. ADMISSION DIAGNOSIS: - Other Disabling Impairments 13 - Other Disabling Impairments (13) Critical illness polyneuropathy, Debility, ESRD. EATING: Activity did not occur on this shift EATING - SCORE: 0-UNK GROOMING: Activity did not occur on this shift GROOMING - SCORE: 0-UNK BATHING: Activity did not occur on this shift BATHING - SCORE: 0-UNK DRESSING - UPPER BODY: Activity did not occur on this shift Patient is not dressing in public clothing ARTICLES SCORE Total number of steps: 0 DRESSING - UPPER BODY - SCORE: 0-UNK DRESSING - LOWER BODY: Activity did not occur on this shift Patient is not dressing in public clothing ARTICLES SCORE Total number of steps: 0 DRESSING - LOWER BODY - SCORE: 0-UNK TOILETING: Activity did not occur on this shift TOILETING - SCORE: 0-UNK BLADDER MANAGEMENT: Activity did not occur on this shift BLADDER MANAGEMENT - SCORE: 7-IND BOWEL MANAGEMENT: Activity did not occur on this shift BOWEL MANAGEMENT - SCORE: 7-IND TRANSFERS: BED, CHAIR, WHEELCHAIR: Activity did not occur on this shift TRANSFERS: BED, CHAIR, WHEELCHAIR - SCORE: 0-UNK TRANSFERS: TOILET: Activity did not occur on this shift TRANSFERS: TOILET - SCORE: 0-UNK TRANSFERS: SHOWER: Activity did not occur on this shift TRANSFERS: SHOWER - SCORE: 0-UNK TRANSFERS: TUB: Activity did not occur on this shift TRANSFERS: TUB - SCORE: 0-UNK LOCOMOTION: WALK: Activity did not occur on this shift LOCOMOTION: WALK - SCORE: 0-UNK LOCOMOTION: WHEELCHAIR: Activity did not occur on this shift LOCOMOTION: WHEELCHAIR - SCORE: 0-UNK LOCOMOTION: STAIRS: Activity did not occur on this shift LOCOMOTION: STAIRS - SCORE: 0-UNK COMPREHENSION: COMPREHENSION - STEP 1: Does the patient require help to understand complex and abstract ideas (such as current events, finan radha, discharge planning, medical issues, relationships, etc)? No. COMPREHENSION - STEP 2: Does the patient need extra time, require an assistive device (such as glasses, hearing aids, or an a ugmentative communication system), OR does s/he have mild difficulty expressing complex and abstract ideas (including mild dysarthria or mild word-finding problems)? Yes. COMPREHENSION - SCORE: 6-SAIRA EXPRESSION EXPRESSION - STEP 1: Does the patient require help expressing complex and abstract ideas (such as current events, finances , discharge planning, medical issues, relationships, etc)? No. EXPRESSION - STEP 2: Does the patient need extra time, require an assistive device (such as augmentive communication syste m or a communication board), OR does s/he have mild difficulty expressing complex and abstract ideas (including mild dysarthria or mild word-find problems)? Yes. EXPRESSION - SCORE: 6-SAIRA SOCIAL INTERACTION: SOCIAL INTERACTION - STEP 1: Does the patient require a helper to interact with others in social and therapeutic situations? No. SOCIAL INTERACTION - STEP 2: Does the patient need extra time in social situations, OR does s/he interact with staff, other patien ts, and family members ONLY in structured environments, OR does s/he require medication for social in teraction? No. SOCIAL INTERACTION - SCORE: 7-IND PROBLEM SOLVING: PROBLEM SOLVING - STEP 1: Does the patient need help to solve complex problems such as managing a checking account or confronti ng interpersonal problems? No. PROBLEM SOLVING - STEP 2: Does the patient require extra time to make decisions or solve problems, OR does s/he have slight dif ficulty reading, initiating, or self-correcting in unfamiliar situations? Yes, patient needs extra ti me. PROBLEM SOLVING - SCORE: 6-SAIRA MEMORY: MEMORY - STEP 1: Does the patient need help to remember frequently encountered people, daily routines, and executing r equests? No. MEMORY - STEP 2: Does the patient have slight difficulty recognizing frequently encountered people, daily routines, or executing requests without the need for repetition or using self-initiated or environmental cues to remember? Yes. MEMORY - SCORE: 6-SAIRA SIGNATURE PANEL: The following modified sections: Comprehension - Score, Expression - Score, Social Interaction - Scor e, Problem Solving - Score, Memory - Score were [electronically] signed by ST Amina wed 14:14:11 GMT-0500 (Central Daylight Time)
--- NOTE | 2018-04-20 14:54 | FAST ---
ENCOUNTER DATE AND TIME: 04/18/2018 08:00 (CDT) NAME SHANNAN MCKEE DATE OF : 1950 DATE OF ADMISSION: 04/07/2018 20:20 (CDT) PHONE: AGE: 68 N# [id number] GENDER: Female ENCOUNTER PHYSICIAN: Dr. Davie Hernandez M.D. ADMISSION DIAGNOSIS: - Other Disabling Impairments 13 - Other Disabling Impairments (13) Critical illness polyneuropathy, Debility, ESRD. EATING: Activity did not occur on this shift EATING - SCORE: 0-UNK GROOMING: Activity did not occur on this shift GROOMING - SCORE: 0-UNK BATHING: Activity did not occur on this shift BATHING - SCORE: 0-UNK DRESSING - UPPER BODY: Activity did not occur on this shift Patient is not dressing in public clothing ARTICLES SCORE Total number of steps: 0 DRESSING - UPPER BODY - SCORE: 0-UNK DRESSING - LOWER BODY: Activity did not occur on this shift Patient is not dressing in public clothing ARTICLES SCORE Total number of steps: 0 DRESSING - LOWER BODY - SCORE: 0-UNK TOILETING: Activity did not occur on this shift TOILETING - SCORE: 0-UNK BLADDER MANAGEMENT: Activity did not occur on this shift BLADDER MANAGEMENT - SCORE: 7-IND BOWEL MANAGEMENT: Activity did not occur on this shift BOWEL MANAGEMENT - SCORE: 7-IND TRANSFERS: BED, CHAIR, WHEELCHAIR: Activity did not occur on this shift TRANSFERS: BED, CHAIR, WHEELCHAIR - SCORE: 0-UNK TRANSFERS: TOILET: Activity did not occur on this shift TRANSFERS: TOILET - SCORE: 0-UNK TRANSFERS: SHOWER: Activity did not occur on this shift TRANSFERS: SHOWER - SCORE: 0-UNK TRANSFERS: TUB: Activity did not occur on this shift TRANSFERS: TUB - SCORE: 0-UNK LOCOMOTION: WALK: Activity did not occur on this shift LOCOMOTION: WALK - SCORE: 0-UNK LOCOMOTION: WHEELCHAIR: LOCOMOTION: WHEELCHAIR - STEP 1: Does the patient need help to go 150 feet in a wheelchair? Yes. LOCOMOTION: WHEELCHAIR - STEP 2: How much assistance does the patient need from the helper? Only supervision, cuing, or coaxing LOCOMOTION: WHEELCHAIR - SCORE: 5-SUP LOCOMOTION: STAIRS: Activity did not occur on this shift LOCOMOTION: STAIRS - SCORE: 0-UNK COMPREHENSION: COMPREHENSION - SCORE: 0-UNK EXPRESSION EXPRESSION - SCORE: 0-UNK SOCIAL INTERACTION: SOCIAL INTERACTION - SCORE: 0-UNK PROBLEM SOLVING: PROBLEM SOLVING - SCORE: 0-UNK MEMORY: MEMORY - SCORE: 0-UNK SIGNATURE PANEL: The following modified sections: Transfers: Bed, Chair, Wheelchair - Score, Transfers: Toilet - Score , Locomotion: Walk - Score, Locomotion: Wheelchair - Score, Locomotion: Stairs - Score were [electron ically] signed by Haile Abebe PTA on WedApr 20 2018 14:53:08 GMT-0500 (Central Daylight Time)
--- NOTE | 2018-04-20 14:55 | FAST ---
ENCOUNTER DATE AND TIME: 04/19/2018 08:00 (CDT) NAME SHANNAN MCKEE DATE OF : 1950 DATE OF ADMISSION: 04/07/2018 20:20 (CDT) PHONE: AGE: 68 N# [id number] GENDER: Female ENCOUNTER PHYSICIAN: Dr. Davie Hernandez M.D. ADMISSION DIAGNOSIS: - Other Disabling Impairments 13 - Other Disabling Impairments (13) Critical illness polyneuropathy, Debility, ESRD. EATING: Activity did not occur on this shift EATING - SCORE: 0-UNK GROOMING: Activity did not occur on this shift GROOMING - SCORE: 0-UNK BATHING: Activity did not occur on this shift BATHING - SCORE: 0-UNK DRESSING - UPPER BODY: Activity did not occur on this shift Patient is not dressing in public clothing ARTICLES SCORE Total number of steps: 0 DRESSING - UPPER BODY - SCORE: 0-UNK DRESSING - LOWER BODY: Activity did not occur on this shift Patient is not dressing in public clothing ARTICLES SCORE Total number of steps: 0 DRESSING - LOWER BODY - SCORE: 0-UNK TOILETING: Activity did not occur on this shift TOILETING - SCORE: 0-UNK BLADDER MANAGEMENT: Activity did not occur on this shift BLADDER MANAGEMENT - SCORE: 7-IND BOWEL MANAGEMENT: Activity did not occur on this shift BOWEL MANAGEMENT - SCORE: 7-IND TRANSFERS: BED, CHAIR, WHEELCHAIR: Activity did not occur on this shift TRANSFERS: BED, CHAIR, WHEELCHAIR - SCORE: 0-UNK TRANSFERS: TOILET: Activity did not occur on this shift TRANSFERS: TOILET - SCORE: 0-UNK TRANSFERS: SHOWER: Activity did not occur on this shift TRANSFERS: SHOWER - SCORE: 0-UNK TRANSFERS: TUB: Activity did not occur on this shift TRANSFERS: TUB - SCORE: 0-UNK LOCOMOTION: WALK: Activity did not occur on this shift LOCOMOTION: WALK - SCORE: 0-UNK LOCOMOTION: WHEELCHAIR: LOCOMOTION: WHEELCHAIR - STEP 1: Does the patient need help to go 150 feet in a wheelchair? Yes. LOCOMOTION: WHEELCHAIR - STEP 2: How much assistance does the patient need from the helper? Only supervision, cuing, or coaxing LOCOMOTION: WHEELCHAIR - SCORE: 5-SUP LOCOMOTION: STAIRS: Activity did not occur on this shift LOCOMOTION: STAIRS - SCORE: 0-UNK COMPREHENSION: COMPREHENSION - SCORE: 0-UNK EXPRESSION EXPRESSION - SCORE: 0-UNK SOCIAL INTERACTION: SOCIAL INTERACTION - SCORE: 0-UNK PROBLEM SOLVING: PROBLEM SOLVING - SCORE: 0-UNK MEMORY: MEMORY - SCORE: 0-UNK SIGNATURE PANEL: The following modified sections: Transfers: Bed, Chair, Wheelchair - Score, Transfers: Toilet - Score , Locomotion: Walk - Score, Locomotion: Wheelchair - Score, Locomotion: Stairs - Score were [electron ically] signed by Haile Abebe PTA on WedApr 20 2018 14:54:16 GMT-0500 (Central Daylight Time)
--- NOTE | 2018-04-20 15:03 | P.PN ---
Subjective Date of Service: 04/20/18 Primary Care Provider: Metal Tile Setter-Dr. Hernandez/PCP-Dr. Logan Chief Complaint: Patient currently in rehab post CHF exacerbation Subjective: Doing well Physical Examination - Vital Signs Temperature: 98.2 F Blood Pressure: 139/65 Pulse: 74 Respirations: 16 Pulse Ox (%): 95 - Physical Exam General: Alert, In no apparent distress, Oriented x3, Cooperative HEENT: Atraumatic Neck: Supple Respiratory: Clear to auscultation bilaterally, Normal air movement Cardiovascular: Normal pulses, Regular rate/rhythm Gastrointestinal: Normal bowel sounds, Soft and benign, Non-distended Musculoskeletal: No tenderness, No warmth Neurological: Normal speech, Normal strength at 5/5 x4 extr, Normal tone, Normal affect - Studies Laboratory Data (last 24 hrs) 04/20/18 05:55: Sodium 141, Potassium 4.8, BUN 34 H, Creatinine 4.30 H, Glucose 148 H, Total Bilirubin 0.2, AST 10 L, ALT 10 L, Alkaline Phosphatase 75 04/20/18 05:55: WBC 6.4 D, Hgb 9.1 L, Hct 27.9 L, Plt Count 343 Medications List Reviewed: Yes Assessment & Plan - Problems (Diagnosis) (1) End stage renal disease Onset Date: 04/11/18 Current Visit: Yes Status: Chronic Plan: Outpatient dialysis has been arranged. She will have dialysis at [facility]. This would mean that she would be with another nephrology group. Patient to be discharge today. Arrangements for wheelchair and other equipment currently being made. (2) CHF (congestive heart failure) Onset Date: 04/11/18 Current Visit: Yes Status: Chronic Plan: Patient with chronic diastolic dysfunction. This remained stable. Qualifiers: Heart failure type: diastolic Heart failure chronicity: chronic Qualified Code(s): I50.32 - Chronic diastolic (congestive) heart failure (3) Diabetes mellitus Onset Date: 04/11/18 Current Visit: Yes Status: Chronic Plan: Continue with medication. Overall stable. Qualifiers: Diabetes mellitus type: type 2 Diabetes mellitus watermelon inspector insulin use: without nursing home use Diabetes mellitus complication status: with kidney complications Diabetes mellitus complication detail: with chronic kidney disease Chronic kidney disease stage: on chronic dialysis Qualified Code(s) : E11.22 - Type 2 diabetes mellitus with diabetic chronic kidney disease; N18.6 - End stage renal disease; Z99.2 - Dependence on renal dialysis (4) Hypertension Onset Date: 04/11/18 Current Visit: Yes Status: Chronic Plan: Continue with medication Qualifiers: Hypertension type: essential hypertension Qualified Code(s): I10 - Essential (primary) hypertension (5) GERD (gastroesophageal reflux disease) Onset Date: 04/11/18 Current Visit: Yes Status: Chronic Plan: Continue with medication Qualifiers: Esophagitis presence: esophagitis presence not specified Qualified Code(s) : K21.9 - Gastro-esophageal reflux disease without esophagitis (6) Diabetic neuropathy Onset Date: 04/11/18 Current Visit: Yes Status: Chronic Plan: Continue with her medication. Qualifiers: Diabetes mellitus type: type 2 Diabetes mellitus complication detail: diabetic polyneuropathy Qualified Code(s): E11.42 - Type 2 diabetes mellitus with diabetic polyneuropathy (7) Obesity Onset Date: 04/11/18 Current Visit: Yes Status: Chronic Plan: Will address lifestyle modification education Qualifiers: Obesity type: due to excess calories Obesity classification: adult class 3 (BMI >= 40) Serious obesity comorbidity presence: with serious comorbidity Body mass index: BMI 45.0-49.9 Qualified Code(s): E66.01 - Morbid (severe) obesity due to excess calories; Z68.42 - Body mass index (BMI) 45.0-49.9, adult (8) Hyperlipidemia Onset Date: 04/11/18 Current Visit: Yes Status: Chronic Plan: Continue with her medication Qualifiers: Hyperlipidemia type: unspecified Qualified Code(s): E78.5 - Hyperlipidemia , unspecified (9) Anemia Current Visit: Yes Status: Chronic Plan: Likely of chronic disease. Will monitor closely. Qualifiers: Anemia type: due to chronic kidney disease Chronic kidney disease stage: on chronic dialysis Qualified Code(s): N18.6 - End stage renal disease; D63.1 - Anemia in chronic kidney disease; Z99.2 - Dependence on renal dialysis Discharge Plan: Home Time Spent Managing Pts Care (In Minutes): 55
[2018-04-20 15:16] VITALS: BP 174/73
--- NOTE | 2018-04-20 15:19 | PN ---
Date of Progress Note: 04/20/2018 Subjective: The patient seen on dialysis. The patient tolerating the dialysis. Doing per diem physical therapist assistant apy. Physical Examination: Vital Signs: Blood pressure 139/65, pulse of 74. Chest: Clear to auscultation. Heart: S1, S2. Systolic murmur. Abdomen: Soft, nontender. Extremities: Trace edema. Laboratory Data: H and H 9.1/27.9. Sodium 141, potassium 4.8, bicarb 32, BUN 34, creatinine 4.3, ca lcium 8.3. Medications: Current medications the patient on its include: 1.Epogen. 2.IV iron. 3.Calcium carbonate. 4.Norvasc 10. 5.Clonidine 0.3 b.i.d. 6.Hydralazine 100 b.i.d. 7.Labetalol. 8.Gabapentin. 9.Lasix. 10.Pepcid. Assessment And Plan: 1.Acute kidney injury on chronic kidney disease. I am going to go ahead and continue dialysis. The patient apparently used to be on [facility] as it is closer to her on [address], so she goi ng to be getting dialysis there. 2.Hypertension, currently blood pressure controlled. Continue current medication. 3.Anemia of chronic kidney disease. Continue Epogen and IV iron. 4.Congestive heart failure. We will continue to establish better volume control with ultrafiltratio clarissa FREIRE/LATOYA Voice ID: [id number] Report ID: [id number]
--- NOTE | 2018-04-20 15:36 | FAST ---
SHIFT START DATE/TIME: 04/20/2018 07:00 (CDT) SHIFT END DATE/TIME: 04/20/2018 19:00 (CDT) NAME SHANNAN MCKEE DATE OF : 1950 DATE OF ADMISSION: 04/07/2018 20:20 (CDT) PHONE: AGE: 68 N# [id number] GENDER: Female ENCOUNTER PHYSICIAN: Dr. Davie Hernandez M.D. ADMISSION DIAGNOSIS: - Other Disabling Impairments 13 - Other Disabling Impairments (13) Critical illness polyneuropathy, Debility, ESRD. EATING: EATING - STEP 1: Does the patient require assistance when eating? Yes. EATING - STEP 2: Does the patient require the assistance of a helper? No, patient only requires an assistive device, O R s/he takes more than reasonable time to eat, OR there is a safety concern, OR s/he requires modifie d food consistency EATING - SCORE: 6-SAIRA GROOMING: Comb/brush hair Wash, rinse, and dry face Wash, rinse, and dry hands GROOMING - STEP 1: Does the patient require assistance when grooming? Yes. GROOMING - STEP 2: Does the patient require the assistance of a helper? No. The patient only requires an assistive devic e, OR takes more than reasonable time to groom, OR there is a concern for safety as the patient groom s GROOMING - SCORE: 6-SAIRA BATHING: Activity did not occur on this shift BATHING - SCORE: 0-UNK DRESSING - UPPER BODY: T-shirt/pullover shirt (four steps) ARTICLES SCORE Total number of steps: 4 DRESSING - UPPER BODY - STEP 1: Does the patient require help when dressing above the waist? Yes. DRESSING - UPPER BODY - STEP 2: Does the patient require the assistance of a helper? No. Patient only requires an assistive device, s uch as a button hook, velcro, or kitchenwhere maker. OR s/he takes more than reasonable time as s/he dresses the upper body. OR there is a concern for safety when s/he dresses the upper body DRESSING - UPPER BODY - SCORE: 6-SAIRA DRESSING - LOWER BODY: Activity did not occur on this shift ARTICLES SCORE Total number of steps: 0 DRESSING - LOWER BODY - SCORE: 0-UNK TOILETING: Activity did not occur on this shift TOILETING - SCORE: 0-UNK BLADDER MANAGEMENT: Patient is on renal dialysis or peritoneal dialysis and no voiding activity BLADDER MANAGEMENT - SCORE: 7-IND BLADDER MANAGEMENT - FREQUENCY OF ACCIDENTS: BLADDER MANAGEMENT(FA) - STEP 1: How many accidents has the patient had during the current shift? 0 BOWEL MANAGEMENT: Activity did not occur on this shift BOWEL MANAGEMENT - SCORE: 7-IND BOWEL MANAGEMENT - FREQUENCY OF ACCIDENTS: BOWEL MANAGEMENT(FA) - STEP 1: How many accidents has the patient had during the current shift? 0 TRANSFERS: BED, CHAIR, WHEELCHAIR: TRANSFERS: BED, CHAIR, WHEELCHAIR - STEP 1: Does the patient require assistance with bed, chair, or wheelchair transfers? Yes. TRANSFERS: BED, CHAIR, WHEELCHAIR - STEP 2: Does the patient require the assistance of a helper? Yes. TRANSFERS: BED, CHAIR, WHEELCHAIR - STEP 3: How much assistance does the patient require from the helper? Steadying/guiding assistance TRANSFERS: BED, CHAIR, WHEELCHAIR - SCORE: 4-MIN TRANSFERS: TOILET: Activity did not occur on this shift TRANSFERS: TOILET - SCORE: 0-UNK TRANSFERS: SHOWER: Activity did not occur on this shift TRANSFERS: SHOWER - SCORE: 0-UNK TRANSFERS: TUB: Activity did not occur on this shift TRANSFERS: TUB - SCORE: 0-UNK LOCOMOTION: WALK: Activity did not occur on this shift LOCOMOTION: WALK - SCORE: 0-UNK LOCOMOTION: WHEELCHAIR: LOCOMOTION: WHEELCHAIR - STEP 1: Does the patient need help to go 150 feet in a wheelchair? Yes. LOCOMOTION: WHEELCHAIR - STEP 2: How much assistance does the patient need from the helper? Only supervision, cuing, or coaxing LOCOMOTION: WHEELCHAIR - SCORE: 5-SUP COMPREHENSION: COMPREHENSION: TYPE: Both COMPREHENSION - STEP 1: Does the patient require help to understand complex and abstract ideas (such as current events, finan radha, discharge planning, medical issues, relationships, etc)? No. COMPREHENSION - STEP 2: Does the patient need extra time, require an assistive device (such as glasses, hearing aids, or an a ugmentative communication system), OR does s/he have mild difficulty expressing complex and abstract ideas (including mild dysarthria or mild word-finding problems)? Yes. COMPREHENSION - SCORE: 6-SAIRA EXPRESSION EXPRESSION: TYPE: Both EXPRESSION - STEP 1: Does the patient require help expressing complex and abstract ideas (such as current events, finances , discharge planning, medical issues, relationships, etc)? No. EXPRESSION - STEP 2: Does the patient need extra time, require an assistive device (such as augmentive communication syste m or a communication board), OR does s/he have mild difficulty expressing complex and abstract ideas (including mild dysarthria or mild word-find problems)? Yes. EXPRESSION - SCORE: 6-SAIRA SOCIAL INTERACTION: SOCIAL INTERACTION - STEP 1: Does the patient require a helper to interact with others in social and therapeutic situations? No. SOCIAL INTERACTION - STEP 2: Does the patient need extra time in social situations, OR does s/he interact with staff, other patien ts, and family members ONLY in structured environments, OR does s/he require medication for social in teraction? Yes, patient needs extra time SOCIAL INTERACTION - SCORE: 6-SAIRA PROBLEM SOLVING: PROBLEM SOLVING - STEP 1: Does the patient need help to solve complex problems such as managing a checking account or confronti ng interpersonal problems? Yes. PROBLEM SOLVING - STEP 2: Does the patient solve basic routine problems half or more of the time? Yes. PROBLEM SOLVING - STEP 3: How often does the patient need help to solve basic routine problems? Less than 10% of the time PROBLEM SOLVING - SCORE: 5-SUP MEMORY: MEMORY - STEP 1: Does the patient need help to remember frequently encountered people, daily routines, and executing r equests? No. MEMORY - STEP 2: Does the patient have slight difficulty recognizing frequently encountered people, daily routines, or executing requests without the need for repetition or using self-initiated or environmental cues to remember? Yes. MEMORY - SCORE: 6-SAIRA SIGNATURE PANEL: The following modified sections: Eating - Score, Grooming - Score, Bathing - Score, Dressing - Upper Body - Score, Dressing - Lower Body - Score, Toileting - Score, Bladder Management - Score, Bowel Man agement - Score, Transfers: Bed, Chair, Wheelchair - Score, Transfers: Toilet - Score, Transfers: Katherine wer - Score, Transfers: Tub - Score, Locomotion: Walk - Score, Locomotion: Wheelchair - Score, Compre hension - Score, Expression - Score, Social Interaction - Score, Problem Solving - Score, Memory - Sc ore were [electronically] signed by Hoda Munson C.N.A. on WedApr 20 2018 15:36:14 T-0500 (Centra l Daylight Time)
--- NOTE | 2018-04-20 16:10 | FAST ---
ENCOUNTER DATE AND TIME: 04/20/2018 08:00 (CDT) NAME SHANNAN MCKEE DATE OF : 1950 DATE OF ADMISSION: 04/07/2018 20:20 (CDT) PHONE: AGE: 68 N# [id number] GENDER: Female ENCOUNTER PHYSICIAN: Dr. Davie Hernandez M.D. ADMISSION DIAGNOSIS: - Other Disabling Impairments 13 - Other Disabling Impairments (13) Critical illness polyneuropathy, Debility, ESRD. EATING: Activity did not occur on this shift EATING - SCORE: 0-UNK GROOMING: Activity did not occur on this shift GROOMING - SCORE: 0-UNK BATHING: Activity did not occur on this shift BATHING - SCORE: 0-UNK DRESSING - UPPER BODY: Activity did not occur on this shift Patient is not dressing in public clothing ARTICLES SCORE Total number of steps: 0 DRESSING - UPPER BODY - SCORE: 0-UNK DRESSING - LOWER BODY: Activity did not occur on this shift Patient is not dressing in public clothing ARTICLES SCORE Total number of steps: 0 DRESSING - LOWER BODY - SCORE: 0-UNK TOILETING: Activity did not occur on this shift TOILETING - SCORE: 0-UNK BLADDER MANAGEMENT: Activity did not occur on this shift BLADDER MANAGEMENT - SCORE: 7-IND BOWEL MANAGEMENT: Activity did not occur on this shift BOWEL MANAGEMENT - SCORE: 7-IND TRANSFERS: BED, CHAIR, WHEELCHAIR: TRANSFERS: BED, CHAIR, WHEELCHAIR - STEP 1: Does the patient require assistance with bed, chair, or wheelchair transfers? Yes. TRANSFERS: BED, CHAIR, WHEELCHAIR - STEP 2: Does the patient require the assistance of a helper? Yes. TRANSFERS: BED, CHAIR, WHEELCHAIR - STEP 3: How much assistance does the patient require from the helper? Only supervision TRANSFERS: BED, CHAIR, WHEELCHAIR - SCORE: 5-SUP TRANSFERS: TOILET: Activity did not occur on this shift TRANSFERS: TOILET - SCORE: 0-UNK TRANSFERS: SHOWER: Activity did not occur on this shift TRANSFERS: SHOWER - SCORE: 0-UNK TRANSFERS: TUB: Activity did not occur on this shift TRANSFERS: TUB - SCORE: 0-UNK LOCOMOTION: WALK: Activity did not occur on this shift LOCOMOTION: WALK - SCORE: 0-UNK LOCOMOTION: WHEELCHAIR: LOCOMOTION: WHEELCHAIR - STEP 1: Does the patient need help to go 150 feet in a wheelchair? Yes. LOCOMOTION: WHEELCHAIR - STEP 2: How much assistance does the patient need from the helper? Only supervision, cuing, or coaxing LOCOMOTION: WHEELCHAIR - SCORE: 5-SUP LOCOMOTION: STAIRS: Activity did not occur on this shift LOCOMOTION: STAIRS - SCORE: 0-UNK COMPREHENSION: COMPREHENSION - SCORE: 0-UNK EXPRESSION EXPRESSION - SCORE: 0-UNK SOCIAL INTERACTION: SOCIAL INTERACTION - SCORE: 0-UNK PROBLEM SOLVING: PROBLEM SOLVING - SCORE: 0-UNK MEMORY: MEMORY - SCORE: 0-UNK SIGNATURE PANEL: The following modified sections: Transfers: Bed, Chair, Wheelchair - Score, Transfers: Toilet - Score , Locomotion: Walk - Score, Locomotion: Wheelchair - Score, Locomotion: Stairs - Score were [electron cameron] signed by Stewart Tristan PT on WedApr 20 2018 16:10:01 T-0500 (Central Daylight Time)
--- NOTE | 2018-04-21 08:37 | FAST ---
ENCOUNTER DATE AND TIME: 04/20/2018 08:00 (CDT) NAME SHANNAN MCKEE DATE OF : 1950 DATE OF ADMISSION: 04/07/2018 20:20 (CDT) PHONE: AGE: 68 N# [id number] GENDER: Female ENCOUNTER PHYSICIAN: Dr. Davie Hernandez M.D. ADMISSION DIAGNOSIS: - Other Disabling Impairments 13 - Other Disabling Impairments (13) Critical illness polyneuropathy, Debility, ESRD. EATING: Activity did not occur on this shift EATING - SCORE: 0-UNK GROOMING: Wash, rinse, and dry face Wash, rinse, and dry hands GROOMING - STEP 1: Does the patient require assistance when grooming? No. GROOMING - SCORE: 7-IND BATHING: Abdomen Buttocks Chest Left arm Left lower leg and foot Left upper leg Perineal area Right arm Right lower leg and foot Right upper leg BATHING - STEP 1: Does the patient require assistance when bathing? Yes. BATHING - STEP 2: Does the patient require the assistance of a helper? No. The patient only requires an assistive devic e such as a bath pradeep, OR the patient takes more than reasonable time to bathe, OR there is a concern for safety such as regulating water temperature as the patient bathes. BATHING - SCORE: 6-SAIRA DRESSING - UPPER BODY: T-shirt/pullover shirt (four steps) ARTICLES SCORE Total number of steps: 4 DRESSING - UPPER BODY - STEP 1: Does the patient require help when dressing above the waist? No. DRESSING - UPPER BODY - SCORE: 7-IND DRESSING - LOWER BODY: Sock - Left foot (one step) Sock - Right foot (one step) Underwear (three steps) ARTICLES SCORE Total number of steps: 5 DRESSING - LOWER BODY - STEP 1: Does the patient require help when dressing below the waist? Yes. DRESSING - LOWER BODY - STEP 2: Does the patient require the assistance of a helper? No. Patient requires an assistive device such as a [employer]. OR s/he takes more than reasonable time as s/he dresses the lower body, OR there is a con cern for safety when s/he dresses the lower body DRESSING - LOWER BODY - SCORE: 6-SAIRA TOILETING: Activity did not occur on this shift TOILETING - SCORE: 0-UNK BLADDER MANAGEMENT: Activity did not occur on this shift BLADDER MANAGEMENT - SCORE: 7-IND BOWEL MANAGEMENT: Activity did not occur on this shift BOWEL MANAGEMENT - SCORE: 7-IND TRANSFERS: BED, CHAIR, WHEELCHAIR: TRANSFERS: BED, CHAIR, WHEELCHAIR - STEP 1: Does the patient require assistance with bed, chair, or wheelchair transfers? Yes. TRANSFERS: BED, CHAIR, WHEELCHAIR - STEP 2: Does the patient require the assistance of a helper? No. Patient only requires an assistive device fo r bed, chair, wheelchair transfers such as a sliding board, grab bar, or brace, OR s/he takes more th an reasonable time, OR there is a safety concern when s/he performs the transfers TRANSFERS: BED, CHAIR, WHEELCHAIR - SCORE: 6-SAIRA TRANSFERS: TOILET: Activity did not occur on this shift TRANSFERS: TOILET - SCORE: 0-UNK TRANSFERS: SHOWER: Activity did not occur on this shift TRANSFERS: SHOWER - SCORE: 0-UNK TRANSFERS: TUB: TRANSFERS: TUB - STEP 1: Does the patient require assistance with tub transfers? Yes. TRANSFERS: TUB - STEP 2: Does the patient require the assistance of a helper? No. Only requires the assistance of an assistive device, OR takes more than reasonable time, OR there is a concern for safety when s/he performs tub transfers TRANSFERS: TUB - SCORE: 6-SAIRA LOCOMOTION: WALK: Activity did not occur on this shift LOCOMOTION: WALK - SCORE: 0-UNK LOCOMOTION: WHEELCHAIR: Activity did not occur on this shift LOCOMOTION: WHEELCHAIR - SCORE: 0-UNK LOCOMOTION: STAIRS: Activity did not occur on this shift LOCOMOTION: STAIRS - SCORE: 0-UNK COMPREHENSION: COMPREHENSION - SCORE: 0-UNK EXPRESSION EXPRESSION - SCORE: 0-UNK SOCIAL INTERACTION: SOCIAL INTERACTION - SCORE: 0-UNK PROBLEM SOLVING: PROBLEM SOLVING - SCORE: 0-UNK MEMORY: MEMORY - SCORE: 0-UNK SIGNATURE PANEL: The following modified sections: Eating - Score, Grooming - Score, Bathing - Score, Dressing - Upper Body - Score, Dressing - Lower Body - Score, Toileting - Score, Transfers: Bed, Chair, Wheelchair - S core, Transfers: Toilet - Score, Transfers: Shower - Score, Transfers: Tub - Score, Comprehension - S core, Expression - Score, Social Interaction - Score, Problem Solving - Score, Memory - Score were [e lectronically] signed by ELSI Ceballos on WedApr 21 2018 07:36:44 [facility]-0500 (Formerly [facility] Time)
--- NOTE | 2018-04-22 15:47 | R.DS ---
FACILITY [facility] MR# [id number] NAME SHANNAN MCKEE [address]ESS [address] [address] [id number] PHONE DATE OF 1950 AGE 68 N# [id number] GENDER Female DEXTERITY Right-handed MARITAL STATUS RACE Black ENCOUNTER PHYSICIAN Dr. Davie Hernandez M.D. REFERRING DOCTOR Dr. BRIANNA CASAS REFERRING FACILITY [facility] DISCHARGE DIAGNOSIS: - Other Disabling Impairments 13 - Other Disabling Impairments (13) Critical illness polyneuropathy, Debility, ESRD. DISCHARGE COMORBIDITIES: - Tier 1 Dependence on renal dialysis (Z99.2) - Non-Tiered Type 2 diabetes mellitus with diabetic neuropathy, unspecified (E11.40) - N/A HTN ARTHRITIS END STAGE RENAL DISEASE DATE OF ADMISSION 04/07/2018 20:20 (CDT) MEDICATION ALLERGIES: No Known Drug Allergies (NKDA) ENVIRONMENTAL ALLERGIES: None Known - Substance Allergies None Known - Other Allergies None Known NURSING: - Shower allowing shower - Lab Results blood Sugar Check ACHS PRECAUTIONS: - Fall Precaution Bed and chair alarm ACTIVITIES OOB only with supervision THERAPIES: - Occupational Therapy Evaluate and Treat - Physical Therapy Evaluate and Treat HISTORY OF PRESENT ILLNESS: Pt. is a 68 yo Right-handed black female.On 03/30/2018 she was admitted to [facility] with diagnosis Critic al illness polyneuropathy, Debility, ESRD.Her impairment category is Other Disabling Impairments 13 - Other Disabling Impairments (13).Pre-morbidly, Pt. was independent/mod-I in Sphincter Control, Comm unication, and Social Cognition; and she had good Sphincter Control.Currently, she has deficits of Sa fety Awareness, Transfers Control, Balance, Self-Care, Locomotion, and Endurance.Pt. is now referred to [facility] for acute in-patient rehabilitation in order to maximize patient 's functional independence in activities of daily living, strength, ROM, and mobility.- Rehab Goal Patient has realistic goal of being discharged at assistance level 6-Deyanira to reside at Home with Fam joelle/Relatives. HOSPITAL COURSE: On 04/07/2018 the following precautions were added for the patient: Fall Precaution - Bed and chair a larm. On 04/08/2018 the following precautions were added for the patient: Fall Precaution - Bed and chair alarm. On 04/11/2018 the following precautions were removed for the patient: Fall Precaution - Bed and montserrat r alarm. On 04/12/2018 the following precautions were added for the patient: Fall Precaution - Bed and chair alarm. The following precautions were removed for the patient: Fall Precaution - Bed and chair alarm, and F all Precaution - Bed and chair alarm. DIET - LIQUID TEXTURE: On 04/07/2018 Pt was upgraded to Regular Diet - Liquid Texture. DIET - SOLID TEXTURE: On 04/07/2018 Pt was upgraded to Regular Diet - Solid Texture. DIET TYPE: On 04/07/2018 Pt was upgraded to Regular Diet Type. FALL PRECAUTION: TUBE FEED: On 04/07/2018 Pt was changed to N/A Tube Feed. DISCHARGE PHYSICAL EXAM - Gen Alert and awake Lying in bed No apparent distress Oriented to: person, time, and place - Skin Dark skin discoloration of right more than left leg consistent with stasis dermatitis Normacephalic - Eyes No abnormalities - ENMT No abnormalities - Neck No abnormalities - CVS RRR - Chest Clear - Abd Obese, soft, nontender - GI Non distended Deferred - Little urine production. On hemodialysis three times weekly. - Ext Dark skin discoloration of right more than left leg consistent with stasis dermatitis. Weak dorsalis pedis pulse. - MSK 3-4+/5 weakness in both lower extremities. - Neuro No focal deficits - Psych Mild anxiety. FUNCTIONAL STATUS: - Self-Care A. Eating 5-sup 5-sup B. Grooming 5-sup 5-sup C. Bathing 4-Ethel 6-Deyanira D. Dressing - Upper 4-Ethel 4-Ethel E. Dressing - Lower 4-Ethel 4-Ethel F. Toileting 4-Ethel 4-Ethel - Sphincter Control G: Bladder control 7-Ind 7-Ind H: Bowel control 7-Ind 7-Ind - Transfers Control I. Bed/Chair/Wheelchair 4-Ethel 5-sup J. Toilet 4-Ethel 4-Ethel K. Tub/Shower 0-ADNO 6-Deyanira - Locomotion L. Walk/Wheelchair (C) 4-Ethel 5-sup L. Walk/Wheelchair (W) 4-Ethel 4-Ethel M. Stairs 0-ADNO 0-ADNO - Communication N. Comprehension (B) 6-Deyanira 6-Deyanira O. Expression (B) 6-Deyanira 6-Deyanira - Social Cognition P. Social Interaction 6-Deyanira 6-Deyanira Q. Problem Solving 6-Deyanira 6-Deyanira R. Memory 6-Deyanira 6-Deyanira - Endurance Fair - Balance Fair - Safety Awareness Fair DISCHARGE INSTRUCTIONS: - N/A Heparin 5000 units sq q12 hours. DISCHARGE PLAN, FOLLOW UP CARE PROVISIONS: - Estimated Length of Stay (days) 13. - Consensus on plan Discharge plan has been discussed with primary caregiver. Patient/Family is in agreement with the cale n. Primary caregiver is in agreement with the plan. - Patient/Family Goals Return home with assistance. - Planned Living Setting Upon Discharge Home, to live with Family/Relatives. SIGNATURE PANEL: (CDT)
== END 2018-04-20 15:15 | disposition home health service (06) | DRG 291 ==
LOC: 5TH 20:13
PROVIDERS: ADMIT Psychiatry & Neurology Neurology with Special Qualifications in Child Neurology; ATTEND Family Medicine
PROC: 5A1D70Z Performance of Urinary Filtration, Intermittent, Less than 6 Hours Per Day (ICD-10-PCS; principal; 2018-04-11)
PROC: 5A1D70Z Performance of Urinary Filtration, Intermittent, Less than 6 Hours Per Day (ICD-10-PCS; 2018-04-13)
PROC: 5A1D70Z Performance of Urinary Filtration, Intermittent, Less than 6 Hours Per Day (ICD-10-PCS; 2018-04-15)
PROC: 5A1D70Z Performance of Urinary Filtration, Intermittent, Less than 6 Hours Per Day (ICD-10-PCS; 2018-04-18)
PROC: 5A1D70Z Performance of Urinary Filtration, Intermittent, Less than 6 Hours Per Day (ICD-10-PCS; 2018-04-20)
DX: I13.2 Hypertensive heart and chronic kidney disease with heart failure and with stage 5 chronic kidney disease, or end stage renal disease (principal); N18.6 End stage renal disease; I50.32 Chronic diastolic (congestive) heart failure; Z68.42 Body mass index [BMI] 45.0-49.9, adult; N17.9 Acute kidney failure, unspecified; N25.81 Secondary hyperparathyroidism of renal origin; R53.81 Other malaise; E11.42 Type 2 diabetes mellitus with diabetic polyneuropathy; E11.22 Type 2 diabetes mellitus with diabetic chronic kidney disease; Z99.2 Dependence on renal dialysis; M19.90 Unspecified osteoarthritis, unspecified site; K21.9 Gastro-esophageal reflux disease without esophagitis; E78.5 Hyperlipidemia, unspecified; E66.9 Obesity, unspecified; N25.0 Renal osteodystrophy; D63.1 Anemia in chronic kidney disease
CPT/HCPCS: 36415; 71045; 72040; 72070; 76770; 80048; 80053; 81001; 82040; 82310; 82607; 82728; 82746; 82962; 83520; 83540; 83735; 83970; 84100; 84134; 84165; 84466; 85018; 85025; 86021; 86038; 86160; 86225; 86317; 86430; 86704; 86706; 86803; 87086; 87088; 87340; 87389; 90935; 93926; 93971; 97542; G0257; J1644; J2916; J2997; Q4081